=== PATIENT | female | born 1965 | race Caucasian/White ===

== ENCOUNTER → 2016-09-17 | Outpatient (REF) | payer BC | LOC: M LAB REF 12:54 | PROVIDERS: ATTEND Physician Assistant Medical | DX: N39.0 Urinary tract infection, site not specified (principal) ==

== ENCOUNTER → 2016-12-22 | Outpatient (REF) | payer BC ==
[2016-12-22 12:23] LABS: PERCENT SATURATION 25.9 % (13.2-45.0)
[2016-12-22 12:52] LABS: FOLATE 14.1 NG/ML (>5.4)
== END ==
LOC: M LABNEURO 10:31
PROVIDERS: ATTEND Psychiatry & Neurology Neurology
DX: G25.81 Restless legs syndrome (principal)

== ENCOUNTER → 2017-02-18 | Outpatient (CLI) | payer BC ==
--- NOTE | 2017-02-18 15:18 | REPMRS ---
Patient History The patient states she has not had a clinical breast exam in over a year. Patient is postmenopausal. No known family history of cancer. Digital Woman Screen Mammo: February 18, 2017 - Exam #: [id number] Bilateral CC and MLO view(s) were taken. Technologist: Eliza Barahona, Technologist Prior study comparison: July 14, 2015, digital woman screen mammo performed at [facility] to [facility]. July 02, 2014, digital woman screen mammo performed at [facility] to [facility]. September 13, 2012, bilateral digital mammo screening bilat, performed at [facility]. FINDINGS: There are scattered fibroglandular densities. There has been no change in the appearance of the mammogram from the prior studies. There is a mild amount of scattered fibroglandular density which is fairly symmetric. There is no interval development of dominant mass, architectural distortion, or clustered microcalcification suggestive of malignancy. ASSESSMENT: BI-RADS/ACR category 1 mammogram. Negative. Recommendation Routine screening mammogram in 1 year (for women over age 40). This mammogram was interpreted with the aid of an FDA-approved computer-aided dectection system. Electronically Signed By: Jason Waite MD 02/18/17 [id number]
== END ==
LOC: M WHC 14:03
PROVIDERS: ATTEND Family Medicine
DX: Z12.31 Encounter for screening mammogram for malignant neoplasm of breast (principal)

== ENCOUNTER → 2017-02-18 | Outpatient (REF) | payer BC | LOC: M SFHCWAGY 14:28 | PROVIDERS: ATTEND Family Medicine | DX: Z12.4 Encounter for screening for malignant neoplasm of cervix (principal) ==

== ENCOUNTER → 2018-04-17 | Outpatient (REF) | payer BC ==
[2018-04-17 13:29] LABS: APPEARANCE, URINE CLEAR (CLEAR); BACTERIA, URINE AUTO 1+ (NEGATIVE); BILIRUBIN, URINE AUTO NEGATIVE (NEGATIVE); BLOOD, URINE BLOOD 3+ (NEGATIVE); COLOR, URINE STRAW (YELLOW); GLUCOSE, URINE (UA) AUTO NEGATIVE (NEGATIVE); KETONE, URINE AUTO NEGATIVE (NEGATIVE); LEUKOCYTE ESTERASE, URINE AUTO 3+ (NEGATIVE); MUCUS, URINE SMALL (NEGATIVE); NITRITE, URINE AUTO NEGATIVE (NEGATIVE); PROTEIN, URINE AUTO NEGATIVE (NEGATIVE); RBC, URINE AUTO 2 /HPF (0-3); SPECIFIC GRAVITY URINE AUTO 1.003 (1.002-1.035); SQUAMOUS EPITHELIAL CELL UR AU 0 /HPF (0-6); UROBILINOGEN, URINE AUTO 0.2 mg/dL (0.0-2.0); WBC, URINE AUTO 69 /HPF (0-3)
== END ==
LOC: M LAB REF 13:07
PROVIDERS: ATTEND Physician Assistant Medical
DX: N39.0 Urinary tract infection, site not specified (principal)

== ENCOUNTER → 2018-04-21 | Outpatient (CLI) | payer BC ==
--- NOTE | 2018-04-21 15:47 | REPMRS ---
Patient History The patient states she has not had a clinical breast exam in over a year. Patient is postmenopausal and has history of skin cancer at age 52. No known family history of cancer. 3D TOMOSYNTHESIS WAS PERFORMED. Digital Woman Screen Mammo: April 21, 2018 - Exam #: [id number] Bilateral CC and MLO view(s) were taken. Technologist: Elham Ruiz, Technologist Prior study comparison: February 18, 2017, digital woman screen mammo performed at [facility]. July 14, 2015, digital woman screen mammo performed at [facility] to [facility]. FINDINGS: There are scattered fibroglandular densities. There has been no change in the appearance of the mammogram from the prior studies. There is a mild amount of residual fibroglandular tissue which is fairly symmetric. There is no interval development of dominant mass, architectural distortion, or clustered microcalcification suggestive of malignancy. Assessment: BI-RADS/ACR category 1 mammogram. Negative Mammogram. Recommendation Routine screening mammogram in 1 year (for women over age 40). This mammogram was interpreted with the aid of an FDA-approved computer-aided dectection system. Electronically Signed By: Kai Roca MD 04/21/18 [id number]
== END ==
LOC: M WHC 14:02
PROVIDERS: ATTEND Family Medicine
DX: Z12.31 Encounter for screening mammogram for malignant neoplasm of breast (principal)

== ENCOUNTER → 2018-04-21 | Outpatient (REF) | payer BC | LOC: M SFHCWAGY 14:48 | PROVIDERS: ATTEND Family Medicine | DX: Z12.4 Encounter for screening for malignant neoplasm of cervix (principal) ==

== ENCOUNTER 2018-07-27 23:29 | Emergency (ER) | payer BC ==
[~2018-07-27] VITALS: Ht 160 cm; Wt 86.9 kg
[2018-07-27] MEDS ORDERED: PRED5TA PO (23:36)
[2018-07-27] MEDS ORDERED: LEVA750T7 PO (23:36)
[2018-07-27] MEDS ORDERED: BENA40TA PO (23:36)
[2018-07-27] MEDS ORDERED: OMEP10CA45 PO (23:36)
[2018-07-27] MEDS ORDERED: FENO145T13 PO (23:36)
[2018-07-27] MEDS ORDERED: METO1TAB32 PO (23:36)
--- NOTE | 2018-07-28 01:14 | REPVR ---
EXAM: US Duplex Left Lower Extremity Veins, Limited EXAM DATE/TIME: 07/27/2018 12:26 AM CLINICAL HISTORY: 53 years old, female; Pain; Leg, lower; Left; Additional info: Left calf pain TECHNIQUE: Imaging protocol: Real-time Duplex ultrasound of the Left Lower Extremity with 2-D portillo scale, color Doppler flow and spectral waveform analysis. Limited exam focused on the left lower extremity veins. COMPARISON: No relevant prior studies available. FINDINGS: Left deep veins: Unremarkable. The common femoral, femoral, proximal profunda femoral and popliteal veins are patent without thrombus. Normal Doppler waveforms. Normal compressibility and/or augmentation response. Left superficial veins: Unremarkable. Saphenofemoral junction is patent without thrombus. Soft tissues: Unremarkable. IMPRESSION: No acute findings. No evidence of deep vein thrombosis. Electronically signed by: Tiffany Valverde On 07/28/2018 01:14:35 AM
[2018-07-28] MEDS ORDERED: KETOROLAC 30 MG/ML VIAL (J1885) IV ONE (01:30)
[2018-07-28] MEDS ORDERED: NS 1,000 ML IV ONE (01:30)
[2018-07-28] MEDS ORDERED: ONDANSETRON 4MG/2ML VIAL (J2405) IV ONE ×2 (01:30→04:30)
[2018-07-28 01:50] LABS: BASO # 0.1 10^3/uL (0.0-0.2); BASO % 0.7 % (0.0-1.0); EOS # 0.2 10^3/uL (0.0-0.50); EOS % 1.4 % (0.0-3.0); HEMATOCRIT 40.7 % (36.0-47.0); HEMOGLOBIN 13.3 g/dl (12.0-15.5); LYMPH # 1.5 10^3/uL (1.5-4.5); LYMPH % 8.4 % (24.0-44.0); MEAN CORPUSCULAR HEMOGLOBIN 29.5 pg (27.0-33.0); MEAN CORPUSCULAR HGB CONC 32.7 g/dl (32.0-36.5); MEAN CORPUSCULAR VOLUME 90.2 fl (80.0-96.0); MONO # 1.4 10^3/uL (0.0-0.8); NEUTROPHILS % 78.8 % (36.0-66.0); PLATELET COUNT, AUTOMATED 499 10^3/uL (150-450); RED BLOOD COUNT 4.51 10^6/uL (4.00-5.40); WHITE BLOOD COUNT 17.7 10^3/uL (4.0-10.0)
[2018-07-28 02:16] LABS: ALBUMIN 3.9 GM/DL (3.2-5.2); ALT/SGPT 27 U/L (12-78); BILIRUBIN,DIRECT 0.2 MG/DL (0.0-0.2); BILIRUBIN,TOTAL 0.6 MG/DL (0.2-1.0); BLOOD UREA NITROGEN 21 MG/DL (7-18); CALCIUM LEVEL 8.9 MG/DL (8.5-10.1); CARBON DIOXIDE LEVEL 28 MEQ/L (21-32); CHLORIDE LEVEL 96 MEQ/L (98-107); CPK CREATINE PHOSPHOKINASE 93 U/L (26-192); CREATININE FOR GFR 0.98 MG/DL (0.55-1.30); GLOMERULAR FILTRATION RATE > 60.0 (>51); GLUCOSE, FASTING 136 MG/DL (70-100); LIPASE 140 U/L (73-393); MB/CK RELATIVE INDEX 1.29 (< OR =4); POTASSIUM SERUM 4.2 MEQ/L (3.5-5.1); SODIUM LEVEL 131 MEQ/L (136-145); TOTAL PROTEIN 7.7 GM/DL (6.4-8.2); TROPONIN I < 0.02 NG/ML (< 0.10)
[2018-07-28] MEDS ORDERED: ISOVUE-370 76% 100ML VIAL (Q9967) As Ordered ONE (02:36)
--- NOTE | 2018-07-28 03:12 | REPVR ---
EXAM: CT Abdomen and Pelvis With Contrast EXAM DATE/TIME: 07/28/2018 2:30 AM CLINICAL HISTORY: 53 years old, female; Abdominal pain; Generalized; Additional info: Generalized abd pain TECHNIQUE: Imaging protocol: Axial computed tomography images of the abdomen and pelvis with intravenous contrast. Coronal and sagittal reformatted images were created and reviewed. Radiation optimization: All CT scans at this facility use at least one of these dose optimization techniques: automated exposure control; mA and/or kV adjustment per patient size (includes targeted exams where dose is matched to clinical indication); or iterative reconstruction. Contrast material: ISO; Contrast volume: 100 ml; Contrast route: AC; COMPARISON: PELVIS NON-OB COMPLETE US 08/25/2015 10:35 AM FINDINGS: Lungs: Bibasilar atelectasis. 3 mm nodule in the lingula. Followup as clinically indicated. ABDOMEN: Liver: Diffuse fatty infiltration of liver. Gallbladder and bile ducts: Status post cholecystectomy. Pancreas: Normal. No ductal dilation. Spleen: Normal. No splenomegaly. Adrenals: Normal. No mass. Kidneys and ureters: Normal. No hydronephrosis. Stomach and bowel: Few scattered colonic diverticula without any CT evidence of diverticulitis. No bowel dilatation or obstruction Appendix: No evidence of appendicitis. PELVIS: Bladder: Unremarkable as visualized. Reproductive: Unremarkable as visualized. ABDOMEN and PELVIS: Intraperitoneal space: Normal. No free air. No significant fluid collection. 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 Soft tissues: Unremarkable. Vasculature: Normal. No abdominal aortic aneurysm. Lymph nodes: Normal. No enlarged lymph nodes. IMPRESSION: No acute finding. Electronically signed by: Tiffany Valverde On 07/28/2018 03:11:30 AM
[2018-07-28] MEDS ORDERED: DICYCLOMINE 10 MG CAP PO ONE (04:15)
[2018-07-28] MEDS ORDERED: DICY10CA13 PO (04:16)
[2018-07-28] MEDS ORDERED: ONDA4TAB6 PO (04:16)
[2018-07-28 04:26] VITALS: BP 113/69
== END 2018-07-28 04:48 | disposition home or self-care (01) ==
LOC: M ED 23:29
DX: R10.9 Unspecified abdominal pain (principal); R11.2 Nausea with vomiting, unspecified; R19.7 Diarrhea, unspecified; A08.11 Acute gastroenteropathy due to Norwalk agent; I10 Essential (primary) hypertension; Z79.899 Other long term (current) drug therapy
CPT/HCPCS: 74177; 80048; 80076; 82550; 82553; 83605; 83690; 84484; 85025; 87040; 87507; 93041; 93971; 96374; 96375; 96376; 99284; J1885; J2405; Q9967

== ENCOUNTER → 2019-04-27 | Outpatient (CLI) | payer BC ==
[~2019-04-27] MED LIST: BENA40TA PO; DICY10CA13 PO; FENO145T7 PO; LEVA750T7 PO; METO1TAB32 PO; OMEP10CA PO; ONDA4TAB6 PO; PRED5TA PO
--- NOTE | 2019-04-27 12:10 | REPMRS ---
Patient History The patient states she has not had a clinical breast exam in over a year. No known family history of cancer. Digital Woman Screen Mammo: April 27, 2019 - Exam #: [id number] Bilateral CC and MLO view(s) were taken. Technologist: Lucinda Evans, Technologist Prior study comparison: April 21, 2018, bilateral digital woman screen mammo performed at [facility]. February 18, 2017, digital woman screen mammo performed at [facility]. July 14, 2015, digital woman screen mammo performed at [facility]. FINDINGS: There are scattered fibroglandular densities. There is a small stable well-circumscribed nodular opacity projecting in the upper outer quadrant on the right unchanged from prior studies consistent with a lymph node. There has been no change in the appearance of the mammogram from the prior studies. There is a mild amount of scattered fibroglandular density which is fairly symmetric. There is no interval development of dominant mass, architectural distortion, or grouped microcalcification suggestive of malignancy. 3-D tomosynthesis shows no additional findings. Assessment: BI-RADS/ACR category 2 mammogram. Benign Findings. Recommendation Routine screening mammogram of both breasts in 1 year (for women over age 40). This patient's Lifetime Breast Cancer Risk is estimated at 9.0 %. This mammogram was interpreted with the aid of an FDA-approved computer-aided dectection system. Electronically Signed By: Jason Waite MD 04/27/19 [id number]
== END ==
LOC: M WHC 10:57
PROVIDERS: ATTEND Family Medicine
DX: Z12.31 Encounter for screening mammogram for malignant neoplasm of breast (principal)

== ENCOUNTER → 2019-04-27 | Outpatient (REF) | payer BC | LOC: M PLALAB 11:42 | PROVIDERS: ATTEND Family Medicine | DX: Z12.4 Encounter for screening for malignant neoplasm of cervix (principal); N95.2 Postmenopausal atrophic vaginitis ==

== ENCOUNTER → 2019-12-18 | Outpatient (CLI) | payer BC ==
[2019-12-18 19:31] LABS: BLOOD UREA NITROGEN 18 MG/DL (7-18); CREATININE FOR GFR 0.85 MG/DL (0.55-1.30); GLOMERULAR FILTRATION RATE > 60.0 (>51)
== END ==
LOC: M WUC 14:34
PROVIDERS: ATTEND Orthopaedic Surgery
DX: R22.41 Localized swelling, mass and lump, right lower limb (principal)

== ENCOUNTER → 2020-05-13 | Outpatient (CLI) | payer BC ==
--- NOTE | 2020-05-13 16:57 | REPMRS ---
Patient History The patient states she had a clinical breast exam in 2020. No known family history of cancer. Digital Woman Screen Mammo: May 13, 2020 - Exam #: [id number] Bilateral CC and MLO view(s) were taken. Technologist: Kia Ochoa, Technologist Prior study comparison: April 27, 2019, bilateral digital woman screen mammo performed at [facility]. April 21, 2018, bilateral digital woman screen mammo performed at [facility]. February 18, 2017, digital woman screen mammo performed at [facility]. FINDINGS: There are scattered fibroglandular densities. The Volpara volumetric breast density category is:B. There has been no change in the appearance of the mammogram from the prior studies. There is a mild amount of scattered fibroglandular density which is fairly symmetric. There is no interval development of dominant mass, architectural distortion, or grouped microcalcification suggestive of malignancy. 3-D tomosynthesis shows no additional findings. Assessment: BI-RADS/ACR category 1 mammogram. Negative Mammogram. Recommendation Routine screening mammogram of both breasts in 1 year (for women over age 40). This patient's [facility] Lifetime Breast Cancer Risk is estimated at 8.8 %. This mammogram was interpreted with the aid of an FDA-approved computer-aided dectection system. Electronically Signed By: Jason Waite MD 05/13/20 1527
== END ==
LOC: M WHC 14:36
PROVIDERS: ATTEND Nurse Practitioner Women's Health
DX: Z12.31 Encounter for screening mammogram for malignant neoplasm of breast (principal)

== ENCOUNTER → 2020-05-13 | Outpatient (REF) | payer BC | LOC: M SFHCWAGY 19:15 | PROVIDERS: ATTEND Nurse Practitioner Women's Health | DX: Z12.4 Encounter for screening for malignant neoplasm of cervix (principal) ==

== ENCOUNTER → 2020-09-02 | Outpatient (REF) | payer BC ==
[2020-09-02 17:14] LABS: APPEARANCE, URINE CLEAR (CLEAR); BACTERIA, URINE AUTO NEGATIVE (NEGATIVE); BILIRUBIN, URINE AUTO NEGATIVE (NEGATIVE); BLOOD, URINE BLOOD NEGATIVE (NEGATIVE); COLOR, URINE COLORLESS (YELLOW); GLUCOSE, URINE (UA) AUTO NEGATIVE (NEGATIVE); KETONE, URINE AUTO NEGATIVE (NEGATIVE); LEUKOCYTE ESTERASE, URINE AUTO NEGATIVE (NEGATIVE); NITRITE, URINE AUTO NEGATIVE (NEGATIVE); PROTEIN, URINE AUTO NEGATIVE (NEGATIVE); RBC, URINE AUTO 0 /HPF (0-3); SPECIFIC GRAVITY URINE AUTO 1.002 (1.002-1.035); SQUAMOUS EPITHELIAL CELL UR AU 0 /HPF (0-6); UROBILINOGEN, URINE AUTO 0.2 mg/dL (0.0-2.0); WBC, URINE AUTO 0 /HPF (0-3)
== END ==
LOC: M LAB REF 16:33
PROVIDERS: ATTEND Physician Assistant Medical
DX: N39.0 Urinary tract infection, site not specified (principal)

== ENCOUNTER → 2021-01-01 | Outpatient (CLI) | payer BC ==
--- NOTE | 2021-01-01 12:30 | REP ---
INDICATION: ACUTE COUGH. COMPARISON: 12/02/2005 TECHNIQUE: PA and lateral FINDINGS: The superior mediastinal structures are midline. The cardiac silhouette is unremarkable in size, shape, and position. The diaphragmatic surfaces of the lungs are regular, and the costophrenic angles are clear. The pulmonary maza are clear. The imaged osseous structures are intact. IMPRESSION: There is no acute cardiopulmonary disease. No change from the prior exam. <Electronically signed by Dalton Lockhart > 01/01/21 0935
== END ==
LOC: M WUC 11:59
PROVIDERS: ATTEND Physician Assistant
DX: R05.1 Acute cough (principal)

== ENCOUNTER 2021-01-26 18:31 | Emergency (ER) | payer BC ==
[~2021-01-26] VITALS: Ht 160 cm; Wt 87.7 kg
[2021-01-26 18:32] VITALS: BP 149/78
--- OUTSIDE RECORDS SUMMARY | 2021-01-26 18:38 | CCD ---
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 Active confirmed 29 3201403 Problem Urinary frequency 788.41 Active confirmed 16 1157002 ALLERGIES Allergen (clinical drug ingredient) Drug/Non Drug Allergy do cumented on EMR Reaction Allergy Type Onset Date Status Sulfasalazine Sulfa Antibiotics Rash Drug Allergy Ac tive Floxin Otic rash Drug Allergy Active ENCOUNTERS from 1965 to 2021-01-08 Encounter Location Date Provider Diagnosis [facility] [address] [place] [address] [place] [address] Dec, Lucinda Pina IMMUNIZATIONS No Information SOCIAL HISTORY Tobacco Use: Social History Observation Description Date Details (start date - stop date) Never Smoker Sex Assigned At : Social History Observation Description Sex Assigned At Unknown Education: Question Answer Notes Level of Education: High School Sexual Hx: Question Answer Notes Had sex in the last 12 months (vaginal, oral, or anal)? Yes LMP: post menopause Have you ever had an STD? No with Men only Alcohol Screening: Question Answer Notes Did you have a drink containing alcohol in the past year? Ye s Points 3 Interpretation Positive How often did you have six or more drinks on one occas ion in the past year? Never (0 points) How many drinks did you have on a typica l day when you were drinking in the past year? 3 or 4 (1 point) How often did you have a drink containing alcohol in t he past year? Two to four times a month (2 points) BMI Care Goal Follow-Up Question Answer Notes Above Normal BMI Follow-Up Lifestyle education regarding t Tobacco Use: Question Answer Notes Are you a: never smoker never smoker REASON FOR REFERRAL No Information VITAL SIGNS No information MEDICATIONS Medication SIG (Take, Route, Frequency, Duration) Notes Start Da te End Date Status Fenofibrate 134 MG 1 capsule with a meal Orally Once a day not sure o f dose Active Lotensin 20 MG 1 tablet Orally Once a day Active Metoprolol Succinate 50 MG Orally Active Omeprazole 20 MG 1 capsule Orally Once a day Active Atenolol 50 MG 1 tablet Orally Once a day Not-Taking Pantoprazole Sodium 40 MG 1 tablet Orally Once a day as needed Not-Taking Cipro 500 MG 1 tablet Orally as directed for 1 dose Sep Not-Taking Estrace 0.1 MG/GM as directed Vaginal 0.5GM da jesika for 2 weeks, then 2x/week prn. for 90 days Apr, Not-Taking Fluconazole 150 MG 1 tablet Orally Daily for 1 day(s) 2020 Active Aspirin 81 MG 1 tablet Orally Once a day Not-Taking Atorvastatin Calcium 20 MG 1 tablet Orally Once a day Not-Taking PROCEDURES No Information RESULTS No Results REASON FOR VISIT No Information MEDICAL (GENERAL) HISTORY Type Description Date Medical History Female Climacteric State Medical History Migraines Medical History Asthma Medical History Obesity Medical History Mixed Hyperlipidemia Medical History Essential Hypertension Medical History Acid reflux Medical History allergies Medical History high cholesterol Medical History HTN Medical History postmenopause Medical History freq UTIs/BV Medical History post-tona diarrhea Medical History hematuria-2012 x 1 Surgical History 03/1990, 1991 Surgical History Cholecystectomy 09/1999 Surgical History EGD, esophageal dilation-Dr Abad 05/21/14 Surgical History Endoscopy and stricture repair 06/2014 Hospitalization History surgicaly related Goals Section No Information Health Concerns No Information MEDICAL EQUIPMENT No Information MENTAL STATUS No Information FUNCTIONAL STATUS No Information ASSESSMENTS No Information PLAN OF TREATMENT Medication Medication Name Sig Start Date Stop Date Fluconazole 150 MG 1 tablet Orally Daily for 1 day(s) Apr, Next Appt Details Provider Name:Lucinda Pina, 2021-05-18 01:00:00 PM, [address] [facility], , [place], [address], Insurance Providers Payer Name Payer Address Payer Phone Insured Name Patient Relati onship to Insured Coverage Start Date Coverage End Date [employer] PPO [phone] [facility] [address] [facility] [id number] [place] I [id number]
--- OUTSIDE RECORDS SUMMARY | 2021-01-26 18:38 | CCD | Continuity of Care Document ---
Author Author [facility] Organization Unknown Address [address] [facility] [place] [address] Phone [phone] Problems Active Problems Provider Date Essential hypertension Onset: 03/22/2001 Mixed hyperlipidemia Abimael Kline D.O., ISA Onset: 01/2003 Migraine Abimael Kline D.O., ISA Onset: 04/2010 Female climacteric state Abimael Kline D.O., ISA Onset: 05/20/2011 Body mass index 30+ - obesity Abimael Kline D.O., ISA O nset: 01/16/2015 Social History Type Date Description Comments Sex Unknown Tobacco Use Start: Unknown Never Smoked Cigarettes ETOH Use Occasionally consumes beer Tobacco Use Start: Unknown Patient has never smoked Smoking Status Reviewed: 02/05/20 Patient has never smoked Seat Belt/Car Seat yes Allergies and adverse reactions Active Allergies Criticality Reaction | Severity Comments Date Sulfa Drugs Unable to assess criticality rash 10/22/1998 Statins Unable to assess criticality severe mm sp asm 03/08/2017 Medications Active Medications SIG Qnty Indications Ordering Provide r Date Azithromycin 250mg Tablets 2 by mouth stat followed by 1 by mouth every day x 4 days 6tabs Marcos Kline D.O., FAAFP 01/01/2021 Diflucan 150mg Tablets one pill by mouth today followed by 1 in 1 week. 2tabs Abimael Kline D.O., FAAFP 01/01/2021 Pfizer-BiontRiiid Covid-19 Vaccine 30mcg/0.3ML Suspension both Abimael Kline D.O., FAAFP 11/18/2020 Cefdinir 300mg Capsules 1 tab by mouth twice a day for 10 days 20caps Abimael Kline D.O., F AAFP 11/18/[address] 1 by mouth every day 90caps [facility] 06/2020 Fenofibrate 145mg Tablets 1 by mouth every day 90tabs [facility] D.O[facility] Metoprolol Succinate ER 50mg Tablets ER 24HR 1 by mouth every day 90tabs Tony Torres, [facility] 03/08/2017 Lotensin 20mg Tablets take 1 tab by mouth every day 90tabs Abimael Kline D.O., [facility] Align 4mg Capsules 1 by mo [facility] every day Unknown Immunizations CPT Code Status Date Vaccine Lot # [id number] Refused 02/07/2018 Influenza Virus Vaccine, Quadrivalent, Slit Virus, Im Use 3Y & Up [id number] Refused 12/07/2016 Influenza Virus Vaccine, Quadrivalent, Slit Virus, Im Use 3Y & Up [id number] Vital Signs Date Vital Result Comment 01/01/2021 11:20am BP Systolic 134 mmHg BP Diastolic 82 mmHg Body Temperature 98.0 F Heart Rate 78 /min Respiratory Rate 16 /min Height 63.25 inches 5'3.25" Weight 197.00 lb [place] Body Weight 115 lb BMI (Body Mass Index) 34.6 kg/m2 O2 % BldC Oximetry 97 % 11/18/2020 1:01pm BP Systolic 124 mmHg BP Diastolic 64 mmHg Body Temperature 97.1 F Heart Rate 73 /min Respiratory Rate 16 /min Height 63.25 inches 5'3.25" Weight 196.00 lb Narvon Body Weight 115 lb BMI (Body Mass Index) 34.4 kg/m2 O2 % BldC Oximetry 96 % (AT Rest), (Room Air ) Results Test Acquired Date Facility Test Result H/L Range Note CBC 11/18/2020 [facility] WBC 8.0 10E3/uL 4.1 - 10.9 1 RBC 4.20 10E6/uL 4.20 - 6.30 HGB 12.4 g/dL 12.0 - 18.0 HCT 37.8 % 37.0 - 51.0 MCV 90.0 fL 80.0 - 97.0 MCH 29.5 pg 26.0 - 32.0 MCHC 32.8 g/dL 31.0 - 36.0 PLT 451 10E3/uL High 140 - 440 RDW-CV 12.9 % 11.5 - 14.5 Lym% 38.9 % 10.0 - 58.5 Neut% 53.3 % 37.0 - 92.0 MXD% 7.8 % 0.1 - 24.0 Lym# 3.1 10E3/uL 0.6 - 4.1 Neut# 4.3 % 2.0 - 7.8 MXD# 0.6 10E3/uL 0.0 - 1.8 MPV 7.8 fL Low 9.0 - 13.0 CMP 11/18/2020 [facility] Glu 100 mg/dL 70 - 110 BUN 14 mg/dL 8 - 23 Creat 0.9 mg/dL 0.5 - 1.0 BUN/Creatinine Ratio 16.8 CALC Na 135 mmol/L Low 136 - 145 K 4.3 mmol/L 3.5 - 5.1 CL 99.0 mmol/L 98.0 - 107.0 Co2 24.2 mmol/L 22.0 - 29.0 CA 9.9 mg/dL 8.6 - 10.2 TP 7.7 g/dL 6.6 - 8.7 Alb 4.8 g/dL 3.4 - 4.8 A/G Ratio 1.7 CALC Globulin 2.9 CALC Alp 79.9 U/L 35 - 129 Alt (SGPT) 28 U/L 0 - 41 Ast (Sgot) 26 U/L 0 - 40 Tbili 0.39 mg/dL 0.0 - 1.2 Osmolality-Calculated 270.8 CALC Anion Gap 16 mmol/L eGFR 83 # Calc 2 eGFR Non-Afr. Armenian 71 # Calc 3 U/A DIP 11/18/2020 [facility] Color pale yellow QUAL Clarity clear QUAL Glucose-Ua Negative g/dL Negative Bilirubin,Urine Negative QUAL Negative Ketone Negative mg/dL Negative Specific Tignall <=1.005 # Abnormal 1.000 - 1.030 Blood - Ua Negative QUAL Negative pH 6.0 # 5.0 - 8.0 Protein Negative mg/dL Negative Urobilinogen 0.2 NA 0.2 - 1.0 Nitrite Negative QUAL Negative Leukocyte Trace QUAL Negative 1 NORMAL RANGES Age WBC RBC HGB HCT MCV PLT Adult M 4.1-10.9 4.20-6.30 12.0-18.0 37.0-51.0 80-97 140-440 Adult F 4.1-10.9 4.04-5.48 12.0-18.0 37.0-51.0 80-97 140-440 0 -1 Yr 5.0-20.0 3.9-5.9 15-18 MV: 44 MV: 91 MV: 277 2-9 Yr. 6.0-17.0 3.8-5.4 11-13 MV: 37 MV: 78 MV: 300 10 Yrs. 5.0-13.0 3.8-5.4 12-15 MV: 39 MV: 80 MV: 250 NOTE: * FOR ADULT BLACK MALES AND FEMALES, NORMAL WBC IS 2.9-7.7 K/ML * FOR ADULT BLACK MALES AND FEMALES, NORMAL RBC,HGB, AND HCT IS 5% LESS SOURCE FOR DATA: [employer] 1800 OPERATION MANUAL( AUTOMATED BLOOD COUNTS AND DIFF.) APPENDIX B-3 CHRONIC KIDNEY DISEASE STAGING PER NKF: MALE GFR INTERPRETATION: 20-49 YRS: >60 mL/min Normal 50-59 YRS: >56 mL/min Normal 60-69 YRS: >49 mL/min Normal 70-79 YRS: >42 mL/min Normal 80 and above >35 mL/min Normal FEMALE GRF INTERPRETATION: 20-39 YRS: >60 mL/min Normal 40-49 YRS: >58 mL/min Normal 50-59 YRS: >51 mL/min Normal 60-69 YRS: >45 mL/min Normal 70-79 YRS: >39 mL/min Normal 80 and above >32 mL/min Normal 2 CKD-EPI 3 CKD-EPI Procedures Date Code Description Status 01/01/2021 01914 Office/Outpatient Established Lo w MDM 20-29 Min Completed 11/18/2020 50586 Office/Outpatient Established Mo d MDM 30-39 Min Completed Medical Devices Description No Information Available Encounters Type Date Location Provider Dx Diagnosis Office Visit 01/01/2021 11:15a [place] [facility] RobsonDouglas rao Angelica, RP A R05.1 Acute cough J01.90 Acute sinusitis, unspecified H69.91 Unspecified Eustachian tube disorder, right ear Office Visit 11/18/2020 1:00p [place] [facility] Abimael Kline D.O., FAAFP I10 Essential (primary) hypertension E78.5 Hyperlipidemia, unspecified K21.9 Gastro-esophageal reflux dis ease without esophagitis H66.91 Otitis media, unspecified, r ight ear Assessments Date Code Description Provider 01/01/2021 R05.1 Acute cough RobsonDouglas, RPA 01/01/2021 J01.90 Acute sinusitis, unspecified Alejandro aceves Douglas Dominguez, RPA 01/01/2021 H69.91 Unspecified Eustachian tube diso rder, right ear RobsonDouglas, RPA 11/18/2020 I10 Essential (primary) hypertension Abimael Kline D.O., FAAFP 11/18/2020 E78.5 Hyperlipidemia, unspecified Sandeep Kline D.O., FAAFP 11/18/2020 K21.9 Gastro-esophageal reflux disease without esophagitis Abimael Kline D.O., FAAFP 11/18/2020 H66.91 Otitis media, unspecified, right ear Abimael Kline D.O., ISA Plan of Treatment Future Appointment(s):* 02/19/2021 2:00 pm - Abimael Kline D.O., ISA at [facility] Functional Status Description No Information Available Mental Status Description No Information Available Referrals Refer to Reason for Referral Status Appt Date Haris Kline M.D. rt collar bone prominence a t attachment to the manubrium /sternum With Laying down Goes Away no injury please eval Sent [address] [id number] [phone]
--- OUTSIDE RECORDS SUMMARY | 2021-01-26 18:38 | CCD | Continuity of Care Document ---
Author Author Terra [facility] Organization Unknown Address [address] [facility] [address] [place] [address] Phone [phone] Problems Active Problems Provider Date Essential hypertension [...] week. 2tabs Abimael Kline D.O., FAAFP 01/01/2021 [employer] Covid-19 Vaccine 30mcg/0.3ML Suspension both Abimael Kline D.O., FAAFP 11/18/2020 Cefdinir 300mg Capsules 1 tab by mouth twice a day for 10 days 20caps Abimael Kline D.O., F AAFP 11/18/[address] 1 by mouth every day 90caps [facility] 06/2020 Fenofibrate 145mg Tablets 1 by mouth every day 90tabs [facility] D.O., [facility] Metoprolol Succinate ER 50mg Tablets ER 24HR 1 by mouth every day 90tabs Tony Torres, [facility] 03/08/2017 Lotensin 20mg Tablets take 1 tab by mouth every day 90tabs Abimael Kline D.O., [facility] Align 4mg Capsules 1 by mo [facility] every day Unknown Immunizations CPT Code Status Date Vaccine Lot # [id number] Refused 02/07/2018 Influenza Virus Vaccine, Quadrivalent, Slit Virus, Im Use 3Y & Up [id number] Refused 12/07/2016 Influenza Virus Vaccine, Quadrivalent, Slit Virus, Im Use 3Y & Up [id number] Vital Signs Date Vital Result Comment 01/01/2021 11:20am BP Systolic 134 mmHg BP Diastolic 82 mmHg Body Temperature 98.0 F Heart Rate 78 /min Respiratory Rate 16 /min Height 63.25 inches 5'3.25" Weight 197.00 lb [place] Body Weight 115 lb BMI (Body Mass Index) 34.6 kg/m2 O2 % BldC Oximetry 97 % 11/18/2020 1:01pm BP Systolic 124 mmHg BP Diastolic 64 mmHg Body Temperature 97.1 F Heart Rate 73 /min Respiratory Rate 16 /min Height 63.25 inches 5'3.25" Weight 196.00 lb [place] Body Weight 115 lb BMI (Body Mass [...] eGFR 83 # Calc 2 eGFR Non-Afr. [place] Islander 71 # Calc 3 U/A DIP 11/18/2020 FPA/Inhouse Color pale yellow QUAL Clarity clear QUAL Glucose-Ua Negative g/dL Negative Bilirubin,Urine Negative QUAL Negative Ketone Negative mg/dL Negative Specific [place] <=1.005 # Abnormal 1.000 - 1.030 Blood [...] HCT IS 5% LESS SOURCE FOR DATA: [employer] 1800 OPERATION MANUAL( AUTOMATED BLOOD COUNTS AND [...] CKD-EPI Procedures Date Code Description Status 01/01/2021 43829 Office/Outpatient Established Lo w MDM 20-29 Min Completed 11/18/2020 40363 Office/Outpatient Established Mo d MDM 30-39 Min Completed Medical Devices Description No Information Available Encounters Type Date Location Provider Dx Diagnosis Office Visit 01/01/2021 11:15a [place] [facility] RobsonDouglas rao Angelica, RP A R05.1 Acute cough J01.90 Acute sinusitis, unspecified H69.91 Unspecified Eustachian tube disorder, right ear Office Visit 11/18/2020 1:00p [place] [facility] Abimael Kline D.O., FAAFP I10 Essential [...] pm - Abimael Kline D.O., ISA at [facility] Functional Status Description No Information Available Mental Status Description No Information Available Referrals Refer to Reason for Referral Status Appt Date Haris Kline M.D. rt collar bone prominence a t attachment to the manubrium /sternum With Laying down Goes Away no injury please eval Sent [address] [id number] [phone]
--- OUTSIDE RECORDS SUMMARY | 2021-01-26 18:39 | CCD | Continuity of Care Document ---
Author Author Terra KLINE D.O. Organization Unknown Address [address] [address] Phone [phone] Problems Active Problems Provider Date Essential hypertension [...] has never smoked Seat Belt/Car Seat yes Allergies, Adverse Reactions, Alerts Active Allergies Criticality Reaction | Severity Comments Date Sulfa Drugs Unable to assess criticality rash 10/22/1998 Statins Unable to assess criticality severe mm sp asm 03/08/2017 Medications Active Medications SIG Qnty Indications Ordering Provide r Date [employer] Covid-19 Vaccine 30mcg/0.3ML Suspension both Abimael Kline D.O., FAAFP 11/18/2020 Cefdinir 300mg Capsules 1 tab by mouth twice a day for 10 days 20caps Abimael Kline D.O., F AAFP 11/18/[address] 1 by mouth every day 90caps Abimael Kline D.O., FAAFP 06/2020 Fenofibrate 145mg Tablets 1 by mouth every day 90tabs Abimael Kline D.O., FAAFP Metoprolol Succinate ER 50mg Tablets ER 24HR 1 by mouth every day 90tabs Tnoy Torres, FAAFP 03/08/2017 Lotensin 20mg Tablets take 1 tab by mouth every day 90tabs [facility] D.O., [facility] Align 4mg Capsules 1 by mo uth every day Unknown Immunizations CPT Code Status Date Vaccine Lot # [id number] Refused 02/07/2018 Influenza Virus Vaccine, Quadrivalent, Slit Virus, Im Use 3Y & Up [id number] Refused 12/07/2016 Influenza Virus Vaccine, Quadrivalent, Slit Virus, Im Use 3Y & Up [id number] Vital Signs Date Vital Result Comment 11/18/2020 1:01pm BP Systolic 124 mmHg BP Diastolic 64 mmHg Body Temperature 97.1 F Heart Rate 73 /min Respiratory Rate 16 /min Height 63.25 inches 5'3.25" Weight 196.00 lb [place] Body Weight 115 lb BMI (Body Mass Index) 34.4 kg/m2 O2 % BldC Oximetry 96 % (AT Rest), (Room Air ) 05/15/2020 10:36am BP Systolic 130 mmHg BP Diastolic 60 mmHg Body Temperature 97.4 F Heart Rate 74 /min Respiratory Rate 18 /min Height 63.25 inches 5'3.25" Weight 195.00 lb [place] Body Weight 115 lb BMI (Body Mass Index) 34.3 kg/m2 O2 % BldC Oximetry 98 % Results Test Acquired Date Facility Test Result [...] eGFR 83 # Calc 2 eGFR Non-Afr. [place] 71 # Calc 3 U/A DIP 11/18/2020 FPA/Inhouse Color pale yellow QUAL Clarity clear QUAL Glucose-Ua Negative g/dL Negative Bilirubin,Urine Negative QUAL Negative Ketone Negative mg/dL Negative Specific [place] <=1.005 # Abnormal 1.000 - 1.030 Blood [...] HCT IS 5% LESS SOURCE FOR DATA: [employer] 1800 OPERATION MANUAL( AUTOMATED BLOOD COUNTS AND [...] 3 CKD-EPI Procedures Date Code Description Status 11/18/2020 31605 Office/Outpatient Established Mo d MDM 30-39 Min Completed Medical Devices Description No Information Available Encounters Type Date Location Provider Dx Diagnosis Office Visit 11/18/2020 1:00p [place] [facility] Abimael Kline D.O., ISA I10 Essential (primary) hypertension E78.5 Hyperlipidemia, unspecified K21.9 Gastro-esophageal reflux dis ease without esophagitis H66.91 Otitis media, unspecified, r ight ear Assessments Date Code Description Provider 11/18/2020 I10 Essential (primary) hypertension Abimael Kline D.O., ISA 11/18/2020 E78.5 Hyperlipidemia, unspecified Sandeep Kline D.O., ISA 11/18/2020 K21.9 Gastro-esophageal reflux disease without esophagitis Abimael Klien D.O., ISA 11/18/2020 H66.91 Otitis media, unspecified, right ear Abimael Kline D.O., FAAFP Plan of Treatment Future Appointment(s):* 02/19/2021 2:00 pm - Abimael Kline D.O., FAAFP at [facility] Functional Status Description No Information Available Mental Status Description No Information Available Referrals Refer to Reason for Referral Status Appt Date Haris Kline M.D. rt collar bone prominence a t attachment to the manubrium /sternum With Laying down Goes Away no injury please eval Created [facility] [address] [address] [phone]
--- OUTSIDE RECORDS SUMMARY | 2021-01-26 18:39 | CCD | Continuity of Care Document ---
Author Author Terra KLINE MD Organization Unknown Address [address] [place] [address], [address] [address] Phone [phone] Problems Active Problems Provider Date Pure hypercholesterolemia Rolo Farfan MD Onset: 11/20 Essential hypertension Rolo Farfan MD Onset: 020 Body mass index 30+ - obesity Onset: Essential hypertension Onset: 03/22/2001 Female climacteric state Onset: 05/20/19 12 Migraine Onset: 11/20/2010 Mixed hyperlipidemia Onset: 11/29/2002 Social History Type Date Description Comments Sex Unknown ETOH Use Occasionally consumes alcohol Tobacco Use Start: Unknown Patient has never smoked Allergies and adverse reactions Active Allergies Criticality Reaction | Severity Comments Date sulfa drugs Unable to assess criticality 12/11/2019 Statins Unable to assess criticality severe mm sp asm 11/26/2020 Floxin Unable to assess criticality 12/11/2019 Medications Active Medications SIG Qnty Indications Ordering Provide r Date [employer] Covid-19 Vaccine 30mcg/0.3ML Suspension both Abimael Kline, 11/18/2020 Cefdinir 300mg Capsules 1 tab by mouth twice a day for 10 days 20caps Abimael Kline, [address] 1 by mouth every day 90caps Abimael Kline DO 03/24/2020 Fenofibrate 145mg Tablets 1 by mouth every day 90tabs Abimael Kline DO 10/31/2017 Metoprolol Succinate ER 50mg Tablets ER 24HR 1 by mouth every day 90tabs Abimael Kline DO Lotensin 20mg Tablets take 1 tab by mouth every day 90tabs Abimael Kline DO 02/11/1999 Fenofibrate 145mg Tablets Take 1 Tablet By Mouth Once Daily Unknown Omeprazole 20mg Capsules DR Take 1 Capsule By Mouth In The Morning Unknown 00 Metoprolol Succinate ER 50mg Tablets ER 24HR Take 1 Tablet By Mouth Once Daily Unknown Lotensin 10mg Tablets Unknown Align 4mg Capsules 1 by mo uth every day Unknown Immunizations Description No Information Available Vital Signs Date Vital Result Comment 11/18/2020 1:01pm Height 63.25 inches 5'3.25" Weight 196.00 lb BMI (Body Mass Index) 34.4 kg/m2 12/11/2019 3:09pm Body Temperature 98.0 F Height 63.5 inches 5'3.50" Weight 191.00 lb BMI (Body Mass Index) 33.3 kg/m2 Results Test Acquired Date Facility Test Result H/L Range Note CBC 11/18/2020 N2N/CCD Import WBC 8.0 10E3/uL 4.1-10.9 1 RBC 4.20 10E6/uL 4.20-6.30 HGB 12.4 g/dL 12.0-18.0 HCT 37.8 % 37.0-51.0 MCV 90.0 fL 80.0-97.0 MCH 29.5 pg 26.0-32.0 MCHC 32.8 g/dL 31.0-36.0 PLT 451 10E3/uL High 140-440 RDW-CV 12.9 % 11.5-14.5 Lym% 38.9 % 10.0-58.5 Neut% 53.3 % 37.0-92.0 MXD% 7.8 % 0.1-24.0 Lym# 3.1 10E3/uL 0.6-4.1 Neut# 4.3 % 2.0-7.8 MXD# 0.6 10E3/uL 0.0-1.8 MPV 7.8 fL Low 9.0-13.0 U/A DIP 11/18/2020 N2N/CCD Import Color pale yellow Qual Clarity clear Qual Glucose-Ua Negative g/dL Bilirubin,Urine Negative Qual Ketone Negative mg/dL Specific [place] <=1.005 # Abnormal 1.000-1.030 Blood - Ua Negative Qual pH 6.0 # 5.0-8.0 Protein Negative mg/dL Urobilinogen 0.2 NA 0.2-1.0 Nitrite Negative Qual Leukocyte Trace Qual 1 NORMAL RANGES Age WBC RBC HGB [...] HCT IS 5% LESS SOURCE FOR DATA: [facility] 1800 OPERATION MANUAL( AUTOMATED BLOOD COUNTS AND [...] Normal 80 and above >32 mL/min Normal Procedures Date Code Description Status 12/26/2020 42686 X-Ray Clavicle Complete Complete d Medical Devices Description No Information Available Encounters Description No Information Available Assessments Date Code Description Provider 12/26/2020 M25.511 Pain in right shoulder Haris Kline MD Plan of Treatment 12/26/2020 - Haris Kline MD* M25.511 Pain in right shoulder* New Labs:* CBC With Differential, Ordered: 12/26/20 * Antinuclear Antibodies, Ordered: 12/26/20 * Rheumatoid Factor Quant, Ordered: 12/26/20 * Erythrocyte Sedimentation Rate, Ordered: 12/26/20 * High Sensitivity C-Reactive Protein, Ordered: 12/26/20 * New Xrays:* CT Right Clavicle, Ordered: 12/26/20 * Follow up:* with [facility] for rt clavicle ct results Functional Status Description No Information Available Mental Status Description No Information Available Referrals Description No Information Available
--- OUTSIDE RECORDS SUMMARY | 2021-01-26 18:39 | CCD | Continuity of Care Document ---
Author Author Terra KLINE MD Organization Unknown Address [address] [place] [address], [address] [address] Phone [phone] Problems Active Problems Provider Date Pure hypercholesterolemia [...] SIG Qnty Indications Ordering Provide r Date [employer]ion[employer]at[employer] Covid-19 Vaccine 30mcg/0.3ML Suspension both Abimael Kline, 11/18/2020 Cefdinir 300mg Capsules 1 tab by mouth twice a day for 10 days 20caps Abimael Kline DO [address] 1 by [...] Bilirubin,Urine Negative Qual Ketone Negative mg/dL Specific [place] <=1.005 # Abnormal 1.000-1.030 Blood - Ua [...] HCT IS 5% LESS SOURCE FOR DATA: [employer] 1800 OPERATION MANUAL( AUTOMATED BLOOD COUNTS AND [...] Normal Procedures Date Code Description Status 12/26/2020 95339 Office/Outpatient Established Lo w MDM 20-29 Min Completed 12/26/2020 93174 X-Ray Clavicle Complete Complete d Medical Devices Description No Information Available Encounters Type Date Location Provider Dx Diagnosis Office Visit 12/26/2020 1:15p [place] Haris Kline MD M25.511 Pain in right shoulder Assessments Date Code Description Provider 12/26/2020 M25.511 Pain in right shoulder Haris Kline MD Plan of Treatment 12/26/2020 - Haris Kline MD* M25.511 Pain in right shoulder* New Xrays:* CT Right Clavicle, Ordered: 12/26/20 * Follow up:* with [facility] for rt clavicle ct results Functional Status Description No Information Available Mental Status Description No Information Available Referrals Description No Information Available
--- OUTSIDE RECORDS SUMMARY | 2021-01-26 18:39 | CCD | Continuity of Care Document ---
Author Author Terra KLINE MD Organization Unknown Address [address] [place] [address], [address] [address] Phone [phone] Problems Active Problems Provider Date Pure hypercholesterolemia [...] SIG Qnty Indications Ordering Provide r Date [employer]Bion[employer] Covid-19 Vaccine 30mcg/0.3ML Suspension both Abimael Kline, [...] Bilirubin,Urine Negative Qual Ketone Negative mg/dL Specific [place] <=1.005 # Abnormal 1.000-1.030 Blood - Ua [...] HCT IS 5% LESS SOURCE FOR DATA: [employer] 1800 OPERATION MANUAL( AUTOMATED BLOOD COUNTS AND [...] Normal Procedures Date Code Description Status 12/26/2020 68069 X-Ray Clavicle Complete Complete d Medical Devices [...]
--- OUTSIDE RECORDS SUMMARY | 2021-01-26 18:39 | CCD | Continuity of Care Document ---
Author Author Terra FARAFN MD Organization Unknown Address [address] [place] [address] Phone [phone] Problems Active Problems Provider Date Pure hypercholesterolemia [...] SIG Qnty Indications Ordering Provide r Date [employer] Covid-19 Vaccine 30mcg/0.3ML Suspension both Abimael Kline, 11/18/2020 Cefdinir 300mg Capsules 1 tab by mouth twice a day for 10 days 20caps Abimael Kline DO [address] 1 by mouth every day 90caps Abimael Kline DO 03/24/2020 Fenofibrate 145mg Tablets 1 by mouth every day 90tabs Abimael Kline, 10/31/2017 Metoprolol Succinate ER 50mg Tablets ER [...] Bilirubin,Urine Negative Qual Ketone Negative mg/dL Specific [place] <=1.005 # Abnormal 1.000-1.030 Blood - Ua [...] HCT IS 5% LESS SOURCE FOR DATA: [employer] 1800 OPERATION MANUAL( AUTOMATED BLOOD COUNTS AND [...] 80 and above >32 mL/min Normal Procedures Description No Information Available Medical Devices Description No Information Available Encounters Description No Information Available Assessments Description No Information Available Plan of Treatment Future Appointment(s):* 12/26/2020 1:15 pm - aHris Kline MD at [place] 01/09/2020 - Rolo Farfan MD* R22.41 Localized swelling, mass and lump, right lower limb* Follow up:* prn Functional Status Description No Information Available Mental Status Description No Information Available Referrals Description No Information Available
--- OUTSIDE RECORDS SUMMARY | 2021-01-26 18:39 | CCD | Continuity of Care Document ---
Author Author Terra KLINE D.O. Organization Unknown Address [address] [address] Phone [phone] Problems Active Problems Provider Date Essential hypertension [...] SIG Qnty Indications Ordering Provide r Date [employer] Covid-19 Vaccine 30mcg/0.3ML Suspension both Abimael Kline [...] by mouth every day 90tabs Tony Torres, FAAFP 03/08/2017 Lotensin 20mg Tablets take 1 tab by mouth every day 90tabs Abimael Kline D.O., FAAFP Align 4mg Capsules 1 by mo uth every day Unknown Immunizations CPT Code Status Date Vaccine Lot # [id number] Refused 02/07/2018 Influenza Virus Vaccine, Quadrivalent, Slit Virus, Im Use 3Y & Up [id number] Refused 12/07/2016 Influenza Virus Vaccine, Quadrivalent, Slit Virus, Im Use 3Y & Up [id number] Vital Signs Date Vital Result Comment 11/18/2020 1:01pm BP Systolic 124 mmHg BP Diastolic 64 mmHg Body Temperature 97.1 F Heart Rate 73 /min Respiratory Rate 16 /min Height 63.25 inches 5'3.25" Weight 196.00 lb [place] Body Weight 115 lb BMI (Body Mass Index) 34.4 kg/m2 O2 % BldC Oximetry 96 % (AT Rest), (Room Air ) 05/15/2020 10:36am BP Systolic 130 mmHg BP Diastolic 60 mmHg Body Temperature 97.4 F Heart Rate 74 /min Respiratory Rate 18 /min Height 63.25 inches 5'3.25" Weight 195.00 lb [place] Body Weight 115 lb BMI (Body Mass Index) 34.3 kg/m2 O2 % BldC Oximetry 98 % Results Description No Information Available Procedures Date Code Description Status 11/18/2020 85825 Office/Outpatient Established Mo d MDM 30-39 Min Completed Medical Devices Description No Information Available Encounters Type Date Location Provider Dx Diagnosis Office Visit 11/18/2020 1:00p [place] [facility] Abimael Kline D.O., [facility] I10 Essential (primary) hypertension E78.5 Hyperlipidemia, unspecified K21.9 Gastro-esophageal reflux dis ease without esophagitis H66.91 Otitis media, unspecified, r ight ear Assessments Date Code Description Provider 11/18/2020 I10 Essential (primary) hypertension Abimael Kline D.O., FAAFP 11/18/2020 E78.5 Hyperlipidemia, unspecified Sandeep Kline D.O., [facility] 11/18/2020 K21.9 Gastro-esophageal reflux disease without esophagitis Abimael Kline D.O., [facility] 11/18/2020 H66.91 Otitis media, unspecified, right ear Abimael Kline D.O., [facility] Plan of Treatment No Information Available Functional Status Description No Information Available Mental Status Description No Information Available Referrals Description No Information Available
--- OUTSIDE RECORDS SUMMARY | 2021-01-26 18:40 | CCD ---
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 Name Role Phone Fish, B Haris MESA Unavailable Unavailable Fish, B Haris MESA Unavailable Unavailable Fish, B Haris MESA Unavailable Unavailable Fish, B Haris MESA Unavailable Unavailable Fish, B Haris MESA Unavailable Unavailable Fish, B Haris MESA Unavailable Unavailable Fish, B Haris MESA Unavailable Unavailable Fish, B Haris MESA Unavailable Unavailable Fish, B Haris MESA Unavailable Unavailable Fish, B Haris MESA Unavailable Unavailable Fish, B Haris MESA Unavailable Unavailable Fish, B Haris MESA Unavailable Unavailable Fish, B Haris MESA Unavailable Unavailable Fish, B Haris MESA Unavailable Unavailable Fish, B Haris MESA Unavailable Unavailable Fish, B Haris MESA Unavailable Unavailable Fish, B Haris MESA Unavailable Unavailable Fish, B Haris MESA Unavailable Unavailable Fish, B Haris MESA Unavailable Unavailable Fish, B Haris MESA Unavailable Unavailable Fish, B Haris MESA Unavailable Unavailable Fish, B Haris MESA Unavailable Unavailable Fish, B Haris EMSA Unavailable Unavailable Fish, B Haris MESA Unavailable Unavailable Fish, B Haris MESA Unavailable Unavailable Fish, B Haris MESA Unavailable Unavailable Fish, B Haris MESA Unavailable Unavailable Fish, B Haris MESA Unavailable Unavailable Fish, B Haris MESA Unavailable Unavailable Fish, B Haris MESA Unavailable Unavailable Fish, B Haris MESA Unavailable Unavailable Fish, B Haris MESA Unavailable Unavailable Fish, Jeremias Carballo MD Unavailable Unavailable Fish, B Haris MESA Unavailable Unavailable Fish, B Haris MESA Unavailable Unavailable Fish, B Haris MESA Unavailable Unavailable Fish, B Haris MESA Unavailable Unavailable Fish, B Haris MESA Unavailable Unavailable Fish, B Haris MESA Unavailable Unavailable Fish, B Haris MESA Unavailable Unavailable Fish, B Haris MESA Unavailable Unavailable Fish, B Haris MESA Unavailable Unavailable Fish, B Haris MESA Unavailable Unavailable Fish, B Haris MESA Unavailable Unavailable Fish, B Haris MESA Unavailable Unavailable Fish, B Haris MESA Unavailable Unavailable Fish, B Haris MESA Unavailable Unavailable Fish, B Haris MESA Unavailable Unavailable Fish, B Haris MESA Unavailable Unavailable Fish, B Haris MESA Unavailable Unavailable Fish, B Haris MESA Unavailable Unavailable Fish, B Haris MESA Unavailable Unavailable Fish, B Haris MESA Unavailable Unavailable Fish, B Haris MESA Unavailable Unavailable Fish, B Haris MESA Unavailable Unavailable Fish, B Haris MESA Unavailable Unavailable Anshu ORO MD Unavailable Unavailable Anshu ORO MD Unavailable Unavailable Anshu ORO MD Unavailable Unavailable Anshu ORO MD Unavailable Unavailable Anshu ROO MD Unavailable Unavailable Anshu ORO MD Unavailable Unavailable Anshu ORO MD Unavailable Unavailable Anshu ORO MD Unavailable Unavailable Anshu ORO MD Unavailable Unavailable Anshu ORO MD Unavailable Unavailable Anshu ORO MD Unavailable Unavailable Anshu ORO MD Unavailable Unavailable Anshu ORO MD Unavailable Unavailable Anshu ORO MD Unavailable Unavailable Anshu ORO MD Unavailable Unavailable Anshu ORO MD Unavailable Unavailable Anshu ORO MD Unavailable Unavailable Anshu ORO MD Unavailable Unavailable Anshu ORO MD Unavailable Unavailable Anshu ORO MD Unavailable Unavailable Anshu ORO MD Unavailable Unavailable Anshu ORO MD Unavailable Unavailable Anshu ORO MD Unavailable Unavailable Anshu ORO MD Unavailable Unavailable Anshu ORO MD Unavailable Unavailable Anshu ORO MD Unavailable Unavailable Anshu ROO MD Unavailable Unavailable Anshu ORO MD Unavailable Unavailable Anshu ORO MD Unavailable Unavailable Anshu ORO MD Unavailable Unavailable Anshu ORO MD Unavailable Unavailable Anshu ORO MD Unavailable Unavailable Anshu ORO MD Unavailable Unavailable Anshu ORO MD Unavailable Unavailable Anshu ORO MD Unavailable Unavailable Anshu ORO MD Unavailable Unavailable Anshu ORO MD Unavailable Unavailable Anshu ORO MD Unavailable Unavailable OROAnshu Laura MD Unavailable Unavailable Anshu ORO MD Unavailable Unavailable OROAnshu Laura MD Unavailable Unavailable Anshu ORO MD Unavailable Unavailable OROAnshu Laura MD Unavailable Unavailable OROAnshu Laura MD Unavailable Unavailable Anshu ORO MD Unavailable Unavailable Anshu ORO MD Unavailable Unavailable Anshu ORO MD Unavailable Unavailable Anshu ORO MD Unavailable Unavailable Anshu ORO MD Unavailable Unavailable Anshu ORO MD Unavailable Unavailable Anshu ORO MD Unavailable Unavailable Anshu ORO MD Unavailable Unavailable Anshu ORO MD Unavailable Unavailable Anshu ORO MD Unavailable Unavailable JOHN FARFAN MD Unavailable Unavailable JOHN FARFAN MD Unavailable Unavailable JOHN FARFAN MD Unavailable Unavailable JOHN FARFAN MD Unavailable Unavailable JOHN FARFAN MD Unavailable Unavailable JOHN FARFAN MD Unavailable Unavailable JOHN FARFAN MD Unavailable Unavailable JOHN FARFAN MD Unavailable Unavailable JOHN FARFAN MD Unavailable Unavailable JOHN FARFAN MD Unavailable Unavailable JOHN FARFAN MD Unavailable Unavailable JOHN FARFAN MD Unavailable Unavailable JOHN FARFAN MD Unavailable Unavailable JOHN FARFAN MD Unavailable Unavailable JOHN FARFAN MD Unavailable Unavailable JOHN FARFAN MD Unavailable Unavailable JOHN FARFAN MD Unavailable Unavailable JOHN FARFAN MD Unavailable Unavailable JOHN FARFAN MD Unavailable Unavailable JOHN FARFAN MD Unavailable Unavailable JOHN FARFAN MD Unavailable Unavailable JOHN FARFAN MD Unavailable Unavailable JOHN FARFAN MD Unavailable Unavailable JOHN FARFAN MD Unavailable Unavailable JOHN FARFAN MD Unavailable Unavailable JOHN FARFAN MD Unavailable Unavailable JOHN FARFAN MD Unavailable Unavailable JOHN FARFAN MD Unavailable Unavailable JOHN FARFAN MD Unavailable Unavailable JOHN FARFAN MD Unavailable Unavailable JOHN FARFAN MD Unavailable Unavailable JOHN FARFAN MD Unavailable Unavailable JOHN FARFAN MD Unavailable Unavailable Jody Castillo MD Unavailable Unavailable Jody Castillo MD Unavailable Unavailable Jody Castillo MD Unavailable Unavailable Jody Castillo MD Unavailable Unavailable Jody Castillo MD Unavailable Unavailable Jody Castillo MD Unavailable Unavailable Jody Castillo MD Unavailable Unavailable Jody Castillo MD Unavailable Unavailable Jody Castillo MD Unavailable Unavailable Jody Castillo MD Unavailable Unavailable Jody Castillo MD Unavailable Unavailable Jonathan, A Ludin MD Unavailable Unavailable Jonathan, A Ludin MD Unavailable Unavailable Jonathan, A Ludin MD Unavailable Unavailable Jonathan, A Ludin MD Unavailable Unavailable Jonathan, A Ludin MD Unavailable Unavailable Jonathan, A Ludin MD Unavailable Unavailable Jonathan, A Ludin MD Unavailable Unavailable Jonathan, A Ludin MD Unavailable Unavailable Jonathan, A Ludin MD Unavailable Unavailable Jonathan, A Ludin MD Unavailable Unavailable Jonathan, A Ludin MD Unavailable Unavailable Jonathan, A Ludin MD Unavailable Unavailable Jontahan, A Ludin MD Unavailable Unavailable Jonathan, A Ludin MD Unavailable Unavailable Jonathan, A Ludin MD Unavailable Unavailable Jonathan, A Ludin MD Unavailable Unavailable Jonathan, A Ludin MD Unavailable Unavailable Jonathan, A Ludin MD Unavailable Unavailable Jonathan, A Ludin MD Unavailable Unavailable Jonathan, A Ludin MD Unavailable Unavailable Jonathan, A Ludin MD Unavailable Unavailable Jonathan, A Ludin MD Unavailable Unavailable Jonathan, A Ludin MD Unavailable Unavailable Jonathan, A Ludin MD Unavailable Unavailable Jonathan, A Ludin MD Unavailable Unavailable Jonathan, A Ludin MD Unavailable Unavailable Jonathan, A Ludin MD Unavailable Unavailable Jonathan, A Ludin MD Unavailable Unavailable Jonathan, A Ludin MD Unavailable Unavailable Jonathan, A Ludin MD Unavailable Unavailable Jonathan, A Ludin MD Unavailable Unavailable Jonathan, A Ludin MD Unavailable Unavailable Jonathan, A Ludin MD Unavailable Unavailable Jonathan, A Ludin MD Unavailable Unavailable Jonathan, A Ludin MD Unavailable Unavailable Jonathan, A Ludin MD Unavailable Unavailable Jonathan, A Ludin MD Unavailable Unavailable Jonathan, A Ludin MD Unavailable Unavailable Jonathan, A Ludin MD Unavailable Unavailable Jonathan, A Ludin MD Unavailable Unavailable Jonathan, A Ludin MD Unavailable Unavailable Jonathan, A Ludin MD Unavailable Unavailable Jonathan, A Ludin MD Unavailable Unavailable Jonathan, A Ludin MD Unavailable Unavailable Jonathan, A Ludin MD Unavailable Unavailable Jonathan, A Ludin MD Unavailable Unavailable Jonathan, A Ludin MD Unavailable Unavailable Jonathan, A Ludin MD Unavailable Unavailable Jonathan, A Ludin MD Unavailable Unavailable Jonathan, A Ludin MD Unavailable Unavailable Jonathan, A Ludin MD Unavailable Unavailable Jonathan, A Ludin MD Unavailable Unavailable Jonathan, A Ludin MD Unavailable Unavailable Jonathan, A Ludin MD Unavailable Unavailable Jonathan, A Ludin MD Unavailable Unavailable Jonathan, A Ludin MD Unavailable Unavailable Jonathan, A Ludin MD Unavailable Unavailable Jonathan, A Ludin MD Unavailable Unavailable Jonathan, A Ludin MD Unavailable Unavailable Jonathan, A Ludin MD Unavailable Unavailable Jonathan, A Ludin MD Unavailable Unavailable Jonathan, A Ludin MD Unavailable Unavailable Jonathan, A Ludin MD Unavailable Unavailable Jonathan, A Ludin MD Unavailable Unavailable Jonathan, A Ludin MD Unavailable Unavailable Jonathan, A Ludin MD Unavailable Unavailable Jonathan, A Ludin MD Unavailable Unavailable Jonathan, A Ludin MD Unavailable Unavailable Jonathan, A Ludin MD Unavailable Unavailable Jonathan, A Ludin MD Unavailable Unavailable Jonathan, A Ludin MD Unavailable Unavailable Jonathan, A Ludin MD Unavailable Unavailable Jonathan, A Ludin MD Unavailable Unavailable Jonathan, A Ludin MD Unavailable Unavailable Jonathan, A Ludin MD Unavailable Unavailable Jonathan, A Ludin MD Unavailable Unavailable Jonathan, A Ludin MD Unavailable Unavailable Jonathan, A Ludin MD Unavailable Unavailable Jonathan, A Ludin MD Unavailable Unavailable Jonathan, A Ludin MD Unavailable Unavailable Jonathan, A Ludin MD Unavailable Unavailable Jonathan, A Ludin MD Unavailable Unavailable Jonathan, A Ludin MD Unavailable Unavailable Jonathan, A Ludin MD Unavailable Unavailable Jonathan, A Ludin MD Unavailable Unavailable Jonathan, A Ludin MD Unavailable Unavailable Jonathan, A Ludin MD Unavailable Unavailable Jonathan, A Ludin MD Unavailable Unavailable Jonathan, A Ludin MD Unavailable Unavailable Jonathan, A Ludin MD Unavailable Unavailable Jonathan, A Ludin MD Unavailable Unavailable Jonathan, A Ludin MD Unavailable Unavailable Jonathan, A Ludin MD Unavailable Unavailable Jonathan, A Ludin MD Unavailable Unavailable Jonathan, A Ludin MD Unavailable Unavailable Jonathan, A Ludin MD Unavailable Unavailable Jonathan, A Ludin MD Unavailable Unavailable Jonathan, A Ludin MD Unavailable Unavailable Jonathan, A Ludin MD Unavailable Unavailable Jonathan, A Ludin MD Unavailable Unavailable Jonathan, A Ludin MD Unavailable Unavailable Jonathan, A Ludin MD Unavailable Unavailable Jonathan, A Ludin MD Unavailable Unavailable Jonathan, A Ludin MD Unavailable Unavailable Jonathan, A Ludin MD Unavailable Unavailable Jonathan, A Ludin MD Unavailable Unavailable Fish, Jeremias Carballo MD Unavailable Unavailable Fish, Jeremias Carballo MD Unavailable Unavailable Fish, Jeremias Carballo MD Unavailable Unavailable Fish, Jeremias Carballo MD Unavailable Unavailable Fish, Jeremias Carballo MD Unavailable Unavailable Fish, Jereimas Carballo MD Unavailable Unavailable Fish, Jeremias Carballo MD Unavailable Unavailable Fish, B Haris MESA Unavailable Unavailable Fish, B Haris MESA Unavailable Unavailable Fish, B Haris MESA Unavailable Unavailable Fish, B Haris MESA Unavailable Unavailable Fish, B Haris MESA Unavailable Unavailable Fish, B Haris MESA Unavailable Unavailable Fish, B Haris MESA Unavailable Unavailable Fish, B Haris MESA Unavailable Unavailable Fish, B Haris MESA Unavailable Unavailable Fish, B Haris MESA Unavailable Unavailable Fish, B Haris MESA Unavailable Unavailable Fish, B Haris MESA Unavailable Unavailable Fish, B Haris MESA Unavailable Unavailable Fish, B Haris MESA Unavailable Unavailable Fish, B Haris MESA Unavailable Unavailable Fish, B Haris MESA Unavailable Unavailable Fish, B Haris MESA Unavailable Unavailable Fish, B Haris MESA Unavailable Unavailable Fish, B Haris MESA Unavailable Unavailable Fish, B Haris MESA Unavailable Unavailable Fish, B Haris MESA Unavailable Unavailable Fish, B Haris MESA Unavailable Unavailable Fish, B Haris MESA Unavailable Unavailable Fish, B Haris MESA Unavailable Unavailable Fish, B Haris MESA Unavailable Unavailable Fish, B Haris MESA Unavailable Unavailable Fish, B Haris MESA Unavailable Unavailable Fish, B Haris MESA Unavailable Unavailable Fish, B Haris MESA Unavailable Unavailable Fish, B Haris MESA Unavailable Unavailable Fish, B Haris MESA Unavailable Unavailable Fish, B Haris MESA Unavailable Unavailable Fish, B Haris MESA Unavailable Unavailable Fish, B Haris MESA Unavailable Unavailable Fish, B Haris MESA Unavailable Unavailable Fish, B Haris MESA Unavailable Unavailable Fish, B Haris MESA Unavailable Unavailable Fish, B Haris MESA Unavailable Unavailable Fish, B Haris MESA Unavailable Unavailable Fish, B Haris MESA Unavailable Unavailable Fish, B Haris MESA Unavailable Unavailable Fish, B Haris MESA Unavailable Unavailable Fish, B Haris MESA Unavailable Unavailable Fish, B Haris MESA Unavailable Unavailable Fish, B Haris MESA Unavailable Unavailable Fish, B Haris MESA Unavailable Unavailable Fish, B Haris MESA Unavailable Unavailable Fish, B Haris MESA Unavailable Unavailable Fish, B Haris MESA Unavailable Unavailable Robson, D Douglas PA Unavailable Unavailable Robson, D Doulgas PA Unavailable Unavailable Robson, D Douglas PA Unavailable Unavailable Robson, D Douglas PA Unavailable Unavailable Robson, D Douglas PA Unavailable Unavailable Robson, D Douglas PA Unavailable Unavailable Robson, D Douglas PA Unavailable Unavailable Robson, D Douglas PA Unavailable Unavailable Robson, D Douglas PA Unavailable Unavailable Robson, D Douglas PA Unavailable Unavailable Robson, D Douglas PA Unavailable Unavailable Robson, D Douglas PA Unavailable Unavailable Robson, D Douglas PA Unavailable Unavailable Robson, D Douglas PA Unavailable Unavailable Robson, D Douglas PA Unavailable Unavailable Robson, D Douglas PA Unavailable Unavailable Robson, D Douglas PA Unavailable Unavailable Robson, D Douglas PA Unavailable Unavailable Robson, D Douglas PA Unavailable Unavailable Robson, D Douglas PA Unavailable Unavailable Robson, D Douglas PA Unavailable Unavailable Robson, D Douglas PA Unavailable Unavailable Robson, D Douglas PA Unavailable Unavailable Robson, D Douglas PA Unavailable Unavailable Robson, D Douglas PA Unavailable Unavailable Robson, D Douglas PA Unavailable Unavailable Robson, D Douglas PA Unavailable Unavailable Robson, D Douglas PA Unavailable Unavailable Robson, D Douglas PA Unavailable Unavailable Robson, D Douglas PA Unavailable Unavailable Robson, D Douglas PA Unavailable Unavailable Robson, D Douglas PA Unavailable Unavailable Robson, D Douglas PA Unavailable Unavailable Robson, D Douglas PA Unavailable Unavailable Robson, D Douglas PA Unavailable Unavailable Robson, D Douglas PA Unavailable Unavailable Robson, D Douglas PA Unavailable Unavailable Robson, D Douglas PA Unavailable Unavailable Robson, D Douglas PA Unavailable Unavailable Robson, D Douglas PA Unavailable Unavailable Robson, D Douglas PA Unavailable Unavailable Robson, D Douglas PA Unavailable Unavailable Robson, D Douglas PA Unavailable Unavailable Robson, D Douglas PA Unavailable Unavailable Robson, D Douglas PA Unavailable Unavailable Robson, D Douglas PA Unavailable Unavailable Robson, D Douglas PA Unavailable Unavailable Robson, D Douglas PA Unavailable Unavailable Robson, D Douglas PA Unavailable Unavailable Robson, D Douglas PA Unavailable Unavailable Robson, D Douglas PA Unavailable Unavailable Robson, D Douglas PA Unavailable Unavailable Robson, D Douglas PA Unavailable Unavailable Robson, D Douglas PA Unavailable Unavailable Robson, D Douglas PA Unavailable Unavailable Robson, D Douglas PA Unavailable Unavailable Robson, D Douglas PA Unavailable Unavailable Robson, D Douglas PA Unavailable Unavailable Robson, D Douglas PA Unavailable Unavailable Robson, D Douglas PA Unavailable Unavailable Robson, D Douglas PA Unavailable Unavailable Robson, D Douglas PA Unavailable Unavailable Robson, D Douglas PA Unavailable Unavailable Robson, D Douglas PA Unavailable Unavailable Robson, D Douglas PA Unavailable Unavailable Robson, D Douglas PA Unavailable Unavailable Robson, D Douglas PA Unavailable Unavailable Robson, D Douglas PA Unavailable Unavailable Fish, J Abimael Unavailable Unavailable Fish, J Abimael Unavailable Unavailable Fish, J Abimael Unavailable Unavailable Fish, J Abimael Unavailable Unavailable Fish, J Abimael Unavailable Unavailable Fish, J Abimael Unavailable Unavailable Fish, J Abimael Unavailable Unavailable Fish, J Abimael Unavailable Unavailable Fish, J Abimael Unavailable Unavailable Fish, J Abimael Unavailable Unavailable Fish, J Abimael Unavailable Unavailable Fish, J Abimael Unavailable Unavailable Fish, J Abimael Unavailable Unavailable Fish, J Abimael Unavailable Unavailable Fish, J Abimael Unavailable Unavailable Fish, J Abimael Unavailable Unavailable Fish, J Abimael Unavailable Unavailable Fish, J Abimael Unavailable Unavailable Fish, J Abimael Unavailable Unavailable Fish, J Abimael Unavailable Unavailable Fish, J Abimael Unavailable Unavailable Fish, J Abimael Unavailable Unavailable Fish, J Abimael Unavailable Unavailable Fish, J Abimael Unavailable Unavailable Fish, J Abimael Unavailable Unavailable Fish, J Abimael Unavailable Unavailable Fish, J Abimael Unavailable Unavailable Fish, J Abimael Unavailable Unavailable Fish, J Abimael Unavailable Unavailable Fish, J Abimael Unavailable Unavailable Fish, J Abimael Unavailable Unavailable Fish, J Abimael Unavailable Unavailable Fish, J Abimael Unavailable Unavailable Fish, J Abimael Unavailable Unavailable Fish, J Abimael Unavailable Unavailable Fish, J Abimael Unavailable Unavailable Fish, J Abimael Unavailable Unavailable Fish, J Abimael Unavailable Unavailable Fish, J Abimael Unavailable Unavailable Fish, J Abimael Unavailable Unavailable Fish, J Abimael Unavailable Unavailable Fish, J Abimael Unavailable Unavailable Fish, J Abimael Unavailable Unavailable Fish, J Abimael Unavailable Unavailable Fish, J Abimael Unavailable Unavailable Fish, J Abimael Unavailable Unavailable Fish, J Abimael Unavailable Unavailable Fish, J Abimael Unavailable Unavailable Fish, J Abimael Unavailable Unavailable Fish, J Abimael Unavailable Unavailable Fish, J Abimael Unavailable Unavailable Fish, J Abimael Unavailable Unavailable Fish, J Abimael Unavailable Unavailable Fish, J Abimael Unavailable Unavailable Fish, J Abimael Unavailable Unavailable Fish, J Abimael Unavailable Unavailable Fish, J Abimael Unavailable Unavailable Fish, J Abimael Unavailable Unavailable Fish, J Abimael Unavailable Unavailable Fish, J Abimael Unavailable Unavailable Fish, J Abimael Unavailable Unavailable Fish, J Abimael Unavailable Unavailable Fish, J Abimael Unavailable Unavailable Fish, J Abimael Unavailable Unavailable Fish, J Abimael Unavailable Unavailable Fish, J Abimael Unavailable Unavailable Fish, J Abimael Unavailable Unavailable Fish, J Abimael Unavailable Unavailable Fish, J Abimael Unavailable Unavailable Fish, J Abimael Unavailable Unavailable Fish, J Abimael Unavailable Unavailable Fish, J Abimael Unavailable Unavailable Fish, J Abimael Unavailable Unavailable Fish, J Abimael Unavailable Unavailable Fish, J Abimael Unavailable Unavailable Fish, J Abimael Unavailable Unavailable Fish, J Abimael Unavailable Unavailable Fish, J Abimael Unavailable Unavailable Fish, J Abimael Unavailable Unavailable Fish, J Abimael Unavailable Unavailable Fish, J Abimael Unavailable Unavailable Fish, J Abimael Unavailable Unavailable Fish, J Abimael Unavailable Unavailable Fish, J Abimael Unavailable Unavailable Fish, J Abimael Unavailable Unavailable NON, PHYSICIAN STAFF Unavailable Unavailable Re-disclosure Warning The records that you are about to access may contain information from federally-assisted alcohol or drug abuse programs. If such information is present, then the following federally mandated warning applies: This information has been disclosed to you from records protected by federal confidentiality rules (42 CFR part 2). The federal rules prohibit you from making any further disclosure of this information unless further disclosure is expressly permitted by the written consent of the person to whom it pertains or as otherwise permitted by 42 CFR part 2. A general authorization for the release of medical or other information is NOT sufficient for this purpose. The Federal rules restrict any use of the information to criminally investigate or prosecute any alcohol or drug abuse patient.The records that you are about to access may contain highly sensitive health information, the redisclosure of which is protected by Article 27-F of the [facility] Public Health law. If you continue you may have access to information: Regarding HIV / AIDS; Provided by facilities licensed or operated by the [facility] Office of Mental Health; or Provided by the [facility] Office for People With Developmental Disabilities. If such information is present, then the following [facility] mandated warning applies: This information has been disclosed to you from confidential records which are protected by state law. State law prohibits you from making any further disclosure of this information without the specific written consent of the person to whom it pertains, or as otherwise permitted by law. Any unauthorized further disclosure in violation of state law may result in a fine or shelter sentence or both. A general authorization for the release of medical or other information is NOT sufficient authorization for further disc losure. Allergies and Adverse Reactions Type Description Substance Reaction Status Data Source(s ) Propensity to adverse reactions SULFA ANTIBIOTICS SULFA ANTIBIOTICS [facility] Propensity to adverse reactions OFLOXACIN OFLOXACIN [facility] Family History Family Member Name Family Member Gender Family Member Status Date o f Status Description Data Source(s) Unknown Male Problem [facility] ([facility] Encounters Encounter Providers Location Date Indications Data Source(s ) Outpatient Attender: Haris Kline MDConsultant: STAFF NON 01/12/2021 12:30:00 PM EDT - 01/12/2021 01:30:00 PM EDT [facility] Patient discharged. [place] [address] [facility] [address] 01/08/2021 12:00:00 AM EDT eCW1 ([facility]) Outpatient Attender: Douglas LOZA [facility] 11:15:00 AM EDT [facility] ([facility] OFFICE OUTPATIENT VISIT 15 MINUTES Attender: Haris Kline MD Phys ical Therapy 12/26/2020 01:15:00 PM EDT [facility] ([facility]) Outpatient Attender: Abimael Kline [facility] 11/18/2020 01:00:0 0 PM EDT [facility] ([facility] Outpatient Attender: Abimael Kline [facility] 05/15/2020 09:20:0 0 AM EST [facility] ([facility] [place] [address] [facility] [address] 05/15/2020 12:00:00 AM EST eCW1 ([facility]) [place] [address] [facility] [facility] [address] 05/13/2020 12:00:00 AM EST eCW1 ([facility]) Outpatient Attender: Ludin Castillo MD [id number] 04/25/2020 12 :00:00 AM EST Other specified soft tissue disorders [facility] Other specified soft tissue disorders Outpatient Attender: Ludin Castillo MD 04/04/2020 12:00:00 AM [facility] Outpatient Attender: CHAPITO ORO MD Main Office 03/24/2020 01:00:00 PM EST [facility] ([facility]) Outpatient Attender: Ludin Castillo MD [id number] 02/22/2020 12 :00:00 AM EST Other specified disorders of muscle [facility] Other specified disorders of muscle Outpatient Attender: Ludin Casitllo MDReferrer: JOHN HARRIS MD [id number] 02/08/2020 12:00:00 AM [facility] Outpatient Attender: Abimael Kline [place] Office 02/05/2020 09:20:0 0 AM EST [facility] ([facility] Outpatient Attender: JOHN FARFAN MD Physical Therapy 02:45:00 PM EDT [facility] ([facility]) Outpatient Attender: JOHN FARFAN MD Physical Therapy 02:00:00 PM EDT [facility] ([facility]) Immunizations Vaccine Date Status Description Data Source(s) COVID-19 VACCINE Pfizer 07/03/2020 12:00:00 AM EDT completed [facility] Vaccine Series Complete: YESThis Data wa s Submitted to [facility] Via [employer]. COVID-19 VACCINE Pfizer 06/12/2020 12:00:00 AM EDT completed [facility] Vaccine Series Complete: NOThis Data was Submitted to [facility] Via [employer]. Medications Medication Brand Name Start Date Product Form Dose Route Admi nistrative Instructions Pharmacy Instructions Status Indications Reaction Description Data Source(s) Fluconazole 150 MG Oral Tablet [Diflucan] Diflucan 01/01/2021 1 2:00:00 AM EDT ORAL active [facility] ([facility] Azithromycin 250 MG Oral Tablet Azithromycin 01/01/2021 12:00:00 AM E DT ORAL active [facility] ([facility] cefdinir 300 MG Oral Capsule Cefdinir 11/18/2020 12:00:00 AM EDT ORAL active [facility] ([facility] [employer] Covid-19 Vaccine Pfizer-Biontech Covid-19 Va ccine 11/18/2020 12:00:00 AM EDT active M [facility]ENT ([facility]) cefdinir 300 MG Oral Capsule Cefdinir 11/18/2020 12:00:00 AM EDT ORAL active [facility] ([facility] Pfizer-[employer]iontech Covid-19 Vaccine Pfizer-Biontech Covid-19 Va ccine 11/18/2020 12:00:00 AM EDT active M [facility] ([facility] Fluconazole 150 MG Oral Tablet Fluconazole 150 MG 05/13/2020 12:00: 00 AM EST 1.0 {tablet} active Fluconazole 150 MG eCW1 ([facility]) Fluconazole 150 MG Oral Tablet Fluconazole 150 MG 05/13/2020 12:00: 00 AM EST 1.0 {tablet} active Fluconazole 150 MG eCW1 ([facility]) Fluconazole 150 MG Oral Tablet Fluconazole 150 MG 05/13/2020 12:00: 00 AM EST 1.0 {tablet} active Fluconazole 150 MG eCW1 ([facility]) Omeprazole 20 MG Delayed Release Oral Capsule Omeprazole 03/24/2020 12:00:00 AM EST ORAL active [facility]) Omeprazole 20 MG Delayed Release Oral Capsule Omeprazole 03/24/2020 12:00:00 AM EST ORAL active [facility] ([facility] Omeprazole 40 MG Delayed Release Oral Capsule Omeprazole 03/23/2020 12:00:00 AM EST ORAL active [facility] ([facility] Benazepril hydrochloride 20 MG Oral Tablet [Lotensin] Lotens in 03/23/2020 12:00:00 AM EST active M [facility] ([facility]) Fenofibrate 145 MG Oral Tablet Fenofibrate 03/23/2020 12:00:00 AM EST ORAL active [facility] ([facility] 24 HR metoprolol succinate 50 MG Extended Release Oral Tablet Metoprolol Succinate ER 03/23/2020 12:00:00 AM EST ORAL active [facility] ([facility]) Omeprazole 40 MG Delayed Release Oral Ca psule Omeprazole 40 MG Oral Capsule Delayed Release (PRILOSEC) Omeprazole 40 MG Oral Capsule Delayed Re lease (PRILOSEC) 02/07/2020 12:00:00 AM EST active [facility] 24 HR metoprolol succinate 50 MG Extende d Release Oral Tablet Metoprolol Succinate ER 50 MG Oral Tablet Extended Release 24 Hour (TOPROL-XL) Metoprolol Succinate ER 50 MG Oral Tablet Extended Release 24 Hour (TOPROL-XL) 01/25/2020 12:00:00 AM EST 50 mg Oral active Take 50 mg by mouth daily [facility] Benazepril hydrochloride 20 MG Oral Tabl et Benazepril HCl 20 MG Oral Tablet (LOTENSIN) Benazepril HCl 20 MG Oral Tablet (LOTENSIN) 01/25/2020 12:00:00 AM EST 20 mg Oral active Take 20 mg by quirino th daily [facility] Fenofibrate 145 MG Oral Tablet Fenofibrate 145 MG Oral Tablet (TRICOR) Fenofibrate 145 MG Oral Tablet (TRICOR) 01/25/2020 12:00:00 AM EST 145 mg Oral active Take 145 mg by mouth daily [facility] Insurance Providers Payer name Policy type / Coverage type Policy ID Covered libertarian ID Covered libertarian's relationship to pedersen Policy Pedersen Plan Information [id number] Spouse [id number] BCBS Medigap Part B [id number] Family Dependent BCBS Medigap Part B [id number] Family Dependent [id number] [facility] [id number] [facility] Commercial [id number] Family Dependent EXCELLUS C [id number] Spouse [id number] [facility]/PPO/POS [id number] EXCELLUS C [id number] Self [id number] [place] PPO 302/307 [id number] [place]2 [id number] BCBS Commercial [id number] Family Dependent [id number] [facility] SHIELD -O/P [id number] 01 [id number] BCBS Commercial [id number] Family Dependent [id number] BCBS Commercial [id number] Family Dependent [id number] BCBS Commercial [id number] Family Dependent [id number] BCBS Commercial [id number] Family Dependent [place] PPO 302/307 [id number] [id number] [place] PPO 302/307 [id number] HU2 [id number] [place]BS [place] PPO 302/307 [id number] HU2 [id number] BLUE CROSS O [id number] S [id number] ANSI-Commercial [id number] [place] PPO 302/307 [id number] [place]2 [id number] [place] PPO 302/307 [id number] EXCELLUS BCBS B [id number] P YNE [id number] EXCELLUS BCBS B [id number] P TNY [id number] EXCELLUS BCBS B [id number] P YNE [id number] EXCELLUS BCBS B UNAVAILABLE [id number] P UNAV AILABLE EXCELLUS BCBS B [id number] P TNY [id number] Problems, Conditions, and Diagnoses Code Display Name Description Problem Type Effective Dates Data Source(s) W07047 Pain in right shoulder Pain in right shoulder Diagnosi s 01/12/2021 12:30:00 PM EDT [facility] R937 Abnormal findings on diagnos tic imaging of other parts of musculoskeletal system Abnormal findings on diagnostic imaging of other parts of musculoskeletal system Diagnosis 01/12/2021 12:30:00 PM EDT [facility] S32478 Primary osteoarthritis, left shoulder Pr imary osteoarthritis, left shoulder Diagnosis 01/12/2021 12:30:00 PM EDT [facility] [id number] Primary osteoarthritis, right shoulder P rimary osteoarthritis, right shoulder Diagnosis 01/12/2021 12:30:00 PM [facility] M79.89 Other specified soft tissue disorders Ot her specified soft tissue disorders Diagnosis 04/25/2020 11:02:[address] [facility] M62.89 Other specified disorders of muscle Other specif ied disorders of muscle Diagnosis 02/22/2020 10:52:27 AM [facility] [id number] Precordial pain Precordial pain Problem 03/24/2020 12:0 0:00 AM EST [facility] ([facility]) [id number] Electrocardiogram abnormal Electrocardiogram abnormal Problem 03/24/2020 12:00:00 AM EST [facility] ([facility]) [id number] Essential hypertension Essential hypertension Problem 03/24/2020 12:00:00 AM EST [facility] ([facility]) [id number] Dietary management surveillance Dietary manageme nt surveillance Problem 03/24/2020 12:00:00 AM EST [facility] ([facility] [id number] Heart murmur Heart murmur Problem 03/24/2020 12:00:00 A M EST [facility] ([facility]) [id number] Body mass index 30+ - obesity Body mass index 30+ - ob esity Problem 03/24/2020 12:00:00 AM EST [facility] ([facility]) [id number] Essential hypertension Essential hypertension Problem 12/11/2019 12:00:00 AM EDT [facility] ([facility] [id number] Pure hypercholesterolemia Pure hypercholesterolemia Pr oblem 12/11/2019 12:00:00 AM EDT [facility] ([facility] Surgeries/Procedures Procedure Description Date Indications Data Source(s) OFFICE OUTPATIENT VISIT 15 MINUTES 01/01/2021 12:00:00 AM EDT [facility] ([facility] X-Ray Clavicle Complete 12/26/2020 12:00:00 AM EDT [facility] ([facility] OFFICE OUTPATIENT VISIT 15 MINUTES 12/26/2020 12:00:00 AM EDT [facility] ([facility]) OFFICE OUTPATIENT VISIT 25 MINUTES 11/18/2020 12:00:00 AM [facility] MYOCARDIAL SPECT MULTIPLE STUDIES 04/14/2020 12:00:00 AM EST [facility] ([facility]) CV STRS TST XERS&/OR RX CONT ECG PHYS SI&R 04/14/2020 12:00:00 AM EST [facility] ([facility]) ECG ROUTINE ECG W/LEAST 12 LDS W/I&R 03/24/2020 12:00: 00 AM EST [facility] ([facility]) Electrocardiogram Complete 02/05/2020 12:00:00 AM EST [facility] RADIOLOGIC EXAMINATION TIBIA & FIBULA 2 VIEWS 12/11/19 12:00:00 AM EDT [facility] ([facility] ) Results ID Date Data Source [id number] 01/14/2021 08:20:00 AM EDT [facility] [address] [place] [address] PHONE: [phone] FAX: [phone] Name .................. : CATALINA TOLLIVER I Acct Number.................. : [id number] ROOM. ................. : MR Number ................... : [id number] Stay type ............. : O/P Discharge Date......... ... : 01/12/21 Admit Date ......... : 01/12/21 Admit Phys .................... : FABIAN ROBINS Date of ....... : 1965 Family Phys ................... : NON STAFF Phone .................. : [phone] Age ................................ : 55 Film# .................. .:[id number] Sex ................................. : F Unsigned transcriptions are preliminary reports and do not represent a medical or legal document CT UPPER EXT RT W/O CONT [id number] COMPLETE:01/12/21 12:32 64383 Reason for Exam : R CLAVICLE R/O SC DISLOCATION EXAM: CT sternoclavicular joints. HISTORY: Sternoclavicular dislocation. Pain in right shoulder. Office called to confirm desired scan. Per technologist lump over right sternoclavicular joint question sternoclavicular dislocation. COMPARISON: None. Targeted exam in the area of the sternoclavicular joints with rotational reconstructions. FINDINGS: The medial right clavicle is shifted anteriorly relative to the manubrium compared with the left side but is still predominantly in contact with the manubrial articulation. There is no complete sternoclavicular dislocation or medial overriding. There is extensive joint space sclerosis and irregularity with subchondral cystic change on both sides of the sternoclavicular joint. Similar but milder degenerative changes are seen on the left. At the inferior aspect of the right joint space there is demarcated low-attenuation which may represent proliferative cartilage/synovium but is suspected to also include a component of joint space effusion or ganglion. No destructive changes to specifically suggest osteomyelitis. No internal gas density to indicate active infection. IMPRESSION: Right medial clavicle sits more anteriorly relative to the manubrium than the left. Correlate for specific traumatic etiology for displacement. Bilateral degenerative changes right greater than left. In the absence of corresponding traumatic history consider whether the displacement is related to asymmetric sternoclavicular joint degeneration. Page 1 of 2 [facility] [address] [place] [address] PHONE: [phone] FAX: [phone] Name .................. : CATALINA TOLLIVER I Acct Number.................. : [id number] ROOM. ................. : Number ................... : [id number] Stay type ............. : O/P Discharge Date......... ... : 01/12/21 Admit Date ......... : 01/12/21 Admit Phys .................... : FABIAN ROBINS Date of ....... : 1965 Family Phys ................... : NON STAFF Phone .................. : [phone] Age ................................ : 55 Film# .................. .:[id number] Sex ................................. : F Unsi gned transcriptions are preliminary reports and do not represent a medical or legal document CT UPPER EXT RT W/O CONT [id number] COMPLETE:01/12/21 12:32 72587 Reason for Exam: R CLAVICLE R/O SC DISLOCATION Electronically Reviewed and Signed By Seth Tiwari MD , 01/14/21 08:20, SCB Transcribe Initials: SSR, Transcribe Date: 01/12/21 14:08, Dictation Date: Copy for: FABIAN Mcdowell via fax Copy for: [facility] REC Page 2 of 2 Name Value Range Interpretation Code Description Data Augustina rce(s) Supporting Document(s) ID Date Data Source [id number] 12/29/2020 03:07:00 PM EDT [facility] Received: 12/26/2020 at 14:03:00 QPT : [facility], [address], [address] [place], [address], Jeromy Wall MD Received: 12/26/2020 at 14:03:00 QPT : [facility], [address], [address] [place], [address], Jeromy Wall MD Received: 12/26/2020 at 14:03:00 QPT : [facility], [address], [address] [place], [address], Jeromy Wall MD Received: 12/26/2020 at 14:03:00 QPT : [facility], [address], [address] [place], [address]Jeromy MD Received: 12/26/2020 at 14:03:00 QPT : [facility], [address], [address] [place], [address]Jeromy MD Name Value Range Interpretation Code Description Data Augustina rce(s) Supporting Document(s) Erythrocyte sedimentation rate by Westergren method 2 mm/h < OR = 30 Normal (applies to non-numeric results) [facility] ID Date Data Source [id number] 12/29/2020 03:07:00 PM EDT [facility] Received: 12/26/2020 at 14:03:00 QPT : [facility], [address], [address] [place], [address]Jeromy MD Received: 12/26/2020 at 14:03:00 QPT : [facility], [address], [address] [place], [address]Jeromy MD Received: 12/26/2020 at 14:03:00 QPT : [facility], [address], [address] [place], [address], Jeromy Wall MD Received: 12/26/2020 at 14:03:00 QPT : [facility], [address], [address] [place], [address], Jeromy Wall MD Received: 12/26/2020 at 14:03:00 QPT : [facility], [address], [address] [place], [address], Jeromy Wall MD Name Value Range Interpretation Code Description Data Augustina rce(s) Supporting Document(s) Leukocytes [#/volume] in Blood by Automated count 6.9 Thousand/u L 3.8-10.8 Normal (applies to non-numeric results) [facility] Erythrocytes [#/volume] in Blood by Automated count 4.21 Million /uL 3.80-5.10 Normal (applies to non-numeric results) [facility] Hemoglobin [Mass/volume] in Blood 12.6 g/dL 11.7-15.5 Normal (applies to non- numeric results) [facility] Hematocrit [Volume Fraction] of Blood by Automated count 38.0 % 35.0-45.0 Normal (applies to non-numeric results) [facility] Erythrocyte mean corpuscular volume [Entitic volume] by Auto mated count 90.3 fL 80.0-100.0 Normal (applies to non-numeric results) [facility] Erythrocyte mean corpuscular hemoglobin [Entitic mass] by Automated count 29.9 pg 27.0-33.0 Normal (applies to non-numeric results) [facility] Erythrocyte mean corpuscular hemoglobin concentration [Mass/volume] by Automated count 33.2 g/dL 32.0-36.0 Normal (applies to non-numeric results) [facility] Erythrocyte distribution width [Ratio] by Automated count 12.2 % 11.0-15.0 Normal (applies to non-numeric results) [facility] Platelets [#/volume] in Blood by Automated count 429 Thousand/uL 140-400 Above high normal [facility] Platelet mean volume [Entitic volume] in Blood by Jese 9.1 fL 7.5-12.5 Normal (applies to non-numeric results) [facility] Neutrophils [#/volume] in Blood by Automated count 4009 cells/uL 0904-1118 Normal (applies to non-numeric results) [facility] Lymphocytes [#/volume] in Blood by Automated count 1711 cells/uL 850-3900 Normal (applies to non-numeric results) [facility] Monocytes [#/volume] in Blood by Automated count 863 cells/uL 200-950 Normal (applies to non-numeric results) [facility] Eosinophils [#/volume] in Blood by Automated count 228 cells/uL 15-500 Normal (applies to non-numeric results) [facility] Basophils [#/volume] in Blood by Automated count 90 cells/uL 0-200 Normal (applies to non-numeric results) [facility] Neutrophils/100 leukocytes in Blood by Automated count 58.1 % 38-80 Normal (applies to non-numeric results) [facility] Lymphocytes/100 leukocytes in Blood by Automated count 24.8 % 15-49 Normal (applies to non-numeric results) [facility] Monocytes/100 leukocytes in Blood by Automated count 12.5 % 0-13 Normal (applies to non-numeric results) [facility] Eosinophils/100 leukocytes in Blood by Automated count 3.3 % 0-8 Normal (applies to non-numeric results) [facility] Basophils/100 leukocytes in Blood by Automated count 1.3 % 0-2 Normal (applies to non-numeric results) [facility] ID Date Data Source [id number] 12/29/2020 03:07:00 PM EDT [facility] Received: 12/26/2020 at 14:03:00 QPT : [facility], [address], [address] [place] [address], [phone], Jeromy Wall MD Received: 12/26/2020 at 14:03:00 QPT : [facility], [address], [address] [place] [address], [phone], Jeromy Wall MD Received: 12/26/2020 at 14:03:00 QPT : [facility], [address], [address] [place] [address], [phone], Jeromy Wall MD Received: 12/26/2020 at 14:03:00 QPT : [facility], [address], [address] [place] [address], [phone], Jeromy Wall MD Received: 12/26/2020 at 14:03:00 QPT : [facility], [address], [address] [place], [address], Jeromy Wall MD Name Value Range Interpretation Code Description Data Augustina rce(s) Supporting Document(s) Nuclear Ab [Presence] in Serum by Immunofluorescence NEGATIVE Normal (applies to non-numeric results) [facility] ALEX IFA is a first line screen for detec ting thepresence of up to approximately 150 autoantibodies invarious autoimmune diseases. A negative ALEX IFA resultsuggests an ALEX-associated autoimmune disease is notpresent at this time, but is not definitive. If thereis high clinical suspicion for Sjogren's syndrome,testing for anti-SS-A/Ro antibody should be considered.Anti-Darlin-1 antibody should be considered for clinicallysuspected inflammatory myopathies.AC-0: NegativeInternational Consensus on ALEX Patterns(https://doi.org/10.1515/edtv-2709-2385)For additional information, please refer tohttp://education.Konoz.Curse/faq/APF766(This link is being provided for informational/educational purposes only.) ID Date Data Source [id number] 12/29/2020 03:07:00 PM EDT [facility] Received: 12/26/2020 at 14:03:00 QPT : [facility], [address], [address] [place], [address]Jeromy MD Received: 12/26/2020 at 14:03:00 QPT : [facility], [address], [address] [place], [address]Jeromy MD Received: 12/26/2020 at 14:03:00 QPT : [facility], [address], [address] [place], [address]Jeromy MD Received: 12/26/2020 at 14:03:00 QPT : [facility], [address], [address] [place], [address], Jeromy Wall MD Received: 12/26/2020 at 14:03:00 QPT : [facility], [address], [address] [place] [address], [phone], Jeromy Wall MD Name Value Range Interpretation Code Description Data Augustina rce(s) Supporting Document(s) Rheumatoid factor [Units/volume] in Serum or Plasma <14 IU/mL <14 Normal (applies to non-numeric results) [facility] ID Date Data Source [id number] 12/29/2020 03:07:00 PM EDT [facility] Received: 12/26/2020 at 14:03:00 QPT : [facility], [address], [address] [place] [address], [phone], Jeromy Wall MD Received: 12/26/2020 at 14:03:00 QPT : [facility], [address], [address] [place] [address], [phone], Jeromy Wall MD Received: 12/26/2020 at 14:03:00 QPT : [facility], [address], [address] [place] [address], [phone], Jeromy Wall MD Received: 12/26/2020 at 14:03:00 QPT : [facility], [address], [address] [place] [address], [phone] MD Received: 12/26/2020 at 14:03:00 QPT : [facility], [address], [address] [place] [address], [phone], Jeromy Wall MD Name Value Range Interpretation Code Description Data Augustina rce(s) Supporting Document(s) C reactive protein [Mass/volume] in Serum or Plasma by High sensitivity method 7.2 mg/L Above high normal [facility] Reference RangeOptimal <1.0Jorge Alanis al. Endocr Pract.2017;23(Suppl 2):1- 87.For ages >17 Years:hs-CRP mg/L Risk According to AHA/CDC Guidelines<1.0 Lower relative cardiovascular risk.1.0-3.0 Average relative cardiovascular risk.3.1-10.0 Higher relative cardiovascular risk. Consider retesting in 1 to 2 weeks to exclude a benign transient elevation in the baseline CRP value secondary to infection or inflammation.>10.0 Persistent elevation, upon retesting, may be associated with infection and inflammation. Your request to have a duplicate copy faxed has been acknowledged. Queued to: [id number] ID Date Data Source [id number] 11/18/2020 01:35:00 PM EDT [facility] ([facility] Name Value Range Interpretation Code Description Data Augustina rce(s) Supporting Document(s) Color Laboratory test result [facility] ([facility] NORMAL RANGES Age WBC RBC HGB HCT [...] HCT IS 5% LESS SOURCE FOR DATA: [employer] 1800 OPERATION MANUAL( AUTOMATED BLOOD COUNTS AND [...] Normal 80 and above >32 mL/min Normal Clarity Laboratory test result [facility] ([facility] NORMAL RANGES Age WBC RBC HGB HCT [...] HCT IS 5% LESS SOURCE FOR DATA: [employer] 1800 OPERATION MANUAL( AUTOMATED BLOOD COUNTS AND [...] Normal 80 and above >32 mL/min Normal Ketone Laboratory test result [facility] ([facility] NORMAL RANGES Age WBC RBC HGB HCT MCV PLT Adult M 4.1-10.9 4.20-6.30 12.0-18.0 37.0-51.0 80-97 140-440 Adult F 4.1-10.9 4.04-5.48 12.0-18.0 37.0-51.0 80- 140-440 0 -1 Yr 5.0-20.0 3.9-5.9 15-18 [...] HCT IS 5% LESS SOURCE FOR DATA: [employer] 1800 OPERATION MANUAL( AUTOMATED BLOOD COUNTS AND [...] Normal 80 and above >32 mL/min Normal Glucose-Ua Laboratory test result [facility] ([facility] NORMAL RANGES Age WBC RBC HGB HCT [...] HCT IS 5% LESS SOURCE FOR DATA: [employer] 1800 [employer] MANUAL( AUTOMATED BLOOD COUNTS AND [...] Normal 80 and above >32 mL/min Normal Bilirubin,Urine Laboratory test result [facility] ([facility] NORMAL RANGES Age WBC RBC HGB HCT [...] HCT IS 5% LESS SOURCE FOR DATA: [employer] 1800 [employer]ATION MANUAL( AUTOMATED BLOOD COUNTS AND [...] Normal 80 and above >32 mL/min Normal pH 6.0 # 5.0-8.0 [facility] ([facility] NORMAL RANGES Age WBC RBC HGB HCT [...] HCT IS 5% LESS SOURCE FOR DATA: [employer] 1800 OPERATION MANUAL( AUTOMATED BLOOD COUNTS AND [...] Normal 80 and above >32 mL/min Normal Blood - Ua Laboratory test result ME [facility] ([facility] NORMAL RANGES Age WBC RBC HGB HCT [...] HCT IS 5% LESS SOURCE FOR DATA: [employer] 1800 [employer]PERATION MANUAL( AUTOMATED BLOOD COUNTS AND [...] Normal 80 and above >32 mL/min Normal Creatine kinase [Enzymatic activity/volume] in Serum o r Plasma Laboratory test result 1.000-1.030 Abnormal (applies to non-numeric results) [facility] ([facility] NORMAL RANGES Age WBC RBC HGB HCT [...] HCT IS 5% LESS SOURCE FOR DATA: [employer] 1800 [employer]ATION MANUAL( AUTOMATED BLOOD COUNTS AND [...] Normal 80 and above >32 mL/min Normal Urobilinogen 0.2 NA 0.2-1.0 [facility] ([facility] NORMAL RANGES Age WBC RBC HGB HCT [...] HCT IS 5% LESS SOURCE FOR DATA: [employer] 1800 OPERATION MANUAL( AUTOMATED BLOOD COUNTS AND [...] Normal 80 and above >32 mL/min Normal Protein Laboratory test result [facility] ([facility] NORMAL RANGES Age WBC RBC HGB HCT [...] HCT IS 5% LESS SOURCE FOR DATA: [employer] 1800 OPERATION MANUAL( AUTOMATED BLOOD COUNTS AND [...] Normal 80 and above >32 mL/min Normal Leukocyte Laboratory test result ME [facility] ([facility] NORMAL RANGES Age WBC RBC HGB HCT [...] HCT IS 5% LESS SOURCE FOR DATA: [employer] 1800 [employer] MANUAL( AUTOMATED BLOOD COUNTS AND [...] Normal 80 and above >32 mL/min Normal Nitrite Laboratory test result [facility] ([facility] NORMAL RANGES Age WBC RBC HGB HCT [...] HCT IS 5% LESS SOURCE FOR DATA: [employer] 1800 OPERATION MANUAL( AUTOMATED BLOOD COUNTS AND [...] Normal 80 and above >32 mL/min Normal ID Date Data Source [id number] 11/18/2020 01:35:00 PM EDT [facility] ([facility] Name Value Range Interpretation Code Description Data Augustina rce(s) Supporting Document(s) Glu 100 mg/dL 70-110 [facility] NORMAL RANGES Age WBC RBC HGB HCT [...] HCT IS 5% LESS SOURCE FOR DATA: [employer] 1800 O[employer]ATION MANUAL( AUTOMATED BLOOD COUNTS AND [...] Normal 80 and above >32 mL/min Normal BUN 14 mg/dL 8-23 [facility] NORMAL RANGES Age WBC RBC HGB HCT [...] HCT IS 5% LESS SOURCE FOR DATA: [employer] 1800 OPERATION MANUAL( AUTOMATED BLOOD COUNTS AND [...] Normal 80 and above >32 mL/min Normal Creat 0.9 mg/dL 0.5-1.0 [facility] ([facility] NORMAL RANGES Age WBC RBC HGB HCT [...] HCT IS 5% LESS SOURCE FOR DATA: [employer] 1800 OPERATION MANUAL( AUTOMATED BLOOD COUNTS AND [...] Normal 80 and above >32 mL/min Normal BUN/Creatinine Ratio 16.8 CALC [facility] ([facility] NORMAL RANGES Age WBC RBC HGB HCT [...] HCT IS 5% LESS SOURCE FOR DATA: [employer] 1800 OPERATION MANUAL( AUTOMATED BLOOD COUNTS AND [...] Normal 80 and above >32 mL/min Normal CL 99.0 mmol/L 98.0-107.0 [facility] ([facility] NORMAL RANGES Age WBC RBC HGB HCT [...] HCT IS 5% LESS SOURCE FOR DATA: [employer] 1800 OPERATION MANUAL( AUTOMATED BLOOD COUNTS AND [...] Normal 80 and above >32 mL/min Normal Na 135 mmol/L 136-145 Below low normal [facility] ( [facility] NORMAL RANGES Age WBC RBC HGB HCT [...] HCT IS 5% LESS SOURCE FOR DATA: [employer] 1800 OPERATION MANUAL( AUTOMATED BLOOD COUNTS AND [...] Normal 80 and above >32 mL/min Normal K 4.3 mmol/L 3.5-5.1 [facility] ([place] NORMAL RANGES Age WBC RBC HGB HCT [...] HCT IS 5% LESS SOURCE FOR DATA: [employer] 1800 OPERATION MANUAL( AUTOMATED BLOOD COUNTS AND [...] Normal 80 and above >32 mL/min Normal CA 9.9 mg/dL 8.6-10.2 [facility] ([facility] NORMAL RANGES Age WBC RBC HGB HCT [...] HCT IS 5% LESS SOURCE FOR DATA: [employer] 1800 [employer]UAL( AUTOMATED BLOOD COUNTS AND [...] Normal 80 and above >32 mL/min Normal TP 7.7 g/dL 6.6-8.7 [facility] ([facility] NORMAL RANGES Age WBC RBC HGB HCT [...] HCT IS 5% LESS SOURCE FOR DATA: [employer] 1800 OPERATION MANUAL( AUTOMATED BLOOD COUNTS AND [...] Normal 80 and above >32 mL/min Normal Co2 24.2 mmol/L 22.0-29.0 [facility] ([facility] NORMAL RANGES Age WBC RBC HGB HCT [...] HCT IS 5% LESS SOURCE FOR DATA: [employer] 1800 OPERATION MANUAL( AUTOMATED BLOOD COUNTS AND [...] Normal 80 and above >32 mL/min Normal A/G Ratio 1.7 CALC [facility] ([facility] NORMAL RANGES Age WBC RBC HGB HCT [...] HCT IS 5% LESS SOURCE FOR DATA: [employer] 1800 OPERATION MANUAL( AUTOMATED BLOOD COUNTS AND [...] Normal 80 and above >32 mL/min Normal Globulin 2.9 CALC [facility] ([facility] NORMAL RANGES Age WBC RBC HGB HCT [...] HCT IS 5% LESS SOURCE FOR DATA: [employer] 1800 OPERATION MANUAL( AUTOMATED BLOOD COUNTS AND [...] Normal 80 and above >32 mL/min Normal Alb 4.8 g/dL 3.4-4.8 [facility] ([facility] NORMAL RANGES Age WBC RBC HGB HCT [...] HCT IS 5% LESS SOURCE FOR DATA: [employer] 1800 OPERATION MANUAL( AUTOMATED BLOOD COUNTS AND [...] Normal 80 and above >32 mL/min Normal Ast (Sgot) 26 U/L 0-40 [facility] ([facility] NORMAL RANGES Age WBC RBC HGB HCT [...] HCT IS 5% LESS SOURCE FOR DATA: [employer] 1800 OPERATION MANUAL( AUTOMATED BLOOD COUNTS AND [...] Normal 80 and above >32 mL/min Normal Alt (SGPT) 28 U/L 0-41 [facility] NORMAL RANGES Age WBC RBC HGB HCT [...] HCT IS 5% LESS SOURCE FOR DATA: [employer] 1800 OPERATION MANUAL( AUTOMATED BLOOD COUNTS AND [...] Normal 80 and above >32 mL/min Normal Alp 79.9 U/L 35-129 [facility] ([facility] NORMAL RANGES Age WBC RBC HGB HCT [...] HCT IS 5% LESS SOURCE FOR DATA: [employer] 1800 OPERATION MANUAL( AUTOMATED BLOOD COUNTS AND [...] Normal 80 and above >32 mL/min Normal Tbili 0.39 mg/dL 0.0-1.2 [facility] ([place] NORMAL RANGES Age WBC RBC HGB HCT [...] HCT IS 5% LESS SOURCE FOR DATA: [employer] 1800 OPERATION MANUAL( AUTOMATED BLOOD COUNTS AND [...] Normal 80 and above >32 mL/min Normal Osmolality-Calculated 270.8 [facility]C [facility] ([facility] NORMAL RANGES Age WBC RBC HGB HCT [...] HCT IS 5% LESS SOURCE FOR DATA: [employer] 1800 [employer] MANUAL( AUTOMATED BLOOD COUNTS AND [...] Normal 80 and above >32 mL/min Normal Anion Gap 16 mmol/L [facility] ([facility] NORMAL RANGES Age WBC RBC HGB HCT [...] HCT IS 5% LESS SOURCE FOR DATA: [employer] 1800 OPERATION MANUAL( AUTOMATED BLOOD COUNTS AND [...] Normal 80 and above >32 mL/min Normal eGFR Non-Afr. Maltese 71 # [facility] ([facility] NORMAL RANGES Age WBC RBC HGB HCT [...] HCT IS 5% LESS SOURCE FOR DATA: [employer] 1800 OPERATION MANUAL( AUTOMATED BLOOD COUNTS AND [...] Normal 80 and above >32 mL/min Normal eGFR 83 # [facility] ( [facility] NORMAL RANGES Age WBC RBC HGB HCT [...] HCT IS 5% LESS SOURCE FOR DATA: [employer] 1800 [employer]PERATION MANUAL( AUTOMATED BLOOD COUNTS AND [...] Normal 80 and above >32 mL/min Normal ID Date Data Source [id number] 11/18/2020 01:35:00 PM EDT [facility] ([facility] Name Value Range Interpretation Code Description Data Augustina rce(s) Supporting Document(s) RBC 4.20 10E6/uL 4.20-6.30 [facility] ([facility] NORMAL RANGES Age WBC RBC HGB HCT [...] HCT IS 5% LESS SOURCE FOR DATA: [employer] 1800 OPERATION MANUAL( AUTOMATED BLOOD COUNTS AND [...] Normal 80 and above >32 mL/min Normal WBC 8.0 10E3/uL 4.1-10.9 [facility] ([facility] NORMAL RANGES Age WBC RBC HGB HCT [...] HCT IS 5% LESS SOURCE FOR DATA: [employer] 1800 OPERATION MANUAL( AUTOMATED BLOOD COUNTS AND [...] Normal 80 and above >32 mL/min Normal MCV 90.0 fL 80.0-97.0 [facility] ([facility] NORMAL RANGES Age WBC RBC HGB HCT [...] HCT IS 5% LESS SOURCE FOR DATA: [employer] 1800 OPERATION MANUAL( AUTOMATED BLOOD COUNTS AND [...] Normal 80 and above >32 mL/min Normal HCT 37.8 % 37.0-51.0 [facility] ([facility] NORMAL RANGES Age WBC RBC HGB HCT [...] HCT IS 5% LESS SOURCE FOR DATA: [employer] 1800 OPERATION MANUAL( AUTOMATED BLOOD COUNTS AND [...] Normal 80 and above >32 mL/min Normal HGB 12.4 g/dL 12.0-18.0 [facility] ([facility] NORMAL RANGES Age WBC RBC HGB HCT [...] HCT IS 5% LESS SOURCE FOR DATA: [employer] 1800 OPERATION MANUAL( AUTOMATED BLOOD COUNTS AND [...] Normal 80 and above >32 mL/min Normal MCH 29.5 pg 26.0-32.0 [facility] ([facility] NORMAL RANGES Age WBC RBC HGB HCT MCV PLT Adult M 4.1-10.9 4.20-6.30 12.0-18.0 37.0-51.0 80-97 140-440 Adult F 4.1-10.9 4.04-5.48 12.0-18.0 37.0-51.0 80- 140-440 0 -1 Yr 5.0-20.0 3.9-5.9 15-18 [...] HCT IS 5% LESS SOURCE FOR DATA: [employer] 1800 [employer] MANUAL( AUTOMATED BLOOD COUNTS AND [...] Normal 80 and above >32 mL/min Normal PLT 451 10E3/uL 140-440 Above high normal [facility] ([facility] NORMAL RANGES Age WBC RBC HGB HCT [...] HCT IS 5% LESS SOURCE FOR DATA: [employer] 1800 OPERATION MANUAL( AUTOMATED BLOOD COUNTS AND [...] Normal 80 and above >32 mL/min Normal MCHC 32.8 g/dL 31.0-36.0 [facility] NORMAL RANGES Age WBC RBC HGB HCT [...] HCT IS 5% LESS SOURCE FOR DATA: [employer] 1800 OPERATION MANUAL( AUTOMATED BLOOD COUNTS AND [...] Normal 80 and above >32 mL/min Normal Neut% 53.3 % 37.0-92.0 [facility] ([facility] NORMAL RANGES Age WBC RBC HGB HCT [...] HCT IS 5% LESS SOURCE FOR DATA: [employer] 1800 OPERATION MANUAL( AUTOMATED BLOOD COUNTS AND [...] Normal 80 and above >32 mL/min Normal Lym% 38.9 % 10.0-58.5 [facility] ([facility] NORMAL RANGES Age WBC RBC HGB HCT [...] HCT IS 5% LESS SOURCE FOR DATA: [employer] 1800 OPERATION MANUAL( AUTOMATED BLOOD COUNTS AND [...] Normal 80 and above >32 mL/min Normal RDW-CV 12.9 % 11.5-14.5 [facility] ([facility] NORMAL RANGES Age WBC RBC HGB HCT [...] HCT IS 5% LESS SOURCE FOR DATA: [employer] 1800 OPERATION MANUAL( AUTOMATED BLOOD COUNTS AND [...] Normal 80 and above >32 mL/min Normal Neut# 4.3 % 2.0-7.8 [facility] ([facility] NORMAL RANGES Age WBC RBC HGB HCT [...] HCT IS 5% LESS SOURCE FOR DATA: [employer] 1800 OPERATION MANUAL( AUTOMATED BLOOD COUNTS AND [...] Normal 80 and above >32 mL/min Normal Lym# 3.1 10E3/uL 0.6-4.1 [facility] ([facility] NORMAL RANGES Age WBC RBC HGB HCT [...] HCT IS 5% LESS SOURCE FOR DATA: [employer] 1800 OPERATION MANUAL( AUTOMATED BLOOD COUNTS AND [...] Normal 80 and above >32 mL/min Normal MXD% 7.8 % 0.1-24.0 [facility] ([facility] NORMAL RANGES Age WBC RBC HGB HCT [...] HCT IS 5% LESS SOURCE FOR DATA: [employer] 1800 OPERATION MANUAL( AUTOMATED BLOOD COUNTS AND [...] Normal 80 and above >32 mL/min Normal MPV 7.8 fL 9.0-13.0 Below low normal [facility] ( [facility] NORMAL RANGES Age WBC RBC HGB HCT [...] HCT IS 5% LESS SOURCE FOR DATA: [employer] 1800 OPERATION MANUAL( AUTOMATED BLOOD COUNTS AND [...] Normal 80 and above >32 mL/min Normal MXD# 0.6 10E3/uL 0.0-1.8 [facility] ([facility] NORMAL RANGES Age WBC RBC HGB HCT [...] HCT IS 5% LESS SOURCE FOR DATA: [employer] 1800 OPERATION MANUAL( AUTOMATED BLOOD COUNTS AND [...] Normal 80 and above >32 mL/min Normal ID Date Data Source [id number] 11/18/2020 01:35:00 PM EDT [facility] ([facility] Name Value Range Interpretation Code Description Data Augustina rce(s) Supporting Document(s) Color Laboratory test result [facility] ([facility] ) NORMAL RANGES Age WBC RBC HGB HCT [...] HCT IS 5% LESS SOURCE FOR DATA: [employer] 1800 [employer]ATION MANUAL( AUTOMATED BLOOD COUNTS AND [...] Normal 80 and above >32 mL/min Normal Bilirubin,Urine Laboratory test result [facility]) NORMAL RANGES Age WBC RBC HGB HCT [...] HCT IS 5% LESS SOURCE FOR DATA: [employer] 1800 OPERATION MANUAL( AUTOMATED BLOOD COUNTS AND [...] Normal 80 and above >32 mL/min Normal Glucose-Ua Laboratory test result [facility]) NORMAL RANGES Age WBC RBC HGB HCT [...] HCT IS 5% LESS SOURCE FOR DATA: [employer] 1800 O[employer]ATION MANUAL( AUTOMATED BLOOD COUNTS AND [...] Normal 80 and above >32 mL/min Normal Clarity Laboratory test result [facility] ([facility]) NORMAL RANGES Age WBC RBC HGB HCT [...] HCT IS 5% LESS SOURCE FOR DATA: [employer] 1800 [employer]ATION MANUAL( AUTOMATED BLOOD COUNTS AND [...] Normal 80 and above >32 mL/min Normal Creatine kinase [Enzymatic activity/volume] in Serum o r Plasma Laboratory test result 1.000-1.030 Abnormal (applies to non-numeric results) [facility] ([facility] ) NORMAL RANGES Age WBC RBC HGB HCT [...] HCT IS 5% LESS SOURCE FOR DATA: [employer] 1800 [employer]PERATION MANUAL( AUTOMATED BLOOD COUNTS AND [...] Normal 80 and above >32 mL/min Normal Blood - Ua Laboratory test result [facility]) NORMAL RANGES Age WBC RBC HGB HCT [...] HCT IS 5% LESS SOURCE FOR DATA: [employer] 1800 OPERATION MANUAL( AUTOMATED BLOOD COUNTS AND [...] Normal 80 and above >32 mL/min Normal Ketone Laboratory test result [facility]) NORMAL RANGES Age WBC RBC HGB HCT [...] HCT IS 5% LESS SOURCE FOR DATA: [employer] 1800 OPERATION MANUAL( AUTOMATED BLOOD COUNTS AND [...] Normal 80 and above >32 mL/min Normal Urobilinogen 0.2 NA 0.2-1.0 [facility]) NORMAL RANGES Age WBC RBC HGB HCT [...] HCT IS 5% LESS SOURCE FOR DATA: [employer] 1800 OPERATION MANUAL( AUTOMATED BLOOD COUNTS AND [...] Normal 80 and above >32 mL/min Normal pH 6.0 # 5.0-8.0 [facility] NORMAL RANGES Age WBC RBC HGB HCT [...] HCT IS 5% LESS SOURCE FOR DATA: [employer] 1800 [employer] MANUAL( AUTOMATED BLOOD COUNTS AND [...] Normal 80 and above >32 mL/min Normal Protein Laboratory test result [facility]) NORMAL RANGES Age WBC RBC HGB HCT [...] HCT IS 5% LESS SOURCE FOR DATA: [employer] 1800 OPERATION MANUAL( AUTOMATED BLOOD COUNTS AND [...] Normal 80 and above >32 mL/min Normal Nitrite Laboratory test result [facility]) NORMAL RANGES Age WBC RBC HGB HCT [...] HCT IS 5% LESS SOURCE FOR DATA: [employer] 1800 OPERATION MANUAL( AUTOMATED BLOOD COUNTS AND [...] Normal 80 and above >32 mL/min Normal Leukocyte Laboratory test result [facility]) NORMAL RANGES Age WBC RBC HGB HCT [...] HCT IS 5% LESS SOURCE FOR DATA: [employer] 1800 OPERATION MANUAL( AUTOMATED BLOOD COUNTS AND [...] Normal 80 and above >32 mL/min Normal ID Date Data Source [id number] 11/18/2020 01:35:00 PM EDT [facility] ([facility]) Name Value Range Interpretation Code Description Data Augustina rce(s) Supporting Document(s) RBC 4.20 10E6/uL 4.20-6.30 [facility] ([facility]) NORMAL RANGES Age WBC RBC HGB HCT [...] HCT IS 5% LESS SOURCE FOR DATA: [employer] 1800 [employer]PERATION MANUAL( AUTOMATED BLOOD COUNTS AND [...] Normal 80 and above >32 mL/min Normal HGB 12.4 g/dL 12.0-18.0 [facility] ([facility]) NORMAL RANGES Age WBC RBC HGB HCT [...] HCT IS 5% LESS SOURCE FOR DATA: [employer] 1800 OPERATION MANUAL( AUTOMATED BLOOD COUNTS AND [...] Normal 80 and above >32 mL/min Normal WBC 8.0 10E3/uL 4.1-10.9 [facility] ([facility]) NORMAL RANGES Age WBC RBC HGB HCT [...] HCT IS 5% LESS SOURCE FOR DATA: [employer] 1800 OPERATION MANUAL( AUTOMATED BLOOD COUNTS AND [...] Normal 80 and above >32 mL/min Normal HCT 37.8 % 37.0-51.0 [facility]) NORMAL RANGES Age WBC RBC HGB HCT [...] HCT IS 5% LESS SOURCE FOR DATA: [employer] 1800 OPERATION MANUAL( AUTOMATED BLOOD COUNTS AND [...] Normal 80 and above >32 mL/min Normal MCV 90.0 fL 80.0-97.0 [facility]) NORMAL RANGES Age WBC RBC HGB HCT [...] HCT IS 5% LESS SOURCE FOR DATA: [employer] 1800 OPERATION MANUAL( AUTOMATED BLOOD COUNTS AND [...] Normal 80 and above >32 mL/min Normal MCH 29.5 pg 26.0-32.0 [facility]) NORMAL RANGES Age WBC RBC HGB HCT [...] HCT IS 5% LESS SOURCE FOR DATA: [employer] 1800 [employer]PERATION MANUAL( AUTOMATED BLOOD COUNTS AND [...] Normal 80 and above >32 mL/min Normal RDW-CV 12.9 % 11.5-14.5 [facility]) NORMAL RANGES Age WBC RBC HGB HCT [...] HCT IS 5% LESS SOURCE FOR DATA: [employer] 1800 [employer] MANUAL( AUTOMATED BLOOD COUNTS AND [...] Normal 80 and above >32 mL/min Normal PLT 451 10E3/uL 140-440 [facility]) NORMAL RANGES Age WBC RBC HGB HCT [...] HCT IS 5% LESS SOURCE FOR DATA: [employer] 1800 [employer] MANUAL( AUTOMATED BLOOD COUNTS AND [...] Normal 80 and above >32 mL/min Normal MCHC 32.8 g/dL 31.0-36.0 [facility]) NORMAL RANGES Age WBC RBC HGB HCT [...] HCT IS 5% LESS SOURCE FOR DATA: [employer] 1800 OPERATION MANUAL( AUTOMATED BLOOD COUNTS AND [...] Normal 80 and above >32 mL/min Normal Lym% 38.9 % 10.0-58.5 [facility]) NORMAL RANGES Age WBC RBC HGB HCT [...] HCT IS 5% LESS SOURCE FOR DATA: [employer] 1800 OPERATION MANUAL( AUTOMATED BLOOD COUNTS AND [...] Normal 80 and above >32 mL/min Normal Neut% 53.3 % 37.0-92.0 [facility] ([facility]) NORMAL RANGES Age WBC RBC HGB HCT [...] HCT IS 5% LESS SOURCE FOR DATA: [employer] 1800 OPERATION MANUAL( AUTOMATED BLOOD COUNTS AND [...] Normal 80 and above >32 mL/min Normal MXD% 7.8 % 0.1-24.0 [facility] ([facility]) NORMAL RANGES Age WBC RBC HGB HCT [...] HCT IS 5% LESS SOURCE FOR DATA: [employer] 1800 OPERATION MANUAL( AUTOMATED BLOOD COUNTS AND [...] Normal 80 and above >32 mL/min Normal MXD# 0.6 10E3/uL 0.0-1.8 [facility] ([facility]) NORMAL RANGES Age WBC RBC HGB HCT [...] HCT IS 5% LESS SOURCE FOR DATA: [employer] 1800 OPERATION MANUAL( AUTOMATED BLOOD COUNTS AND [...] Normal 80 and above >32 mL/min Normal Neutrophils [#/volume] in Semen by Manual count 4.3 % 2.0-7.8 [facility]) NORMAL RANGES Age WBC RBC HGB HCT [...] HCT IS 5% LESS SOURCE FOR DATA: [employer] 1800 OPERATION MANUAL( AUTOMATED BLOOD COUNTS AND [...] Normal 80 and above >32 mL/min Normal Lym# 3.1 10E3/uL 0.6-4.1 [facility] ([facility]) NORMAL RANGES Age WBC RBC HGB HCT [...] HCT IS 5% LESS SOURCE FOR DATA: [employer] 1800 OPERATION MANUAL( AUTOMATED BLOOD COUNTS AND [...] Normal 80 and above >32 mL/min Normal Platelet mean volume [Entitic volume] in Blood by Jese 7.8 fL 9.0-13.0 [facility]) NORMAL RANGES Age WBC RBC HGB HCT [...] HCT IS 5% LESS SOURCE FOR DATA: JAY [employer]YN 1800 [employer] MANUAL( AUTOMATED BLOOD COUNTS AND [...] Normal 80 and above >32 mL/min Normal ID Date Data Source [id number] 06/01/2020 12:00:00 AM EST [facility] Name Value Range Interpretation Code Description Data Augustina rce(s) Supporting Document(s) SARS-CoV2 Rapid Antigen Negative [facility] This lab was ordered by [facility] and reported by [facility] ID Date Data Source [id number] 05/15/2020 12:05:00 PM EST [facility] ([facility] Name Value Range Interpretation Code Description Data Augustina rce(s) Supporting Document(s) Alb 10 mg/L 1-30 [facility] ([facility] Creatinine, Urine 10 mg/dL 10-300 [facility] A/C Ratio Laboratory test result [facility] ([facility] ID Date Data Source [id number] 05/15/2020 12:05:00 PM EST [facility] ([facility] Name Value Range Interpretation Code Description Data Augustina rce(s) Supporting Document(s) Color Urine Laboratory test result M [facility] ([facility] Specific [place] 1.015 1.00-1.03 [facility] ([facility] Appearance of Urine Laboratory test result [facility] ([facility] PH Urine 6.5 5.0-8.0 [facility] ([facility] Glucose Urine Laboratory test result [facility] ([facility] Ketones Laboratory test result [facility] ([facility] Bilirubin.total [Presence] in Urine by Test strip Laboratory test res ult [facility] ([facility] Blood Urine Laboratory test result M [facility] ([facility] Urobilinogen 0.2 EU/dl 0.2-1.0 [facility] ([facility] Protein Urine Laboratory test result [facility] ([facility] Leukocytes Laboratory test result [facility] ([facility] Nitrite Laboratory test result [facility] ([facility] ID Date Data Source [id number] 05/15/2020 11:25:00 AM EST [facility] ([facility] Name Value Range Interpretation Code Description Data Augustina rce(s) Supporting Document(s) Creatine kinase [Enzymatic activity/volume] in Serum or Plasma 96 U /L 26-192 [facility] ([facility] NORMAL RANGES Age WBC RBC HGB HCT [...] HCT IS 5% LESS SOURCE FOR DATA: [employer] 1800 [employer] MANUAL( AUTOMATED BLOOD COUNTS AND [...] mL/min Normal 80 and above >32 mL/min NormalCLASSIFICATION CHOLESTEROL FOR ADULTS CHILDREN/ADOLESCENTS* DESIRABLE: <200 MG/DL <170 MG/DL BORDER-LINE HIGH RISK: 200-239 MG/DL 170-199 MG/DL HIGH RISK: >240 MG/DL >200 MG/DL CLASS. FOR PRIMARY LDL CHOL PREVENTION: LDL CHOL-CHILD/ADOLESCENTS* DESIRABLE: <130 MG/DL <110 MG/DL BORDERLINE-HIGH RISK: 130-159 MG/DL 110-129 MG/DL HIGH RISK: >160 MG/DL >130 MG/DL *CHILDREN AND ADOLESCENTS REPRESENTS INDIVIDUALA AGED 2-19 YEARS EXCLUSIVE. ID Date Data Source [id number] 05/15/2020 11:25:00 AM EST [facility] ([facility] Name Value Range Interpretation Code Description Data Augustina rce(s) Supporting Document(s) Chol 199 mg/dL 0-200 [facility] ([facility] [facility] NORMAL RANGES Age WBC RBC HGB HCT [...] HCT IS 5% LESS SOURCE FOR DATA: [employer] 1800 OPERATION MANUAL( AUTOMATED BLOOD COUNTS AND [...] mL/min Normal 80 and above >32 mL/min NormalCLASSIFICATION CHOLESTEROL FOR ADULTS CHILDREN/ADOLESCENTS* DESIRABLE: <200 MG/DL <170 MG/DL BORDER-LINE HIGH RISK: 200-239 MG/DL 170-199 MG/DL HIGH RISK: >240 MG/DL >200 MG/DL CLASS. FOR PRIMARY LDL CHOL PREVENTION: LDL CHOL-CHILD/ADOLESCENTS* DESIRABLE: <130 MG/DL <110 MG/DL BORDERLINE-HIGH RISK: 130-159 MG/DL 110-129 MG/DL HIGH RISK: >160 MG/DL >130 MG/DL *CHILDREN AND ADOLESCENTS REPRESENTS INDIVIDUALA AGED 2-19 YEARS EXCLUSIVE. Cholesterol in HDL [Mass/volume] in Serum or Plasma 86 mg/dL 45-65 Above high normal [facility] ([facility] NORMAL RANGES Age WBC RBC HGB HCT [...] HCT IS 5% LESS SOURCE FOR DATA: [employer] 1800 OPERATION MANUAL( AUTOMATED BLOOD COUNTS AND [...] mL/min Normal 80 and above >32 mL/min NormalCLASSIFICATION CHOLESTEROL FOR ADULTS CHILDREN/ADOLESCENTS* DESIRABLE: <200 MG/DL <170 MG/DL BORDER-LINE HIGH RISK: 200-239 MG/DL 170-199 MG/DL HIGH RISK: >240 MG/DL >200 MG/DL CLASS. FOR PRIMARY LDL CHOL PREVENTION: LDL CHOL-CHILD/ADOLESCENTS* DESIRABLE: <130 MG/DL <110 MG/DL BORDERLINE-HIGH RISK: 130- 159 MG/DL 110-129 MG/DL HIGH RISK: >160 MG/DL >130 MG/DL *CHILDREN AND ADOLESCENTS REPRESENTS INDIVIDUALA AGED 2-19 YEARS EXCLUSIVE. Trig 63 mg/dL 40-200 [facility] ([facility] NORMAL RANGES Age WBC RBC HGB HCT [...] HCT IS 5% LESS SOURCE FOR DATA: [employer] 1800 OPERATION MANUAL( AUTOMATED BLOOD COUNTS AND [...] mL/min Normal 80 and above >32 mL/min NormalCLASSIFICATION CHOLESTEROL FOR ADULTS CHILDREN/ADOLESCENTS* DESIRABLE: <200 MG/DL <170 MG/DL BORDER-LINE HIGH RISK: 200-239 MG/DL 170-199 MG/DL HIGH RISK: >240 MG/DL >200 MG/DL CLASS. FOR PRIMARY LDL CHOL PREVENTION: LDL CHOL-CHILD/ADOLESCENTS* DESIRABLE: <130 MG/DL <110 MG/DL BORDERLINE-HIGH RISK: 130- 159 MG/DL 110-129 MG/DL HIGH RISK: >160 MG/DL >130 MG/DL *CHILDREN AND ADOLESCENTS REPRESENTS INDIVIDUALA AGED 2-19 YEARS EXCLUSIVE. LDL_C 100 Calc 75-129 [facility] ([facility] NORMAL RANGES Age WBC RBC HGB HCT [...] HCT IS 5% LESS SOURCE FOR DATA: [employer] 1800 OPERATION MANUAL( AUTOMATED BLOOD COUNTS AND [...] mL/min Normal 80 and above >32 mL/min NormalCLASSIFICATION CHOLESTEROL FOR ADULTS CHILDREN/ADOLESCENTS* DESIRABLE: <200 MG/DL <170 MG/DL BORDER-LINE HIGH RISK: 200-239 MG/DL 170-199 MG/DL HIGH RISK: >240 MG/DL >200 MG/DL CLASS. FOR PRIMARY LDL CHOL PREVENTION: LDL CHOL-CHILD/ADOLESCENTS* DESIRABLE: <130 MG/DL <110 MG/DL BORDERLINE-HIGH RISK: 130- 159 MG/DL 110-129 MG/DL HIGH RISK: >160 MG/DL >130 MG/DL *CHILDREN AND ADOLESCENTS REPRESENTS INDIVIDUALA AGED 2-19 YEARS EXCLUSIVE. Cho/HDL Ratio 2.3 CALC [employer] ([facility] NORMAL RANGES Age WBC RBC HGB HCT [...] HCT IS 5% LESS SOURCE FOR DATA: [employer] 1800 OPERATION MANUAL( AUTOMATED BLOOD COUNTS AND [...] mL/min Normal 80 and above >32 mL/min NormalCLASSIFICATION CHOLESTEROL FOR ADULTS CHILDREN/ADOLESCENTS* DESIRABLE: <200 MG/DL <170 MG/DL BORDER-LINE HIGH RISK: 200-239 MG/DL 170-199 MG/DL HIGH RISK: >240 MG/DL >200 MG/DL CLASS. FOR PRIMARY LDL CHOL PREVENTION: LDL CHOL-CHILD/ADOLESCENTS* DESIRABLE: <130 MG/DL <110 MG/DL BORDERLINE-HIGH RISK: 130- 159 MG/DL 110-129 MG/DL HIGH RISK: >160 MG/DL >130 MG/DL *CHILDREN AND ADOLESCENTS REPRESENTS INDIVIDUALA AGED 2-19 YEARS EXCLUSIVE. ID Date Data Source [id number] 05/15/2020 11:25:00 AM EST [facility] ([facility] Name Value Range Interpretation Code Description Data Augustina rce(s) Supporting Document(s) Glu 95 mg/dL 70-110 [facility] ([facility] NORMAL RANGES Age WBC RBC HGB HCT [...] HCT IS 5% LESS SOURCE FOR DATA: [employer] 1800 OPERATION MANUAL( AUTOMATED BLOOD COUNTS AND [...] mL/min Normal 80 and above >32 mL/min NormalCLASSIFICATION CHOLESTEROL FOR ADULTS CHILDREN/ADOLESCENTS* DESIRABLE: <200 MG/DL <170 MG/DL BORDER-LINE HIGH RISK: 200-239 MG/DL 170-199 MG/DL HIGH RISK: >240 MG/DL >200 MG/DL CLASS. FOR PRIMARY LDL CHOL PREVENTION: LDL CHOL-CHILD/ADOLESCENTS* DESIRABLE: <130 MG/DL <110 MG/DL BORDERLINE-HIGH RISK: 130- 159 MG/DL 110-129 MG/DL HIGH RISK: >160 MG/DL >130 MG/DL *CHILDREN AND ADOLESCENTS REPRESENTS INDIVIDUALA AGED 2-19 YEARS EXCLUSIVE. Creat 0.8 mg/dL 0.5-1.0 [facility] ([facility] NORMAL RANGES Age WBC RBC HGB HCT [...] HCT IS 5% LESS SOURCE FOR DATA: [employer] 1800 OPERATION MANUAL( AUTOMATED BLOOD COUNTS AND [...] mL/min Normal 80 and above >32 mL/min NormalCLASSIFICATION CHOLESTEROL FOR ADULTS CHILDREN/ADOLESCENTS* DESIRABLE: <200 MG/DL <170 MG/DL BORDER-LINE HIGH RISK: 200-239 MG/DL 170-199 MG/DL HIGH RISK: >240 MG/DL >200 MG/DL CLASS. FOR PRIMARY LDL CHOL PREVENTION: LDL CHOL-CHILD/ADOLESCENTS* DESIRABLE: <130 MG/DL <110 MG/DL BORDERLINE-HIGH RISK: 130- 159 MG/DL 110-129 MG/DL HIGH RISK: >160 MG/DL >130 MG/DL *CHILDREN AND ADOLESCENTS REPRESENTS INDIVIDUALA AGED 2-19 YEARS EXCLUSIVE. BUN 18 mg/dL 8-23 [facility] ([facility] NORMAL RANGES Age WBC RBC HGB HCT [...] HCT IS 5% LESS SOURCE FOR DATA: [employer] 1800 OPERATION MANUAL( AUTOMATED BLOOD COUNTS AND [...] mL/min Normal 80 and above >32 mL/min NormalCLASSIFICATION CHOLESTEROL FOR ADULTS CHILDREN/ADOLESCENTS* DESIRABLE: <200 MG/DL <170 MG/DL BORDER-LINE HIGH RISK: 200-239 MG/DL 170-199 MG/DL HIGH RISK: >240 MG/DL >200 MG/DL CLASS. FOR PRIMARY LDL CHOL PREVENTION: LDL CHOL-CHILD/ADOLESCENTS* DESIRABLE: <130 MG/DL <110 MG/DL BORDERLINE-HIGH RISK: 130- 159 MG/DL 110-129 MG/DL HIGH RISK: >160 MG/DL >130 MG/DL *CHILDREN AND ADOLESCENTS REPRESENTS INDIVIDUALA AGED 2-19 YEARS EXCLUSIVE. BUN/Creatinine Ratio 21.9 CALC [facility] ([facility] NORMAL RANGES Age WBC RBC HGB HCT [...] HCT IS 5% LESS SOURCE FOR DATA: [employer] 1800 OPERATION MANUAL( AUTOMATED BLOOD COUNTS AND [...] mL/min Normal 80 and above >32 mL/min NormalCLASSIFICATION CHOLESTEROL FOR ADULTS CHILDREN/ADOLESCENTS* DESIRABLE: <200 MG/DL <170 MG/DL BORDER-LINE HIGH RISK: 200-239 MG/DL 170-199 MG/DL HIGH RISK: >240 MG/DL >200 MG/DL CLASS. FOR PRIMARY LDL CHOL PREVENTION: LDL CHOL-CHILD/ADOLESCENTS* DESIRABLE: <130 MG/DL <110 MG/DL BORDERLINE-HIGH RISK: 130- 159 MG/DL 110-129 MG/DL HIGH RISK: >160 MG/DL >130 MG/DL *CHILDREN AND ADOLESCENTS REPRESENTS INDIVIDUALA AGED 2-19 YEARS EXCLUSIVE. Na 134 mmol/L 136-145 Below low normal [facility] ( [facility] NORMAL RANGES Age WBC RBC HGB HCT [...] HCT IS 5% LESS SOURCE FOR DATA: [employer] 1800 OPERATION MANUAL( AUTOMATED BLOOD COUNTS AND [...] mL/min Normal 80 and above >32 mL/min NormalCLASSIFICATION CHOLESTEROL FOR ADULTS CHILDREN/ADOLESCENTS* DESIRABLE: <200 MG/DL <170 MG/DL BORDER-LINE HIGH RISK: 200-239 MG/DL 170-199 MG/DL HIGH RISK: >240 MG/DL >200 MG/DL CLASS. FOR PRIMARY LDL CHOL PREVENTION: LDL CHOL-CHILD/ADOLESCENTS* DESIRABLE: <130 MG/DL <110 MG/DL BORDERLINE-HIGH RISK: 130- 159 MG/DL 110-129 MG/DL HIGH RISK: >160 MG/DL >130 MG/DL *CHILDREN AND ADOLESCENTS REPRESENTS INDIVIDUALA AGED 2-19 YEARS EXCLUSIVE. K 4.6 mmol/L 3.5-5.1 [facility] ([facility] NORMAL RANGES Age WBC RBC HGB HCT [...] HCT IS 5% LESS SOURCE FOR DATA: [employer] 1800 OPERATION MANUAL( AUTOMATED BLOOD COUNTS AND [...] mL/min Normal 80 and above >32 mL/min NormalCLASSIFICATION CHOLESTEROL FOR ADULTS CHILDREN/ADOLESCENTS* DESIRABLE: <200 MG/DL <170 MG/DL BORDER-LINE HIGH RISK: 200-239 MG/DL 170-199 MG/DL HIGH RISK: >240 MG/DL >200 MG/DL CLASS. FOR PRIMARY LDL CHOL PREVENTION: LDL CHOL-CHILD/ADOLESCENTS* DESIRABLE: <130 MG/DL <110 MG/DL BORDERLINE-HIGH RISK: 130- 159 MG/DL 110-129 MG/DL HIGH RISK: >160 MG/DL >130 MG/DL *CHILDREN AND ADOLESCENTS REPRESENTS INDIVIDUALA AGED 2-19 YEARS EXCLUSIVE. Co2 22.1 mmol/L 22.0-29.0 [facility] ([facility] NORMAL RANGES Age WBC RBC HGB HCT [...] HCT IS 5% LESS SOURCE FOR DATA: [employer] 1800 OPERATION MANUAL( AUTOMATED BLOOD COUNTS AND [...] mL/min Normal 80 and above >32 mL/min NormalCLASSIFICATION CHOLESTEROL FOR ADULTS CHILDREN/ADOLESCENTS* DESIRABLE: <200 MG/DL <170 MG/DL BORDER-LINE HIGH RISK: 200-239 MG/DL 170-199 MG/DL HIGH RISK: >240 MG/DL >200 MG/DL CLASS. FOR PRIMARY LDL CHOL PREVENTION: LDL CHOL-CHILD/ADOLESCENTS* DESIRABLE: <130 MG/DL <110 MG/DL BORDERLINE-HIGH RISK: 130- 159 MG/DL 110-129 MG/DL HIGH RISK: >160 MG/DL >130 MG/DL *CHILDREN AND ADOLESCENTS REPRESENTS INDIVIDUALA AGED 2-19 YEARS EXCLUSIVE. CL 100.6 mmol/L 98.0-107.0 [facility] NORMAL RANGES Age WBC RBC HGB HCT [...] HCT IS 5% LESS SOURCE FOR DATA: [employer] 1800 OPERATION MANUAL( AUTOMATED BLOOD COUNTS AND [...] mL/min Normal 80 and above >32 mL/min NormalCLASSIFICATION CHOLESTEROL FOR ADULTS CHILDREN/ADOLESCENTS* DESIRABLE: <200 MG/DL <170 MG/DL BORDER-LINE HIGH RISK: 200-239 MG/DL 170-199 MG/DL HIGH RISK: >240 MG/DL >200 MG/DL CLASS. FOR PRIMARY LDL CHOL PREVENTION: LDL CHOL-CHILD/ADOLESCENTS* DESIRABLE: <130 MG/DL <110 MG/DL BORDERLINE-HIGH RISK: 130- 159 MG/DL 110-129 MG/DL HIGH RISK: >160 MG/DL >130 MG/DL *CHILDREN AND ADOLESCENTS REPRESENTS INDIVIDUALA AGED 2-19 YEARS EXCLUSIVE. TP 7.3 g/dL 6.6-8.7 [facility] ([facility] NORMAL RANGES Age WBC RBC HGB HCT [...] HCT IS 5% LESS SOURCE FOR DATA: [employer] 1800 OPERATION MANUAL( AUTOMATED BLOOD COUNTS AND [...] mL/min Normal 80 and above >32 mL/min NormalCLASSIFICATION CHOLESTEROL FOR ADULTS CHILDREN/ADOLESCENTS* DESIRABLE: <200 MG/DL <170 MG/DL BORDER-LINE HIGH RISK: 200-239 MG/DL 170-199 MG/DL HIGH RISK: >240 MG/DL >200 MG/DL CLASS. FOR PRIMARY LDL CHOL PREVENTION: LDL CHOL-CHILD/ADOLESCENTS* DESIRABLE: <130 MG/DL <110 MG/DL BORDERLINE-HIGH RISK: 130- 159 MG/DL 110-129 MG/DL HIGH RISK: >160 MG/DL >130 MG/DL *CHILDREN AND ADOLESCENTS REPRESENTS INDIVIDUALA AGED 2-19 YEARS EXCLUSIVE. Alb 4.9 g/dL 3.4-4.8 Above high normal [facility] ([facility] NORMAL RANGES Age WBC RBC HGB HCT [...] HCT IS 5% LESS SOURCE FOR DATA: [employer] 1800 OPERATION MANUAL( AUTOMATED BLOOD COUNTS AND [...] mL/min Normal 80 and above >32 mL/min NormalCLASSIFICATION CHOLESTEROL FOR ADULTS CHILDREN/ADOLESCENTS* DESIRABLE: <200 MG/DL <170 MG/DL BORDER-LINE HIGH RISK: 200-239 MG/DL 170-199 MG/DL HIGH RISK: >240 MG/DL >200 MG/DL CLASS. FOR PRIMARY LDL CHOL PREVENTION: LDL CHOL-CHILD/ADOLESCENTS* DESIRABLE: <130 MG/DL <110 MG/DL BORDERLINE-HIGH RISK: 130- 159 MG/DL 110-129 MG/DL HIGH RISK: >160 MG/DL >130 MG/DL *CHILDREN AND ADOLESCENTS REPRESENTS INDIVIDUALA AGED 2-19 YEARS EXCLUSIVE. CA 9.8 mg/dL 8.6-10.2 [facility] ([facility] NORMAL RANGES Age WBC RBC HGB HCT [...] HCT IS 5% LESS SOURCE FOR DATA: [employer] 1800 OPERATION MANUAL( AUTOMATED BLOOD COUNTS AND [...] mL/min Normal 80 and above >32 mL/min NormalCLASSIFICATION CHOLESTEROL FOR ADULTS CHILDREN/ADOLESCENTS* DESIRABLE: <200 MG/DL <170 MG/DL BORDER-LINE HIGH RISK: 200-239 MG/DL 170-199 MG/DL HIGH RISK: >240 MG/DL >200 MG/DL CLASS. FOR PRIMARY LDL CHOL PREVENTION: LDL CHOL-CHILD/ADOLESCENTS* DESIRABLE: <130 MG/DL <110 MG/DL BORDERLINE-HIGH RISK: 130- 159 MG/DL 110-129 MG/DL HIGH RISK: >160 MG/DL >130 MG/DL *CHILDREN AND ADOLESCENTS REPRESENTS INDIVIDUALA AGED 2-19 YEARS EXCLUSIVE. Globulin 2.4 CALC [facility] ([facility] NORMAL RANGES Age WBC RBC HGB HCT [...] HCT IS 5% LESS SOURCE FOR DATA: [employer] 1800 OPERATION MANUAL( AUTOMATED BLOOD COUNTS AND [...] mL/min Normal 80 and above >32 mL/min NormalCLASSIFICATION CHOLESTEROL FOR ADULTS CHILDREN/ADOLESCENTS* DESIRABLE: <200 MG/DL <170 MG/DL BORDER-LINE HIGH RISK: 200-239 MG/DL 170-199 MG/DL HIGH RISK: >240 MG/DL >200 MG/DL CLASS. FOR PRIMARY LDL CHOL PREVENTION: LDL CHOL-CHILD/ADOLESCENTS* DESIRABLE: <130 MG/DL <110 MG/DL BORDERLINE-HIGH RISK: 130- 159 MG/DL 110-129 MG/DL HIGH RISK: >160 MG/DL >130 MG/DL *CHILDREN AND ADOLESCENTS REPRESENTS INDIVIDUALA AGED 2-19 YEARS EXCLUSIVE. A/G Ratio 2.0 CALC [facility] ([facility] NORMAL RANGES Age WBC RBC HGB HCT [...] HCT IS 5% LESS SOURCE FOR DATA: [employer] 1800 OPERATION MANUAL( AUTOMATED BLOOD COUNTS AND [...] mL/min Normal 80 and above >32 mL/min NormalCLASSIFICATION CHOLESTEROL FOR ADULTS CHILDREN/ADOLESCENTS* DESIRABLE: <200 MG/DL <170 MG/DL BORDER-LINE HIGH RISK: 200-239 MG/DL 170-199 MG/DL HIGH RISK: >240 MG/DL >200 MG/DL CLASS. FOR PRIMARY LDL CHOL PREVENTION: LDL CHOL-CHILD/ADOLESCENTS* DESIRABLE: <130 MG/DL <110 MG/DL BORDERLINE-HIGH RISK: 130- 159 MG/DL 110-129 MG/DL HIGH RISK: >160 MG/DL >130 MG/DL *CHILDREN AND ADOLESCENTS REPRESENTS INDIVIDUALA AGED 2-19 YEARS EXCLUSIVE. Alp 73.2 U/L 35-129 [facility] ([facility] NORMAL RANGES Age WBC RBC HGB HCT [...] HCT IS 5% LESS SOURCE FOR DATA: [employer] 1800 OPERATION MANUAL( AUTOMATED BLOOD COUNTS AND [...] mL/min Normal 80 and above >32 mL/min NormalCLASSIFICATION CHOLESTEROL FOR ADULTS CHILDREN/ADOLESCENTS* DESIRABLE: <200 MG/DL <170 MG/DL BORDER-LINE HIGH RISK: 200-239 MG/DL 170-199 MG/DL HIGH RISK: >240 MG/DL >200 MG/DL CLASS. FOR PRIMARY LDL CHOL PREVENTION: LDL CHOL-CHILD/ADOLESCENTS* DESIRABLE: <130 MG/DL <110 MG/DL BORDERLINE-HIGH RISK: 130- 159 MG/DL 110-129 MG/DL HIGH RISK: >160 MG/DL >130 MG/DL *CHILDREN AND ADOLESCENTS REPRESENTS INDIVIDUALA AGED 2-19 YEARS EXCLUSIVE. Alt (SGPT) 22 U/L 0-41 [facility] ([facility] NORMAL RANGES Age WBC RBC HGB HCT [...] HCT IS 5% LESS SOURCE FOR DATA: [employer] 1800 OPERATION MANUAL( AUTOMATED BLOOD COUNTS AND [...] mL/min Normal 80 and above >32 mL/min NormalCLASSIFICATION CHOLESTEROL FOR ADULTS CHILDREN/ADOLESCENTS* DESIRABLE: <200 MG/DL <170 MG/DL BORDER-LINE HIGH RISK: 200-239 MG/DL 170-199 MG/DL HIGH RISK: >240 MG/DL >200 MG/DL CLASS. FOR PRIMARY LDL CHOL PREVENTION: LDL CHOL-CHILD/ADOLESCENTS* DESIRABLE: <130 MG/DL <110 MG/DL BORDERLINE-HIGH RISK: 130- 159 MG/DL 110-129 MG/DL HIGH RISK: >160 MG/DL >130 MG/DL *CHILDREN AND ADOLESCENTS REPRESENTS INDIVIDUALA AGED 2-19 YEARS EXCLUSIVE. Ast (Sgot) 22 U/L 0-40 [facility] ([facility] NORMAL RANGES Age WBC RBC HGB HCT [...] HCT IS 5% LESS SOURCE FOR DATA: [employer] 1800 OPERATION MANUAL( AUTOMATED BLOOD COUNTS AND [...] mL/min Normal 80 and above >32 mL/min NormalCLASSIFICATION CHOLESTEROL FOR ADULTS CHILDREN/ADOLESCENTS* DESIRABLE: <200 MG/DL <170 MG/DL BORDER-LINE HIGH RISK: 200-239 MG/DL 170-199 MG/DL HIGH RISK: >240 MG/DL >200 MG/DL CLASS. FOR PRIMARY LDL CHOL PREVENTION: LDL CHOL-CHILD/ADOLESCENTS* DESIRABLE: <130 MG/DL <110 MG/DL BORDERLINE-HIGH RISK: 130- 159 MG/DL 110-129 MG/DL HIGH RISK: >160 MG/DL >130 MG/DL *CHILDREN AND ADOLESCENTS REPRESENTS INDIVIDUALA AGED 2-19 YEARS EXCLUSIVE. Tbili 0.36 mg/dL 0.0-1.2 [facility] ([facility] NORMAL RANGES Age WBC RBC HGB HCT [...] HCT IS 5% LESS SOURCE FOR DATA: [employer] 1800 OPERATION MANUAL( AUTOMATED BLOOD COUNTS AND [...] mL/min Normal 80 and above >32 mL/min NormalCLASSIFICATION CHOLESTEROL FOR ADULTS CHILDREN/ADOLESCENTS* DESIRABLE: <200 MG/DL <170 MG/DL BORDER-LINE HIGH RISK: 200-239 MG/DL 170-199 MG/DL HIGH RISK: >240 MG/DL >200 MG/DL CLASS. FOR PRIMARY LDL CHOL PREVENTION: LDL CHOL-CHILD/ADOLESCENTS* DESIRABLE: <130 MG/DL <110 MG/DL BORDERLINE-HIGH RISK: 130- 159 MG/DL 110-129 MG/DL HIGH RISK: >160 MG/DL >130 MG/DL *CHILDREN AND ADOLESCENTS REPRESENTS INDIVIDUALA AGED 2-19 YEARS EXCLUSIVE. Osmolality-Calculated 269.7 CALC [facility] ([facility] NORMAL RANGES Age WBC RBC HGB HCT [...] HCT IS 5% LESS SOURCE FOR DATA: [employer] 1800 OPERATION MANUAL( AUTOMATED BLOOD COUNTS AND [...] mL/min Normal 80 and above >32 mL/min NormalCLASSIFICATION CHOLESTEROL FOR ADULTS CHILDREN/ADOLESCENTS* DESIRABLE: <200 MG/DL <170 MG/DL BORDER-LINE HIGH RISK: 200-239 MG/DL 170-199 MG/DL HIGH RISK: >240 MG/DL >200 MG/DL CLASS. FOR PRIMARY LDL CHOL PREVENTION: LDL CHOL-CHILD/ADOLESCENTS* DESIRABLE: <130 MG/DL <110 MG/DL BORDERLINE-HIGH RISK: 130- 159 MG/DL 110-129 MG/DL HIGH RISK: >160 MG/DL >130 MG/DL *CHILDREN AND ADOLESCENTS REPRESENTS INDIVIDUALA AGED 2-19 YEARS EXCLUSIVE. Anion Gap 16 mmol/L [facility] ([facility] NORMAL RANGES Age WBC RBC HGB HCT [...] HCT IS 5% LESS SOURCE FOR DATA: [employer] 1800 OPERATION MANUAL( AUTOMATED BLOOD COUNTS AND [...] mL/min Normal 80 and above >32 mL/min NormalCLASSIFICATION CHOLESTEROL FOR ADULTS CHILDREN/ADOLESCENTS* DESIRABLE: <200 MG/DL <170 MG/DL BORDER-LINE HIGH RISK: 200-239 MG/DL 170-199 MG/DL HIGH RISK: >240 MG/DL >200 MG/DL CLASS. FOR PRIMARY LDL CHOL PREVENTION: LDL CHOL-CHILD/ADOLESCENTS* DESIRABLE: <130 MG/DL <110 MG/DL BORDERLINE-HIGH RISK: 130- 159 MG/DL 110-129 MG/DL HIGH RISK: >160 MG/DL >130 MG/DL *CHILDREN AND ADOLESCENTS REPRESENTS INDIVIDUALA AGED 2-19 YEARS EXCLUSIVE. eGFR Non-Afr. Maltese 82 # [facility] ([facility] NORMAL RANGES Age WBC RBC HGB HCT [...] HCT IS 5% LESS SOURCE FOR DATA: [employer] 1800 OPERATION MANUAL( AUTOMATED BLOOD COUNTS AND [...] mL/min Normal 80 and above >32 mL/min NormalCLASSIFICATION CHOLESTEROL FOR ADULTS CHILDREN/ADOLESCENTS* DESIRABLE: <200 MG/DL <170 MG/DL BORDER-LINE HIGH RISK: 200-239 MG/DL 170-199 MG/DL HIGH RISK: >240 MG/DL >200 MG/DL CLASS. FOR PRIMARY LDL CHOL PREVENTION: LDL CHOL-CHILD/ADOLESCENTS* DESIRABLE: <130 MG/DL <110 MG/DL BORDERLINE-HIGH RISK: 130- 159 MG/DL 110-129 MG/DL HIGH RISK: >160 MG/DL >130 MG/DL *CHILDREN AND ADOLESCENTS REPRESENTS INDIVIDUALA AGED 2-19 YEARS EXCLUSIVE. eGFR 96 # [facility] ( [facility] NORMAL RANGES Age WBC RBC HGB HCT [...] HCT IS 5% LESS SOURCE FOR DATA: [employer] 1800 OPERATION MANUAL( AUTOMATED BLOOD COUNTS AND [...] mL/min Normal 80 and above >32 mL/min NormalCLASSIFICATION CHOLESTEROL FOR ADULTS CHILDREN/ADOLESCENTS* DESIRABLE: <200 MG/DL <170 MG/DL BORDER-LINE HIGH RISK: 200-239 MG/DL 170-199 MG/DL HIGH RISK: >240 MG/DL >200 MG/DL CLASS. FOR PRIMARY LDL CHOL PREVENTION: LDL CHOL-CHILD/ADOLESCENTS* DESIRABLE: <130 MG/DL <110 MG/DL BORDERLINE-HIGH RISK: 130- 159 MG/DL 110-129 MG/DL HIGH RISK: >160 MG/DL >130 MG/DL *CHILDREN AND ADOLESCENTS REPRESENTS INDIVIDUALA AGED 2-19 YEARS EXCLUSIVE. ID Date Data Source [id number] 05/15/2020 11:25:00 AM EST [facility] ([facility] Name Value Range Interpretation Code Description Data Augustina rce(s) Supporting Document(s) RBC 4.21 10E6/uL 07.08-09.17 [facility] ([facility] NORMAL RANGES Age WBC RBC HGB HCT [...] HCT IS 5% LESS SOURCE FOR DATA: [employer] 1800 OPERATION MANUAL( AUTOMATED BLOOD COUNTS AND [...] mL/min Normal 80 and above >32 mL/min NormalCLASSIFICATION CHOLESTEROL FOR ADULTS CHILDREN/ADOLESCENTS* DESIRABLE: <200 MG/DL <170 MG/DL BORDER-LINE HIGH RISK: 200-239 MG/DL 170-199 MG/DL HIGH RISK: >240 MG/DL >200 MG/DL CLASS. FOR PRIMARY LDL CHOL PREVENTION: LDL CHOL-CHILD/ADOLESCENTS* DESIRABLE: <130 MG/DL <110 MG/DL BORDERLINE-HIGH RISK: 130- 159 MG/DL 110-129 MG/DL HIGH RISK: >160 MG/DL >130 MG/DL *CHILDREN AND ADOLESCENTS REPRESENTS INDIVIDUALA AGED 2-19 YEARS EXCLUSIVE. WBC 7.2 10E3/uL 4.1-10.9 [facility] ([facility] NORMAL RANGES Age WBC RBC HGB HCT [...] HCT IS 5% LESS SOURCE FOR DATA: [employer] 1800 OPERATION MANUAL( AUTOMATED BLOOD COUNTS AND [...] mL/min Normal 80 and above >32 mL/min NormalCLASSIFICATION CHOLESTEROL FOR ADULTS CHILDREN/ADOLESCENTS* DESIRABLE: <200 MG/DL <170 MG/DL BORDER-LINE HIGH RISK: 200-239 MG/DL 170-199 MG/DL HIGH RISK: >240 MG/DL >200 MG/DL CLASS. FOR PRIMARY LDL CHOL PREVENTION: LDL CHOL-CHILD/ADOLESCENTS* DESIRABLE: <130 MG/DL <110 MG/DL BORDERLINE-HIGH RISK: 130- 159 MG/DL 110-129 MG/DL HIGH RISK: >160 MG/DL >130 MG/DL *CHILDREN AND ADOLESCENTS REPRESENTS INDIVIDUALA AGED 2-19 YEARS EXCLUSIVE. HGB 12.7 g/dL 12.0-18.0 [facility] ([facility] NORMAL RANGES Age WBC RBC HGB HCT [...] HCT IS 5% LESS SOURCE FOR DATA: [employer] 1800 OPERATION MANUAL( AUTOMATED BLOOD COUNTS AND [...] mL/min Normal 80 and above >32 mL/min NormalCLASSIFICATION CHOLESTEROL FOR ADULTS CHILDREN/ADOLESCENTS* DESIRABLE: <200 MG/DL <170 MG/DL BORDER-LINE HIGH RISK: 200-239 MG/DL 170-199 MG/DL HIGH RISK: >240 MG/DL >200 MG/DL CLASS. FOR PRIMARY LDL CHOL PREVENTION: LDL CHOL-CHILD/ADOLESCENTS* DESIRABLE: <130 MG/DL <110 MG/DL BORDERLINE-HIGH RISK: 130- 159 MG/DL 110-129 MG/DL HIGH RISK: >160 MG/DL >130 MG/DL *CHILDREN AND ADOLESCENTS REPRESENTS INDIVIDUALA AGED 2-19 YEARS EXCLUSIVE. HCT 38.4 % 37.0-51.0 [facility] ([facility] NORMAL RANGES Age WBC RBC HGB HCT [...] HCT IS 5% LESS SOURCE FOR DATA: [employer] 1800 OPERATION MANUAL( AUTOMATED BLOOD COUNTS AND [...] mL/min Normal 80 and above >32 mL/min NormalCLASSIFICATION CHOLESTEROL FOR ADULTS CHILDREN/ADOLESCENTS* DESIRABLE: <200 MG/DL <170 MG/DL BORDER-LINE HIGH RISK: 200-239 MG/DL 170-199 MG/DL HIGH RISK: >240 MG/DL >200 MG/DL CLASS. FOR PRIMARY LDL CHOL PREVENTION: LDL CHOL-CHILD/ADOLESCENTS* DESIRABLE: <130 MG/DL <110 MG/DL BORDERLINE-HIGH RISK: 130- 159 MG/DL 110-129 MG/DL HIGH RISK: >160 MG/DL >130 MG/DL *CHILDREN AND ADOLESCENTS REPRESENTS INDIVIDUALA AGED 2-19 YEARS EXCLUSIVE. MCH 30.2 pg 26.0-32.0 [facility] ([facility] NORMAL RANGES Age WBC RBC HGB HCT [...] HCT IS 5% LESS SOURCE FOR DATA: [employer] 1800 OPERATION MANUAL( AUTOMATED BLOOD COUNTS AND [...] mL/min Normal 80 and above >32 mL/min NormalCLASSIFICATION CHOLESTEROL FOR ADULTS CHILDREN/ADOLESCENTS* DESIRABLE: <200 MG/DL <170 MG/DL BORDER-LINE HIGH RISK: 200-239 MG/DL 170-199 MG/DL HIGH RISK: >240 MG/DL >200 MG/DL CLASS. FOR PRIMARY LDL CHOL PREVENTION: LDL CHOL-CHILD/ADOLESCENTS* DESIRABLE: <130 MG/DL <110 MG/DL BORDERLINE-HIGH RISK: 130- 159 MG/DL 110-129 MG/DL HIGH RISK: >160 MG/DL >130 MG/DL *CHILDREN AND ADOLESCENTS REPRESENTS INDIVIDUALA AGED 2-19 YEARS EXCLUSIVE. MCV 91.2 fL 80.0-97.0 [facility] ([facility] NORMAL RANGES Age WBC RBC HGB HCT [...] HCT IS 5% LESS SOURCE FOR DATA: [employer] 1800 OPERATION MANUAL( AUTOMATED BLOOD COUNTS AND [...] mL/min Normal 80 and above >32 mL/min NormalCLASSIFICATION CHOLESTEROL FOR ADULTS CHILDREN/ADOLESCENTS* DESIRABLE: <200 MG/DL <170 MG/DL BORDER-LINE HIGH RISK: 200-239 MG/DL 170-199 MG/DL HIGH RISK: >240 MG/DL >200 MG/DL CLASS. FOR PRIMARY LDL CHOL PREVENTION: LDL CHOL-CHILD/ADOLESCENTS* DESIRABLE: <130 MG/DL <110 MG/DL BORDERLINE-HIGH RISK: 130- 159 MG/DL 110-129 MG/DL HIGH RISK: >160 MG/DL >130 MG/DL *CHILDREN AND ADOLESCENTS REPRESENTS INDIVIDUALA AGED 2-19 YEARS EXCLUSIVE. PLT 420 10E3/uL 140-440 [facility] ([facility] NORMAL RANGES Age WBC RBC HGB HCT [...] HCT IS 5% LESS SOURCE FOR DATA: [employer] 1800 OPERATION MANUAL( AUTOMATED BLOOD COUNTS AND [...] mL/min Normal 80 and above >32 mL/min NormalCLASSIFICATION CHOLESTEROL FOR ADULTS CHILDREN/ADOLESCENTS* DESIRABLE: <200 MG/DL <170 MG/DL BORDER-LINE HIGH RISK: 200-239 MG/DL 170-199 MG/DL HIGH RISK: >240 MG/DL >200 MG/DL CLASS. FOR PRIMARY LDL CHOL PREVENTION: LDL CHOL-CHILD/ADOLESCENTS* DESIRABLE: <130 MG/DL <110 MG/DL BORDERLINE-HIGH RISK: 130- 159 MG/DL 110-129 MG/DL HIGH RISK: >160 MG/DL >130 MG/DL *CHILDREN AND ADOLESCENTS REPRESENTS INDIVIDUALA AGED 2-19 YEARS EXCLUSIVE. MCHC 33.1 g/dL 31.0-36.0 [facility] ([facility] NORMAL RANGES Age WBC RBC HGB HCT [...] HCT IS 5% LESS SOURCE FOR DATA: [employer] 1800 OPERATION MANUAL( AUTOMATED BLOOD COUNTS AND [...] mL/min Normal 80 and above >32 mL/min NormalCLASSIFICATION CHOLESTEROL FOR ADULTS CHILDREN/ADOLESCENTS* DESIRABLE: <200 MG/DL <170 MG/DL BORDER-LINE HIGH RISK: 200-239 MG/DL 170-199 MG/DL HIGH RISK: >240 MG/DL >200 MG/DL CLASS. FOR PRIMARY LDL CHOL PREVENTION: LDL CHOL-CHILD/ADOLESCENTS* DESIRABLE: <130 MG/DL <110 MG/DL BORDERLINE-HIGH RISK: 130- 159 MG/DL 110-129 MG/DL HIGH RISK: >160 MG/DL >130 MG/DL *CHILDREN AND ADOLESCENTS REPRESENTS INDIVIDUALA AGED 2-19 YEARS EXCLUSIVE. RDW-CV 13.4 % 11.5-14.5 [facility] ([facility] NORMAL RANGES Age WBC RBC HGB HCT [...] HCT IS 5% LESS SOURCE FOR DATA: [employer] 1800 OPERATION MANUAL( AUTOMATED BLOOD COUNTS AND [...] mL/min Normal 80 and above >32 mL/min NormalCLASSIFICATION CHOLESTEROL FOR ADULTS CHILDREN/ADOLESCENTS* DESIRABLE: <200 MG/DL <170 MG/DL BORDER-LINE HIGH RISK: 200-239 MG/DL 170-199 MG/DL HIGH RISK: >240 MG/DL >200 MG/DL CLASS. FOR PRIMARY LDL CHOL PREVENTION: LDL CHOL-CHILD/ADOLESCENTS* DESIRABLE: <130 MG/DL <110 MG/DL BORDERLINE-HIGH RISK: 130- 159 MG/DL 110-129 MG/DL HIGH RISK: >160 MG/DL >130 MG/DL *CHILDREN AND ADOLESCENTS REPRESENTS INDIVIDUALA AGED 2-19 YEARS EXCLUSIVE. Lym% 30.1 % 10.0-58.5 [facility] ([facility] NORMAL RANGES Age WBC RBC HGB HCT [...] HCT IS 5% LESS SOURCE FOR DATA: [employer] 1800 OPERATION MANUAL( AUTOMATED BLOOD COUNTS AND [...] mL/min Normal 80 and above >32 mL/min NormalCLASSIFICATION CHOLESTEROL FOR ADULTS CHILDREN/ADOLESCENTS* DESIRABLE: <200 MG/DL <170 MG/DL BORDER-LINE HIGH RISK: 200-239 MG/DL 170-199 MG/DL HIGH RISK: >240 MG/DL >200 MG/DL CLASS. FOR PRIMARY LDL CHOL PREVENTION: LDL CHOL-CHILD/ADOLESCENTS* DESIRABLE: <130 MG/DL <110 MG/DL BORDERLINE-HIGH RISK: 130- 159 MG/DL 110-129 MG/DL HIGH RISK: >160 MG/DL >130 MG/DL *CHILDREN AND ADOLESCENTS REPRESENTS INDIVIDUALA AGED 2-19 YEARS EXCLUSIVE. Neut% 59.1 % 37.0-92.0 [facility] ([facility] NORMAL RANGES Age WBC RBC HGB HCT [...] HCT IS 5% LESS SOURCE FOR DATA: [employer] 1800 OPERATION MANUAL( AUTOMATED BLOOD COUNTS AND [...] mL/min Normal 80 and above >32 mL/min NormalCLASSIFICATION CHOLESTEROL FOR ADULTS CHILDREN/ADOLESCENTS* DESIRABLE: <200 MG/DL <170 MG/DL BORDER-LINE HIGH RISK: 200-239 MG/DL 170-199 MG/DL HIGH RISK: >240 MG/DL >200 MG/DL CLASS. FOR PRIMARY LDL CHOL PREVENTION: LDL CHOL-CHILD/ADOLESCENTS* DESIRABLE: <130 MG/DL <110 MG/DL BORDERLINE-HIGH RISK: 130- 159 MG/DL 110-129 MG/DL HIGH RISK: >160 MG/DL >130 MG/DL *CHILDREN AND ADOLESCENTS REPRESENTS INDIVIDUALA AGED 2-19 YEARS EXCLUSIVE. MXD% 10.8 % 0.1-24.0 [facility] ([facility] NORMAL RANGES Age WBC RBC HGB HCT [...] HCT IS 5% LESS SOURCE FOR DATA: [employer] 1800 OPERATION MANUAL( AUTOMATED BLOOD COUNTS AND [...] mL/min Normal 80 and above >32 mL/min NormalCLASSIFICATION CHOLESTEROL FOR ADULTS CHILDREN/ADOLESCENTS* DESIRABLE: <200 MG/DL <170 MG/DL BORDER-LINE HIGH RISK: 200-239 MG/DL 170-199 MG/DL HIGH RISK: >240 MG/DL >200 MG/DL CLASS. FOR PRIMARY LDL CHOL PREVENTION: LDL CHOL-CHILD/ADOLESCENTS* DESIRABLE: <130 MG/DL <110 MG/DL BORDERLINE-HIGH RISK: 130- 159 MG/DL 110-129 MG/DL HIGH RISK: >160 MG/DL >130 MG/DL *CHILDREN AND ADOLESCENTS REPRESENTS INDIVIDUALA AGED 2-19 YEARS EXCLUSIVE. Neut# 4.2 % 2.0-7.8 [facility] ([facility] NORMAL RANGES Age WBC RBC HGB HCT [...] HCT IS 5% LESS SOURCE FOR DATA: [employer] 1800 OPERATION MANUAL( AUTOMATED BLOOD COUNTS AND [...] mL/min Normal 80 and above >32 mL/min NormalCLASSIFICATION CHOLESTEROL FOR ADULTS CHILDREN/ADOLESCENTS* DESIRABLE: <200 MG/DL <170 MG/DL BORDER-LINE HIGH RISK: 200-239 MG/DL 170-199 MG/DL HIGH RISK: >240 MG/DL >200 MG/DL CLASS. FOR PRIMARY LDL CHOL PREVENTION: LDL CHOL-CHILD/ADOLESCENTS* DESIRABLE: <130 MG/DL <110 MG/DL BORDERLINE-HIGH RISK: 130- 159 MG/DL 110-129 MG/DL HIGH RISK: >160 MG/DL >130 MG/DL *CHILDREN AND ADOLESCENTS REPRESENTS INDIVIDUALA AGED 2-19 YEARS EXCLUSIVE. Lym# 2.2 10E3/uL 0.6-4.1 [facility] ([facility] NORMAL RANGES Age WBC RBC HGB HCT [...] HCT IS 5% LESS SOURCE FOR DATA: [employer] 1800 OPERATION MANUAL( AUTOMATED BLOOD COUNTS AND [...] mL/min Normal 80 and above >32 mL/min NormalCLASSIFICATION CHOLESTEROL FOR ADULTS CHILDREN/ADOLESCENTS* DESIRABLE: <200 MG/DL <170 MG/DL BORDER-LINE HIGH RISK: 200-239 MG/DL 170-199 MG/DL HIGH RISK: >240 MG/DL >200 MG/DL CLASS. FOR PRIMARY LDL CHOL PREVENTION: LDL CHOL-CHILD/ADOLESCENTS* DESIRABLE: <130 MG/DL <110 MG/DL BORDERLINE-HIGH RISK: 130- 159 MG/DL 110-129 MG/DL HIGH RISK: >160 MG/DL >130 MG/DL *CHILDREN AND ADOLESCENTS REPRESENTS INDIVIDUALA AGED 2-19 YEARS EXCLUSIVE. MXD# 0.8 10E3/uL 0.0-1.8 [facility] ([facility] NORMAL RANGES Age WBC RBC HGB HCT [...] HCT IS 5% LESS SOURCE FOR DATA: [employer] 1800 OPERATION MANUAL( AUTOMATED BLOOD COUNTS AND [...] mL/min Normal 80 and above >32 mL/min NormalCLASSIFICATION CHOLESTEROL FOR ADULTS CHILDREN/ADOLESCENTS* DESIRABLE: <200 MG/DL <170 MG/DL BORDER-LINE HIGH RISK: 200-239 MG/DL 170-199 MG/DL HIGH RISK: >240 MG/DL >200 MG/DL CLASS. FOR PRIMARY LDL CHOL PREVENTION: LDL CHOL-CHILD/ADOLESCENTS* DESIRABLE: <130 MG/DL <110 MG/DL BORDERLINE-HIGH RISK: 130- 159 MG/DL 110-129 MG/DL HIGH RISK: >160 MG/DL >130 MG/DL *CHILDREN AND ADOLESCENTS REPRESENTS INDIVIDUALA AGED 2-19 YEARS EXCLUSIVE. MPV 9.0 fL 9.0-13.0 [facility] ([facility] NORMAL RANGES Age WBC RBC HGB HCT [...] HCT IS 5% LESS SOURCE FOR DATA: [employer] 1800 OPERATION MANUAL( AUTOMATED BLOOD COUNTS AND [...] mL/min Normal 80 and above >32 mL/min NormalCLASSIFICATION CHOLESTEROL FOR ADULTS CHILDREN/ADOLESCENTS* DESIRABLE: <200 MG/DL <170 MG/DL BORDER-LINE HIGH RISK: 200-239 MG/DL 170-199 MG/DL HIGH RISK: >240 MG/DL >200 MG/DL CLASS. FOR PRIMARY LDL CHOL PREVENTION: LDL CHOL-CHILD/ADOLESCENTS* DESIRABLE: <130 MG/DL <110 MG/DL BORDERLINE-HIGH RISK: 130- 159 MG/DL 110-129 MG/DL HIGH RISK: >160 MG/DL >130 MG/DL *CHILDREN AND ADOLESCENTS REPRESENTS INDIVIDUALA AGED 2-19 YEARS EXCLUSIVE. ID Date Data Source [facility] BILATERAL MAMMO SCREENING (Ultraso und if indicated) 05/13/2020 12:00:00 AM EST [facility] ([facility]) Name Value Range Interpretation Code Description Data Augustina rce(s) Supporting Document(s) [facility] / TERRELL BILAT ERAL MAMMO SCREENING (Ultrasound if indicated) [facility] ([facility]) ID Date Data Source [id number] 04/25/2020 12:08:56 PM EST [facility] Name Value Range Interpretation Code Description Data Augustina rce(s) Supporting Document(s) Progress Note [facility] LURMGy1aOvLVSfXu39/GVXdyWDCxg8SyKBmpGMw5CNcdDJXlG0TeYPZ2sY8kFLA7JSrGIqWgKjCkOxD1 lbm [file] FhWjSI4hSPDVAv9+JOxjcFChlPslBMYSOeJrJgkzPKgrCLVWTt2A ID Date Data Source [id number] 04/22/2020 12:00:00 AM EST [facility] Ludin Castillo MD Patient Name: CITLALI ROUSSEAUE [id number] Date of : 1965[address] Date of Exam: [address] [id number]#: Fax: [phone] EXAM: MRI TIBIA RIGHT WITHOUT CONTRASTCLINICAL INFORMATION: Hernia of muscle through fascia of right lower leg.Comparison 12/24/2019.3T multiplanar MRI imaging of the right lower leg was obtained usingvarious sequences.The site of the palpable lump is marked on the skin in the proximal aspectof the calf anterolaterally. Once again, there is a superficialsubcutaneous nodule at that location. It is hypointense on T1 andhyperintense on T2. There is a central hypointense area on T2. Thereappear to be three small venous channels connecting with this nodule. Thisis approximately 8 mm in diameter and is unch anged when compared to theprior study. No other mass is seen in the soft tissues of the right calf.Musculature demonstrates normal signal. No abnormal bone marrow signal isseen in the right tibia or fibula. Incidental note is made ofchondromalacia of the patella with a small effusion of the right kneejoint.IMPRESSION:Stable superficial nodule at the site of the palpable lump in the proximalright calf anterolaterally. There is no change in the appearance of thenodule when compared to the prior study of 12/24/2019. There appear to bethree small venous structures connecting to the nodule. 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 Electronically Signed - KAI ROCA MD 04/23/20 17:04 Name Value Range Interpretation Code Description Data Augustina rce(s) Supporting Document(s) ID Date Data Source [id number] 04/07/2020 12:00:00 AM EST [facility] Name Value Range Interpretation Code Description Data Augustina rce(s) Supporting Document(s) SARS-CoV2 Rapid Antigen Negative [facility] This lab was ordered by [facility] and reported by [facility]. ID Date Data Source [id number] 02/22/2020 11:57:47 AM EST [facility] Name Value Range Interpretation Code Description Data Augustina rce(s) Supporting Document(s) Progress Note [facility] VFGVXa0kMzMCEhNx33/HLNwlKZNvi4GfGChyLUe2AKoyLCOlJ8MwGBE4qK2pBYZ7FHdAZcBnFxVfWvB7 lbm [file] TgKgCbHtYY2RLo3MWcW2XNS4eFEnMk2NHmN9EchBJeBfFJ1SVMe= ID Date Data Source [id number] 02/08/2020 03:39:[address] [facility] Name Value Range Interpretation Code Description Data Augustina rce(s) Supporting Document(s) Progress Note [facility] XCTHQh6vJaAZNlOm08/BANhuTALgx6GzFElpCWu4VKsaCXFmH0RhTGA6mG5pAFZ1CMzHNqZoCvYpCYMp lbm [file] AgICAgICAgICAgICAgICAgICAgICAgICAgICAgICAgICAgICAgICAgICAgICAgICAgICAgICAgICAgIC AgICAgICAgICAgICAgICAgICAgICAgICAgICAgICAg XTXhHF3EEWDcUOOnWDDuXCHzGXNyETOxGRHaHXMhIJAxKTRcNZPnFAZhWGBkCFVfUMAsFVZaALDbROLw UNQfVGCaIHAiMKUtMYOqOWJtKHHqHTHhUVXiXDEcZMJjURYrSUGnBARvPOYlXS1MZUWgPCQqBWXtVRVk ICAgICAgICAgICAgICAgICAgICAgICAgICAgICAgIC TqDWRgTVBoCPLxCLDcRKXxRRFcFLIiBOPkEZKoFYGaRTFgBLZuTKGlCCIoYZSfEMYsYWOzWDHgMC3VSO AgICAgICAgICAgICAgICAgICAgICAgICAgICAgICAgICAgICAgICAgICAgICAgICAgICAgICAgICAgIC AgICAgICAgICAgICAgICAgICAgICAgICAgICAgICAg FTDpXCLxQP8NYHTgPPMbQIStVNXsNLNmBBUoXLUzDOXgXNZcTXQdWJDoHIBqEZSxIBOgFVEiDTHrIHAc BOKeCTIjJBUmMYYbZNIzRUTfFFSjJKHyTFKdPGEzWUVcHKWdASOyOEOdUWWcSVFaPP4AEIApCBYdIEEk ICAgICAgICAgICAgICAgICAgICAgICAgICAgICAgIC AgICAgICAgICAgICAgICAgICAgICAgICAgICAgICAgICAgICAgICAgICAgICAgICAgICAgICAgICAgIA 0KICAgICAgICAgICAgICAgICAgICAgICAgICAgICAgICAgICAgICAgICAgICAgICAgICAgICAgICAgIC AgICAgICAgICAgICAgICAgICAgICAgICAgICAgICAg OTGiYWTpHANgUS4PLHBtYFAoLATiBAViPCYyMWAfRXOpNFOwSNUbXOMjVJXlCDXeDTCjNHHkTDDmBCDa LAYeHJZwIEOeTPJpRGJiQFKuQRCiXLSlQKVpJNIfVDCpECDzGINiSGTtYUCjNAJvFQWlBB4OGAAlQHHl ICAgICAgICAgICAgICAgICAgICAgICAgICAgICAgIC AgICAgICAgICAgICAgICAgICAgICAgICAgICAgICAgICAgICAgICAgICAgICAgICAgICAgICAgICAgIC MaWA7NYMMkFGDqWYWiCDEtPNElZVWoWBUdBKFmFQOwJKBcISUjVIVcXJQcABTtHJZxBNHcEGCoJABfOX AgICAgICAgICAgICAgICAgICAgICAgICAgICAgICAg XTBzGZGhZOUpCUJmYG2DLB24nCXgl5Q3MNEwAP0asgm/Se8BFMmjnqPncZUpKX1DJlGzKM6rrp3ZCtHy OT6ynn1LXRrBZmVlW4C8yWQsYWLrXKOMPkLdA50xLJofZv02XLhdJZGeTdTsPGa9Az5SZsYaN3oaSLNx FrG0UKLcJcA6LTQeTyB1BDSjHzAjDSorZZ0Ia5IldO AzDQo+Md3RCQ3uc1KgUZxxWKTcRS4zoz9ODDdDDoReI5NlvuQ0YFQoIWLiCu1JTBFkXEGcnHTgFXIzAQ UNTvOwP8CxuW37OBUATw1+LHvecuZsXfiNPvOgGVVwp3MwCVm5MZ1VLLVxSDk8vXQpDAOyB0Dks1OdAp 86HYFmZqvuZZC7hCtzdgIQYEQdlADqIFWSNKIlrGQp AR3jOH8rXYLoXXVgJdI8FKZWHW7WZTJzGPHyhNCfTMSpTPCOQS7HSMhyZWG5JDGansTnoATrSRjtMT3G YXJlbnQgMjkgMCBSDQo+Ak3VWK6ud2LfLThsVIIeCA1ymr1LMZoAHlRoG8G6pNKyN5F7OBipOn6LDWGs VAXwYmcqKQNGBImkTF1RAF5ewwU8SW7DpAVhIIAeWX DegCYdIKr4H21azOOkPEetKU6FZVH+Wallace+Ra3IBNJmLMMdFGTqBcTfLILAInAhE6FuU4BZj5ZvK5GpJI 51mMhkxqHyFWrgMH5JZI7jOPJtOFUTKS0DpGCkoP3stiXkDKKvDSRXAvFwP07szUDtGERoLNO9SFQjNr 8BCKVxD3EsikCotYlddeFkCQSnJFIAVT5OXPuzkvCe rXZakGpmXZ50yZflLK1BOx7NNuPkNQ3ppx6XpGUcOi8BWAMaVp4HCCXlABWyIEImGGT4SNIiOjGhHMnm IOIjQIKhIQR1JZKkLCFsNW8EXnRgSPBzBCZcOpMuDIOzHPTrsw0LDEFjAWQ5QjIvAwUoEHPbPBFkFBmk DHPqSPSoEYU7TSUaYFXvLT9YStAdQODcQEW6JNshTN YcZGRuwk4SDVGsOJTcDLYtNeWdRMNtTRFaIQzxHKQxMSX6YGmeENZdUUMuYO0KPwHrRUPzKGjsAARfMT XwSNQcgc7IYBAnEHAiVXZwZNPqGGJrUJDdBJgyMLBaHVGmVjJ6EBOwZSFcWZ5RAnZcODMeBNI5KYWdGG IwILDazo3XLCYvQRRbJOs9SyInXWAtEXYyDTllCNZm IGCxVLS8ZOUaHKGhXD1DQsHxVSAmVKY8RuXdKZBbYHDahf3GRTZjGDDtKzDuOhOtFLDrVJPrBRxjBTFv XSMqTeD5ONIsGCLxTL6YMvEdTODxXQQsDVzySHFsBZMjcy8EPJEyAUN8QJK2BgTwGYOoXMSbNVdnAKZm AQPuNRH5WLKnQXMtYH9TQuNuQSBoWPX8DeUoCMSoBJ Tigd9UXDDtYXW2UNtlMKQkDYKcBJOaTWdrZIDhPGCpWmH6XELnQMHaGE6SUfWjMYIxCVP3JJtsQZXvYM Ptlg5PAXBoILQ0TdErLEIsTURoYEIfAUgjMUXrTSXcZNo2WDPyRMKjXN8DUwVsXAMiFHKlKpCoCLMqMD Eaze0YCGDsEJX2OBH6FHSdUDFjLCNcSPzwAGXsUBB2 CptpNSEmLFZsZO2VNsXzPSRmQQUuDpCaOGRiCXWljs3WDGYiCVT3KmV0ZRLvTLZjXIQsCBjjEAIoNGM0 EZD6CKUnDZRuOO4MTfQoJAzcBAIFVbe5TUjyY5m4OLZkDo7ZA3Jqq9DxOoFbHKLTQNeyJM9pgsPxKGIy Oy8MP7dWFbp9NbR4QHpqSPmzJgR2PZK6KPKeIOI6KG hrVxPeQtS2ZL4kUAPbRljdYJP2GyVtNtrxIYj9CGEeSCi9YJNpCeLzOOU9BoEqDX1MIr6DMqM6XJK8gV MeUz1CLLW3XMySWrTiHA1YXKa= ID Date Data Source [id number] 02/05/2020 11:14:00 AM EST [facility] ([facility] Name Value Range Interpretation Code Description Data Augustina rce(s) Supporting Document(s) Chol 211 mg/dL 0-200 Above high normal [facility] ([facility] NORMAL RANGES Age WBC RBC HGB HCT [...] HCT IS 5% LESS SOURCE FOR DATA: [employer] 1800 [employer]PERATION MANUAL( AUTOMATED BLOOD COUNTS AND [...] mL/min Normal 80 and above >32 mL/min NormalCLASSIFICATION CHOLESTEROL FOR ADULTS CHILDREN/ADOLESCENTS* DESIRABLE: <200 MG/DL <170 MG/DL BORDER-LINE HIGH RISK: 200-239 MG/DL 170-199 MG/DL HIGH RISK: >240 MG/DL >200 MG/DL CLASS. FOR PRIMARY LDL CHOL PREVENTION: LDL CHOL-CHILD/ADOLESCENTS* DESIRABLE: <130 MG/DL <110 MG/DL BORDERLINE-HIGH RISK: 130- 159 MG/DL 110-129 MG/DL HIGH RISK: >160 MG/DL >130 MG/DL *CHILDREN AND ADOLESCENTS REPRESENTS INDIVIDUALA AGED 2-19 YEARS EXCLUSIVE. Trig 80 mg/dL 40-200 [facility] ([facility] NORMAL RANGES Age WBC RBC HGB HCT [...] HCT IS 5% LESS SOURCE FOR DATA: [employer] MANUAL( AUTOMATED BLOOD COUNTS AND [...] mL/min Normal 80 and above >32 mL/min NormalCLASSIFICATION CHOLESTEROL FOR ADULTS CHILDREN/ADOLESCENTS* DESIRABLE: <200 MG/DL <170 MG/DL BORDER-LINE HIGH RISK: 200-239 MG/DL 170-199 MG/DL HIGH RISK: >240 MG/DL >200 MG/DL CLASS. FOR PRIMARY LDL CHOL PREVENTION: LDL CHOL-CHILD/ADOLESCENTS* DESIRABLE: <130 MG/DL <110 MG/DL BORDERLINE-HIGH RISK: 130- 159 MG/DL 110-129 MG/DL HIGH RISK: >160 MG/DL >130 MG/DL *CHILDREN AND ADOLESCENTS REPRESENTS INDIVIDUALA AGED 2-19 YEARS EXCLUSIVE. Cholesterol in HDL [Mass/volume] in Serum or Plasma 86 mg/dL 45-65 Above high normal [facility] ([facility] NORMAL RANGES Age WBC RBC HGB HCT [...] HCT IS 5% LESS SOURCE FOR DATA: [employer] 1800 [employer]PERATION MANUAL( AUTOMATED BLOOD COUNTS AND [...] mL/min Normal 80 and above >32 mL/min NormalCLASSIFICATION CHOLESTEROL FOR ADULTS CHILDREN/ADOLESCENTS* DESIRABLE: <200 MG/DL <170 MG/DL BORDER-LINE HIGH RISK: 200-239 MG/DL 170-199 MG/DL HIGH RISK: >240 MG/DL >200 MG/DL CLASS. FOR PRIMARY LDL CHOL PREVENTION: LDL CHOL-CHILD/ADOLESCENTS* DESIRABLE: <130 MG/DL <110 MG/DL BORDERLINE-HIGH RISK: 130- 159 MG/DL 110-129 MG/DL HIGH RISK: >160 MG/DL >130 MG/DL *CHILDREN AND ADOLESCENTS REPRESENTS INDIVIDUALA AGED 2-19 YEARS EXCLUSIVE. LDL_C 109 Calc 75-129 [facility] NORMAL RANGES Age WBC RBC HGB HCT [...] HCT IS 5% LESS SOURCE FOR DATA: [employer] 1800 [employer]PERATION MANUAL( AUTOMATED BLOOD COUNTS AND [...] mL/min Normal 80 and above >32 mL/min NormalCLASSIFICATION CHOLESTEROL FOR ADULTS CHILDREN/ADOLESCENTS* DESIRABLE: <200 MG/DL <170 MG/DL BORDER-LINE HIGH RISK: 200-239 MG/DL 170-199 MG/DL HIGH RISK: >240 MG/DL >200 MG/DL CLASS. FOR PRIMARY LDL CHOL PREVENTION: LDL CHOL-CHILD/ADOLESCENTS* DESIRABLE: <130 MG/DL <110 MG/DL BORDERLINE-HIGH RISK: 130- 159 MG/DL 110-129 MG/DL HIGH RISK: >160 MG/DL >130 MG/DL *CHILDREN AND ADOLESCENTS REPRESENTS INDIVIDUALA AGED 2-19 YEARS EXCLUSIVE. Cho/HDL Ratio 2.5 Calc [employer] ([facility] [employer] NORMAL RANGES Age WBC RBC HGB HCT [...] HCT IS 5% LESS SOURCE FOR DATA: [employer] 1800 OPERATION MANUAL( AUTOMATED BLOOD COUNTS AND [...] mL/min Normal 80 and above >32 mL/min NormalCLASSIFICATION CHOLESTEROL FOR ADULTS CHILDREN/ADOLESCENTS* DESIRABLE: <200 MG/DL <170 MG/DL BORDER-LINE HIGH RISK: 200-239 MG/DL 170-199 MG/DL HIGH RISK: >240 MG/DL >200 MG/DL CLASS. FOR PRIMARY LDL CHOL PREVENTION: LDL CHOL-CHILD/ADOLESCENTS* DESIRABLE: <130 MG/DL <110 MG/DL BORDERLINE-HIGH RISK: 130- 159 MG/DL 110-129 MG/DL HIGH RISK: >160 MG/DL >130 MG/DL *CHILDREN AND ADOLESCENTS REPRESENTS INDIVIDUALA AGED 2-19 YEARS EXCLUSIVE. ID Date Data Source [id number] 02/05/2020 11:14:00 AM EST [facility] ([facility] Name Value Range Interpretation Code Description Data Augustina rce(s) Supporting Document(s) Glu 101 mg/dL 70-110 [facility] ([facility] NORMAL RANGES Age WBC RBC HGB HCT [...] HCT IS 5% LESS SOURCE FOR DATA: [employer] 1800 OPERATION MANUAL( AUTOMATED BLOOD COUNTS AND [...] mL/min Normal 80 and above >32 mL/min NormalCLASSIFICATION CHOLESTEROL FOR ADULTS CHILDREN/ADOLESCENTS* DESIRABLE: <200 MG/DL <170 MG/DL BORDER-LINE HIGH RISK: 200-239 MG/DL 170-199 MG/DL HIGH RISK: >240 MG/DL >200 MG/DL CLASS. FOR PRIMARY LDL CHOL PREVENTION: LDL CHOL-CHILD/ADOLESCENTS* DESIRABLE: <130 MG/DL <110 MG/DL BORDERLINE-HIGH RISK: 130- 159 MG/DL 110-129 MG/DL HIGH RISK: >160 MG/DL >130 MG/DL *CHILDREN AND ADOLESCENTS REPRESENTS INDIVIDUALA AGED 2-19 YEARS EXCLUSIVE. Creat 0.8 mg/dL 0.5-1.0 [facility] NORMAL RANGES Age WBC RBC HGB HCT [...] HCT IS 5% LESS SOURCE FOR DATA: [employer] 1800 OPERATION MANUAL( AUTOMATED BLOOD COUNTS AND [...] mL/min Normal 80 and above >32 mL/min NormalCLASSIFICATION CHOLESTEROL FOR ADULTS CHILDREN/ADOLESCENTS* DESIRABLE: <200 MG/DL <170 MG/DL BORDER-LINE HIGH RISK: 200-239 MG/DL 170-199 MG/DL HIGH RISK: >240 MG/DL >200 MG/DL CLASS. FOR PRIMARY LDL CHOL PREVENTION: LDL CHOL-CHILD/ADOLESCENTS* DESIRABLE: <130 MG/DL <110 MG/DL BORDERLINE-HIGH RISK: 130- 159 MG/DL 110-129 MG/DL HIGH RISK: >160 MG/DL >130 MG/DL *CHILDREN AND ADOLESCENTS REPRESENTS INDIVIDUALA AGED 2-19 YEARS EXCLUSIVE. BUN 17 mg/dL 8-23 [facility] ([facility] NORMAL RANGES Age WBC RBC HGB HCT [...] HCT IS 5% LESS SOURCE FOR DATA: [employer] 1800 OPERATION MANUAL( AUTOMATED BLOOD COUNTS AND [...] mL/min Normal 80 and above >32 mL/min NormalCLASSIFICATION CHOLESTEROL FOR ADULTS CHILDREN/ADOLESCENTS* DESIRABLE: <200 MG/DL <170 MG/DL BORDER-LINE HIGH RISK: 200-239 MG/DL 170-199 MG/DL HIGH RISK: >240 MG/DL >200 MG/DL CLASS. FOR PRIMARY LDL CHOL PREVENTION: LDL CHOL-CHILD/ADOLESCENTS* DESIRABLE: <130 MG/DL <110 MG/DL BORDERLINE-HIGH RISK: 130- 159 MG/DL 110-129 MG/DL HIGH RISK: >160 MG/DL >130 MG/DL *CHILDREN AND ADOLESCENTS REPRESENTS INDIVIDUALA AGED 2-19 YEARS EXCLUSIVE. BUN/Creatinine Ratio 22.4 CALC [facility] ([facility] NORMAL RANGES Age WBC RBC HGB HCT [...] HCT IS 5% LESS SOURCE FOR DATA: [employer] 1800 OPERATION MANUAL( AUTOMATED BLOOD COUNTS AND [...] mL/min Normal 80 and above >32 mL/min NormalCLASSIFICATION CHOLESTEROL FOR ADULTS CHILDREN/ADOLESCENTS* DESIRABLE: <200 MG/DL <170 MG/DL BORDER-LINE HIGH RISK: 200-239 MG/DL 170-199 MG/DL HIGH RISK: >240 MG/DL >200 MG/DL CLASS. FOR PRIMARY LDL CHOL PREVENTION: LDL CHOL-CHILD/ADOLESCENTS* DESIRABLE: <130 MG/DL <110 MG/DL BORDERLINE-HIGH RISK: 130- 159 MG/DL 110-129 MG/DL HIGH RISK: >160 MG/DL >130 MG/DL *CHILDREN AND ADOLESCENTS REPRESENTS INDIVIDUALA AGED 2-19 YEARS EXCLUSIVE. Na 136 mmol/L 136-145 [facility] NORMAL RANGES Age WBC RBC HGB HCT [...] HCT IS 5% LESS SOURCE FOR DATA: [employer] 1800 OPERATION MANUAL( AUTOMATED BLOOD COUNTS AND [...] mL/min Normal 80 and above >32 mL/min NormalCLASSIFICATION CHOLESTEROL FOR ADULTS CHILDREN/ADOLESCENTS* DESIRABLE: <200 MG/DL <170 MG/DL BORDER-LINE HIGH RISK: 200-239 MG/DL 170-199 MG/DL HIGH RISK: >240 MG/DL >200 MG/DL CLASS. FOR PRIMARY LDL CHOL PREVENTION: LDL CHOL-CHILD/ADOLESCENTS* DESIRABLE: <130 MG/DL <110 MG/DL BORDERLINE-HIGH RISK: 130- 159 MG/DL 110-129 MG/DL HIGH RISK: >160 MG/DL >130 MG/DL *CHILDREN AND ADOLESCENTS REPRESENTS INDIVIDUALA AGED 2-19 YEARS EXCLUSIVE. K 4.5 mmol/L 3.5-5.1 [facility] ([facility] NORMAL RANGES Age WBC RBC HGB HCT [...] HCT IS 5% LESS SOURCE FOR DATA: [employer] 1800 OPERATION MANUAL( AUTOMATED BLOOD COUNTS AND [...] mL/min Normal 80 and above >32 mL/min NormalCLASSIFICATION CHOLESTEROL FOR ADULTS CHILDREN/ADOLESCENTS* DESIRABLE: <200 MG/DL <170 MG/DL BORDER-LINE HIGH RISK: 200-239 MG/DL 170-199 MG/DL HIGH RISK: >240 MG/DL >200 MG/DL CLASS. FOR PRIMARY LDL CHOL PREVENTION: LDL CHOL-CHILD/ADOLESCENTS* DESIRABLE: <130 MG/DL <110 MG/DL BORDERLINE-HIGH RISK: 130- 159 MG/DL 110-129 MG/DL HIGH RISK: >160 MG/DL >130 MG/DL *CHILDREN AND ADOLESCENTS REPRESENTS INDIVIDUALA AGED 2-19 YEARS EXCLUSIVE. CL 99.1 mmol/L 98.0-107.0 [facility] ([facility] NORMAL RANGES Age WBC RBC HGB HCT [...] HCT IS 5% LESS SOURCE FOR DATA: [employer] 1800 OPERATION MANUAL( AUTOMATED BLOOD COUNTS AND [...] mL/min Normal 80 and above >32 mL/min NormalCLASSIFICATION CHOLESTEROL FOR ADULTS CHILDREN/ADOLESCENTS* DESIRABLE: <200 MG/DL <170 MG/DL BORDER-LINE HIGH RISK: 200-239 MG/DL 170-199 MG/DL HIGH RISK: >240 MG/DL >200 MG/DL CLASS. FOR PRIMARY LDL CHOL PREVENTION: LDL CHOL-CHILD/ADOLESCENTS* DESIRABLE: <130 MG/DL <110 MG/DL BORDERLINE-HIGH RISK: 130- 159 MG/DL 110-129 MG/DL HIGH RISK: >160 MG/DL >130 MG/DL *CHILDREN AND ADOLESCENTS REPRESENTS INDIVIDUALA AGED 2-19 YEARS EXCLUSIVE. Co2 23.2 mmol/L 22.0-29.0 [facility] NORMAL RANGES Age WBC RBC HGB HCT [...] HCT IS 5% LESS SOURCE FOR DATA: [employer] 1800 OPERATION MANUAL( AUTOMATED BLOOD COUNTS AND [...] mL/min Normal 80 and above >32 mL/min NormalCLASSIFICATION CHOLESTEROL FOR ADULTS CHILDREN/ADOLESCENTS* DESIRABLE: <200 MG/DL <170 MG/DL BORDER-LINE HIGH RISK: 200-239 MG/DL 170-199 MG/DL HIGH RISK: >240 MG/DL >200 MG/DL CLASS. FOR PRIMARY LDL CHOL PREVENTION: LDL CHOL-CHILD/ADOLESCENTS* DESIRABLE: <130 MG/DL <110 MG/DL BORDERLINE-HIGH RISK: 130- 159 MG/DL 110-129 MG/DL HIGH RISK: >160 MG/DL >130 MG/DL *CHILDREN AND ADOLESCENTS REPRESENTS INDIVIDUALA AGED 2-19 YEARS EXCLUSIVE. CA 9.7 mg/dL 8.6-10.2 [facility] NORMAL RANGES Age WBC RBC HGB HCT [...] HCT IS 5% LESS SOURCE FOR DATA: [employer] 1800 OPERATION MANUAL( AUTOMATED BLOOD COUNTS AND [...] mL/min Normal 80 and above >32 mL/min NormalCLASSIFICATION CHOLESTEROL FOR ADULTS CHILDREN/ADOLESCENTS* DESIRABLE: <200 MG/DL <170 MG/DL BORDER-LINE HIGH RISK: 200-239 MG/DL 170-199 MG/DL HIGH RISK: >240 MG/DL >200 MG/DL CLASS. FOR PRIMARY LDL CHOL PREVENTION: LDL CHOL-CHILD/ADOLESCENTS* DESIRABLE: <130 MG/DL <110 MG/DL BORDERLINE-HIGH RISK: 130- 159 MG/DL 110-129 MG/DL HIGH RISK: >160 MG/DL >130 MG/DL *CHILDREN AND ADOLESCENTS REPRESENTS INDIVIDUALA AGED 2-19 YEARS EXCLUSIVE. TP 7.1 g/dL 6.6-8.7 [facility] ([facility] NORMAL RANGES Age WBC RBC HGB HCT [...] HCT IS 5% LESS SOURCE FOR DATA: [employer] 1800 OPERATION MANUAL( AUTOMATED BLOOD COUNTS AND [...] mL/min Normal 80 and above >32 mL/min NormalCLASSIFICATION CHOLESTEROL FOR ADULTS CHILDREN/ADOLESCENTS* DESIRABLE: <200 MG/DL <170 MG/DL BORDER-LINE HIGH RISK: 200-239 MG/DL 170-199 MG/DL HIGH RISK: >240 MG/DL >200 MG/DL CLASS. FOR PRIMARY LDL CHOL PREVENTION: LDL CHOL-CHILD/ADOLESCENTS* DESIRABLE: <130 MG/DL <110 MG/DL BORDERLINE-HIGH RISK: 130- 159 MG/DL 110-129 MG/DL HIGH RISK: >160 MG/DL >130 MG/DL *CHILDREN AND ADOLESCENTS REPRESENTS INDIVIDUALA AGED 2-19 YEARS EXCLUSIVE. Alb 4.8 g/dL 3.4-4.8 [facility] ([facility] NORMAL RANGES Age WBC RBC HGB HCT [...] HCT IS 5% LESS SOURCE FOR DATA: [employer] 1800 OPERATION MANUAL( AUTOMATED BLOOD COUNTS AND [...] mL/min Normal 80 and above >32 mL/min NormalCLASSIFICATION CHOLESTEROL FOR ADULTS CHILDREN/ADOLESCENTS* DESIRABLE: <200 MG/DL <170 MG/DL BORDER-LINE HIGH RISK: 200-239 MG/DL 170-199 MG/DL HIGH RISK: >240 MG/DL >200 MG/DL CLASS. FOR PRIMARY LDL CHOL PREVENTION: LDL CHOL-CHILD/ADOLESCENTS* DESIRABLE: <130 MG/DL <110 MG/DL BORDERLINE-HIGH RISK: 130- 159 MG/DL 110-129 MG/DL HIGH RISK: >160 MG/DL >130 MG/DL *CHILDREN AND ADOLESCENTS REPRESENTS INDIVIDUALA AGED 2-19 YEARS EXCLUSIVE. A/G Ratio 2.1 CALC [facility] ([facility] NORMAL RANGES Age WBC RBC HGB HCT [...] HCT IS 5% LESS SOURCE FOR DATA: [employer] 1800 OPERATION MANUAL( AUTOMATED BLOOD COUNTS AND [...] mL/min Normal 80 and above >32 mL/min NormalCLASSIFICATION CHOLESTEROL FOR ADULTS CHILDREN/ADOLESCENTS* DESIRABLE: <200 MG/DL <170 MG/DL BORDER-LINE HIGH RISK: 200-239 MG/DL 170-199 MG/DL HIGH RISK: >240 MG/DL >200 MG/DL CLASS. FOR PRIMARY LDL CHOL PREVENTION: LDL CHOL-CHILD/ADOLESCENTS* DESIRABLE: <130 MG/DL <110 MG/DL BORDERLINE-HIGH RISK: 130- 159 MG/DL 110-129 MG/DL HIGH RISK: >160 MG/DL >130 MG/DL *CHILDREN AND ADOLESCENTS REPRESENTS INDIVIDUALA AGED 2-19 YEARS EXCLUSIVE. Globulin 2.3 CALC [facility] ([facility] NORMAL RANGES Age WBC RBC HGB HCT [...] HCT IS 5% LESS SOURCE FOR DATA: [employer] 1800 OPERATION MANUAL( AUTOMATED BLOOD COUNTS AND [...] mL/min Normal 80 and above >32 mL/min NormalCLASSIFICATION CHOLESTEROL FOR ADULTS CHILDREN/ADOLESCENTS* DESIRABLE: <200 MG/DL <170 MG/DL BORDER-LINE HIGH RISK: 200-239 MG/DL 170-199 MG/DL HIGH RISK: >240 MG/DL >200 MG/DL CLASS. FOR PRIMARY LDL CHOL PREVENTION: LDL CHOL-CHILD/ADOLESCENTS* DESIRABLE: <130 MG/DL <110 MG/DL BORDERLINE-HIGH RISK: 130- 159 MG/DL 110-129 MG/DL HIGH RISK: >160 MG/DL >130 MG/DL *CHILDREN AND ADOLESCENTS REPRESENTS INDIVIDUALA AGED 2-19 YEARS EXCLUSIVE. Alp 67.2 U/L 35-129 [facility] ([facility] NORMAL RANGES Age WBC RBC HGB HCT [...] HCT IS 5% LESS SOURCE FOR DATA: [employer] 1800 OPERATION MANUAL( AUTOMATED BLOOD COUNTS AND [...] mL/min Normal 80 and above >32 mL/min NormalCLASSIFICATION CHOLESTEROL FOR ADULTS CHILDREN/ADOLESCENTS* DESIRABLE: <200 MG/DL <170 MG/DL BORDER-LINE HIGH RISK: 200-239 MG/DL 170-199 MG/DL HIGH RISK: >240 MG/DL >200 MG/DL CLASS. FOR PRIMARY LDL CHOL PREVENTION: LDL CHOL-CHILD/ADOLESCENTS* DESIRABLE: <130 MG/DL <110 MG/DL BORDERLINE-HIGH RISK: 130- 159 MG/DL 110-129 MG/DL HIGH RISK: >160 MG/DL >130 MG/DL *CHILDREN AND ADOLESCENTS REPRESENTS INDIVIDUALA AGED 2-19 YEARS EXCLUSIVE. Alt (SGPT) 21 U/L 0-41 [facility] ([facility] NORMAL RANGES Age WBC RBC HGB HCT [...] HCT IS 5% LESS SOURCE FOR DATA: [employer] 1800 OPERATION MANUAL( AUTOMATED BLOOD COUNTS AND [...] mL/min Normal 80 and above >32 mL/min NormalCLASSIFICATION CHOLESTEROL FOR ADULTS CHILDREN/ADOLESCENTS* DESIRABLE: <200 MG/DL <170 MG/DL BORDER-LINE HIGH RISK: 200-239 MG/DL 170-199 MG/DL HIGH RISK: >240 MG/DL >200 MG/DL CLASS. FOR PRIMARY LDL CHOL PREVENTION: LDL CHOL-CHILD/ADOLESCENTS* DESIRABLE: <130 MG/DL <110 MG/DL BORDERLINE-HIGH RISK: 130- 159 MG/DL 110-129 MG/DL HIGH RISK: >160 MG/DL >130 MG/DL *CHILDREN AND ADOLESCENTS REPRESENTS INDIVIDUALA AGED 2-19 YEARS EXCLUSIVE. Ast (Sgot) 23 U/L 0-40 [facility] ([facility] NORMAL RANGES Age WBC RBC HGB HCT [...] HCT IS 5% LESS SOURCE FOR DATA: [employer] 1800 OPERATION MANUAL( AUTOMATED BLOOD COUNTS AND [...] mL/min Normal 80 and above >32 mL/min NormalCLASSIFICATION CHOLESTEROL FOR ADULTS CHILDREN/ADOLESCENTS* DESIRABLE: <200 MG/DL <170 MG/DL BORDER-LINE HIGH RISK: 200-239 MG/DL 170-199 MG/DL HIGH RISK: >240 MG/DL >200 MG/DL CLASS. FOR PRIMARY LDL CHOL PREVENTION: LDL CHOL-CHILD/ADOLESCENTS* DESIRABLE: <130 MG/DL <110 MG/DL BORDERLINE-HIGH RISK: 130- 159 MG/DL 110-129 MG/DL HIGH RISK: >160 MG/DL >130 MG/DL *CHILDREN AND ADOLESCENTS REPRESENTS INDIVIDUALA AGED 2-19 YEARS EXCLUSIVE. Tbili 0.44 mg/dL 0.0-1.2 [facility] NORMAL RANGES Age WBC RBC HGB HCT [...] HCT IS 5% LESS SOURCE FOR DATA: [employer] 1800 OPERATION MANUAL( AUTOMATED BLOOD COUNTS AND [...] mL/min Normal 80 and above >32 mL/min NormalCLASSIFICATION CHOLESTEROL FOR ADULTS CHILDREN/ADOLESCENTS* DESIRABLE: <200 MG/DL <170 MG/DL BORDER-LINE HIGH RISK: 200-239 MG/DL 170-199 MG/DL HIGH RISK: >240 MG/DL >200 MG/DL CLASS. FOR PRIMARY LDL CHOL PREVENTION: LDL CHOL-CHILD/ADOLESCENTS* DESIRABLE: <130 MG/DL <110 MG/DL BORDERLINE-HIGH RISK: 130- 159 MG/DL 110-129 MG/DL HIGH RISK: >160 MG/DL >130 MG/DL *CHILDREN AND ADOLESCENTS REPRESENTS INDIVIDUALA AGED 2-19 YEARS EXCLUSIVE. Osmolality-Calculated 273.4 [facility]C [facility] ([facility] NORMAL RANGES Age WBC RBC HGB HCT [...] HCT IS 5% LESS SOURCE FOR DATA: [employer] 1800 OPERATION MANUAL( AUTOMATED BLOOD COUNTS AND [...] mL/min Normal 80 and above >32 mL/min NormalCLASSIFICATION CHOLESTEROL FOR ADULTS CHILDREN/ADOLESCENTS* DESIRABLE: <200 MG/DL <170 MG/DL BORDER-LINE HIGH RISK: 200-239 MG/DL 170-199 MG/DL HIGH RISK: >240 MG/DL >200 MG/DL CLASS. FOR PRIMARY LDL CHOL PREVENTION: LDL CHOL-CHILD/ADOLESCENTS* DESIRABLE: <130 MG/DL <110 MG/DL BORDERLINE-HIGH RISK: 130- 159 MG/DL 110-129 MG/DL HIGH RISK: >160 MG/DL >130 MG/DL *CHILDREN AND ADOLESCENTS REPRESENTS INDIVIDUALA AGED 2-19 YEARS EXCLUSIVE. Anion Gap 18 mmol/L [facility] ([facility] NORMAL RANGES Age WBC RBC HGB HCT [...] HCT IS 5% LESS SOURCE FOR DATA: [employer] 1800 OPERATION MANUAL( AUTOMATED BLOOD COUNTS AND [...] mL/min Normal 80 and above >32 mL/min NormalCLASSIFICATION CHOLESTEROL FOR ADULTS CHILDREN/ADOLESCENTS* DESIRABLE: <200 MG/DL <170 MG/DL BORDER-LINE HIGH RISK: 200-239 MG/DL 170-199 MG/DL HIGH RISK: >240 MG/DL >200 MG/DL CLASS. FOR PRIMARY LDL CHOL PREVENTION: LDL CHOL-CHILD/ADOLESCENTS* DESIRABLE: <130 MG/DL <110 MG/DL BORDERLINE-HIGH RISK: 130- 159 MG/DL 110-129 MG/DL HIGH RISK: >160 MG/DL >130 MG/DL *CHILDREN AND ADOLESCENTS REPRESENTS INDIVIDUALA AGED 2-19 YEARS EXCLUSIVE. eGFR 96 # [facility] ( [facility] CKD-EPI eGFR Non-Afr. Maltese 83 # [facility] ([facility] CKD-EPI ID Date Data Source [id number] 02/05/2020 11:14:00 AM EST [facility] ([facility] Name Value Range Interpretation Code Description Data Augustina rce(s) Supporting Document(s) Creatine kinase [Enzymatic activity/volume] in Serum or Plasma 138 U/L 26-192 [facility] ([facility] NORMAL RANGES Age WBC RBC HGB HCT [...] HCT IS 5% LESS SOURCE FOR DATA: [employer] 1800 OPERATION MANUAL( AUTOMATED BLOOD COUNTS AND [...] mL/min Normal 80 and above >32 mL/min NormalCLASSIFICATION CHOLESTEROL FOR ADULTS CHILDREN/ADOLESCENTS* DESIRABLE: <200 MG/DL <170 MG/DL BORDER-LINE HIGH RISK: 200-239 MG/DL 170-199 MG/DL HIGH RISK: >240 MG/DL >200 MG/DL CLASS. FOR PRIMARY LDL CHOL PREVENTION: LDL CHOL-CHILD/ADOLESCENTS* DESIRABLE: <130 MG/DL <110 MG/DL BORDERLINE-HIGH RISK: 130-159 MG/DL 110-129 MG/DL HIGH RISK: >160 MG/DL >130 MG/DL *CHILDREN AND ADOLESCENTS REPRESENTS INDIVIDUALA AGED 2-19 YEARS EXCLUSIVE. ID Date Data Source [id number] 02/05/2020 11:14:00 AM GRIS[facility]DA COON ([facility] Name Value Range Interpretation Code Description Data Augustina rce(s) Supporting Document(s) WBC 6.5 10E3/uL 4.1-10.9 [facility] ([facility]) NORMAL RANGES Age WBC RBC HGB HCT [...] HCT IS 5% LESS SOURCE FOR DATA: [employer] 1800 OPERATION MANUAL( AUTOMATED BLOOD COUNTS AND [...] mL/min Normal 80 and above >32 mL/min NormalCLASSIFICATION CHOLESTEROL FOR ADULTS CHILDREN/ADOLESCENTS* DESIRABLE: <200 MG/DL <170 MG/DL BORDER-LINE HIGH RISK: 200-239 MG/DL 170-199 MG/DL HIGH RISK: >240 MG/DL >200 MG/DL CLASS. FOR PRIMARY LDL CHOL PREVENTION: LDL CHOL-CHILD/ADOLESCENTS* DESIRABLE: <130 MG/DL <110 MG/DL BORDERLINE-HIGH RISK: 130-159 MG/DL 110-129 MG/DL HIGH RISK: >160 MG/DL >130 MG/DL *CHILDREN AND ADOLESCENTS REPRESENTS INDIVIDUALA AGED 2-19 YEARS EXCLUSIVE. RBC 4.29 10E6/uL 4.20-6.30 [facility] ([facility] NORMAL RANGES Age WBC RBC HGB HCT [...] HCT IS 5% LESS SOURCE FOR DATA: [employer] 1800 OPERATION MANUAL( AUTOMATED BLOOD COUNTS AND [...] mL/min Normal 80 and above >32 mL/min NormalCLASSIFICATION CHOLESTEROL FOR ADULTS CHILDREN/ADOLESCENTS* DESIRABLE: <200 MG/DL <170 MG/DL BORDER-LINE HIGH RISK: 200-239 MG/DL 170-199 MG/DL HIGH RISK: >240 MG/DL >200 MG/DL CLASS. FOR PRIMARY LDL CHOL PREVENTION: LDL CHOL-CHILD/ADOLESCENTS* DESIRABLE: <130 MG/DL <110 MG/DL BORDERLINE-HIGH RISK: 130-159 MG/DL 110-129 MG/DL HIGH RISK: >160 MG/DL >130 MG/DL *CHILDREN AND ADOLESCENTS REPRESENTS INDIVIDUALA AGED 2-19 YEARS EXCLUSIVE. HGB 12.9 g/dL 12.0-18.0 [facility] ([facility] NORMAL RANGES Age WBC RBC HGB HCT [...] HCT IS 5% LESS SOURCE FOR DATA: [employer] 1800 OPERATION MANUAL( AUTOMATED BLOOD COUNTS AND [...] mL/min Normal 80 and above >32 mL/min NormalCLASSIFICATION CHOLESTEROL FOR ADULTS CHILDREN/ADOLESCENTS* DESIRABLE: <200 MG/DL <170 MG/DL BORDER-LINE HIGH RISK: 200-239 MG/DL 170-199 MG/DL HIGH RISK: >240 MG/DL >200 MG/DL CLASS. FOR PRIMARY LDL CHOL PREVENTION: LDL CHOL-CHILD/ADOLESCENTS* DESIRABLE: <130 MG/DL <110 MG/DL BORDERLINE-HIGH RISK: 130-159 MG/DL 110-129 MG/DL HIGH RISK: >160 MG/DL >130 MG/DL *CHILDREN AND ADOLESCENTS REPRESENTS INDIVIDUALA AGED 2-19 YEARS EXCLUSIVE. MCV 90.2 fL 80.0-97.0 [facility] NORMAL RANGES Age WBC RBC HGB HCT [...] HCT IS 5% LESS SOURCE FOR DATA: [employer] 1800 OPERATION MANUAL( AUTOMATED BLOOD COUNTS AND [...] mL/min Normal 80 and above >32 mL/min NormalCLASSIFICATION CHOLESTEROL FOR ADULTS CHILDREN/ADOLESCENTS* DESIRABLE: <200 MG/DL <170 MG/DL BORDER-LINE HIGH RISK: 200-239 MG/DL 170-199 MG/DL HIGH RISK: >240 MG/DL >200 MG/DL CLASS. FOR PRIMARY LDL CHOL PREVENTION: LDL CHOL-CHILD/ADOLESCENTS* DESIRABLE: <130 MG/DL <110 MG/DL BORDERLINE-HIGH RISK: 130-159 MG/DL 110-129 MG/DL HIGH RISK: >160 MG/DL >130 MG/DL *CHILDREN AND ADOLESCENTS REPRESENTS INDIVIDUALA AGED 2-19 YEARS EXCLUSIVE. HCT 38.7 % 37.0-51.0 [facility] ([facility] NORMAL RANGES Age WBC RBC HGB HCT [...] HCT IS 5% LESS SOURCE FOR DATA: [employer] 1800 OPERATION MANUAL( AUTOMATED BLOOD COUNTS AND [...] mL/min Normal 80 and above >32 mL/min NormalCLASSIFICATION CHOLESTEROL FOR ADULTS CHILDREN/ADOLESCENTS* DESIRABLE: <200 MG/DL <170 MG/DL BORDER-LINE HIGH RISK: 200-239 MG/DL 170-199 MG/DL HIGH RISK: >240 MG/DL >200 MG/DL CLASS. FOR PRIMARY LDL CHOL PREVENTION: LDL CHOL-CHILD/ADOLESCENTS* DESIRABLE: <130 MG/DL <110 MG/DL BORDERLINE-HIGH RISK: 130-159 MG/DL 110-129 MG/DL HIGH RISK: >160 MG/DL >130 MG/DL *CHILDREN AND ADOLESCENTS REPRESENTS INDIVIDUALA AGED 2-19 YEARS EXCLUSIVE. MCH 30.1 pg 26.0-32.0 [facility] ([facility] NORMAL RANGES Age WBC RBC HGB HCT [...] HCT IS 5% LESS SOURCE FOR DATA: [employer] 1800 OPERATION MANUAL( AUTOMATED BLOOD COUNTS AND [...] mL/min Normal 80 and above >32 mL/min NormalCLASSIFICATION CHOLESTEROL FOR ADULTS CHILDREN/ADOLESCENTS* DESIRABLE: <200 MG/DL <170 MG/DL BORDER-LINE HIGH RISK: 200-239 MG/DL 170-199 MG/DL HIGH RISK: >240 MG/DL >200 MG/DL CLASS. FOR PRIMARY LDL CHOL PREVENTION: LDL CHOL-CHILD/ADOLESCENTS* DESIRABLE: <130 MG/DL <110 MG/DL BORDERLINE-HIGH RISK: 130-159 MG/DL 110-129 MG/DL HIGH RISK: >160 MG/DL >130 MG/DL *CHILDREN AND ADOLESCENTS REPRESENTS INDIVIDUALA AGED 2-19 YEARS EXCLUSIVE. MCHC 33.3 g/dL 31.0-36.0 [facility] ([facility] NORMAL RANGES Age WBC RBC HGB HCT [...] HCT IS 5% LESS SOURCE FOR DATA: [employer] 1800 OPERATION MANUAL( AUTOMATED BLOOD COUNTS AND [...] mL/min Normal 80 and above >32 mL/min NormalCLASSIFICATION CHOLESTEROL FOR ADULTS CHILDREN/ADOLESCENTS* DESIRABLE: <200 MG/DL <170 MG/DL BORDER-LINE HIGH RISK: 200-239 MG/DL 170-199 MG/DL HIGH RISK: >240 MG/DL >200 MG/DL CLASS. FOR PRIMARY LDL CHOL PREVENTION: LDL CHOL-CHILD/ADOLESCENTS* DESIRABLE: <130 MG/DL <110 MG/DL BORDERLINE-HIGH RISK: 130-159 MG/DL 110-129 MG/DL HIGH RISK: >160 MG/DL >130 MG/DL *CHILDREN AND ADOLESCENTS REPRESENTS INDIVIDUALA AGED 2-19 YEARS EXCLUSIVE. RDW-CV 13.0 % 11.5-14.5 [facility] ([facility] NORMAL RANGES Age WBC RBC HGB HCT [...] HCT IS 5% LESS SOURCE FOR DATA: [employer] 1800 OPERATION MANUAL( AUTOMATED BLOOD COUNTS AND [...] mL/min Normal 80 and above >32 mL/min NormalCLASSIFICATION CHOLESTEROL FOR ADULTS CHILDREN/ADOLESCENTS* DESIRABLE: <200 MG/DL <170 MG/DL BORDER-LINE HIGH RISK: 200-239 MG/DL 170-199 MG/DL HIGH RISK: >240 MG/DL >200 MG/DL CLASS. FOR PRIMARY LDL CHOL PREVENTION: LDL CHOL-CHILD/ADOLESCENTS* DESIRABLE: <130 MG/DL <110 MG/DL BORDERLINE-HIGH RISK: 130-159 MG/DL 110-129 MG/DL HIGH RISK: >160 MG/DL >130 MG/DL *CHILDREN AND ADOLESCENTS REPRESENTS INDIVIDUALA AGED 2-19 YEARS EXCLUSIVE. PLT 446 10E3/uL 140-440 Above high normal [facility] ([facility] NORMAL RANGES Age WBC RBC HGB HCT [...] HCT IS 5% LESS SOURCE FOR DATA: [employer] 1800 OPERATION MANUAL( AUTOMATED BLOOD COUNTS AND [...] mL/min Normal 80 and above >32 mL/min NormalCLASSIFICATION CHOLESTEROL FOR ADULTS CHILDREN/ADOLESCENTS* DESIRABLE: <200 MG/DL <170 MG/DL BORDER-LINE HIGH RISK: 200-239 MG/DL 170-199 MG/DL HIGH RISK: >240 MG/DL >200 MG/DL CLASS. FOR PRIMARY LDL CHOL PREVENTION: LDL CHOL-CHILD/ADOLESCENTS* DESIRABLE: <130 MG/DL <110 MG/DL BORDERLINE-HIGH RISK: 130-159 MG/DL 110-129 MG/DL HIGH RISK: >160 MG/DL >130 MG/DL *CHILDREN AND ADOLESCENTS REPRESENTS INDIVIDUALA AGED 2-19 YEARS EXCLUSIVE. Lym% 31.0 % 10.0-58.5 [facility] ([facility] NORMAL RANGES Age WBC RBC HGB HCT [...] HCT IS 5% LESS SOURCE FOR DATA: [employer] 1800 OPERATION MANUAL( AUTOMATED BLOOD COUNTS AND [...] mL/min Normal 80 and above >32 mL/min NormalCLASSIFICATION CHOLESTEROL FOR ADULTS CHILDREN/ADOLESCENTS* DESIRABLE: <200 MG/DL <170 MG/DL BORDER-LINE HIGH RISK: 200-239 MG/DL 170-199 MG/DL HIGH RISK: >240 MG/DL >200 MG/DL CLASS. FOR PRIMARY LDL CHOL PREVENTION: LDL CHOL-CHILD/ADOLESCENTS* DESIRABLE: <130 MG/DL <110 MG/DL BORDERLINE-HIGH RISK: 130-159 MG/DL 110-129 MG/DL HIGH RISK: >160 MG/DL >130 MG/DL *CHILDREN AND ADOLESCENTS REPRESENTS INDIVIDUALA AGED 2-19 YEARS EXCLUSIVE. Neut% 56.0 % 37.0-92.0 [facility] ([facility] NORMAL RANGES Age WBC RBC HGB HCT [...] HCT IS 5% LESS SOURCE FOR DATA: [employer] 1800 OPERATION MANUAL( AUTOMATED BLOOD COUNTS AND [...] mL/min Normal 80 and above >32 mL/min NormalCLASSIFICATION CHOLESTEROL FOR ADULTS CHILDREN/ADOLESCENTS* DESIRABLE: <200 MG/DL <170 MG/DL BORDER-LINE HIGH RISK: 200-239 MG/DL 170-199 MG/DL HIGH RISK: >240 MG/DL >200 MG/DL CLASS. FOR PRIMARY LDL CHOL PREVENTION: LDL CHOL-CHILD/ADOLESCENTS* DESIRABLE: <130 MG/DL <110 MG/DL BORDERLINE-HIGH RISK: 130-159 MG/DL 110-129 MG/DL HIGH RISK: >160 MG/DL >130 MG/DL *CHILDREN AND ADOLESCENTS REPRESENTS INDIVIDUALA AGED 2-19 YEARS EXCLUSIVE. MXD% 13.0 % 0.1-24.0 [facility] ([facility] NORMAL RANGES Age WBC RBC HGB HCT [...] HCT IS 5% LESS SOURCE FOR DATA: [employer] 1800 OPERATION MANUAL( AUTOMATED BLOOD COUNTS AND [...] mL/min Normal 80 and above >32 mL/min NormalCLASSIFICATION CHOLESTEROL FOR ADULTS CHILDREN/ADOLESCENTS* DESIRABLE: <200 MG/DL <170 MG/DL BORDER-LINE HIGH RISK: 200-239 MG/DL 170-199 MG/DL HIGH RISK: >240 MG/DL >200 MG/DL CLASS. FOR PRIMARY LDL CHOL PREVENTION: LDL CHOL-CHILD/ADOLESCENTS* DESIRABLE: <130 MG/DL <110 MG/DL BORDERLINE-HIGH RISK: 130-159 MG/DL 110-129 MG/DL HIGH RISK: >160 MG/DL >130 MG/DL *CHILDREN AND ADOLESCENTS REPRESENTS INDIVIDUALA AGED 2-19 YEARS EXCLUSIVE. Neut# 3.7 % 2.0-7.8 [facility] ([facility] NORMAL RANGES Age WBC RBC HGB HCT [...] HCT IS 5% LESS SOURCE FOR DATA: [employer] 1800 OPERATION MANUAL( AUTOMATED BLOOD COUNTS AND [...] mL/min Normal 80 and above >32 mL/min NormalCLASSIFICATION CHOLESTEROL FOR ADULTS CHILDREN/ADOLESCENTS* DESIRABLE: <200 MG/DL <170 MG/DL BORDER-LINE HIGH RISK: 200-239 MG/DL 170-199 MG/DL HIGH RISK: >240 MG/DL >200 MG/DL CLASS. FOR PRIMARY LDL CHOL PREVENTION: LDL CHOL-CHILD/ADOLESCENTS* DESIRABLE: <130 MG/DL <110 MG/DL BORDERLINE-HIGH RISK: 130-159 MG/DL 110-129 MG/DL HIGH RISK: >160 MG/DL >130 MG/DL *CHILDREN AND ADOLESCENTS REPRESENTS INDIVIDUALA AGED 2-19 YEARS EXCLUSIVE. Lym# 2.0 10E3/uL 0.6-4.1 [facility] ([facility] NORMAL RANGES Age WBC RBC HGB HCT [...] HCT IS 5% LESS SOURCE FOR DATA: [employer] 1800 OPERATION MANUAL( AUTOMATED BLOOD COUNTS AND [...] mL/min Normal 80 and above >32 mL/min NormalCLASSIFICATION CHOLESTEROL FOR ADULTS CHILDREN/ADOLESCENTS* DESIRABLE: <200 MG/DL <170 MG/DL BORDER-LINE HIGH RISK: 200-239 MG/DL 170-199 MG/DL HIGH RISK: >240 MG/DL >200 MG/DL CLASS. FOR PRIMARY LDL CHOL PREVENTION: LDL CHOL-CHILD/ADOLESCENTS* DESIRABLE: <130 MG/DL <110 MG/DL BORDERLINE-HIGH RISK: 130-159 MG/DL 110-129 MG/DL HIGH RISK: >160 MG/DL >130 MG/DL *CHILDREN AND ADOLESCENTS REPRESENTS INDIVIDUALA AGED 2-19 YEARS EXCLUSIVE. MXD# 0.8 10E3/uL 0.0-1.8 [facility] ([facility] NORMAL RANGES Age WBC RBC HGB HCT [...] HCT IS 5% LESS SOURCE FOR DATA: [employer] 1800 OPERATION MANUAL( AUTOMATED BLOOD COUNTS AND [...] mL/min Normal 80 and above >32 mL/min NormalCLASSIFICATION CHOLESTEROL FOR ADULTS CHILDREN/ADOLESCENTS* DESIRABLE: <200 MG/DL <170 MG/DL BORDER-LINE HIGH RISK: 200-239 MG/DL 170-199 MG/DL HIGH RISK: >240 MG/DL >200 MG/DL CLASS. FOR PRIMARY LDL CHOL PREVENTION: LDL CHOL-CHILD/ADOLESCENTS* DESIRABLE: <130 MG/DL <110 MG/DL BORDERLINE-HIGH RISK: 130-159 MG/DL 110-129 MG/DL HIGH RISK: >160 MG/DL >130 MG/DL *CHILDREN AND ADOLESCENTS REPRESENTS INDIVIDUALA AGED 2-19 YEARS EXCLUSIVE. MPV 8.6 fL 9.0-13.0 Below low normal [facility] ( [facility] NORMAL RANGES Age WBC RBC HGB HCT [...] HCT IS 5% LESS SOURCE FOR DATA: [employer] 1800 OPERATION MANUAL( AUTOMATED BLOOD COUNTS AND [...] mL/min Normal 80 and above >32 mL/min NormalCLASSIFICATION CHOLESTEROL FOR ADULTS CHILDREN/ADOLESCENTS* DESIRABLE: <200 MG/DL <170 MG/DL BORDER-LINE HIGH RISK: 200-239 MG/DL 170-199 MG/DL HIGH RISK: >240 MG/DL >200 MG/DL CLASS. FOR PRIMARY LDL CHOL PREVENTION: LDL CHOL-CHILD/ADOLESCENTS* DESIRABLE: <130 MG/DL <110 MG/DL BORDERLINE-HIGH RISK: 130-159 MG/DL 110-129 MG/DL HIGH RISK: >160 MG/DL >130 MG/DL *CHILDREN AND ADOLESCENTS REPRESENTS INDIVIDUALA AGED 2-19 YEARS EXCLUSIVE. ID Date Data Source [id number] 02/05/2020 11:14:00 AM [facility] ([facility] Name Value Range Interpretation Code Description Data Augustina rce(s) Supporting Document(s) RBC 4.29 10E6/uL 4.20-6.30 [facility] ([facility]) NORMAL RANGES Age WBC RBC HGB HCT [...] HCT IS 5% LESS SOURCE FOR DATA: [employer] 1800 OPERATION MANUAL( AUTOMATED BLOOD COUNTS AND [...] mL/min Normal 80 and above >32 mL/min NormalCLASSIFICATION CHOLESTEROL FOR ADULTS CHILDREN/ADOLESCENTS* DESIRABLE: <200 MG/DL <170 MG/DL BORDER-LINE HIGH RISK: 200-239 MG/DL 170-199 MG/DL HIGH RISK: >240 MG/DL >200 MG/DL CLASS. FOR PRIMARY LDL CHOL PREVENTION: LDL CHOL-CHILD/ADOLESCENTS* DESIRABLE: <130 MG/DL <110 MG/DL BORDERLINE-HIGH RISK: 130-159 MG/DL 110-129 MG/DL HIGH RISK: >160 MG/DL >130 MG/DL *CHILDREN AND ADOLESCENTS REPRESENTS INDIVIDUALA AGED 2-19 YEARS EXCLUSIVE. WBC 6.5 10E3/uL 4.1-10.9 [facility] ([facility]) NORMAL RANGES Age WBC RBC HGB HCT [...] HCT IS 5% LESS SOURCE FOR DATA: [employer] 1800 OPERATION MANUAL( AUTOMATED BLOOD COUNTS AND [...] mL/min Normal 80 and above >32 mL/min NormalCLASSIFICATION CHOLESTEROL FOR ADULTS CHILDREN/ADOLESCENTS* DESIRABLE: <200 MG/DL <170 MG/DL BORDER-LINE HIGH RISK: 200-239 MG/DL 170-199 MG/DL HIGH RISK: >240 MG/DL >200 MG/DL CLASS. FOR PRIMARY LDL CHOL PREVENTION: LDL CHOL-CHILD/ADOLESCENTS* DESIRABLE: <130 MG/DL <110 MG/DL BORDERLINE-HIGH RISK: 130-159 MG/DL 110-129 MG/DL HIGH RISK: >160 MG/DL >130 MG/DL *CHILDREN AND ADOLESCENTS REPRESENTS INDIVIDUALA AGED 2-19 YEARS EXCLUSIVE. MCV 90.2 fL 80.0-97.0 [facility] ([facility] NORMAL RANGES Age WBC RBC HGB HCT [...] HCT IS 5% LESS SOURCE FOR DATA: [employer] 1800 OPERATION MANUAL( AUTOMATED BLOOD COUNTS AND [...] mL/min Normal 80 and above >32 mL/min NormalCLASSIFICATION CHOLESTEROL FOR ADULTS CHILDREN/ADOLESCENTS* DESIRABLE: <200 MG/DL <170 MG/DL BORDER-LINE HIGH RISK: 200-239 MG/DL 170-199 MG/DL HIGH RISK: >240 MG/DL >200 MG/DL CLASS. FOR PRIMARY LDL CHOL PREVENTION: LDL CHOL-CHILD/ADOLESCENTS* DESIRABLE: <130 MG/DL <110 MG/DL BORDERLINE-HIGH RISK: 130-159 MG/DL 110-129 MG/DL HIGH RISK: >160 MG/DL >130 MG/DL *CHILDREN AND ADOLESCENTS REPRESENTS INDIVIDUALA AGED 2-19 YEARS EXCLUSIVE. HCT 38.7 % 37.0-51.0 [facility] ([facility]) NORMAL RANGES Age WBC RBC HGB HCT [...] HCT IS 5% LESS SOURCE FOR DATA: [employer] 1800 OPERATION MANUAL( AUTOMATED BLOOD COUNTS AND [...] mL/min Normal 80 and above >32 mL/min NormalCLASSIFICATION CHOLESTEROL FOR ADULTS CHILDREN/ADOLESCENTS* DESIRABLE: <200 MG/DL <170 MG/DL BORDER-LINE HIGH RISK: 200-239 MG/DL 170-199 MG/DL HIGH RISK: >240 MG/DL >200 MG/DL CLASS. FOR PRIMARY LDL CHOL PREVENTION: LDL CHOL-CHILD/ADOLESCENTS* DESIRABLE: <130 MG/DL <110 MG/DL BORDERLINE-HIGH RISK: 130-159 MG/DL 110-129 MG/DL HIGH RISK: >160 MG/DL >130 MG/DL *CHILDREN AND ADOLESCENTS REPRESENTS INDIVIDUALA AGED 2-19 YEARS EXCLUSIVE. HGB 12.9 g/dL 12.0-18.0 [facility]) NORMAL RANGES Age WBC RBC HGB HCT [...] HCT IS 5% LESS SOURCE FOR DATA: [employer] 1800 OPERATION MANUAL( AUTOMATED BLOOD COUNTS AND [...] mL/min Normal 80 and above >32 mL/min NormalCLASSIFICATION CHOLESTEROL FOR ADULTS CHILDREN/ADOLESCENTS* DESIRABLE: <200 MG/DL <170 MG/DL BORDER-LINE HIGH RISK: 200-239 MG/DL 170-199 MG/DL HIGH RISK: >240 MG/DL >200 MG/DL CLASS. FOR PRIMARY LDL CHOL PREVENTION: LDL CHOL-CHILD/ADOLESCENTS* DESIRABLE: <130 MG/DL <110 MG/DL BORDERLINE-HIGH RISK: 130-159 MG/DL 110-129 MG/DL HIGH RISK: >160 MG/DL >130 MG/DL *CHILDREN AND ADOLESCENTS REPRESENTS INDIVIDUALA AGED 2-19 YEARS EXCLUSIVE. PLT 446 10E3/uL 140-440 [facility] ([facility]) NORMAL RANGES Age WBC RBC HGB HCT [...] HCT IS 5% LESS SOURCE FOR DATA: [employer] 1800 OPERATION MANUAL( AUTOMATED BLOOD COUNTS AND [...] mL/min Normal 80 and above >32 mL/min NormalCLASSIFICATION CHOLESTEROL FOR ADULTS CHILDREN/ADOLESCENTS* DESIRABLE: <200 MG/DL <170 MG/DL BORDER-LINE HIGH RISK: 200-239 MG/DL 170-199 MG/DL HIGH RISK: >240 MG/DL >200 MG/DL CLASS. FOR PRIMARY LDL CHOL PREVENTION: LDL CHOL-CHILD/ADOLESCENTS* DESIRABLE: <130 MG/DL <110 MG/DL BORDERLINE-HIGH RISK: 130-159 MG/DL 110-129 MG/DL HIGH RISK: >160 MG/DL >130 MG/DL *CHILDREN AND ADOLESCENTS REPRESENTS INDIVIDUALA AGED 2-19 YEARS EXCLUSIVE. MCH 30.1 pg 26.0-32.0 [facility] ([facility]) NORMAL RANGES Age WBC RBC HGB HCT [...] HCT IS 5% LESS SOURCE FOR DATA: [employer] 1800 OPERATION MANUAL( AUTOMATED BLOOD COUNTS AND [...] mL/min Normal 80 and above >32 mL/min NormalCLASSIFICATION CHOLESTEROL FOR ADULTS CHILDREN/ADOLESCENTS* DESIRABLE: <200 MG/DL <170 MG/DL BORDER-LINE HIGH RISK: 200-239 MG/DL 170-199 MG/DL HIGH RISK: >240 MG/DL >200 MG/DL CLASS. FOR PRIMARY LDL CHOL PREVENTION: LDL CHOL-CHILD/ADOLESCENTS* DESIRABLE: <130 MG/DL <110 MG/DL BORDERLINE-HIGH RISK: 130-159 MG/DL 110-129 MG/DL HIGH RISK: >160 MG/DL >130 MG/DL *CHILDREN AND ADOLESCENTS REPRESENTS INDIVIDUALA AGED 2-19 YEARS EXCLUSIVE. MCHC 33.3 g/dL 31.0-36.0 [facility] ([facility]) NORMAL RANGES Age WBC RBC HGB HCT [...] HCT IS 5% LESS SOURCE FOR DATA: AJY JAY DYN 1800 OPERATION MANUAL( AUTOMATED BLOOD COUNTS AND [...] mL/min Normal 80 and above >32 mL/min NormalCLASSIFICATION CHOLESTEROL FOR ADULTS CHILDREN/ADOLESCENTS* DESIRABLE: <200 MG/DL <170 MG/DL BORDER-LINE HIGH RISK: 200-239 MG/DL 170-199 MG/DL HIGH RISK: >240 MG/DL >200 MG/DL CLASS. FOR PRIMARY LDL CHOL PREVENTION: LDL CHOL-CHILD/ADOLESCENTS* DESIRABLE: <130 MG/DL <110 MG/DL BORDERLINE-HIGH RISK: 130-159 MG/DL 110-129 MG/DL HIGH RISK: >160 MG/DL >130 MG/DL *CHILDREN AND ADOLESCENTS REPRESENTS INDIVIDUALA AGED 2-19 YEARS EXCLUSIVE. RDW-CV 13.0 % 11.5-14.5 [facility] ([facility]) NORMAL RANGES Age WBC RBC HGB HCT [...] HCT IS 5% LESS SOURCE FOR DATA: [employer] 1800 OPERATION MANUAL( AUTOMATED BLOOD COUNTS AND [...] mL/min Normal 80 and above >32 mL/min NormalCLASSIFICATION CHOLESTEROL FOR ADULTS CHILDREN/ADOLESCENTS* DESIRABLE: <200 MG/DL <170 MG/DL BORDER-LINE HIGH RISK: 200-239 MG/DL 170-199 MG/DL HIGH RISK: >240 MG/DL >200 MG/DL CLASS. FOR PRIMARY LDL CHOL PREVENTION: LDL CHOL-CHILD/ADOLESCENTS* DESIRABLE: <130 MG/DL <110 MG/DL BORDERLINE-HIGH RISK: 130-159 MG/DL 110-129 MG/DL HIGH RISK: >160 MG/DL >130 MG/DL *CHILDREN AND ADOLESCENTS REPRESENTS INDIVIDUALA AGED 2-19 YEARS EXCLUSIVE. Lym% 31.0 % 10.0-58.5 [facility] ([facility] [place]) NORMAL RANGES Age WBC RBC HGB HCT [...] HCT IS 5% LESS SOURCE FOR DATA: [employer] 1800 OPERATION MANUAL( AUTOMATED BLOOD COUNTS AND [...] mL/min Normal 80 and above >32 mL/min NormalCLASSIFICATION CHOLESTEROL FOR ADULTS CHILDREN/ADOLESCENTS* DESIRABLE: <200 MG/DL <170 MG/DL BORDER-LINE HIGH RISK: 200-239 MG/DL 170-199 MG/DL HIGH RISK: >240 MG/DL >200 MG/DL CLASS. FOR PRIMARY LDL CHOL PREVENTION: LDL CHOL-CHILD/ADOLESCENTS* DESIRABLE: <130 MG/DL <110 MG/DL BORDERLINE-HIGH RISK: 130-159 MG/DL 110-129 MG/DL HIGH RISK: >160 MG/DL >130 MG/DL *CHILDREN AND ADOLESCENTS REPRESENTS INDIVIDUALA AGED 2-19 YEARS EXCLUSIVE. Neut% 56.0 % 37.0-92.0 [facility] ([facility]) NORMAL RANGES Age WBC RBC HGB HCT [...] HCT IS 5% LESS SOURCE FOR DATA: [employer] 1800 OPERATION MANUAL( AUTOMATED BLOOD COUNTS AND [...] mL/min Normal 80 and above >32 mL/min NormalCLASSIFICATION CHOLESTEROL FOR ADULTS CHILDREN/ADOLESCENTS* DESIRABLE: <200 MG/DL <170 MG/DL BORDER-LINE HIGH RISK: 200-239 MG/DL 170-199 MG/DL HIGH RISK: >240 MG/DL >200 MG/DL CLASS. FOR PRIMARY LDL CHOL PREVENTION: LDL CHOL-CHILD/ADOLESCENTS* DESIRABLE: <130 MG/DL <110 MG/DL BORDERLINE-HIGH RISK: 130-159 MG/DL 110-129 MG/DL HIGH RISK: >160 MG/DL >130 MG/DL *CHILDREN AND ADOLESCENTS REPRESENTS INDIVIDUALA AGED 2-19 YEARS EXCLUSIVE. MXD% 13.0 % 0.1-24.0 [facility] ([facility] [place]) NORMAL RANGES Age WBC RBC HGB HCT [...] HCT IS 5% LESS SOURCE FOR DATA: [employer] 1800 OPERATION MANUAL( AUTOMATED BLOOD COUNTS AND [...] mL/min Normal 80 and above >32 mL/min NormalCLASSIFICATION CHOLESTEROL FOR ADULTS CHILDREN/ADOLESCENTS* DESIRABLE: <200 MG/DL <170 MG/DL BORDER-LINE HIGH RISK: 200-239 MG/DL 170-199 MG/DL HIGH RISK: >240 MG/DL >200 MG/DL CLASS. FOR PRIMARY LDL CHOL PREVENTION: LDL CHOL-CHILD/ADOLESCENTS* DESIRABLE: <130 MG/DL <110 MG/DL BORDERLINE-HIGH RISK: 130-159 MG/DL 110-129 MG/DL HIGH RISK: >160 MG/DL >130 MG/DL *CHILDREN AND ADOLESCENTS REPRESENTS INDIVIDUALA AGED 2-19 YEARS EXCLUSIVE. Lym# 2.0 10E3/uL 0.6-4.1 [facility] ([facility]) NORMAL RANGES Age WBC RBC HGB HCT [...] HCT IS 5% LESS SOURCE FOR DATA: [employer] 1800 OPERATION MANUAL( AUTOMATED BLOOD COUNTS AND [...] mL/min Normal 80 and above >32 mL/min NormalCLASSIFICATION CHOLESTEROL FOR ADULTS CHILDREN/ADOLESCENTS* DESIRABLE: <200 MG/DL <170 MG/DL BORDER-LINE HIGH RISK: 200-239 MG/DL 170-199 MG/DL HIGH RISK: >240 MG/DL >200 MG/DL CLASS. FOR PRIMARY LDL CHOL PREVENTION: LDL CHOL-CHILD/ADOLESCENTS* DESIRABLE: <130 MG/DL <110 MG/DL BORDERLINE-HIGH RISK: 130-159 MG/DL 110-129 MG/DL HIGH RISK: >160 MG/DL >130 MG/DL *CHILDREN AND ADOLESCENTS REPRESENTS INDIVIDUALA AGED 2-19 YEARS EXCLUSIVE. MXD# 0.8 10E3/uL 0.0-1.8 [facility] ([facility]) NORMAL RANGES Age WBC RBC HGB HCT [...] HCT IS 5% LESS SOURCE FOR DATA: [employer] 1800 OPERATION MANUAL( AUTOMATED BLOOD COUNTS AND [...] mL/min Normal 80 and above >32 mL/min NormalCLASSIFICATION CHOLESTEROL FOR ADULTS CHILDREN/ADOLESCENTS* DESIRABLE: <200 MG/DL <170 MG/DL BORDER-LINE HIGH RISK: 200-239 MG/DL 170-199 MG/DL HIGH RISK: >240 MG/DL >200 MG/DL CLASS. FOR PRIMARY LDL CHOL PREVENTION: LDL CHOL-CHILD/ADOLESCENTS* DESIRABLE: <130 MG/DL <110 MG/DL BORDERLINE-HIGH RISK: 130-159 MG/DL 110-129 MG/DL HIGH RISK: >160 MG/DL >130 MG/DL *CHILDREN AND ADOLESCENTS REPRESENTS INDIVIDUALA AGED 2-19 YEARS EXCLUSIVE. Neutrophils [#/volume] in Semen by Manual count 3.7 % 2.0-7.8 [facility] ([facility]) NORMAL RANGES Age WBC RBC HGB HCT [...] HCT IS 5% LESS SOURCE FOR DATA: [employer] 1800 OPERATION MANUAL( AUTOMATED BLOOD COUNTS AND [...] mL/min Normal 80 and above >32 mL/min NormalCLASSIFICATION CHOLESTEROL FOR ADULTS CHILDREN/ADOLESCENTS* DESIRABLE: <200 MG/DL <170 MG/DL BORDER-LINE HIGH RISK: 200-239 MG/DL 170-199 MG/DL HIGH RISK: >240 MG/DL >200 MG/DL CLASS. FOR PRIMARY LDL CHOL PREVENTION: LDL CHOL-CHILD/ADOLESCENTS* DESIRABLE: <130 MG/DL <110 MG/DL BORDERLINE-HIGH RISK: 130- 159 MG/DL 110-129 MG/DL HIGH RISK: >160 MG/DL >130 MG/DL *CHILDREN AND ADOLESCENTS REPRESENTS INDIVIDUALA AGED 2-19 YEARS EXCLUSIVE. Creatine kinase [Enzymatic activity/volume] in Serum or Plasma 138 U/L 26-192 [facility] ([facility]) NORMAL RANGES Age WBC RBC HGB HCT [...] HCT IS 5% LESS SOURCE FOR DATA: [employer] 1800 OPERATION MANUAL( AUTOMATED BLOOD COUNTS AND [...] mL/min Normal 80 and above >32 mL/min NormalCLASSIFICATION CHOLESTEROL FOR ADULTS CHILDREN/ADOLESCENTS* DESIRABLE: <200 MG/DL <170 MG/DL BORDER-LINE HIGH RISK: 200-239 MG/DL 170-199 MG/DL HIGH RISK: >240 MG/DL >200 MG/DL CLASS. FOR PRIMARY LDL CHOL PREVENTION: LDL CHOL-CHILD/ADOLESCENTS* DESIRABLE: <130 MG/DL <110 MG/DL BORDERLINE-HIGH RISK: 130-159 MG/DL 110-129 MG/DL HIGH RISK: >160 MG/DL >130 MG/DL *CHILDREN AND ADOLESCENTS REPRESENTS INDIVIDUALA AGED 2-19 YEARS EXCLUSIVE. Platelet mean volume [Entitic volume] in Blood by Jese 8.6 fL 9.0-13.0 [facility] ([facility]) NORMAL RANGES Age WBC RBC HGB HCT [...] HCT IS 5% LESS SOURCE FOR DATA: [employer] 1800 OPERATION MANUAL( AUTOMATED BLOOD COUNTS AND [...] mL/min Normal 80 and above >32 mL/min NormalCLASSIFICATION CHOLESTEROL FOR ADULTS CHILDREN/ADOLESCENTS* DESIRABLE: <200 MG/DL <170 MG/DL BORDER-LINE HIGH RISK: 200-239 MG/DL 170-199 MG/DL HIGH RISK: >240 MG/DL >200 MG/DL CLASS. FOR PRIMARY LDL CHOL PREVENTION: LDL CHOL-CHILD/ADOLESCENTS* DESIRABLE: <130 MG/DL <110 MG/DL BORDERLINE-HIGH RISK: 130-159 MG/DL 110-129 MG/DL HIGH RISK: >160 MG/DL >130 MG/DL *CHILDREN AND ADOLESCENTS REPRESENTS INDIVIDUALA AGED 2-19 YEARS EXCLUSIVE. Glu 101 mg/dL 70-110 [facility] ([facility]) NORMAL RANGES Age WBC RBC HGB HCT [...] HCT IS 5% LESS SOURCE FOR DATA: [employer] 1800 OPERATION MANUAL( AUTOMATED BLOOD COUNTS AND [...] mL/min Normal 80 and above >32 mL/min NormalCLASSIFICATION CHOLESTEROL FOR ADULTS CHILDREN/ADOLESCENTS* DESIRABLE: <200 MG/DL <170 MG/DL BORDER-LINE HIGH RISK: 200-239 MG/DL 170-199 MG/DL HIGH RISK: >240 MG/DL >200 MG/DL CLASS. FOR PRIMARY LDL CHOL PREVENTION: LDL CHOL-CHILD/ADOLESCENTS* DESIRABLE: <130 MG/DL <110 MG/DL BORDERLINE-HIGH RISK: 130-159 MG/DL 110-129 MG/DL HIGH RISK: >160 MG/DL >130 MG/DL *CHILDREN AND ADOLESCENTS REPRESENTS INDIVIDUALA AGED 2-19 YEARS EXCLUSIVE. BUN 17 mg/dL 8-23 [facility] ([facility]) NORMAL RANGES Age WBC RBC HGB HCT [...] HCT IS 5% LESS SOURCE FOR DATA: [employer] 1800 OPERATION MANUAL( AUTOMATED BLOOD COUNTS AND [...] mL/min Normal 80 and above >32 mL/min NormalCLASSIFICATION CHOLESTEROL FOR ADULTS CHILDREN/ADOLESCENTS* DESIRABLE: <200 MG/DL <170 MG/DL BORDER-LINE HIGH RISK: 200-239 MG/DL 170-199 MG/DL HIGH RISK: >240 MG/DL >200 MG/DL CLASS. FOR PRIMARY LDL CHOL PREVENTION: LDL CHOL-CHILD/ADOLESCENTS* DESIRABLE: <130 MG/DL <110 MG/DL BORDERLINE-HIGH RISK: 130-159 MG/DL 110-129 MG/DL HIGH RISK: >160 MG/DL >130 MG/DL *CHILDREN AND ADOLESCENTS REPRESENTS INDIVIDUALA AGED 2-19 YEARS EXCLUSIVE. Creat 0.8 mg/dL 0.5-1.0 [facility] ([facility]) NORMAL RANGES Age WBC RBC HGB HCT [...] HCT IS 5% LESS SOURCE FOR DATA: [employer] 1800 OPERATION MANUAL( AUTOMATED BLOOD COUNTS AND [...] mL/min Normal 80 and above >32 mL/min NormalCLASSIFICATION CHOLESTEROL FOR ADULTS CHILDREN/ADOLESCENTS* DESIRABLE: <200 MG/DL <170 MG/DL BORDER-LINE HIGH RISK: 200-239 MG/DL 170-199 MG/DL HIGH RISK: >240 MG/DL >200 MG/DL CLASS. FOR PRIMARY LDL CHOL PREVENTION: LDL CHOL-CHILD/ADOLESCENTS* DESIRABLE: <130 MG/DL <110 MG/DL BORDERLINE-HIGH RISK: 130-159 MG/DL 110-129 MG/DL HIGH RISK: >160 MG/DL >130 MG/DL *CHILDREN AND ADOLESCENTS REPRESENTS INDIVIDUALA AGED 2-19 YEARS EXCLUSIVE. K 4.5 mmol/L 3.5-5.1 [facility] ([facility]) NORMAL RANGES Age WBC RBC HGB HCT [...] HCT IS 5% LESS SOURCE FOR DATA: [employer] 1800 OPERATION MANUAL( AUTOMATED BLOOD COUNTS AND [...] mL/min Normal 80 and above >32 mL/min NormalCLASSIFICATION CHOLESTEROL FOR ADULTS CHILDREN/ADOLESCENTS* DESIRABLE: <200 MG/DL <170 MG/DL BORDER-LINE HIGH RISK: 200-239 MG/DL 170-199 MG/DL HIGH RISK: >240 MG/DL >200 MG/DL CLASS. FOR PRIMARY LDL CHOL PREVENTION: LDL CHOL-CHILD/ADOLESCENTS* DESIRABLE: <130 MG/DL <110 MG/DL BORDERLINE-HIGH RISK: 130-159 MG/DL 110-129 MG/DL HIGH RISK: >160 MG/DL >130 MG/DL *CHILDREN AND ADOLESCENTS REPRESENTS INDIVIDUALA AGED 2-19 YEARS EXCLUSIVE. Urea nitrogen/Creatinine [Mass Ratio] in Serum or Plasma 22.4 CALC [facility] ([facility]) NORMAL RANGES Age WBC RBC HGB HCT [...] HCT IS 5% LESS SOURCE FOR DATA: [employer] 1800 OPERATION MANUAL( AUTOMATED BLOOD COUNTS AND [...] mL/min Normal 80 and above >32 mL/min NormalCLASSIFICATION CHOLESTEROL FOR ADULTS CHILDREN/ADOLESCENTS* DESIRABLE: <200 MG/DL <170 MG/DL BORDER-LINE HIGH RISK: 200-239 MG/DL 170-199 MG/DL HIGH RISK: >240 MG/DL >200 MG/DL CLASS. FOR PRIMARY LDL CHOL PREVENTION: LDL CHOL-CHILD/ADOLESCENTS* DESIRABLE: <130 MG/DL <110 MG/DL BORDERLINE-HIGH RISK: 130-159 MG/DL 110-129 MG/DL HIGH RISK: >160 MG/DL >130 MG/DL *CHILDREN AND ADOLESCENTS REPRESENTS INDIVIDUALA AGED 2-19 YEARS EXCLUSIVE. Na 136 mmol/L 136-145 [facility] ([facility]) NORMAL RANGES Age WBC RBC HGB HCT [...] HCT IS 5% LESS SOURCE FOR DATA: [employer] 1800 OPERATION MANUAL( AUTOMATED BLOOD COUNTS AND [...] mL/min Normal 80 and above >32 mL/min NormalCLASSIFICATION CHOLESTEROL FOR ADULTS CHILDREN/ADOLESCENTS* DESIRABLE: <200 MG/DL <170 MG/DL BORDER-LINE HIGH RISK: 200-239 MG/DL 170-199 MG/DL HIGH RISK: >240 MG/DL >200 MG/DL CLASS. FOR PRIMARY LDL CHOL PREVENTION: LDL CHOL-CHILD/ADOLESCENTS* DESIRABLE: <130 MG/DL <110 MG/DL BORDERLINE-HIGH RISK: 130-159 MG/DL 110-129 MG/DL HIGH RISK: >160 MG/DL >130 MG/DL *CHILDREN AND ADOLESCENTS REPRESENTS INDIVIDUALA AGED 2-19 YEARS EXCLUSIVE. Co2 23.2 mmol/L 22.0-29.0 [facility] ([facility]) NORMAL RANGES Age WBC RBC HGB HCT [...] HCT IS 5% LESS SOURCE FOR DATA: [employer] 1800 OPERATION MANUAL( AUTOMATED BLOOD COUNTS AND [...] mL/min Normal 80 and above >32 mL/min NormalCLASSIFICATION CHOLESTEROL FOR ADULTS CHILDREN/ADOLESCENTS* DESIRABLE: <200 MG/DL <170 MG/DL BORDER-LINE HIGH RISK: 200-239 MG/DL 170-199 MG/DL HIGH RISK: >240 MG/DL >200 MG/DL CLASS. FOR PRIMARY LDL CHOL PREVENTION: LDL CHOL-CHILD/ADOLESCENTS* DESIRABLE: <130 MG/DL <110 MG/DL BORDERLINE-HIGH RISK: 130-159 MG/DL 110-129 MG/DL HIGH RISK: >160 MG/DL >130 MG/DL *CHILDREN AND ADOLESCENTS REPRESENTS INDIVIDUALA AGED 2-19 YEARS EXCLUSIVE. CL 99.1 mmol/L 98.0-107.0 [facility] ([facility] NORMAL RANGES Age WBC RBC HGB HCT [...] HCT IS 5% LESS SOURCE FOR DATA: [employer] 1800 OPERATION MANUAL( AUTOMATED BLOOD COUNTS AND [...] mL/min Normal 80 and above >32 mL/min NormalCLASSIFICATION CHOLESTEROL FOR ADULTS CHILDREN/ADOLESCENTS* DESIRABLE: <200 MG/DL <170 MG/DL BORDER-LINE HIGH RISK: 200-239 MG/DL 170-199 MG/DL HIGH RISK: >240 MG/DL >200 MG/DL CLASS. FOR PRIMARY LDL CHOL PREVENTION: LDL CHOL-CHILD/ADOLESCENTS* DESIRABLE: <130 MG/DL <110 MG/DL BORDERLINE-HIGH RISK: 130-159 MG/DL 110-129 MG/DL HIGH RISK: >160 MG/DL >130 MG/DL *CHILDREN AND ADOLESCENTS REPRESENTS INDIVIDUALA AGED 2-19 YEARS EXCLUSIVE. TP 7.1 g/dL 6.6-8.7 [facility] ([facility] [place]) NORMAL RANGES Age WBC RBC HGB HCT [...] HCT IS 5% LESS SOURCE FOR DATA: [employer] 1800 OPERATION MANUAL( AUTOMATED BLOOD COUNTS AND [...] mL/min Normal 80 and above >32 mL/min NormalCLASSIFICATION CHOLESTEROL FOR ADULTS CHILDREN/ADOLESCENTS* DESIRABLE: <200 MG/DL <170 MG/DL BORDER-LINE HIGH RISK: 200-239 MG/DL 170-199 MG/DL HIGH RISK: >240 MG/DL >200 MG/DL CLASS. FOR PRIMARY LDL CHOL PREVENTION: LDL CHOL-CHILD/ADOLESCENTS* DESIRABLE: <130 MG/DL <110 MG/DL BORDERLINE-HIGH RISK: 130-159 MG/DL 110-129 MG/DL HIGH RISK: >160 MG/DL >130 MG/DL *CHILDREN AND ADOLESCENTS REPRESENTS INDIVIDUALA AGED 2-19 YEARS EXCLUSIVE. Alb 4.8 g/dL 3.4-4.8 [facility] ([facility]) NORMAL RANGES Age WBC RBC HGB HCT [...] HCT IS 5% LESS SOURCE FOR DATA: [employer] 1800 OPERATION MANUAL( AUTOMATED BLOOD COUNTS AND [...] mL/min Normal 80 and above >32 mL/min NormalCLASSIFICATION CHOLESTEROL FOR ADULTS CHILDREN/ADOLESCENTS* DESIRABLE: <200 MG/DL <170 MG/DL BORDER-LINE HIGH RISK: 200-239 MG/DL 170-199 MG/DL HIGH RISK: >240 MG/DL >200 MG/DL CLASS. FOR PRIMARY LDL CHOL PREVENTION: LDL CHOL-CHILD/ADOLESCENTS* DESIRABLE: <130 MG/DL <110 MG/DL BORDERLINE-HIGH RISK: 130-159 MG/DL 110-129 MG/DL HIGH RISK: >160 MG/DL >130 MG/DL *CHILDREN AND ADOLESCENTS REPRESENTS INDIVIDUALA AGED 2-19 YEARS EXCLUSIVE. CA 9.7 mg/dL 8.6-10.2 [facility] ([facility]) NORMAL RANGES Age WBC RBC HGB HCT [...] HCT IS 5% LESS SOURCE FOR DATA: J[employer]YN 1800 OPERATION MANUAL( AUTOMATED BLOOD COUNTS AND [...] mL/min Normal 80 and above >32 mL/min NormalCLASSIFICATION CHOLESTEROL FOR ADULTS CHILDREN/ADOLESCENTS* DESIRABLE: <200 MG/DL <170 MG/DL BORDER-LINE HIGH RISK: 200-239 MG/DL 170-199 MG/DL HIGH RISK: >240 MG/DL >200 MG/DL CLASS. FOR PRIMARY LDL CHOL PREVENTION: LDL CHOL-CHILD/ADOLESCENTS* DESIRABLE: <130 MG/DL <110 MG/DL BORDERLINE-HIGH RISK: 130-159 MG/DL 110-129 MG/DL HIGH RISK: >160 MG/DL >130 MG/DL *CHILDREN AND ADOLESCENTS REPRESENTS INDIVIDUALA AGED 2-19 YEARS EXCLUSIVE. Globulin [Mass/volume] in Serum by calculation 2.3 CALC [facility] ([facility]) NORMAL RANGES Age WBC RBC HGB HCT [...] HCT IS 5% LESS SOURCE FOR DATA: [employer] 1800 OPERATION MANUAL( AUTOMATED BLOOD COUNTS AND [...] mL/min Normal 80 and above >32 mL/min NormalCLASSIFICATION CHOLESTEROL FOR ADULTS CHILDREN/ADOLESCENTS* DESIRABLE: <200 MG/DL <170 MG/DL BORDER-LINE HIGH RISK: 200-239 MG/DL 170-199 MG/DL HIGH RISK: >240 MG/DL >200 MG/DL CLASS. FOR PRIMARY LDL CHOL PREVENTION: LDL CHOL-CHILD/ADOLESCENTS* DESIRABLE: <130 MG/DL <110 MG/DL BORDERLINE-HIGH RISK: 130- 159 MG/DL 110-129 MG/DL HIGH RISK: >160 MG/DL >130 MG/DL *CHILDREN AND ADOLESCENTS REPRESENTS INDIVIDUALA AGED 2-19 YEARS EXCLUSIVE. Alp 67.2 U/L 35-129 [facility] ([facility]) NORMAL RANGES Age WBC RBC HGB HCT [...] HCT IS 5% LESS SOURCE FOR DATA: [employer] 1800 OPERATION MANUAL( AUTOMATED BLOOD COUNTS AND [...] mL/min Normal 80 and above >32 mL/min NormalCLASSIFICATION CHOLESTEROL FOR ADULTS CHILDREN/ADOLESCENTS* DESIRABLE: <200 MG/DL <170 MG/DL BORDER-LINE HIGH RISK: 200-239 MG/DL 170-199 MG/DL HIGH RISK: >240 MG/DL >200 MG/DL CLASS. FOR PRIMARY LDL CHOL PREVENTION: LDL CHOL-CHILD/ADOLESCENTS* DESIRABLE: <130 MG/DL <110 MG/DL BORDERLINE-HIGH RISK: 130- 159 MG/DL 110-129 MG/DL HIGH RISK: >160 MG/DL >130 MG/DL *CHILDREN AND ADOLESCENTS REPRESENTS INDIVIDUALA AGED 2-19 YEARS EXCLUSIVE. A/G Ratio 2.1 [facility]C [facility] ([facility]) NORMAL RANGES Age WBC RBC HGB HCT [...] HCT IS 5% LESS SOURCE FOR DATA: JAY JAY DYN 1800 OPERATION MANUAL( AUTOMATED BLOOD COUNTS AND [...] mL/min Normal 80 and above >32 mL/min NormalCLASSIFICATION CHOLESTEROL FOR ADULTS CHILDREN/ADOLESCENTS* DESIRABLE: <200 MG/DL <170 MG/DL BORDER-LINE HIGH RISK: 200-239 MG/DL 170-199 MG/DL HIGH RISK: >240 MG/DL >200 MG/DL CLASS. FOR PRIMARY LDL CHOL PREVENTION: LDL CHOL-CHILD/ADOLESCENTS* DESIRABLE: <130 MG/DL <110 MG/DL BORDERLINE-HIGH RISK: 130- 159 MG/DL 110-129 MG/DL HIGH RISK: >160 MG/DL >130 MG/DL *CHILDREN AND ADOLESCENTS REPRESENTS INDIVIDUALA AGED 2-19 YEARS EXCLUSIVE. Tbili 0.44 mg/dL 0.0-1.2 [facility] ([facility]) NORMAL RANGES Age WBC RBC HGB HCT [...] HCT IS 5% LESS SOURCE FOR DATA: [employer] 1800 OPERATION MANUAL( AUTOMATED BLOOD COUNTS AND [...] mL/min Normal 80 and above >32 mL/min NormalCLASSIFICATION CHOLESTEROL FOR ADULTS CHILDREN/ADOLESCENTS* DESIRABLE: <200 MG/DL <170 MG/DL BORDER-LINE HIGH RISK: 200-239 MG/DL 170-199 MG/DL HIGH RISK: >240 MG/DL >200 MG/DL CLASS. FOR PRIMARY LDL CHOL PREVENTION: LDL CHOL-CHILD/ADOLESCENTS* DESIRABLE: <130 MG/DL <110 MG/DL BORDERLINE-HIGH RISK: 130- 159 MG/DL 110-129 MG/DL HIGH RISK: >160 MG/DL >130 MG/DL *CHILDREN AND ADOLESCENTS REPRESENTS INDIVIDUALA AGED 2-19 YEARS EXCLUSIVE. Alanine aminotransferase [Enzymatic activity/volume] in Seru m or Plasma 21 U/L 0-41 [facility] ([facility]) NORMAL RANGES Age WBC RBC HGB HCT [...] HCT IS 5% LESS SOURCE FOR DATA: [employer] 1800 OPERATION MANUAL( AUTOMATED BLOOD COUNTS AND [...] mL/min Normal 80 and above >32 mL/min NormalCLASSIFICATION CHOLESTEROL FOR ADULTS CHILDREN/ADOLESCENTS* DESIRABLE: <200 MG/DL <170 MG/DL BORDER-LINE HIGH RISK: 200-239 MG/DL 170-199 MG/DL HIGH RISK: >240 MG/DL >200 MG/DL CLASS. FOR PRIMARY LDL CHOL PREVENTION: LDL CHOL-CHILD/ADOLESCENTS* DESIRABLE: <130 MG/DL <110 MG/DL BORDERLINE-HIGH RISK: 130-159 MG/DL 110-129 MG/DL HIGH RISK: >160 MG/DL >130 MG/DL *CHILDREN AND ADOLESCENTS REPRESENTS INDIVIDUALA AGED 2-19 YEARS EXCLUSIVE. Aspartate aminotransferase [Enzymatic activity/volume] in Serum or Plasma 23 U/L 0-40 [facility] ([facility]) NORMAL RANGES Age WBC RBC HGB HCT [...] HCT IS 5% LESS SOURCE FOR DATA: [employer] 1800 OPERATION MANUAL( AUTOMATED BLOOD COUNTS AND [...] mL/min Normal 80 and above >32 mL/min NormalCLASSIFICATION CHOLESTEROL FOR ADULTS CHILDREN/ADOLESCENTS* DESIRABLE: <200 MG/DL <170 MG/DL BORDER-LINE HIGH RISK: 200-239 MG/DL 170-199 MG/DL HIGH RISK: >240 MG/DL >200 MG/DL CLASS. FOR PRIMARY LDL CHOL PREVENTION: LDL CHOL-CHILD/ADOLESCENTS* DESIRABLE: <130 MG/DL <110 MG/DL BORDERLINE-HIGH RISK: 130-159 MG/DL 110-129 MG/DL HIGH RISK: >160 MG/DL >130 MG/DL *CHILDREN AND ADOLESCENTS REPRESENTS INDIVIDUALA AGED 2-19 YEARS EXCLUSIVE. Anion gap in Serum or Plasma 18 mmol/L [facility] ([facility]) NORMAL RANGES Age WBC RBC HGB HCT [...] HCT IS 5% LESS SOURCE FOR DATA: [employer] 1800 OPERATION MANUAL( AUTOMATED BLOOD COUNTS AND [...] mL/min Normal 80 and above >32 mL/min NormalCLASSIFICATION CHOLESTEROL FOR ADULTS CHILDREN/ADOLESCENTS* DESIRABLE: <200 MG/DL <170 MG/DL BORDER-LINE HIGH RISK: 200-239 MG/DL 170-199 MG/DL HIGH RISK: >240 MG/DL >200 MG/DL CLASS. FOR PRIMARY LDL CHOL PREVENTION: LDL CHOL-CHILD/ADOLESCENTS* DESIRABLE: <130 MG/DL <110 MG/DL BORDERLINE-HIGH RISK: 130-159 MG/DL 110-129 MG/DL HIGH RISK: >160 MG/DL >130 MG/DL *CHILDREN AND ADOLESCENTS REPRESENTS INDIVIDUALA AGED 2-19 YEARS EXCLUSIVE. eGFR 96 # [facility] ( [facility]) NORMAL RANGES Age WBC RBC HGB HCT [...] HCT IS 5% LESS SOURCE FOR DATA: [employer] 1800 OPERATION MANUAL( AUTOMATED BLOOD COUNTS AND [...] mL/min Normal 80 and above >32 mL/min NormalCLASSIFICATION CHOLESTEROL FOR ADULTS CHILDREN/ADOLESCENTS* DESIRABLE: <200 MG/DL <170 MG/DL BORDER-LINE HIGH RISK: 200-239 MG/DL 170-199 MG/DL HIGH RISK: >240 MG/DL >200 MG/DL CLASS. FOR PRIMARY LDL CHOL PREVENTION: LDL CHOL-CHILD/ADOLESCENTS* DESIRABLE: <130 MG/DL <110 MG/DL BORDERLINE-HIGH RISK: 130-159 MG/DL 110-129 MG/DL HIGH RISK: >160 MG/DL >130 MG/DL *CHILDREN AND ADOLESCENTS REPRESENTS INDIVIDUALA AGED 2-19 YEARS EXCLUSIVE. Osmolality-Calculated 273.4 CALC [facility] ([facility]) NORMAL RANGES Age WBC RBC HGB HCT [...] HCT IS 5% LESS SOURCE FOR DATA: [employer] 1800 OPERATION MANUAL( AUTOMATED BLOOD COUNTS AND [...] mL/min Normal 80 and above >32 mL/min NormalCLASSIFICATION CHOLESTEROL FOR ADULTS CHILDREN/ADOLESCENTS* DESIRABLE: <200 MG/DL <170 MG/DL BORDER-LINE HIGH RISK: 200-239 MG/DL 170-199 MG/DL HIGH RISK: >240 MG/DL >200 MG/DL CLASS. FOR PRIMARY LDL CHOL PREVENTION: LDL CHOL-CHILD/ADOLESCENTS* DESIRABLE: <130 MG/DL <110 MG/DL BORDERLINE-HIGH RISK: 130-159 MG/DL 110-129 MG/DL HIGH RISK: >160 MG/DL >130 MG/DL *CHILDREN AND ADOLESCENTS REPRESENTS INDIVIDUALA AGED 2-19 YEARS EXCLUSIVE. Chol 211 mg/dL 0-200 [facility] ([facility]) NORMAL RANGES Age WBC RBC HGB HCT [...] HCT IS 5% LESS SOURCE FOR DATA: [employer] 1800 OPERATION MANUAL( AUTOMATED BLOOD COUNTS AND [...] mL/min Normal 80 and above >32 mL/min NormalCLASSIFICATION CHOLESTEROL FOR ADULTS CHILDREN/ADOLESCENTS* DESIRABLE: <200 MG/DL <170 MG/DL BORDER-LINE HIGH RISK: 200-239 MG/DL 170-199 MG/DL HIGH RISK: >240 MG/DL >200 MG/DL CLASS. FOR PRIMARY LDL CHOL PREVENTION: LDL CHOL-CHILD/ADOLESCENTS* DESIRABLE: <130 MG/DL <110 MG/DL BORDERLINE-HIGH RISK: 130-159 MG/DL 110-129 MG/DL HIGH RISK: >160 MG/DL >130 MG/DL *CHILDREN AND ADOLESCENTS REPRESENTS INDIVIDUALA AGED 2-19 YEARS EXCLUSIVE. eGFR Non-Afr. Maltese 83 # [facility] ([facility]) NORMAL RANGES Age WBC RBC HGB HCT [...] HCT IS 5% LESS SOURCE FOR DATA: [employer] 1800 OPERATION MANUAL( AUTOMATED BLOOD COUNTS AND [...] mL/min Normal 80 and above >32 mL/min NormalCLASSIFICATION CHOLESTEROL FOR ADULTS CHILDREN/ADOLESCENTS* DESIRABLE: <200 MG/DL <170 MG/DL BORDER-LINE HIGH RISK: 200-239 MG/DL 170-199 MG/DL HIGH RISK: >240 MG/DL >200 MG/DL CLASS. FOR PRIMARY LDL CHOL PREVENTION: LDL CHOL-CHILD/ADOLESCENTS* DESIRABLE: <130 MG/DL <110 MG/DL BORDERLINE-HIGH RISK: 130-159 MG/DL 110-129 MG/DL HIGH RISK: >160 MG/DL >130 MG/DL *CHILDREN AND ADOLESCENTS REPRESENTS INDIVIDUALA AGED 2-19 YEARS EXCLUSIVE. Trig 80 mg/dL 40-200 [facility] ([facility]) NORMAL RANGES Age WBC RBC HGB HCT [...] HCT IS 5% LESS SOURCE FOR DATA: [employer] 1800 OPERATION MANUAL( AUTOMATED BLOOD COUNTS AND [...] mL/min Normal 80 and above >32 mL/min NormalCLASSIFICATION CHOLESTEROL FOR ADULTS CHILDREN/ADOLESCENTS* DESIRABLE: <200 MG/DL <170 MG/DL BORDER-LINE HIGH RISK: 200-239 MG/DL 170-199 MG/DL HIGH RISK: >240 MG/DL >200 MG/DL CLASS. FOR PRIMARY LDL CHOL PREVENTION: LDL CHOL-CHILD/ADOLESCENTS* DESIRABLE: <130 MG/DL <110 MG/DL BORDERLINE-HIGH RISK: 130-159 MG/DL 110-129 MG/DL HIGH RISK: >160 MG/DL >130 MG/DL *CHILDREN AND ADOLESCENTS REPRESENTS INDIVIDUALA AGED 2-19 YEARS EXCLUSIVE. Cholesterol in HDL [Mass/volume] in Serum or Plasma 86 mg/dL 45-65 [facility] ([facility]) NORMAL RANGES Age WBC RBC HGB HCT [...] HCT IS 5% LESS SOURCE FOR DATA: [employer] 1800 OPERATION MANUAL( AUTOMATED BLOOD COUNTS AND [...] mL/min Normal 80 and above >32 mL/min NormalCLASSIFICATION CHOLESTEROL FOR ADULTS CHILDREN/ADOLESCENTS* DESIRABLE: <200 MG/DL <170 MG/DL BORDER-LINE HIGH RISK: 200-239 MG/DL 170-199 MG/DL HIGH RISK: >240 MG/DL >200 MG/DL CLASS. FOR PRIMARY LDL CHOL PREVENTION: LDL CHOL-CHILD/ADOLESCENTS* DESIRABLE: <130 MG/DL <110 MG/DL BORDERLINE-HIGH RISK: 130- 159 MG/DL 110-129 MG/DL HIGH RISK: >160 MG/DL >130 MG/DL *CHILDREN AND ADOLESCENTS REPRESENTS INDIVIDUALA AGED 2-19 YEARS EXCLUSIVE. Cho/HDL Ratio 2.5 Calc [facility] ([facility]) NORMAL RANGES Age WBC RBC HGB HCT [...] HCT IS 5% LESS SOURCE FOR DATA: [employer] 1800 OPERATION MANUAL( AUTOMATED BLOOD COUNTS AND [...] mL/min Normal 80 and above >32 mL/min NormalCLASSIFICATION CHOLESTEROL FOR ADULTS CHILDREN/ADOLESCENTS* DESIRABLE: <200 MG/DL <170 MG/DL BORDER-LINE HIGH RISK: 200-239 MG/DL 170-199 MG/DL HIGH RISK: >240 MG/DL >200 MG/DL CLASS. FOR PRIMARY LDL CHOL PREVENTION: LDL CHOL-CHILD/ADOLESCENTS* DESIRABLE: <130 MG/DL <110 MG/DL BORDERLINE-HIGH RISK: 130- 159 MG/DL 110-129 MG/DL HIGH RISK: >160 MG/DL >130 MG/DL *CHILDREN AND ADOLESCENTS REPRESENTS INDIVIDUALA AGED 2-19 YEARS EXCLUSIVE. LDL_C 109 Calc 75-129 [facility] ([facility] NORMAL RANGES Age WBC RBC HGB HCT [...] HCT IS 5% LESS SOURCE FOR DATA: [employer] 1800 OPERATION MANUAL( AUTOMATED BLOOD COUNTS AND [...] mL/min Normal 80 and above >32 mL/min NormalCLASSIFICATION CHOLESTEROL FOR ADULTS CHILDREN/ADOLESCENTS* DESIRABLE: <200 MG/DL <170 MG/DL BORDER-LINE HIGH RISK: 200-239 MG/DL 170-199 MG/DL HIGH RISK: >240 MG/DL >200 MG/DL CLASS. FOR PRIMARY LDL CHOL PREVENTION: LDL CHOL-CHILD/ADOLESCENTS* DESIRABLE: <130 MG/DL <110 MG/DL BORDERLINE-HIGH RISK: 130- 159 MG/DL 110-129 MG/DL HIGH RISK: >160 MG/DL >130 MG/DL *CHILDREN AND ADOLESCENTS REPRESENTS INDIVIDUALA AGED 2-19 YEARS EXCLUSIVE. ID Date Data Source [id number] 12/24/2019 12:00:00 AM EDT [facility] John Farfan MD Patient Name: UNRULY ROUSSEAU [id number] [facility] Date of : 1965 201 [facility]: [id number] fax: [id number] EXAM: MRI TIBIA RIGHT WITHOUT&WITH CONTRASTCLINICAL INFORMATION: Localized mass.Lump/bump protocol utilized. The technologist has placed skin markers, oneabove and one below the region of interest which is in the proximalone-third of the right lower leg laterally.Pre and post contrast 3T MRI of the right lower leg was performed utilizingvarious sequences. Gadolinium utilized: 18 cc of ProHance.There are no prior right lower leg MRI's for comparison.Seen in the deep subcutaneous adipose tissue between the markers placed bythe technologist over the region of a clinical palpable mass, there is atiny 9 mm sized focus of low intermediate T1 signal with central [id number] and peripheral T2 prolongation. This tiny lesion enhancescircumferentially after the administration of intravenous Gadolinium with apersistent central signal void. This is confined to the deep subcutaneaand does not abut the superficial fascia to the anterior compartment.There is no abnormal intracompartmental fluid collection, mass, or masseffect. The cortical and marrow signal seen throughout the imaged portionsof the tibia and fibula is normal.IMPRESSION:There is a tiny focus in the deep subcutanea of the proximal lateral lowerleg soft tissues as described above and the etiology for which isuncertain. Its intense peripheral contrast enhancement is consistent witha vascular component and the possibility of a tiny arteriovenousmalformation exists. Clearly defined enhancing vessels are seen inconjunction with this tiny nodule. Certainly, other etiologies exist.Accredited by the [employer] in MR.FRIDA Zelaya/Nitesh you for referring UNRULY ROUSSEAU to our office. Electronically Signed - CHERYL STILES DO 12/25/19 14:20 Name Value Range Interpretation Code Description Data Augustina rce(s) Supporting Document(s) ID Date Data Source [id number] 12/18/2019 02:37:00 PM EDT [facility] ([facility]) Name Value Range Interpretation Code Description Data Augustina rce(s) Supporting Document(s) Creatinine For GFR 0.85 mg/dL 0.55-1.30 [facility] ([facility]) Glomerular Filtration Rate Laboratory test result [facility] ([facility]) <content>Units are mL/min/1.73 m2</content>
<content></content>
<content>Chronic Kidney Disease Staging per NKF:</content>
<content></content>
<content>Stage I & II GFR >=60 Normal to Mildly Decreased</content>
<content>Stage III GFR 30- 59 Moderately Decreased</content>
<content>Stage IV GFR 15-29 Severely Decreased</content>
<content>Stage V GFR <15 Very Little GFR Left</content>
<content>ESRD GFR <15 on LANGUAGE PATH</content>
<content></content> ID Date Data Source [id number] 12/18/2019 02:37:00 PM EDT [facility] ([facility]) Name Value Range Interpretation Code Description Data Augustina rce(s) Supporting Document(s) Urea nitrogen [Mass/volume] in Serum or Plasma 18 mg/dL 7-18 [facility] ([facility]) Procedure Social History Code Duration Value Status Description Data Source(s ) Smoking 01/04/2021 12:00:00 AM EDT Never Smoker completed Never S moker eCW1 ([facility]) Smoking 05/13/2020 12:00:00 AM EST Never Smoker completed Never S moker eCW1 ([facility]) Smoking 05/13/2020 12:00:00 AM EST Never Smoker completed Never S moker eCW1 ([facility]) Alcohol intake 04/25/2020 12:00:00 AM EST Current drinker of al cohol (finding) completed Current drinker of alcohol (finding) [facility] Tobacco use and exposure 04/25/2020 12:00:00 AM EST Never used co mpleted Never used [facility] Smoking 04/25/2020 12:00:00 AM EST Never smoker completed Never s [facility] Smoking 03/24/2020 12:00:00 AM EST Patient has never smoked co mpleted Patient has never smoked [facility] ([facility]) Alcohol intake 02/22/2020 12:00:00 AM EST Current drinker of al cohol (finding) completed Current drinker of alcohol (finding) [facility] Alcohol intake 02/08/2020 12:00:00 AM EST Current drinker of al cohol (finding) completed Current drinker of alcohol (finding) [facility] Smoking 02/05/2020 12:00:00 AM EST Patient has never smoked co mpleted Patient has never smoked [facility] ([facility] ) Vital Signs ID Date Data Source UNK Name Value Range Interpretation Code Description Data Source(s) Body temperature 98.0 [degF] 98.0 [degF] [facility] ([facility] Heart rate 78 /min 78 /min [facility] ([facility] Respiratory rate 16 /min 16 /min [facility] ( [facility] Body height 63.25 [in_i] 63.25 [in_i] [facility] ([facility] 5'3.25" Body weight 197.00 [lb_av] 197.00 [lb_av] [facility] T ([facility] [place] body weight 115 [lb_av] 115 [lb_av] [facility] T ([facility] Body mass index (BMI) [Ratio] 34.6 kg/m2 34.6 k g/m2 [facility] ([facility] Oxygen saturation in Arterial blood by Pulse oximetry 97 % 97 % [facility] ([facility] Systolic blood pressure 134 mm[Hg] 134 mm[Hg] M EDENT ([facility] Diastolic blood pressure 82 mm[Hg] 82 mm[Hg] [facility] ([facility] Body mass index (BMI) [Ratio] 34.4 kg/m2 34.4 k g/m2 [facility] ([facility]) Systolic blood pressure 124 mm[Hg] 124 mm[Hg] M EDENT ([facility] Diastolic blood pressure 64 mm[Hg] 64 mm[Hg] [facility] ([facility] Body temperature 97.1 [degF] 97.1 [degF] [facility] ( [facility] Heart rate 73 /min 73 /min [facility] ( [facility] Respiratory rate 16 /min 16 /min [facility] ( [facility] Body height 63.25 [in_i] 63.25 [in_i] [facility] ([facility] 5'3.25" [place] body weight 115 [lb_av] 115 [lb_av] [facility] T ([facility] Body mass index (BMI) [Ratio] 34.4 kg/m2 34.4 k g/m2 [facility] ( [facility] Body height 63.25 [in_i] 63.25 [in_i] [facility] ([facility]) 5'3.25" Body weight 196.00 [lb_av] 196.00 [lb_av] [facility] T ([facility]) Body weight 196.00 [lb_av] 196.00 [lb_av] [facility] T ( [facility] Oxygen saturation in Arterial blood by Pulse oximetry 96 % 96 % [facility] ( [facility] ([place]), (Room Air) Systolic blood pressure 130 mm[Hg] 130 mm[Hg] M EDENT ( [facility] Diastolic blood pressure 60 mm[Hg] 60 mm[Hg] [facility] ([facility] Body weight 195.00 [lb_av] 195.00 [lb_av] [facility] T ([facility] Body temperature 97.4 [degF] 97.4 [degF] [facility] ( [facility] Heart rate 74 /min 74 /min [facility] ( [facility] Respiratory rate 18 /min 18 /min [facility] ( [facility] Body height 63.25 [in_i] 63.25 [in_i] [facility] ([facility] 5'3.25" [place] body weight 115 [lb_av] 115 [lb_av] [facility] T ([facility] Body mass index (BMI) [Ratio] 34.3 kg/m2 34.3 k g/m2 [facility] ([facility] Oxygen saturation in Arterial blood by Pulse oximetry 98 % 98 % [facility] ([facility] Body weight 209 [lb_av] 209 [lb_av] eCW1 ([facility]) Body weight 94.8 kg 94.8 kg eCW1 ([facility]) Body height [in_i] eCW1 ([facility]) Body mass index (BMI) [Ratio] 35.87 kg/m2 35.87 kg/m2 eCW1 ([facility]) Systolic blood pressure 138 mm[Hg] 138 mm[Hg] e CW1 ([facility]) Diastolic blood pressure 86 mm[Hg] 86 mm[Hg] eCW1 ([facility]) Body weight 194.00 [lb_av] 194.00 [lb_av] [facility] T ([facility]) Body height 63 [in_i] 63 [in_i] [facility]) 5'3" Body mass index (BMI) [Ratio] 34.4 kg/m2 34.4 k g/m2 [facility] ([facility]) Heart rate 80 /min 80 /min [facility] ([facility] regular Respiratory rate 16 /min 16 /min [facility] ( [facility]) Systolic blood pressure--sitting 168 mm[Hg] 168 mm[Hg] [facility] ([facility]) medium cuff, both arms Diastolic blood pressure--sitting 90 mm[Hg] 90 mm[Hg] [facility] ([facility]) medium cuff, both arms Systolic blood pressure--supine 160 mm[Hg] 160 mm[Hg] [facility] ([facility]) Ra Diastolic blood pressure--supine 84 mm[Hg] 84 mm[Hg] [facility] ([facility]) Ra Body mass index (BMI) [Ratio] 34.3 kg/m2 34.3 k g/m2 [facility] ([facility] Oxygen saturation in Arterial blood by Pulse oximetry 96 % 96 % [facility] ([facility] Systolic blood pressure 124 mm[Hg] 124 mm[Hg] M EDENT ([facility] Diastolic blood pressure 86 mm[Hg] 86 mm[Hg] [facility] ([facility] Body temperature 98.0 [degF] 98.0 [degF] [facility] ([facility] Heart rate 74 /min 74 /min [facility] ([facility] Respiratory rate 16 /min 16 /min [facility] ( [facility] Body height 63.25 [in_i] 63.25 [in_i] [facility] ([facility] 5'3.25" Body weight 195.00 [lb_av] 195.00 [lb_av] [facility] T ([facility] [place] body weight 115 [lb_av] 115 [lb_av] [facility] T ([facility] Body temperature 98.0 [degF] 98.0 [degF] [facility] ([facility] Body height 63.5 [in_i] 63.5 [in_i] [facility] ([facility] 5'3.50" Body weight 191.00 [lb_av] 191.00 [lb_av] [facility] T ([facility] Body mass index (BMI) [Ratio] 33.3 kg/m2 33.3 k g/m2 [facility] ([facility] Patient Treatment Plan of Care Planned Activity Planned Date Details Description Data Source (s) Fluconazole 150 MG Oral Tablet 05/13/2020 12:00:00 AM EST W1 ([facility]) Fluconazole 150 MG Oral Tablet 05/13/2020 12:00:00 AM EST eCW1 ([facility]) Fluconazole 150 MG Oral Tablet 05/13/2020 12:00:00 AM EST eCW1 ([facility]) Omeprazole 40 MG Delayed Release Oral Capsule 02/07/2020 12:00:00 A M [facility] 24 HR metoprolol succinate 50 MG Extended Release Oral Tablet 01/25/2020 12:00:00 AM [facility] Fenofibrate 145 MG Oral Tablet 01/25/2020 12:00:00 AM [facility] Benazepril hydrochloride 20 MG Oral Tablet 01/25/2020 12:00:00 AM E [facility]
--- OUTSIDE RECORDS SUMMARY | 2021-01-26 19:05 | CCD ---
Author Author [facility] Organization [facility] Address Unknown Phone Unavailable Care Team Providers Care Desktop Manager Name Role Phone Fish, B Haris MESA [...] Unavailable Unavailable Anshu ORO MD Unavailable Unavailable Anhsu ORO MD Unavailable Unavailable Anshu ORO MD [...] Unavailable Jonathan, A Ludin MD Unavailable Unavailable Ojnathan, A Ludin MD Unavailable Unavailable Jonathan, A [...] D Douglas PA Unavailable Unavailable Robson, D Dogulas PA Unavailable Unavailable Robson, D Douglas PA [...] Fish, J Abimael Unavailable Unavailable Fish, J Abmiael Unavailable Unavailable Fish, J Abimael Unavailable Unavailable [...] is protected by Article 27-F of the [facility] Public Health law. If you continue you may have access to information: Regarding HIV / AIDS; Provided by facilities licensed or operated by the [facility] Office of Mental Health; or Provided by the [facility] Office for People With Developmental Disabilities. If such information is present, then the following [facility] mandated warning applies: This information [...] law may result in a fine or detention sentence or both. A general authorization for the release of medical or other information is NOT sufficient authorization for further disc losure. Allergies and Adverse Reactions Type Description Substance Reaction Status Data Source(s ) Propensity to adverse reactions SULFA ANTIBIOTICS SULFA ANTIBIOTICS [facility] Propensity to adverse reactions OFLOXACIN OFLOXACIN [facility] Family History Family Member Name Family Member Gender Family Member Status Date o f Status Description Data Source(s) Unknown Male Problem [facility] ([facility] Encounters Encounter Providers Location Date Indications Data Source(s ) Outpatient Attender: Haris Kline MDConsultant: STAFF NON 01/12/2021 12:30:00 PM EDT - 01/12/2021 01:30:00 PM EDT [facility] Patient discharged. Unknown [address] [facility] [place] [address] 01/08/2021 12:00:00 AM EDT eCW1 ([facility]) Outpatient Attender: Douglas LOZA [place] [facility] 11:15:00 AM EDT [facility] ([facility] OFFICE OUTPATIENT VISIT 15 MINUTES Attender: Haris Kline MD Phys ical Therapy 12/26/2020 01:15:00 PM EDT [facility] ([facility]) Outpatient Attender: Abimael Kline [place] [facility] 11/18/2020 01:00:0 0 PM EDT [facility] ([facility] Outpatient Attender: Abimael Kline [place] [facility] 05/15/2020 09:20:0 0 AM EST [facility] ([facility] Unknown [address] [facility] [place] [address] 05/15/2020 12:00:00 AM EST eCW1 ([facility]) Outpatient [address] [facility] [place] [address] 05/13/2020 12:00:00 AM EST eCW1 ([facility]) Outpatient Attender: Ludin Castillo MD [id number] 04/25/2020 12 :00:00 AM EST Other specified soft tissue disorders [facility] Other specified soft tissue disorders Outpatient Attender: Ludin Castillo MD 04/04/2020 12:00:00 AM [facility] Outpatient Attender: CHAPITO ORO MD Main Office 03/24/2020 01:00:00 PM EST [facility] ([facility]) Outpatient Attender: Ludin Castillo MD [id number] 02/22/2020 12 :00:00 AM EST Other specified disorders of muscle [facility] Other specified disorders of muscle Outpatient Attender: Ludin Castillo MDReferrer: JOHN HARRIS MD [id number] 02/08/2020 12:00:00 AM [facility] Outpatient Attender: Abimael Kline [place] [facility] 02/05/2020 09:20:0 0 AM EST [facility] ([facility] Outpatient Attender: JOHN FARFAN MD Physical Therapy 02:45:00 PM EDT [facility] ([facility]) Outpatient Attender: JOHN FARFAN MD Physical Therapy 02:00:00 PM EDT [facility] ([facility]) Immunizations Vaccine Date Status Description Data Source(s) COVID-19 VACCINE Pfizer 07/03/2020 12:00:00 AM EDT completed [facility] Vaccine Series Complete: YESThis Data wa s Submitted to [facility] Via [employer]. COVID-19 VACCINE Pfizer 06/12/2020 12:00:00 AM EDT completed [facility] Vaccine Series Complete: NOThis Data was Submitted to [facility] Via [employer]. Medications Medication Brand Name Start Date Product Form Dose Route Admi nistrative Instructions Pharmacy Instructions Status Indications Reaction Description Data Source(s) Fluconazole 150 MG Oral Tablet [Diflucan] Diflucan 01/01/2021 1 2:00:00 AM EDT ORAL active [facility] ([facility] Azithromycin 250 MG Oral Tablet Azithromycin 01/01/2021 12:00:00 AM E DT ORAL active [facility] ([facility] cefdinir 300 MG Oral Capsule Cefdinir 11/18/2020 12:00:00 AM EDT ORAL active [facility] ([facility] [employer] Covid-19 Vaccine Pfizer-[employer] Covid-19 Va ccine 11/18/2020 12:00:00 AM EDT active M EDENT ([facility]) cefdinir 300 MG Oral Capsule Cefdinir 11/18/2020 12:00:00 AM EDT ORAL active [facility] ([facility] Pfizer-[employer] Covid-19 Vaccine Pfizer-[employer] Covid-19 Va ccine 11/18/2020 12:00:00 AM EDT active M EDENT ([facility] Fluconazole 150 MG Oral Tablet Fluconazole 150 MG 05/13/2020 12:00: 00 AM EST 1.0 {tablet} active Fluconazole 150 MG eCW1 ([facility]) Fluconazole 150 MG Oral Tablet Fluconazole 150 MG 05/13/2020 12:00: 00 AM EST 1.0 {tablet} active Fluconazole 150 MG eCW1 ([facility]) Fluconazole 150 MG Oral Tablet Fluconazole 150 MG 05/13/2020 12:00: 00 AM EST 1.0 {tablet} active Fluconazole 150 MG eCW1 ([facility]) Omeprazole 20 MG Delayed Release Oral Capsule Omeprazole 03/24/2020 12:00:00 AM EST ORAL active [facility] ([facility]) Omeprazole 20 MG Delayed Release Oral Capsule Omeprazole 03/24/2020 12:00:00 AM EST ORAL active [facility] ([facility] Omeprazole 40 MG Delayed Release Oral Capsule Omeprazole 03/23/2020 12:00:00 AM EST ORAL active [facility] ([facility] Benazepril hydrochloride 20 MG Oral Tablet [Lotensin] Lotens in 03/23/2020 12:00:00 AM EST active M EDENT ([facility]) Fenofibrate 145 MG Oral Tablet Fenofibrate 03/23/2020 12:00:00 AM EST ORAL active [facility] ([facility]) 24 HR metoprolol succinate 50 MG Extended Release Oral Tablet Metoprolol Succinate ER 03/23/2020 12:00:00 AM EST ORAL active [facility] ([facility]) Omeprazole 40 MG Delayed Release Oral Ca psule Omeprazole 40 MG Oral Capsule Delayed Release (PRILOSEC) Omeprazole 40 MG Oral Capsule Delayed Re lease (PRILOSEC) 02/07/2020 12:00:00 AM EST active [facility] 24 HR metoprolol succinate 50 MG Extende d Release Oral Tablet Metoprolol Succinate ER 50 MG Oral Tablet Extended Release 24 Hour (TOPROL-XL) Metoprolol Succinate ER 50 MG Oral Tablet Extended Release 24 Hour (TOPROL-XL) 01/25/2020 12:00:00 AM EST 50 mg Oral active Take 50 mg by mouth daily [facility] Benazepril hydrochloride 20 MG Oral Tabl et Benazepril HCl 20 MG Oral Tablet (LOTENSIN) Benazepril HCl 20 MG Oral Tablet (LOTENSIN) 01/25/2020 12:00:00 AM EST 20 mg Oral active Take 20 mg by quirino th daily [facility] Fenofibrate 145 MG Oral Tablet Fenofibrate 145 MG Oral Tablet (TRICOR) Fenofibrate 145 MG Oral Tablet (TRICOR) 01/25/2020 12:00:00 AM EST 145 mg Oral active Take 145 mg by mouth daily [facility] Insurance Providers Payer name Policy type / Coverage type Policy ID Covered green party ID Covered green party's relationship to pedersen Policy Pedersen Plan Information [id number] Spouse [id number] BCBS Medigap Part B [id number] Family Dependent BCBS Medigap Part B [id number] Family Dependent [id number] [facility] Commercial [id number] Family Dependent [facility] Commercial [id number] Family Dependent EXCELLUS C [id number] Spouse [id number] [facility]/PPO/POS [id number] EXCELLUS C [id number] Self [id number] [place] PPO 302/307 [id number] BCBS Commercial [id number] Family Dependent [id number] [facility] SHIELD -O/P [id number] BCBS Commercial [id number] Family Dependent [id number] BCBS Commercial [id number] Family Dependent [id number] BCBS Commercial [id number] Family Dependent [id number] BCBS Commercial [id number] Family Dependent [place] PPO 302/307 [id number] [place] PPO 302/307 [id number] [id number] [place] PPO 302/307 [id number] HU2 [id number] BLUE CROSS O [id number] S [id number] ANSI-Commercial [id number] [place] PPO 302/307 [id number] [place] PPO 302/307 [id number] EXCELLUS BCBS B [id number] P YNE [id number] EXCELLUS BCBS B [id number] P [id number] [id number] EXCELLUS BCBS B [id number] P YNE [id number] EXCELLUS BCBS B UNAVAILABLE [id number] P UNAV AILABLE EXCELLUS BCBS B [id number] P [id number] [id number] Problems, Conditions, and Diagnoses Code Display Name Description Problem Type Effective Dates Data Source(s) N79827 Pain in right shoulder Pain in right shoulder Diagnosi s 01/12/2021 12:30:00 PM EDT [facility] R937 Abnormal findings on diagnos tic imaging of other parts of musculoskeletal system Abnormal findings on diagnostic imaging of other parts of musculoskeletal system Diagnosis 01/12/2021 12:30:00 PM EDT [facility] [id number] Primary osteoarthritis, left shoulder Pr imary osteoarthritis, left shoulder Diagnosis 01/12/2021 12:30:00 PM EDT [facility] [id number] Primary osteoarthritis, right shoulder P rimary osteoarthritis, right shoulder Diagnosis 01/12/2021 12:30:00 PM [facility] M79.89 Other specified soft tissue disorders Ot her specified soft tissue disorders Diagnosis 04/25/2020 11:02:05 AM [facility] M62.89 Other specified disorders of muscle Other specif ied disorders of muscle Diagnosis 02/22/2020 10:52:27 AM [facility] [id number] Precordial pain Precordial pain Problem 03/24/2020 12:0 0:00 AM EST [facility] ([facility]) [id number] Electrocardiogram abnormal Electrocardiogram abnormal Problem 03/24/2020 12:00:00 AM EST [facility] ([facility]) [id number] Essential hypertension Essential hypertension Problem 03/24/2020 12:00:00 AM EST [facility] ([facility]) [id number] Dietary management surveillance Dietary manageme nt surveillance Problem 03/24/2020 12:00:00 AM EST [facility] ([facility] [id number] Heart murmur Heart murmur Problem 03/24/2020 12:00:00 A M EST [facility] ([facility]) [id number] Body mass index 30+ - obesity Body mass index 30+ - ob esity Problem 03/24/2020 12:00:00 AM EST [facility] ([facility]) [id number] Essential hypertension Essential hypertension Problem 12/11/2019 12:00:00 AM EDT [facility] ([facility] [id number] Pure hypercholesterolemia Pure hypercholesterolemia Pr oblem 12/11/2019 12:00:00 AM EDT [facility] ([facility] ) Surgeries/Procedures Procedure Description Date Indications Data Source(s) OFFICE OUTPATIENT VISIT 15 MINUTES 01/01/2021 12:00:00 AM EDT [facility] ([facility] X-Ray Clavicle Complete 12/26/2020 12:00:00 AM EDT [facility] ([facility] OFFICE OUTPATIENT VISIT 15 MINUTES 12/26/2020 12:00:00 AM EDT [facility] ([facility]) OFFICE OUTPATIENT VISIT 25 MINUTES 11/18/2020 12:00:00 AM EDT [facility] MYOCARDIAL SPECT MULTIPLE STUDIES 04/14/2020 12:00:00 AM EST [facility] ([facility]) CV STRS TST XERS&/OR RX CONT ECG PHYS SI&R 04/14/2020 12:00:00 AM EST [facility] ([facility]) ECG ROUTINE ECG W/LEAST 12 LDS W/I&R 03/24/2020 12:00: 00 AM EST [facility] ([facility]) Electrocardiogram Complete 02/05/2020 12:00:00 AM EST [facility] RADIOLOGIC EXAMINATION TIBIA & FIBULA 2 VIEWS 12/11/19 12:00:00 AM EDT [facility] Results ID Date Data Source [id number] 01/14/2021 08:20:00 AM EDT [facility] [address] [place] [address] PHONE: [phone] FAX: [phone] Name .................. : CATALINA TOLLIVER I Acct Number.................. : [id number] ROOM. ................. : MR Number ................... : [id number] Stay type ............. : O/P Discharge Date......... ... : 01/12/21 Admit Date ......... : 01/12/21 Admit Phys .................... : FABIAN ROBINS Date of ....... : 1965 Family Phys ................... : NON STAFF Phone .................. : [phone] Age ................................ : 55 Film# .................. .:[id number] Sex ................................. : F Unsigned transcriptions are preliminary reports and do not represent a medical or legal document CT UPPER EXT RT W/O CONT [id number] COMPLETE:01/12/21 12:32 02767 Reason for Exam : R CLAVICLE R/O [...] sternoclavicular joint degeneration. Page [address] [facility] [address] [place] [address] PHONE: [phone] FAX: [phone] Name .................. : CATALINA TOLLIVER I Acct Number.................. : [id number] ROOM. ................. : Number ................... : [id number] Stay type ............. : O/P Discharge Date......... ... : 01/12/21 Admit Date ......... : 01/12/21 Admit Phys .................... : FABIAN ROBINS Date of ....... : 1965 Family Phys ................... : NON STAFF Phone .................. : [phone] Age ................................ : 55 Film# .................. .:[id number] Sex ................................. : F Unsi gned transcriptions are preliminary reports and do not represent a medical or legal document CT UPPER EXT RT W/O CONT [id number] COMPLETE:01/12/21 12:32 31390 Reason for Exam: R CLAVICLE R/O SC DISLOCATION Electronically Reviewed and Signed By Seth Tiwari MD , 01/14/21 08:20, SCB Transcribe Initials: SSR, Transcribe Date: 01/12/21 14:08, Dictation Date: Copy for: FABIAN Mcdowell via fax Copy for: [facility] REC Page 2 of 2 Name Value Range Interpretation Code Description Data Augustina rce(s) Supporting Document(s) ID Date Data Source [id number] 12/29/2020 03:07:00 PM EDT [facility] Received: 12/26/2020 at 14:03:00 QPT : [facility], [address], [address] [place], [address], Jeromy Wall MD Received: 12/26/2020 at 14:03:00 QPT : [facility], [address], [address] [place], [address], Jeromy Wall MD Received: 12/26/2020 at 14:03:00 QPT : [facility], [address], [address] [place], [address], Jeromy Wall MD Received: 12/26/2020 at 14:03:00 QPT : [facility], [address], [address] [place], [address]Jeromy MD Received: 12/26/2020 at 14:03:00 QPT : [facility], [address] [place], [place], [address]Jeromy MD Name Value Range Interpretation Code Description Data Augustina rce(s) Supporting Document(s) Erythrocyte sedimentation rate by Westergren method 2 mm/h < OR = 30 Normal (applies to non-numeric results) [facility] ID Date Data Source [id number] 12/29/2020 03:07:00 PM EDT [facility] Received: 12/26/2020 at 14:03:00 QPT : [facility], [address], [address] [place], [address]Jeromy MD Received: 12/26/2020 at 14:03:00 QPT : [facility], [address], [address] [place], [address]Jeromy MD Received: 12/26/2020 at 14:03:00 QPT : [facility], [address], [address] [place], [address], Jeromy Wall MD Received: 12/26/2020 at 14:03:00 QPT : [facility], [address], [address] [place], [address], Jeromy Wall MD Received: 12/26/2020 at 14:03:00 QPT : [facility], [address], [address] [place], [address], Jeromy Wall MD Name Value Range Interpretation [...] in Blood by Automated count 4009 cells/uL [phone] Normal (applies to non-numeric results) [facility] [...] results) [facility] ID Date Data Source [id number] 12/29/2020 03:07:00 PM EDT [facility] Received: 12/26/2020 at 14:03:00 QPT : [facility], [address], [address] [place] [address], [phone], Jeromy Wall MD Received: 12/26/2020 at 14:03:00 QPT : [facility], [address], [address] [place] [address], [phone], Jeromy Wall MD Received: 12/26/2020 at 14:03:00 QPT : [facility], [address], [address] [place] [address], [phone], Jeromy Wall MD Received: 12/26/2020 at 14:03:00 QPT : [facility], [address], [address] [place] [address], [phone], Jeromy Wall MD Received: 12/26/2020 at 14:03:00 QPT : [facility], [address], [address] [place], [address], Jeromy Wall MD Name Value Range Interpretation [...] clinicallysuspected inflammatory myopathies.AC-0: NegativeInternational Consensus on ALEX Patterns([email or web address]://doi.org/10.1515/liji-[email or web address])For additional information, please refer tohttp://[email or web address].com/faq/BCK494(This link is being provided for informational/educational purposes only.) ID Date Data Source [id number] 12/29/2020 03:07:00 PM EDT [facility] Received: 12/26/2020 at 14:03:00 QPT : [facility], [address], [address] [place], [address]Jeromy MD Received: 12/26/2020 at 14:03:00 QPT : [facility], [address], [address] [place], [address]Jeromy MD Received: 12/26/2020 at 14:03:00 QPT : [facility], [address], [address] [place], [address]Jeromy MD Received: 12/26/2020 at 14:03:00 QPT : [facility], [address], [address] [place], [address], Jeromy Wall MD Received: 12/26/2020 at 14:03:00 QPT : [facility], [address], [address] [place] [address], [phone], Jeromy Wall MD Name Value Range Interpretation Code Description Data Augustina rce(s) Supporting Document(s) Rheumatoid factor [Units/volume] in Serum or Plasma <14 IU/mL <14 Normal (applies to non-numeric results) [facility] ID Date Data Source [id number] 12/29/2020 03:07:00 PM EDT [facility] Received: 12/26/2020 at 14:03:00 QPT : [facility], [address], [address] [place] [address], [phone], Jeromy Wall MD Received: 12/26/2020 at 14:03:00 QPT : [facility], [address], [address] [place] [address], [phone], Jeromy Wall MD Received: 12/26/2020 at 14:03:00 QPT : [facility], [address], [address] [place] [address], [phone], Jeromy Wall MD Received: 12/26/2020 at 14:03:00 QPT : [facility], [address], [address] [place] [address], [phone] MD Received: 12/26/2020 at 14:03:00 QPT : [facility], [address], [address] [place] [address], [phone], Jeromy Wall MD Name Value Range Interpretation [...] copy faxed has been acknowledged. Queued to: [id number] ID Date Data Source [id number] 11/18/2020 01:35:00 PM EDT [facility] ([facility] Name Value Range Interpretation Code Description Data Augustina rce(s) Supporting Document(s) Color Laboratory test result [facility] ([facility] NORMAL RANGES Age WBC [...] HCT IS 5% LESS SOURCE FOR DATA: [employer]YN 1800 OPERATION MANUAL( AUTOMATED BLOOD COUNTS [...] >32 mL/min Normal Clarity Laboratory test result [facility] ([facility] NORMAL RANGES Age [...] HCT IS 5% LESS SOURCE FOR DATA: [employer] 1800 OPERATION MANUAL( AUTOMATED BLOOD COUNTS AND [...] >32 mL/min Normal Ketone Laboratory test result [facility] ([facility] NORMAL RANGES Age [...] HCT IS 5% LESS SOURCE FOR DATA: [employer] 1800 OPERATION MANUAL( AUTOMATED BLOOD COUNTS AND [...] HCT IS 5% LESS SOURCE FOR DATA: [employer] 1800 OPERATION MANUAL( AUTOMATED BLOOD COUNTS AND [...] >32 mL/min Normal Bilirubin,Urine Laboratory test result [facility] ([facility] NORMAL RANGES Age [...] HCT IS 5% LESS SOURCE FOR DATA: [employer] 1800 OPERATION MANUAL( AUTOMATED BLOOD COUNTS AND [...] >32 mL/min Normal pH 6.0 # 5.0-8.0 [facility] NORMAL RANGES [...] HCT IS 5% LESS SOURCE FOR DATA: [employer] 1800 OPERATION MANUAL( AUTOMATED BLOOD COUNTS AND [...] HCT IS 5% LESS SOURCE FOR DATA: [employer] 1800 OPERATION MANUAL( AUTOMATED BLOOD COUNTS AND [...] HCT IS 5% LESS SOURCE FOR DATA: [employer] 1800 OPERATION MANUAL( AUTOMATED BLOOD COUNTS AND [...] >32 mL/min Normal Urobilinogen 0.2 NA 0.2-1.0 [facility] ([facility] NORMAL RANGES Age WBC [...] HCT IS 5% LESS SOURCE FOR DATA: [employer] 1800 OPERATION MANUAL( AUTOMATED BLOOD COUNTS AND [...] >32 mL/min Normal Protein Laboratory test result [facility] ([facility] NORMAL RANGES Age WBC [...] HCT IS 5% LESS SOURCE FOR DATA: [employer] 1800 OPERATION MANUAL( AUTOMATED BLOOD COUNTS AND [...] mL/min Normal Leukocyte Laboratory test result [facility] ([facility] NORMAL RANGES Age [...] >32 mL/min Normal Nitrite Laboratory test result [facility] ([facility] NORMAL RANGES Age [...] HCT IS 5% LESS SOURCE FOR DATA: [employer] 1800 OPERATION MANUAL( AUTOMATED BLOOD COUNTS AND [...] >32 mL/min Normal ID Date Data Source [id number] 11/18/2020 01:35:00 PM EDT [facility] ([facility] Name Value Range Interpretation Code Description Data Augustina rce(s) Supporting Document(s) Glu 100 mg/dL 70-110 [facility] NORMAL RANGES Age WBC [...] HCT IS 5% LESS SOURCE FOR DATA: [employer] 1800 OPERATION MANUAL( AUTOMATED BLOOD COUNTS AND [...] >32 mL/min Normal BUN 14 mg/dL 8-23 [facility] NORMAL RANGES Age [...] HCT IS 5% LESS SOURCE FOR DATA: [facility] Solutions 1800 OPERATION MANUAL( AUTOMATED BLOOD COUNTS AND [...] HCT IS 5% LESS SOURCE FOR DATA: [facility] 1800 OPERATION MANUAL( AUTOMATED BLOOD COUNTS AND [...] >32 mL/min Normal BUN/Creatinine Ratio 16.8 CALC [facility] ([facility] NORMAL RANGES Age [...] HCT IS 5% LESS SOURCE FOR DATA: [facility] 1800 OPERATION MANUAL( AUTOMATED BLOOD COUNTS AND [...] >32 mL/min Normal CL 99.0 mmol/L 98.0-107.0 [facility] ([facility] NORMAL RANGES Age WBC [...] HCT IS 5% LESS SOURCE FOR DATA: [facility] 1800 OPERATION MANUAL( AUTOMATED BLOOD COUNTS AND [...] Na 135 mmol/L 136-145 Below low normal [facility] ( [facility] NORMAL RANGES Age [...] HCT IS 5% LESS SOURCE FOR DATA: [facility] 1800 OPERATION MANUAL( AUTOMATED BLOOD COUNTS AND [...] >32 mL/min Normal K 4.3 mmol/L 3.5-5.1 [facility] ([facility] NORMAL RANGES Age WBC RBC HGB [...] HCT IS 5% LESS SOURCE FOR DATA: [facility] 1800 OPERATION MANUAL( AUTOMATED BLOOD COUNTS AND [...] >32 mL/min Normal CA 9.9 mg/dL 8.6-10.2 [facility] NORMAL RANGES Age WBC [...] >32 mL/min Normal TP 7.7 g/dL 6.6-8.7 [facility] ([facility] NORMAL RANGES Age WBC [...] HCT IS 5% LESS SOURCE FOR DATA: [facility] 1800 OPERATION MANUAL( AUTOMATED BLOOD COUNTS AND [...] >32 mL/min Normal Co2 24.2 mmol/L 22.0-29.0 [facility] ([facility] NORMAL RANGES Age WBC RBC [...] HCT IS 5% LESS SOURCE FOR DATA: [facility] 1800 OPERATION MANUAL( AUTOMATED BLOOD COUNTS AND [...] >32 mL/min Normal A/G Ratio 1.7 CALC [facility] ([facility] NORMAL RANGES Age [...] HCT IS 5% LESS SOURCE FOR DATA: [facility] 1800 OPERATION MANUAL( AUTOMATED BLOOD COUNTS AND [...] HCT IS 5% LESS SOURCE FOR DATA: [facility] 1800 OPERATION MANUAL( AUTOMATED BLOOD COUNTS AND [...] HCT IS 5% LESS SOURCE FOR DATA: [facility] 1800 OPERATION MANUAL( AUTOMATED BLOOD COUNTS AND [...] Normal Ast (Sgot) 26 U/L 0-40 [facility] ([facility] NORMAL RANGES Age WBC [...] HCT IS 5% LESS SOURCE FOR DATA: [facility] 1800 OPERATION MANUAL( AUTOMATED BLOOD COUNTS AND [...] mL/min Normal Alt (SGPT) 28 U/L 0-41 [facility] NORMAL RANGES Age WBC RBC [...] HCT IS 5% LESS SOURCE FOR DATA: [facility] 1800 OPERATION MANUAL( AUTOMATED BLOOD COUNTS AND [...] >32 mL/min Normal Alp 79.9 U/L 35-129 [facility] ([facility] NORMAL RANGES Age WBC [...] HCT IS 5% LESS SOURCE FOR DATA: [facility] 1800 OPERATION MANUAL( AUTOMATED BLOOD COUNTS AND [...] >32 mL/min Normal Tbili 0.39 mg/dL 0.0-1.2 [facility] ([facility] NORMAL RANGES Age WBC RBC HGB [...] HCT IS 5% LESS SOURCE FOR DATA: [facility] 1800 OPERATION MANUAL( AUTOMATED BLOOD COUNTS AND [...] >32 mL/min Normal Anion Gap 16 mmol/L [facility] ([facility] NORMAL RANGES Age [...] HCT IS 5% LESS SOURCE FOR DATA: [facility] 1800 OPERATION MANUAL( AUTOMATED BLOOD COUNTS AND [...] and above >32 mL/min Normal eGFR Non-Afr. Eritrean 71 # [facility] ([facility] [...] HCT IS 5% LESS SOURCE FOR DATA: [facility] 1800 OPERATION MANUAL( AUTOMATED BLOOD COUNTS AND [...] HCT IS 5% LESS SOURCE FOR DATA: [facility] 1800 OPERATION MANUAL( AUTOMATED BLOOD COUNTS AND [...] >32 mL/min Normal ID Date Data Source [id number] 11/18/2020 01:35:00 PM EDT [facility] ([facility] Name Value Range Interpretation Code Description Data Augustina rce(s) Supporting Document(s) RBC 4.20 10E6/uL 4.20-6.30 [facility] ([facility] NORMAL RANGES Age WBC [...] HCT IS 5% LESS SOURCE FOR DATA: [facility] 1800 OPERATION MANUAL( AUTOMATED BLOOD COUNTS AND [...] >32 mL/min Normal WBC 8.0 10E3/uL 4.1-10.9 [facility] ([facility] NORMAL RANGES Age WBC RBC [...] HCT IS 5% LESS SOURCE FOR DATA: [facility] 1800 OPERATION MANUAL( AUTOMATED BLOOD COUNTS AND [...] HCT IS 5% LESS SOURCE FOR DATA: [facility] 1800 OPERATION MANUAL( AUTOMATED BLOOD COUNTS AND [...] >32 mL/min Normal HCT 37.8 % 37.0-51.0 [facility] ([facility] NORMAL RANGES Age [...] HCT IS 5% LESS SOURCE FOR DATA: [facility] 1800 OPERATION MANUAL( AUTOMATED BLOOD COUNTS AND [...] >32 mL/min Normal HGB 12.4 g/dL 12.0-18.0 [facility] ([facility] NORMAL RANGES Age [...] HCT IS 5% LESS SOURCE FOR DATA: [facility] 1800 OPERATION MANUAL( AUTOMATED BLOOD COUNTS AND [...] >32 mL/min Normal MCH 29.5 pg 26.0-32.0 [facility] ([facility] NORMAL RANGES [...] PLT 451 10E3/uL 140-440 Above high normal [facility] ([facility] NORMAL RANGES Age [...] HCT IS 5% LESS SOURCE FOR DATA: [facility] 1800 OPERATION MANUAL( AUTOMATED BLOOD COUNTS AND [...] >32 mL/min Normal MCHC 32.8 g/dL 31.0-36.0 [facility] NORMAL RANGES Age [...] HCT IS 5% LESS SOURCE FOR DATA: [facility] 1800 OPERATION MANUAL( AUTOMATED BLOOD COUNTS AND [...] >32 mL/min Normal Neut% 53.3 % 37.0-92.0 [facility] ([facility] NORMAL RANGES [...] HCT IS 5% LESS SOURCE FOR DATA: [facility] 1800 OPERATION MANUAL( AUTOMATED BLOOD COUNTS AND [...] >32 mL/min Normal Lym% 38.9 % 10.0-58.5 [facility] ([facility] NORMAL RANGES [...] HCT IS 5% LESS SOURCE FOR DATA: [facility] 1800 OPERATION MANUAL( AUTOMATED BLOOD COUNTS AND [...] HCT IS 5% LESS SOURCE FOR DATA: [facility] 1800 OPERATION MANUAL( AUTOMATED BLOOD COUNTS AND [...] >32 mL/min Normal Neut# 4.3 % 2.0-7.8 [facility] ([facility] NORMAL RANGES [...] HCT IS 5% LESS SOURCE FOR DATA: [facility] 1800 OPERATION MANUAL( AUTOMATED BLOOD COUNTS AND [...] mL/min Normal Lym# 3.1 10E3/uL 0.6-4.1 [facility] ([facility] NORMAL RANGES Age WBC RBC [...] HCT IS 5% LESS SOURCE FOR DATA: [facility] 1800 OPERATION MANUAL( AUTOMATED BLOOD COUNTS AND [...] >32 mL/min Normal MXD% 7.8 % 0.1-24.0 [facility] ([facility] NORMAL RANGES Age [...] HCT IS 5% LESS SOURCE FOR DATA: [facility] 1800 OPERATION MANUAL( AUTOMATED BLOOD COUNTS AND [...] fL 9.0-13.0 Below low normal [facility] ( [facility] NORMAL RANGES Age [...] HCT IS 5% LESS SOURCE FOR DATA: [employer] 1800 OPERATION MANUAL( AUTOMATED BLOOD COUNTS [...] >32 mL/min Normal MXD# 0.6 10E3/uL 0.0-1.8 [facility] ([facility] NORMAL RANGES Age WBC RBC HGB [...] HCT IS 5% LESS SOURCE FOR DATA: [facility] 1800 OPERATION MANUAL( AUTOMATED BLOOD COUNTS AND [...] >32 mL/min Normal ID Date Data Source [id number] 11/18/2020 01:35:00 PM EDT [facility] ([facility] ) Name Value Range Interpretation Code Description Data Augustina rce(s) Supporting Document(s) Color Laboratory test result [facility] ([facility] ) NORMAL RANGES Age WBC [...] HCT IS 5% LESS SOURCE FOR DATA: [facility] 1800 OPERATION MANUAL( AUTOMATED BLOOD COUNTS AND [...] >32 mL/min Normal Bilirubin,Urine Laboratory test result [facility]) NORMAL RANGES Age WBC RBC [...] HCT IS 5% LESS SOURCE FOR DATA: [facility] 1800 OPERATION MANUAL( AUTOMATED BLOOD COUNTS AND [...] >32 mL/min Normal Glucose-Ua Laboratory test result [facility]) NORMAL RANGES Age WBC RBC [...] HCT IS 5% LESS SOURCE FOR DATA: [facility] 1800 OPERATION MANUAL( AUTOMATED BLOOD COUNTS AND [...] >32 mL/min Normal Clarity Laboratory test result [facility] ([facility]) NORMAL RANGES Age WBC RBC [...] HCT IS 5% LESS SOURCE FOR DATA: [facility] 1800 OPERATION MANUAL( AUTOMATED BLOOD COUNTS AND [...] result 1.000-1.030 Abnormal (applies to non-numeric results) [facility] ([facility] ) NORMAL RANGES Age WBC [...] HCT IS 5% LESS SOURCE FOR DATA: [facility] 1800 OPERATION MANUAL( AUTOMATED BLOOD COUNTS AND [...] Normal Blood - Ua Laboratory test result [facility]) NORMAL RANGES Age WBC RBC [...] HCT IS 5% LESS SOURCE FOR DATA: [facility] 1800 OPERATION MANUAL( AUTOMATED BLOOD COUNTS AND [...] >32 mL/min Normal Ketone Laboratory test result [facility]) NORMAL RANGES Age WBC RBC [...] HCT IS 5% LESS SOURCE FOR DATA: [facility] 1800 OPERATION MANUAL( AUTOMATED BLOOD COUNTS AND [...] >32 mL/min Normal Urobilinogen 0.2 NA 0.2-1.0 [facility]) NORMAL RANGES Age WBC RBC [...] HCT IS 5% LESS SOURCE FOR DATA: [facility] 1800 OPERATION MANUAL( AUTOMATED BLOOD COUNTS AND [...] >32 mL/min Normal pH 6.0 # 5.0-8.0 [facility] NORMAL RANGES Age WBC RBC HGB [...] HCT IS 5% LESS SOURCE FOR DATA: [employer] [facility] 1800 OPERATION MANUAL( AUTOMATED BLOOD COUNTS [...] >32 mL/min Normal Protein Laboratory test result [facility]) NORMAL RANGES Age WBC RBC [...] HCT IS 5% LESS SOURCE FOR DATA: [facility] 1800 OPERATION MANUAL( AUTOMATED BLOOD COUNTS AND [...] >32 mL/min Normal Nitrite Laboratory test result [facility]) NORMAL RANGES Age WBC RBC [...] HCT IS 5% LESS SOURCE FOR DATA: [facility] 1800 OPERATION MANUAL( AUTOMATED BLOOD COUNTS AND [...] >32 mL/min Normal Leukocyte Laboratory test result [facility]) NORMAL RANGES Age WBC RBC [...] HCT IS 5% LESS SOURCE FOR DATA: [facility] 1800 OPERATION MANUAL( AUTOMATED BLOOD COUNTS AND [...] >32 mL/min Normal ID Date Data Source [id number] 11/18/2020 01:35:00 PM EDT [facility] ([facility]) Name Value Range Interpretation Code Description Data Augustina rce(s) Supporting Document(s) RBC 4.20 10E6/uL 4.20-6.30 [facility] ([facility]) NORMAL RANGES Age WBC RBC [...] HCT IS 5% LESS SOURCE FOR DATA: [facility] 1800 OPERATION MANUAL( AUTOMATED BLOOD COUNTS AND [...] >32 mL/min Normal HGB 12.4 g/dL 12.0-18.0 [facility] ([facility]) NORMAL RANGES Age WBC [...] HCT IS 5% LESS SOURCE FOR DATA: [facility] 1800 OPERATION MANUAL( AUTOMATED BLOOD COUNTS AND [...] >32 mL/min Normal WBC 8.0 10E3/uL 4.1-10.9 [facility] ([facility]) NORMAL RANGES Age WBC RBC [...] HCT IS 5% LESS SOURCE FOR DATA: [facility] 1800 OPERATION MANUAL( AUTOMATED BLOOD COUNTS AND [...] >32 mL/min Normal HCT 37.8 % 37.0-51.0 [facility]) NORMAL RANGES Age WBC RBC HGB [...] HCT IS 5% LESS SOURCE FOR DATA: [facility] 1800 OPERATION MANUAL( AUTOMATED BLOOD COUNTS AND [...] >32 mL/min Normal MCV 90.0 fL 80.0-97.0 [facility]) NORMAL RANGES Age WBC RBC HGB [...] HCT IS 5% LESS SOURCE FOR DATA: [facility] 1800 OPERATION MANUAL( AUTOMATED BLOOD COUNTS AND [...] >32 mL/min Normal MCH 29.5 pg 26.0-32.0 [facility]) NORMAL RANGES Age WBC RBC HGB [...] HCT IS 5% LESS SOURCE FOR DATA: [facility] 1800 OPERATION MANUAL( AUTOMATED BLOOD COUNTS AND [...] >32 mL/min Normal RDW-CV 12.9 % 11.5-14.5 [facility]) NORMAL RANGES Age WBC RBC HGB [...] >32 mL/min Normal PLT 451 10E3/uL 140-440 [facility]) NORMAL RANGES Age WBC RBC HGB [...] >32 mL/min Normal MCHC 32.8 g/dL 31.0-36.0 [facility]) NORMAL RANGES Age WBC RBC HGB [...] HCT IS 5% LESS SOURCE FOR DATA: [facility] 1800 OPERATION MANUAL( AUTOMATED BLOOD COUNTS AND [...] >32 mL/min Normal Lym% 38.9 % 10.0-58.5 [facility]) NORMAL RANGES Age WBC RBC HGB [...] HCT IS 5% LESS SOURCE FOR DATA: [facility] 1800 OPERATION MANUAL( AUTOMATED BLOOD COUNTS AND [...] >32 mL/min Normal Neut% 53.3 % 37.0-92.0 [facility] ([facility]) NORMAL RANGES Age WBC [...] HCT IS 5% LESS SOURCE FOR DATA: [facility] 1800 OPERATION MANUAL( AUTOMATED BLOOD COUNTS AND [...] >32 mL/min Normal MXD% 7.8 % 0.1-24.0 [facility] ([facility]) NORMAL RANGES Age WBC [...] HCT IS 5% LESS SOURCE FOR DATA: [facility] 1800 OPERATION MANUAL( AUTOMATED BLOOD COUNTS AND [...] mL/min Normal MXD# 0.6 10E3/uL 0.0-1.8 [facility] ([facility]) NORMAL RANGES Age WBC RBC [...] HCT IS 5% LESS SOURCE FOR DATA: [facility] 1800 OPERATION MANUAL( AUTOMATED BLOOD COUNTS AND [...] Semen by Manual count 4.3 % 2.0-7.8 [facility]) NORMAL RANGES Age WBC RBC [...] HCT IS 5% LESS SOURCE FOR DATA: [facility] 1800 OPERATION MANUAL( AUTOMATED BLOOD COUNTS AND [...] >32 mL/min Normal Lym# 3.1 10E3/uL 0.6-4.1 [facility] ([facility]) NORMAL RANGES Age WBC RBC [...] HCT IS 5% LESS SOURCE FOR DATA: [facility] 1800 OPERATION MANUAL( AUTOMATED BLOOD COUNTS AND [...] in Blood by Jese 7.8 fL 9.0-13.0 [facility]) NORMAL RANGES Age WBC RBC [...] rce(s) Supporting Document(s) SARS-CoV2 Rapid Antigen Negative [facility] This lab was ordered by [facility] and reported by [facility]. ID Date Data Source [id number] 05/15/2020 12:05:00 PM EST [facility] ([facility] Name Value Range Interpretation Code Description Data Augustina rce(s) Supporting Document(s) Alb 10 mg/L 1-30 [facility] ([facility] Creatinine, Urine 10 mg/dL 10-300 [facility] A/C Ratio Laboratory test result [facility] ([facility] ID Date Data Source [id number] 05/15/2020 12:05:00 PM EST [facility] ([facility] Name Value Range Interpretation Code Description Data Augustina rce(s) Supporting Document(s) Color Urine Laboratory test result M [facility] ([facility] Specific [place] 1.015 1.00-1.03 [facility] ([facility] Appearance of Urine Laboratory test result [facility] ([facility] PH Urine 6.5 5.0-8.0 [facility] ([facility] Glucose Urine Laboratory test result [facility] ([facility] Ketones Laboratory test result [facility] ([facility] Bilirubin.total [Presence] in Urine by Test strip Laboratory test res ult [facility] ([facility] Blood Urine Laboratory test result M EDS[facility] ([facility] Urobilinogen 0.2 EU/dl 0.2-1.0 [facility] ([facility] Protein Urine Laboratory test result [facility] ([facility] Leukocytes Laboratory test result [facility] ([facility] Nitrite Laboratory test result [facility] ([facility] ID Date Data Source [id number] 05/15/2020 11:25:00 AM EST [facility] ([facility] Name Value Range Interpretation Code Description Data Augustina rce(s) Supporting Document(s) Creatine kinase [Enzymatic activity/volume] in Serum or Plasma 96 U /L 26-192 [facility] ([facility] NORMAL RANGES Age WBC [...] HCT IS 5% LESS SOURCE FOR DATA: [employer] [facility] 1800 OPERATION MANUAL( AUTOMATED BLOOD COUNTS [...] 2-19 YEARS EXCLUSIVE. ID Date Data Source [id number] 05/15/2020 11:25:00 AM EST [facility] ([facility] [...] HCT IS 5% LESS SOURCE FOR DATA: [facility] 1800 OPERATION MANUAL( AUTOMATED BLOOD COUNTS AND [...] HCT IS 5% LESS SOURCE FOR DATA: [employer] [facility] 1800 OPERATION MANUAL( AUTOMATED BLOOD COUNTS [...] HCT IS 5% LESS SOURCE FOR DATA: [facility] 1800 OPERATION MANUAL( AUTOMATED BLOOD COUNTS AND [...] HCT IS 5% LESS SOURCE FOR DATA: [facility] 1800 OPERATION MANUAL( AUTOMATED BLOOD COUNTS AND [...] 2-19 YEARS EXCLUSIVE. Cho/HDL Ratio 2.3 CALC [facility] ([facility] NORMAL RANGES Age WBC RBC [...] HCT IS 5% LESS SOURCE FOR DATA: [employer] [facility] 1800 OPERATION MANUAL( AUTOMATED BLOOD COUNTS [...] 2-19 YEARS EXCLUSIVE. ID Date Data Source [id number] 05/15/2020 11:25:00 AM EST [facility] ([facility] Name Value Range Interpretation [...] HCT IS 5% LESS SOURCE FOR DATA: [facility] 1800 OPERATION MANUAL( AUTOMATED BLOOD COUNTS AND [...] HCT IS 5% LESS SOURCE FOR DATA: [facility] 1800 OPERATION MANUAL( AUTOMATED BLOOD COUNTS AND [...] 2-19 YEARS EXCLUSIVE. BUN 18 mg/dL 8-23 [facility] ([facility] NORMAL RANGES [...] HCT IS 5% LESS SOURCE FOR DATA: [facility] 1800 OPERATION MANUAL( AUTOMATED BLOOD COUNTS AND [...] YEARS EXCLUSIVE. BUN/Creatinine Ratio 21.9 CALC [facility] ([facility] NORMAL RANGES Age [...] HCT IS 5% LESS SOURCE FOR DATA: [facility] 1800 OPERATION MANUAL( AUTOMATED BLOOD COUNTS AND [...] Na 134 mmol/L 136-145 Below low normal [facility] ( [facility] NORMAL RANGES Age [...] HCT IS 5% LESS SOURCE FOR DATA: [facility] 1800 OPERATION MANUAL( AUTOMATED BLOOD COUNTS AND [...] 2-19 YEARS EXCLUSIVE. K 4.6 mmol/L 3.5-5.1 [facility] ([facility] NORMAL RANGES Age [...] HCT IS 5% LESS SOURCE FOR DATA: [employer] [facility] 1800 OPERATION MANUAL( AUTOMATED BLOOD COUNTS [...] YEARS EXCLUSIVE. Co2 22.1 mmol/L 22.0-29.0 [facility] ([facility] NORMAL RANGES Age WBC RBC [...] HCT IS 5% LESS SOURCE FOR DATA: [facility] 1800 OPERATION MANUAL( AUTOMATED BLOOD COUNTS AND [...] CL 100.6 mmol/L 98.0-107.0 [facility] ([facility] NORMAL RANGES Age WBC RBC HGB [...] HCT IS 5% LESS SOURCE FOR DATA: [facility] 1800 OPERATION MANUAL( AUTOMATED BLOOD COUNTS AND [...] 2-19 YEARS EXCLUSIVE. TP 7.3 g/dL 6.6-8.7 [facility] ([facility] NORMAL RANGES [...] HCT IS 5% LESS SOURCE FOR DATA: [facility] 1800 OPERATION MANUAL( AUTOMATED BLOOD COUNTS AND [...] HCT IS 5% LESS SOURCE FOR DATA: [facility] 1800 OPERATION MANUAL( AUTOMATED BLOOD COUNTS AND [...] 2-19 YEARS EXCLUSIVE. CA 9.8 mg/dL 8.6-10.2 [facility] ([facility] NORMAL RANGES Age [...] HCT IS 5% LESS SOURCE FOR DATA: [facility] 1800 OPERATION MANUAL( AUTOMATED BLOOD COUNTS AND [...] HCT IS 5% LESS SOURCE FOR DATA: [facility] 1800 OPERATION MANUAL( AUTOMATED BLOOD COUNTS AND [...] 2-19 YEARS EXCLUSIVE. Alp 73.2 U/L 35-129 [facility] ([facility] NORMAL RANGES [...] YEARS EXCLUSIVE. Alt (SGPT) 22 U/L 0-41 [facility] ([facility] NORMAL RANGES Age [...] HCT IS 5% LESS SOURCE FOR DATA: [facility] 1800 OPERATION MANUAL( AUTOMATED BLOOD COUNTS AND [...] HCT IS 5% LESS SOURCE FOR DATA: [facility] 1800 OPERATION MANUAL( AUTOMATED BLOOD COUNTS AND [...] 2-19 YEARS EXCLUSIVE. Tbili 0.36 mg/dL 0.0-1.2 [facility] ([facility] NORMAL RANGES Age WBC [...] HCT IS 5% LESS SOURCE FOR DATA: [employer] [facility]YN 1800 OPERATION MANUAL( AUTOMATED BLOOD COUNTS [...] HCT IS 5% LESS SOURCE FOR DATA: [facility] 1800 OPERATION MANUAL( AUTOMATED BLOOD COUNTS AND [...] HCT IS 5% LESS SOURCE FOR DATA: [facility] 1800 OPERATION MANUAL( AUTOMATED BLOOD COUNTS AND [...] INDIVIDUALA AGED 2-19 YEARS EXCLUSIVE. eGFR Non-Afr. Eritrean 82 # [facility] ([facility] [...] HCT IS 5% LESS SOURCE FOR DATA: [employer] [facility] 1800 OPERATION MANUAL( AUTOMATED BLOOD COUNTS [...] HCT IS 5% LESS SOURCE FOR DATA: [facility] 1800 OPERATION MANUAL( AUTOMATED BLOOD COUNTS AND [...] 2-19 YEARS EXCLUSIVE. ID Date Data Source [id number] 05/15/2020 11:25:00 AM EST [facility] ([facility] [...] HCT IS 5% LESS SOURCE FOR DATA: [facility] 1800 OPERATION MANUAL( AUTOMATED BLOOD COUNTS AND [...] 2-19 YEARS EXCLUSIVE. WBC 7.2 10E3/uL 4.1-10.9 [facility] ([facility] NORMAL RANGES Age WBC RBC [...] HCT IS 5% LESS SOURCE FOR DATA: [facility] 1800 OPERATION MANUAL( AUTOMATED BLOOD COUNTS AND [...] HCT IS 5% LESS SOURCE FOR DATA: [facility] 1800 OPERATION MANUAL( AUTOMATED BLOOD COUNTS AND [...] 2-19 YEARS EXCLUSIVE. HCT 38.4 % 37.0-51.0 [facility] ([facility] NORMAL RANGES Age [...] HCT IS 5% LESS SOURCE FOR DATA: [facility] 1800 OPERATION MANUAL( AUTOMATED BLOOD COUNTS AND [...] 2-19 YEARS EXCLUSIVE. MCH 30.2 pg 26.0-32.0 [facility] ([facility] NORMAL RANGES [...] HCT IS 5% LESS SOURCE FOR DATA: [facility] 1800 OPERATION MANUAL( AUTOMATED BLOOD COUNTS AND [...] HCT IS 5% LESS SOURCE FOR DATA: [facility] 1800 OPERATION MANUAL( AUTOMATED BLOOD COUNTS AND [...] 2-19 YEARS EXCLUSIVE. PLT 420 10E3/uL 140-440 [facility] ([facility] NORMAL RANGES Age WBC RBC [...] HCT IS 5% LESS SOURCE FOR DATA: [facility] 1800 OPERATION MANUAL( AUTOMATED BLOOD COUNTS AND [...] 2-19 YEARS EXCLUSIVE. MCHC 33.1 g/dL 31.0-36.0 [facility] ([facility] NORMAL RANGES [...] HCT IS 5% LESS SOURCE FOR DATA: [facility] 1800 OPERATION MANUAL( AUTOMATED BLOOD COUNTS AND [...] HCT IS 5% LESS SOURCE FOR DATA: [facility] 1800 OPERATION MANUAL( AUTOMATED BLOOD COUNTS AND [...] 2-19 YEARS EXCLUSIVE. Lym% 30.1 % 10.0-58.5 [facility] ([facility] NORMAL RANGES [...] HCT IS 5% LESS SOURCE FOR DATA: [employer] DYN 1800 OPERATION MANUAL( AUTOMATED BLOOD COUNTS [...] HCT IS 5% LESS SOURCE FOR DATA: [employer] 1800 OPERATION MANUAL( AUTOMATED BLOOD COUNTS AND [...] 2-19 YEARS EXCLUSIVE. MXD% 10.8 % 0.1-24.0 [facility] ([facility] NORMAL RANGES [...] HCT IS 5% LESS SOURCE FOR DATA: [employer] 1800 OPERATION MANUAL( AUTOMATED BLOOD COUNTS AND [...] 2-19 YEARS EXCLUSIVE. Neut# 4.2 % 2.0-7.8 [facility] ([facility] NORMAL RANGES [...] HCT IS 5% LESS SOURCE FOR DATA: [employer] 1800 OPERATION MANUAL( AUTOMATED BLOOD COUNTS AND [...] 2-19 YEARS EXCLUSIVE. Lym# 2.2 10E3/uL 0.6-4.1 [facility] ([facility] NORMAL RANGES Age WBC RBC [...] HCT IS 5% LESS SOURCE FOR DATA: [employer] 1800 OPERATION MANUAL( AUTOMATED BLOOD COUNTS AND [...] YEARS EXCLUSIVE. MXD# 0.8 10E3/uL 0.0-1.8 [facility] ([facility] NORMAL RANGES Age WBC RBC [...] HCT IS 5% LESS SOURCE FOR DATA: [employer] 1800 OPERATION MANUAL( AUTOMATED BLOOD COUNTS AND [...] 2-19 YEARS EXCLUSIVE. MPV 9.0 fL 9.0-13.0 [facility] ([facility] NORMAL RANGES [...] HCT IS 5% LESS SOURCE FOR DATA: [employer] 1800 OPERATION MANUAL( AUTOMATED BLOOD COUNTS AND [...] 2-19 YEARS EXCLUSIVE. ID Date Data Source [facility] DIGITAL / TERRELL BILATERAL MAMMO SCREENING (Ultraso und if indicated) 05/13/2020 12:00:00 AM EST [facility] ([facility]) Name Value Range Interpretation Code Description Data Augustina rce(s) Supporting Document(s) [facility] DIGITAL / TERRELL BILAT ERAL MAMMO SCREENING (Ultrasound if indicated) [facility] ([facility]) ID Date Data Source [id number] 04/25/2020 12:08:56 PM EST [facility] Name Value Range Interpretation Code Description Data Augustina rce(s) Supporting Document(s) Progress Note [facility] PERCLx7zCgAWJyGe48/IRJfsFQUry2YxCQtfGWy7NXtcBENbR2OuRTR5wR7pLRV6YOwFIjUlDaCuYlT7 lbm [file] XrWfKI3dRMSATm0+RYgtcKCniKvqKTEFDfBrOcmpYUelKUMDTk7K ID Date Data Source [id number] 04/22/2020 12:00:00 AM EST [facility] Ludin Castillo MD Patient Name: CITLALI ROUSSEAUE [id number] Date of : 1965[address] Date of Exam: [address] [place] [id number]#: Fax: [phone] EXAM: MRI TIBIA RIGHT WITHOUT [...] containing a small internal phlebolith.Accredited by the [employer] in MR.Kai Roca, SHABANA/Nitesh [...] Negative [place] This lab was ordered by [facility] and reported by [facility]. ID Date Data Source [id number] 02/22/2020 11:57:47 AM EST [facility] Name Value Range Interpretation Code Description Data Augustina rce(s) Supporting Document(s) Progress Note [facility] ZLBNNh3kFxFPCpFn46/ADGpgRKSxu8ZoSAbhOVt9QKptOJGmS9LlYBI6fD8gJNR0YJrLApTzQcNrGfE9 lbm [file] TbSpBtFsQE7WAh7SFmN3PGW1sBFvXe4JBtR6MswHHdRcEW5RBUl= ID Date Data Source [id number] 02/08/2020 03:39:14 PM [facility] Name Value Range Interpretation Code Description Data Augustina rce(s) Supporting Document(s) Progress Note [facility] GFTATc1gYmBTHlZb79/AIVxsEPSwl5XdKIjnKVh1NLftJCGlF9WsFZF1oQ7xIKY5PXgWTnDqXfUvCWLz lbm [file] AgICAgICAgICAgICAgICAgICAgICAgICAgICAgICAgICAgICAgICAgICAgICAgICAgICAgICAgICAgIC AgICAgICAgICAgICAgICAgICAgICAgICAgICAgICAg IAZcNY2MCUPnHLBmDSZjCGSdKWCcQVKvXJCuJCXqKJKvLGUaHUQrEEIcVKVwTSCtNSBxQHPqCOIyUGCe ZIXhOHKdLTSmHTEhVFMzMWRgRKAvWMTqBUAtZXQrAJUzZKPzHDLgNTTiAVIpAZ3MYMHzRBGrPNOsERIn ICAgICAgICAgICAgICAgICAgICAgICAgICAgICAgIC KrULAsYHWeAEOaDENnHHCgYNYzDQBpLNEzMWHeINTcJWQsYTEhNPAbRCAoNXGgWHHtQPAfJORiTC8MWJ AgICAgICAgICAgICAgICAgICAgICAgICAgICAgICAgICAgICAgICAgICAgICAgICAgICAgICAgICAgIC AgICAgICAgICAgICAgICAgICAgICAgICAgICAgICAg FOIwQGCyAL4GILPhZXKsRLYlYNVgPQCcSCAjBJGzEHIaBCNePXDvWRSqWLSwDSKiJFWkBFTpIMLsTXYv VBPcIRShTKPkFHGrYVGaAQGhSEWxRBJyATBiKMPbQNPaENBoGCCiKVDeLREvTAYmJT2IPJGeBMPiDCXt ICAgICAgICAgICAgICAgICAgICAgICAgICAgICAgIC AgICAgICAgICAgICAgICAgICAgICAgICAgICAgICAgICAgICAgICAgICAgICAgICAgICAgICAgICAgIA 0KICAgICAgICAgICAgICAgICAgICAgICAgICAgICAgICAgICAgICAgICAgICAgICAgICAgICAgICAgIC AgICAgICAgICAgICAgICAgICAgICAgICAgICAgICAg VXJjHLCyBRInHO5QYLZlMKNoNZRtFYQmVYLgRTYkAKTnNOIqCXNnDIMtWSOtMXBpDSKeCNLsESTsOLMe KLBdZKIiNRLaJUMpRXMeOEPpRPGaHUKaHSHaBJBzGQUtMHSyIHFcQYDhOYQpIEMjGEJaKP2DKMJuNCRw ICAgICAgICAgICAgICAgICAgICAgICAgICAgICAgIC AgICAgICAgICAgICAgICAgICAgICAgICAgICAgICAgICAgICAgICAgICAgICAgICAgICAgICAgICAgIC JaSR3FOEWbNMSvPOUpDCCxJELqUUKnEYFiJMYrJRBgLTKhOFYzSKHhJWWvFXZfZQOjCBGpYPKjDPNcNC AgICAgICAgICAgICAgICAgICAgICAgICAgICAgICAg PZStTEWyNQEfFJMeCJ7RIU85nJNby1J9FLPvWT3erqd/Gl6WJRwkqvFppISmUQ2XEaNsZY0xwv3PCsRm FX0iur9FGNzTTtXtO9K6bLRgSIFzWJASVmHpD13zSYifZn59HGxmSLIoVrFiSKq1Up8WPsUzB0giBMMw EmS4VHYeVmY0EMAzHtL6FHYaLmQaFWczAP2Jl1OpqB AzDQo+Ft8VEU9wm8UwUDohAEJqGS4dlm4NFXvLFkYbQ6MobuM5QXIkLENtXh0LGWIbHIZdcXTuJZGsTC YFCbAzP1PknJ56YYURWa3+AQfldbAaSlhKIyCcGGAoh8PmEAy0PX1PIFUuFLy0zVNaPZOcG1Nxl7ZtXy 70ZWUzYwcvUHY1oYswucIAEZZdtTJtKVLJPETypCEx NJ2mIL5lQCFxBUIxZiZ3DYBAIW8GUGZeXPLggDCzOHTnELRYOT6ICNcpLKV5MJRoygMqvHEdZRaqEG9A YXJlbnQgMjkgMCBSDQo+Kl6DXX3pk7ByJRsbFSVxRF9zzi9FBVkEBgYiA3D3fZJdF7Q4EQvqPu2IIAGr YSUqXlzyHNCEQRkpJU3OKM0ussY3WB8WvLRmNOVqKO EclFMqUXq0J98tyYZcKBvzNQ2RCJH+Wallace+Or9UYCKwUNIwAWSfIfRhXPWEOqIpT5NqX0PIc4UuK0VeLR 73gGuiowJnHNwdEU2XFW2fVWTeZEQYBF1CaCYuyL6cblIvJTZrCIGRWiPjN55utTAwREFdSOS8DLGfJm 8ZATXeM2KpogWhmPsgmkCwTWMwFXPAHY2RQJskphSf xQGlsSncBA34iBclMX3HMx5BSzIfJZ0iym8NbPChWv6UAODxHn6BVFZgHFSqWTHrMWS0YYYqTaTcPUrc GVYgJYOtXSG2QFPgOPNtFO0AIuIuGLYuCUAwOnCdTSGpYBDjev0QYNCyRHA2IfTgSjStLPHwSBSiCNks PHVeHKKrOHW2INZkBNRfYY5ODpFpHGRkZWE5BSqxGL VmFYEbtl2FZTOuCZPoIDElMcCzHNQsTJYvJRviAEYwMLK5KFsrMYBnNVFzRV1ZEvAsKLPxEQrmHCCsNP FjZWDxbi5ZEARyQJRpTQPgOKQoEPXlHXPcMWmkNEGmDMHqFjP8PYBqCJKeMH5RFuLuAUYoKDT2ORGkFB UhMSErjn4YWLMxNVEyBRw8HeAzKGRpVDEbCSijXAXy KWUtSVA0JMAvILLoPS5RCoAhGCIjCDC7DiIrUIMcSPMzih9OYLEnBJFbItEcVjOrNFInIRZeWOzcYVRd IQWpJpK0LLMyBWEaZV9SPpZdWCFbKPNpWBujVPUbYMJxzf1KBNPcKDB3PTZ6AmObDKClBSZqSYeoBCHe SOYcEZP6DKBzPHNaYL9PDzPvUTMwHJM3NzRsPFGzPS Nnjk0GLWUfJXN8QRekUJRsXKFxNCExQGfeEGZuXYEgFoT5MFGvMFCdES0ISpIlIXBlPYA3UPulKJDsUE Axqn9IBCFyVHX7XkLlAWPeLGWeHXCtWTasBQTvNBKpDUx1SUOiFVQxWF8LRjEpYMBqWZSeMcNqDROwEH Jgmp3TAGWyKWX6EVC6FKRpZUVxWEDyPQvzTJNsFBD5 HmsrKIZgDKEtJG4PGxXeDSFzQEPyOpHaQZEeOPOsrw6VYFBwYVU8FmV6GQPbCFPtLFFpEXltRXMsOZQ1 STM7LSFvZTGfDL8SMeDvOGeyMRXCWbw0NIpzG0j0UUIbTp5FV5Oef4ZhJdMmHRFHSRglZT0imyHvRHBy Mn3RD8qSVzk0EdM7AYeiKKbdMmP0JEB8NVDvXBU2YE khSlNpOsR5UL4vQMZhWzleNNK4KvUtMfavLZr2LOGjRJi3TZPbDaAvLSZ0NkPrVD6BPp9KHtA4URY8bR SpBz0TECD2TNrVWkOyER1HNHf= ID Date Data Source [id number] 02/05/2020 11:14:00 AM EST [facility] ([facility] Name Value Range Interpretation Code Description Data Augustina rce(s) Supporting Document(s) Chol 211 mg/dL 0-200 Above high normal [facility] ([facility] NORMAL RANGES Age [...] HCT IS 5% LESS SOURCE FOR DATA: [employer] 1800 OPERATION MANUAL( AUTOMATED BLOOD COUNTS AND [...] 2-19 YEARS EXCLUSIVE. Trig 80 mg/dL 40-200 [facility] ([facility] NORMAL RANGES [...] HCT IS 5% LESS SOURCE FOR DATA: [employer] [facility] 1800 OPERATION MANUAL( AUTOMATED BLOOD COUNTS [...] HCT IS 5% LESS SOURCE FOR DATA: [employer] 1800 OPERATION MANUAL( AUTOMATED BLOOD COUNTS AND [...] 2-19 YEARS EXCLUSIVE. LDL_C 109 Calc 75-129 [facility] ([facility] NORMAL RANGES Age [...] HCT IS 5% LESS SOURCE FOR DATA: [employer] 1800 OPERATION MANUAL( AUTOMATED BLOOD COUNTS AND [...] 2-19 YEARS EXCLUSIVE. Cho/HDL Ratio 2.5 Calc [facility] ([facility] [employer] NORMAL RANGES Age WBC RBC HGB [...] HCT IS 5% LESS SOURCE FOR DATA: [employer] 1800 OPERATION MANUAL( AUTOMATED BLOOD COUNTS AND [...] 2-19 YEARS EXCLUSIVE. ID Date Data Source [id number] 02/05/2020 11:14:00 AM EST [facility] (Famil y [...] HCT IS 5% LESS SOURCE FOR DATA: [employer] 1800 OPERATION MANUAL( AUTOMATED BLOOD COUNTS AND [...] 2-19 YEARS EXCLUSIVE. Creat 0.8 mg/dL 0.5-1.0 [facility] ([facility] NORMAL RANGES Age [...] HCT IS 5% LESS SOURCE FOR DATA: [employer] 1800 OPERATION MANUAL( AUTOMATED BLOOD COUNTS AND [...] 2-19 YEARS EXCLUSIVE. BUN 17 mg/dL 8-23 [facility] ([facility] NORMAL RANGES [...] HCT IS 5% LESS SOURCE FOR DATA: [employer] 1800 OPERATION MANUAL( AUTOMATED BLOOD COUNTS AND [...] 2-19 YEARS EXCLUSIVE. BUN/Creatinine Ratio 22.4 CALC [facility] ([facility] NORMAL RANGES Age [...] HCT IS 5% LESS SOURCE FOR DATA: [employer] 1800 OPERATION MANUAL( AUTOMATED BLOOD COUNTS AND [...] 2-19 YEARS EXCLUSIVE. Na 136 mmol/L 136-145 [facility] ([facility] NORMAL RANGES Age WBC [...] HCT IS 5% LESS SOURCE FOR DATA: [employer] 1800 OPERATION MANUAL( AUTOMATED BLOOD COUNTS AND [...] 2-19 YEARS EXCLUSIVE. K 4.5 mmol/L 3.5-5.1 [facility] ([facility] NORMAL RANGES [...] HCT IS 5% LESS SOURCE FOR DATA: [employer] 1800 OPERATION MANUAL( AUTOMATED BLOOD COUNTS AND [...] HCT IS 5% LESS SOURCE FOR DATA: [employer] 1800 OPERATION MANUAL( AUTOMATED BLOOD COUNTS AND [...] 2-19 YEARS EXCLUSIVE. Co2 23.2 mmol/L 22.0-29.0 [facility] NORMAL RANGES Age WBC RBC [...] HCT IS 5% LESS SOURCE FOR DATA: [employer] [facility] 1800 OPERATION MANUAL( AUTOMATED BLOOD COUNTS [...] 2-19 YEARS EXCLUSIVE. CA 9.7 mg/dL 8.6-10.2 [facility] NORMAL RANGES [...] HCT IS 5% LESS SOURCE FOR DATA: [employer] [employer] 1800 OPERATION MANUAL( AUTOMATED BLOOD COUNTS AND [...] HCT IS 5% LESS SOURCE FOR DATA: [employer] 1800 OPERATION MANUAL( AUTOMATED BLOOD COUNTS AND [...] 2-19 YEARS EXCLUSIVE. Alb 4.8 g/dL 3.4-4.8 [facility] ([facility] NORMAL RANGES [...] HCT IS 5% LESS SOURCE FOR DATA: [employer] [employer] 1800 OPERATION MANUAL( AUTOMATED BLOOD COUNTS AND [...] 2-19 YEARS EXCLUSIVE. A/G Ratio 2.1 CALC [facility] ([facility] NORMAL RANGES [...] HCT IS 5% LESS SOURCE FOR DATA: [employer] [employer] 1800 OPERATION MANUAL( AUTOMATED BLOOD COUNTS AND [...] HCT IS 5% LESS SOURCE FOR DATA: [employer] 1800 OPERATION MANUAL( AUTOMATED BLOOD COUNTS AND [...] 2-19 YEARS EXCLUSIVE. Alp 67.2 U/L 35-129 [facility] ([facility] NORMAL RANGES [...] HCT IS 5% LESS SOURCE FOR DATA: [employer] [facility] 1800 OPERATION MANUAL( AUTOMATED BLOOD COUNTS [...] YEARS EXCLUSIVE. Alt (SGPT) 21 U/L 0-41 [facility] ([facility] NORMAL RANGES [...] HCT IS 5% LESS SOURCE FOR DATA: [employer] 1800 OPERATION MANUAL( AUTOMATED BLOOD COUNTS AND [...] HCT IS 5% LESS SOURCE FOR DATA: [employer] [facility] 1800 OPERATION MANUAL( AUTOMATED BLOOD COUNTS [...] 2-19 YEARS EXCLUSIVE. Tbili 0.44 mg/dL 0.0-1.2 [facility] ([facility] NORMAL RANGES Age WBC [...] HCT IS 5% LESS SOURCE FOR DATA: [employer] 1800 OPERATION MANUAL( AUTOMATED BLOOD COUNTS AND [...] HCT IS 5% LESS SOURCE FOR DATA: [employer] [facility] 1800 OPERATION MANUAL( AUTOMATED BLOOD COUNTS [...] 2-19 YEARS EXCLUSIVE. Anion Gap 18 mmol/L [facility] ([facility] NORMAL RANGES [...] HCT IS 5% LESS SOURCE FOR DATA: [employer] [employer] 1800 OPERATION MANUAL( AUTOMATED BLOOD COUNTS AND [...] YEARS EXCLUSIVE. eGFR 96 # [facility] ( [facility] CKD-EPI eGFR Non-Afr. [place]an 83 # [facility] ([facility] CKD-EPI ID Date Data Source [id number] 02/05/2020 11:14:00 AM EST [facility] ([facility] Name Value Range Interpretation Code Description Data Augustina rce(s) Supporting Document(s) Creatine kinase [Enzymatic activity/volume] in Serum or Plasma 138 U/L 26-192 [facility] ([facility] NORMAL RANGES Age WBC [...] HCT IS 5% LESS SOURCE FOR DATA: [employer] [employer] 1800 OPERATION MANUAL( AUTOMATED BLOOD COUNTS AND [...] 2-19 YEARS EXCLUSIVE. ID Date Data Source [id number] 02/05/2020 11:14:00 AM [facility] ([facility] Name Value Range [...] HCT IS 5% LESS SOURCE FOR DATA: [employer] 1800 OPERATION MANUAL( AUTOMATED BLOOD COUNTS AND [...] 2-19 YEARS EXCLUSIVE. RBC 4.29 10E6/uL 4.20-6.30 [facility] ([facility] NORMAL RANGES Age [...] HCT IS 5% LESS SOURCE FOR DATA: [employer] 1800 OPERATION MANUAL( AUTOMATED BLOOD COUNTS AND [...] HCT IS 5% LESS SOURCE FOR DATA: [employer] 1800 OPERATION MANUAL( AUTOMATED BLOOD COUNTS AND [...] 2-19 YEARS EXCLUSIVE. MCV 90.2 fL 80.0-97.0 [facility] NORMAL RANGES Age [...] HCT IS 5% LESS SOURCE FOR DATA: [employer] 1800 OPERATION MANUAL( AUTOMATED BLOOD COUNTS AND [...] 2-19 YEARS EXCLUSIVE. HCT 38.7 % 37.0-51.0 [facility] ([facility] NORMAL RANGES [...] HCT IS 5% LESS SOURCE FOR DATA: [employer] [facility] 1800 OPERATION MANUAL( AUTOMATED BLOOD COUNTS [...] HCT IS 5% LESS SOURCE FOR DATA: [employer] 1800 OPERATION MANUAL( AUTOMATED BLOOD COUNTS AND [...] 2-19 YEARS EXCLUSIVE. MCHC 33.3 g/dL 31.0-36.0 [facility] ([facility] NORMAL RANGES Age [...] HCT IS 5% LESS SOURCE FOR DATA: [employer] 1800 OPERATION MANUAL( AUTOMATED BLOOD COUNTS AND [...] 2-19 YEARS EXCLUSIVE. RDW-CV 13.0 % 11.5-14.5 [facility] ([facility] NORMAL RANGES [...] HCT IS 5% LESS SOURCE FOR DATA: [employer] 1800 OPERATION MANUAL( AUTOMATED BLOOD COUNTS AND [...] HCT IS 5% LESS SOURCE FOR DATA: [employer] 1800 OPERATION MANUAL( AUTOMATED BLOOD COUNTS AND [...] 2-19 YEARS EXCLUSIVE. Lym% 31.0 % 10.0-58.5 [facility] ([facility] NORMAL RANGES [...] 2-19 YEARS EXCLUSIVE. Neut% 56.0 % 37.0-92.0 [facility] ([facility] NORMAL RANGES [...] HCT IS 5% LESS SOURCE FOR DATA: [employer] 1800 OPERATION MANUAL( AUTOMATED BLOOD COUNTS AND [...] HCT IS 5% LESS SOURCE FOR DATA: [employer] 1800 OPERATION MANUAL( AUTOMATED BLOOD COUNTS AND [...] 2-19 YEARS EXCLUSIVE. Neut# 3.7 % 2.0-7.8 [facility] ([facility] NORMAL RANGES [...] HCT IS 5% LESS SOURCE FOR DATA: [employer] 1800 OPERATION MANUAL( AUTOMATED BLOOD COUNTS AND [...] 2-19 YEARS EXCLUSIVE. Lym# 2.0 10E3/uL 0.6-4.1 [facility] ([facility] NORMAL RANGES Age WBC RBC [...] HCT IS 5% LESS SOURCE FOR DATA: [employer] 1800 OPERATION MANUAL( AUTOMATED BLOOD COUNTS AND [...] EXCLUSIVE. MXD# 0.8 10E3/uL 0.0-1.8 [facility] ([facility] NORMAL RANGES Age WBC RBC [...] HCT IS 5% LESS SOURCE FOR DATA: [employer] 1800 OPERATION MANUAL( AUTOMATED BLOOD COUNTS AND [...] MPV 8.6 fL 9.0-13.0 Below low normal [facility] ( [facility] NORMAL RANGES [...] HCT IS 5% LESS SOURCE FOR DATA: [employer] [facility] 1800 OPERATION MANUAL( AUTOMATED BLOOD COUNTS [...] 2-19 YEARS EXCLUSIVE. ID Date Data Source [id number] 02/05/2020 11:14:00 AM GRISELDA COON ([facility] Name Value Range Interpretation Code Description Data Augustina rce(s) Supporting Document(s) RBC 4.29 10E6/uL 4.20-6.30 [facility] ([facility]) NORMAL RANGES Age WBC RBC HGB HCT [...] HCT IS 5% LESS SOURCE FOR DATA: [employer] 1800 OPERATION MANUAL( AUTOMATED BLOOD COUNTS AND [...] 2-19 YEARS EXCLUSIVE. WBC 6.5 10E3/uL 4.1-10.9 [facility] ([facility]) NORMAL RANGES Age WBC RBC HGB [...] HCT IS 5% LESS SOURCE FOR DATA: [employer] 1800 OPERATION MANUAL( AUTOMATED BLOOD COUNTS AND [...] HCT IS 5% LESS SOURCE FOR DATA: [employer] 1800 OPERATION MANUAL( AUTOMATED BLOOD COUNTS AND [...] % 37.0-51.0 [facility] ([facility]) NORMAL RANGES Age WBC RBC HGB HCT [...] HCT IS 5% LESS SOURCE FOR DATA: [facility] 1800 OPERATION MANUAL( AUTOMATED BLOOD COUNTS AND [...] 2-19 YEARS EXCLUSIVE. HGB 12.9 g/dL 12.0-18.0 [facility] ([facility]) NORMAL RANGES Age WBC RBC HGB HCT [...] 446 10E3/uL 140-440 [facility] ([facility]) NORMAL RANGES Age WBC RBC HGB HCT [...] HCT IS 5% LESS SOURCE FOR DATA: [employer] 1800 OPERATION MANUAL( AUTOMATED BLOOD COUNTS AND [...] pg 26.0-32.0 [facility] ([facility]) NORMAL RANGES Age WBC RBC HGB HCT [...] HCT IS 5% LESS SOURCE FOR DATA: [employer] [employer] 1800 OPERATION MANUAL( AUTOMATED BLOOD COUNTS AND [...] 2-19 YEARS EXCLUSIVE. MCHC 33.3 g/dL 31.0-36.0 [facility] ([facility]) NORMAL RANGES Age WBC RBC HGB HCT [...] % 11.5-14.5 [facility] ([facility]) NORMAL RANGES Age WBC RBC HGB HCT [...] HCT IS 5% LESS SOURCE FOR DATA: [employer] 1800 OPERATION MANUAL( AUTOMATED BLOOD COUNTS AND [...] HCT IS 5% LESS SOURCE FOR DATA: [employer] 1800 OPERATION MANUAL( AUTOMATED BLOOD COUNTS AND [...] % 37.0-92.0 [facility] ([facility]) NORMAL RANGES Age WBC RBC HGB HCT [...] HCT IS 5% LESS SOURCE FOR DATA: [employer] [facility] 1800 OPERATION MANUAL( AUTOMATED BLOOD COUNTS [...] HCT IS 5% LESS SOURCE FOR DATA: [facility] 1800 OPERATION MANUAL( AUTOMATED BLOOD COUNTS AND [...] Lym# 2.0 10E3/uL 0.6-4.1 [facility] ([facility]) NORMAL RANGES Age WBC RBC HGB [...] HCT IS 5% LESS SOURCE FOR DATA: [employer] 1800 OPERATION MANUAL( AUTOMATED BLOOD COUNTS AND [...] 0.8 10E3/uL 0.0-1.8 [facility] ([facility]) NORMAL RANGES Age WBC RBC HGB HCT [...] HCT IS 5% LESS SOURCE FOR DATA: [facility] 1800 OPERATION MANUAL( AUTOMATED BLOOD COUNTS AND [...] 3.7 % 2.0-7.8 [facility] ([facility]) NORMAL RANGES Age WBC RBC HGB HCT [...] HCT IS 5% LESS SOURCE FOR DATA: [employer] 1800 OPERATION MANUAL( AUTOMATED BLOOD COUNTS AND [...] in Serum or Plasma 138 U/L 26-192 [facility] ([facility]) NORMAL RANGES Age WBC RBC HGB [...] HCT IS 5% LESS SOURCE FOR DATA: [facility] 1800 OPERATION MANUAL( AUTOMATED BLOOD COUNTS AND [...] 8.6 fL 9.0-13.0 [facility] ([facility]) NORMAL RANGES Age WBC RBC HGB HCT [...] HCT IS 5% LESS SOURCE FOR DATA: [employer] [facility] 1800 OPERATION MANUAL( AUTOMATED BLOOD COUNTS [...] mg/dL 70-110 [facility] ([facility]) NORMAL RANGES Age WBC RBC HGB HCT [...] HCT IS 5% LESS SOURCE FOR DATA: [employer] [employer] 1800 OPERATION MANUAL( AUTOMATED BLOOD COUNTS AND [...] 2-19 YEARS EXCLUSIVE. BUN 17 mg/dL 8-23 [facility] ([facility]) NORMAL RANGES Age WBC RBC HGB HCT [...] HCT IS 5% LESS SOURCE FOR DATA: [facility] 1800 OPERATION MANUAL( AUTOMATED BLOOD COUNTS AND [...] 2-19 YEARS EXCLUSIVE. Creat 0.8 mg/dL 0.5-1.0 [facility] ([facility]) NORMAL RANGES Age WBC RBC HGB HCT [...] HCT IS 5% LESS SOURCE FOR DATA: [facility] 1800 OPERATION MANUAL( AUTOMATED BLOOD COUNTS AND [...] 4.5 mmol/L 3.5-5.1 [facility] ([facility]) NORMAL RANGES Age WBC RBC HGB HCT [...] HCT IS 5% LESS SOURCE FOR DATA: [facility] 1800 OPERATION MANUAL( AUTOMATED BLOOD COUNTS AND [...] or Plasma 22.4 CALC [facility] ([facility]) NORMAL RANGES Age WBC RBC HGB [...] HCT IS 5% LESS SOURCE FOR DATA: [employer] 1800 OPERATION MANUAL( AUTOMATED BLOOD COUNTS AND [...] 2-19 YEARS EXCLUSIVE. Na 136 mmol/L 136-145 [facility]) NORMAL RANGES Age WBC RBC HGB HCT [...] HCT IS 5% LESS SOURCE FOR DATA: [employer] 1800 OPERATION MANUAL( AUTOMATED BLOOD COUNTS AND [...] 23.2 mmol/L 22.0-29.0 [facility] ([facility]) NORMAL RANGES Age WBC RBC HGB HCT [...] HCT IS 5% LESS SOURCE FOR DATA: [employer] 1800 OPERATION MANUAL( AUTOMATED BLOOD COUNTS AND [...] 99.1 mmol/L 98.0-107.0 [facility] ([facility]) NORMAL RANGES Age WBC RBC HGB [...] 5% LESS SOURCE FOR DATA: [employer] 1800 OPERATION MANUAL( AUTOMATED BLOOD COUNTS AND [...] HCT IS 5% LESS SOURCE FOR DATA: [employer] 1800 OPERATION MANUAL( AUTOMATED BLOOD COUNTS AND [...] g/dL 3.4-4.8 [facility] ([facility]) NORMAL RANGES Age WBC RBC HGB HCT [...] HCT IS 5% LESS SOURCE FOR DATA: [employer] 1800 OPERATION MANUAL( AUTOMATED BLOOD COUNTS AND [...] 2-19 YEARS EXCLUSIVE. CA 9.7 mg/dL 8.6-10.2 [facility]) NORMAL RANGES Age WBC RBC HGB HCT [...] calculation 2.3 CALC [facility] ([facility]) NORMAL RANGES Age WBC RBC HGB HCT [...] HCT IS 5% LESS SOURCE FOR DATA: [employer] 1800 OPERATION MANUAL( AUTOMATED BLOOD COUNTS AND [...] U/L 35-129 [facility] ([facility]) NORMAL RANGES Age WBC RBC HGB HCT [...] HCT IS 5% LESS SOURCE FOR DATA: [employer] 1800 OPERATION MANUAL( AUTOMATED BLOOD COUNTS AND [...] 2.1 CALC [facility] ([facility]) NORMAL RANGES Age WBC RBC HGB HCT [...] 0.44 mg/dL 0.0-1.2 [facility] ([facility]) NORMAL RANGES Age WBC RBC HGB HCT [...] HCT IS 5% LESS SOURCE FOR DATA: [employer] 1800 OPERATION MANUAL( AUTOMATED BLOOD COUNTS AND [...] Seru m or Plasma 21 U/L 0-41 [facility] ([facility]) NORMAL RANGES Age WBC RBC HGB HCT [...] HCT IS 5% LESS SOURCE FOR DATA: [employer] 1800 OPERATION MANUAL( AUTOMATED BLOOD COUNTS AND [...] in Serum or Plasma 23 U/L 0-40 [facility] [facility]) NORMAL RANGES Age WBC RBC HGB HCT [...] HCT IS 5% LESS SOURCE FOR DATA: [employer]YN 1800 OPERATION MANUAL( AUTOMATED BLOOD COUNTS [...] or Plasma 18 mmol/L [facility] ([facility]) NORMAL RANGES Age WBC RBC HGB [...] HCT IS 5% LESS SOURCE FOR DATA: [employer] 1800 OPERATION MANUAL( AUTOMATED BLOOD COUNTS AND [...] 96 # [facility] ( [facility]) NORMAL RANGES Age WBC RBC HGB HCT [...] HCT IS 5% LESS SOURCE FOR DATA: [employer] 1800 OPERATION MANUAL( AUTOMATED BLOOD COUNTS AND [...] Osmolality-Calculated 273.4 CALC [facility] ([facility]) NORMAL RANGES Age WBC RBC HGB HCT [...] HCT IS 5% LESS SOURCE FOR DATA: [employer] DYN 1800 OPERATION MANUAL( AUTOMATED BLOOD COUNTS [...] mg/dL 0-200 [facility] ([facility]) NORMAL RANGES Age WBC RBC HGB HCT [...] HCT IS 5% LESS SOURCE FOR DATA: [employer] 1800 OPERATION MANUAL( AUTOMATED BLOOD COUNTS AND [...] INDIVIDUALA AGED 2-19 YEARS EXCLUSIVE. eGFR Non-Afr. [place] 83 # [facility] ([facility]) NORMAL RANGES Age WBC RBC HGB HCT [...] HCT IS 5% LESS SOURCE FOR DATA: [employer] 1800 OPERATION MANUAL( AUTOMATED BLOOD COUNTS AND [...] mg/dL 40-200 [facility] ([facility]) NORMAL RANGES Age WBC RBC HGB HCT [...] HCT IS 5% LESS SOURCE FOR DATA: [employer] DYN 1800 OPERATION MANUAL( AUTOMATED BLOOD COUNTS [...] 86 mg/dL 45-65 [facility] ([facility]) NORMAL RANGES Age WBC RBC HGB HCT [...] HCT IS 5% LESS SOURCE FOR DATA: [employer] 1800 OPERATION MANUAL( AUTOMATED BLOOD COUNTS AND [...] 2.5 Calc [facility] ([facility]) NORMAL RANGES Age WBC RBC HGB HCT [...] HCT IS 5% LESS SOURCE FOR DATA: [employer] 1800 OPERATION MANUAL( AUTOMATED BLOOD COUNTS AND [...] Calc 75-129 [facility] ([facility]) NORMAL RANGES Age WBC RBC HGB HCT [...] HCT IS 5% LESS SOURCE FOR DATA: [employer] 1800 OPERATION MANUAL( AUTOMATED BLOOD COUNTS AND [...] 2-19 YEARS EXCLUSIVE. ID Date Data Source [id number] 12/24/2019 12:00:[address] [facility] John Farfan MD Patient Name: UNRULY ROUSSEAU [id number] [facility] Date of : 1965 201 [facility]: [id number] fax: [id number] EXAM: MRI TIBIA RIGHT WITHOUT&WITH [...] of low intermediate T1 signal with central I7dcemaqepeu and peripheral T2 prolongation. This tiny lesion [...] nodule. Certainly, other etiologies exist.Accredited by the [employer] in MR.FRIDA Zelaya/Nitesh you for referring UNRULY ROUSSEAU to our office. Electronically Signed - CHERYL STILES DO 12/25/19 14:20 Name Value Range Interpretation Code Description Data Augustina rce(s) Supporting Document(s) ID Date Data Source [id number] 12/18/2019 02:37:00 PM EDT [facility] Name Value Range Interpretation Code Description Data Augustina rce(s) Supporting Document(s) Creatinine For GFR 0.85 mg/dL 0.55-1.30 [facility] ([facility]) Glomerular Filtration Rate Laboratory test result [facility]) <content>Units are mL/min/1.73 m2</content>
<content></content>
<content>Chronic Kidney Disease Staging per NKF:</content>
<content></content>
<content>Stage I & II GFR >=60 Normal to Mildly Decreased</content>
<content>Stage III GFR 30- 59 Moderately Decreased</content>
<content>Stage IV GFR 15-29 Severely Decreased</content>
<content>Stage V GFR <15 Very Little GFR Left</content>
<content>ESRD GFR <15 on RECREATIONAL RESORT MANAGER</content>
<content></content> ID Date Data Source [id number] 12/18/2019 02:37:00 PM EDT [facility] ([facility]) Name Value Range Interpretation Code Description Data Augustina rce(s) Supporting Document(s) Urea nitrogen [Mass/volume] in Serum or Plasma 18 mg/dL 7-18 [facility] ([facility]) Procedure Social History Code Duration Value Status Description Data Source(s ) Smoking 01/04/2021 12:00:00 AM EDT Never Smoker completed Never S moker eCW1 ([facility]) Smoking 05/13/2020 12:00:00 AM EST Never Smoker completed Never S moker eCW1 ([facility]) Smoking 05/13/2020 12:00:00 AM EST Never Smoker completed Never S moker eCW1 ([facility]) Alcohol intake 04/25/2020 12:00:00 AM EST Current drinker of al cohol (finding) completed Current drinker of alcohol (finding) [facility] Tobacco use and exposure 04/25/2020 12:00:00 AM EST Never used co mpleted Never used [facility] Smoking 04/25/2020 12:00:00 AM EST Never smoker completed Never s [facility] Smoking 03/24/2020 12:00:00 AM EST Patient has never smoked co mpleted Patient has never smoked [facility] ([facility]) Alcohol intake 02/22/2020 12:00:00 AM EST Current drinker of al cohol (finding) completed Current drinker of alcohol (finding) [facility] Alcohol intake 02/08/2020 12:00:00 AM EST Current drinker of al cohol (finding) completed Current drinker of alcohol (finding) [facility] Smoking 02/05/2020 12:00:00 AM EST Patient has never smoked co mpleted Patient has never smoked [facility] ([facility] Vital Signs ID Date Data Source UNK Name Value Range Interpretation Code Description Data Source(s) Body height 63.25 [in_i] 63.25 [in_i] [facility] ([facility] 5'3.25" Body temperature 98.0 [degF] 98.0 [degF] [facility] ([facility] Heart rate 78 /min 78 /min [facility] ([facility] Respiratory rate 16 /min 16 /min [facility] ( [facility] Body weight 197.00 [lb_av] 197.00 [lb_av] MEDEN T ([facility] [place] body weight 115 [lb_av] 115 [lb_av] MEDEN T ([facility] Body mass index (BMI) [Ratio] 34.6 kg/m2 34.6 k g/m2 [facility] ([facility] Oxygen saturation in Arterial blood by Pulse oximetry 97 % 97 % [facility] ([facility] Systolic blood pressure 134 mm[Hg] 134 mm[Hg] M EDENT ([facility] Diastolic blood pressure 82 mm[Hg] 82 mm[Hg] [facility] ([facility] Body mass index (BMI) [Ratio] 34.4 kg/m2 34.4 k g/m2 [facility] ([facility]) Diastolic blood pressure 64 mm[Hg] 64 mm[Hg] [facility] ([facility] Systolic blood pressure 124 mm[Hg] 124 mm[Hg] M EDENT ( [facility] Body temperature 97.1 [degF] 97.1 [degF] [facility] ( [facility] Heart rate 73 /min 73 /min [facility] ( [facility] Respiratory rate 16 /min 16 /min [facility] ( [facility] Body height 63.25 [in_i] 63.25 [in_i] [facility] ([facility] 5'3.25" [place] body weight 115 [lb_av] 115 [lb_av] MEDEN T ( [facility] Body mass index (BMI) [Ratio] 34.4 kg/m2 34.4 k g/m2 [facility] ( [facility] Body weight 196.00 [lb_av] 196.00 [lb_av] MEDEN T ( [facility] Oxygen saturation in Arterial blood by Pulse oximetry 96 % 96 % [facility] ( [facility] ([facility] [place]), (Room Air) Body height 63.25 [in_i] 63.25 [in_i] [facility] ([facility]) 5'3.25" Body weight 196.00 [lb_av] 196.00 [lb_av] MEDEN T ([facility]) Body weight 195.00 [lb_av] 195.00 [lb_av] MEDEN T ( [facility] Systolic blood pressure 130 mm[Hg] 130 mm[Hg] M EDENT ( [facility] Diastolic blood pressure 60 mm[Hg] 60 mm[Hg] [facility] ( [facility] Body temperature 97.4 [degF] 97.4 [degF] [facility] ( [facility] Heart rate 74 /min 74 /min [facility] ( [facility] Respiratory rate 18 /min 18 /min [facility] ( [facility] Body height 63.25 [in_i] 63.25 [in_i] [facility] ([facility] 5'3.25" [place] body weight 115 [lb_av] 115 [lb_av] RONALDEN T ([facility] Body mass index (BMI) [Ratio] 34.3 kg/m2 34.3 k g/m2 [facility] ([facility] Oxygen saturation in Arterial blood by Pulse oximetry 98 % 98 % [facility] ([facility] Body weight 209 [lb_av] 209 [lb_av] eCW1 ([facility]) Body weight 94.8 kg 94.8 kg eCW1 ([facility]) Body height [in_i] eCW1 ([facility]) Body mass index (BMI) [Ratio] 35.87 kg/m2 35.87 kg/m2 eCW1 ([facility]) Systolic blood pressure 138 mm[Hg] 138 mm[Hg] e CW1 ([facility]) Diastolic blood pressure 86 mm[Hg] 86 mm[Hg] eCW1 ([facility]) Body weight 194.00 [lb_av] 194.00 [lb_av] RYAN T ([facility]) Body height 63 [in_i] 63 [in_i] [facility] ([facility]) 5'3" Body mass index (BMI) [Ratio] 34.4 kg/m2 34.4 k g/m2 [facility] ([facility]) Heart rate 80 /min 80 /min [facility] ([facility]) regular Respiratory rate 16 /min 16 /min [facility] ( [facility]) Systolic blood pressure--sitting 168 mm[Hg] 168 mm[Hg] [facility] ([facility]) medium cuff, both arms Diastolic blood pressure--sitting 90 mm[Hg] 90 mm[Hg] [facility] ([facility]) medium cuff, both arms Systolic blood pressure--supine 160 mm[Hg] 160 mm[Hg] [facility] ([facility]) Ra Diastolic blood pressure--supine 84 mm[Hg] 84 mm[Hg] [facility] ([facility]) Ra Oxygen saturation in Arterial blood by Pulse oximetry 96 % 96 % [facility] ([facility] Body mass index (BMI) [Ratio] 34.3 kg/m2 34.3 k g/m2 [facility] ([facility] Respiratory rate 16 /min 16 /min [facility] ( [facility] Body height 63.25 [in_i] 63.25 [in_i] [facility] ([facility] 5'3.25" Body weight 195.00 [lb_av] 195.00 [lb_av] MEDEN T ([facility] [place] body weight 115 [lb_av] 115 [lb_av] MEDEN T ([facility] Systolic blood pressure 124 mm[Hg] 124 mm[Hg] M EDENT ([facility] Diastolic blood pressure 86 mm[Hg] 86 mm[Hg] [facility] ([facility] Body temperature 98.0 [degF] 98.0 [degF] [facility] ([facility] Heart rate 74 /min 74 /min [facility] ([facility] Body temperature 98.0 [degF] 98.0 [degF] [facility] ([facility]) Body height 63.5 [in_i] 63.5 [in_i] [facility] ([facility]) 5'3.50" Body weight 191.00 [lb_av] 191.00 [lb_av] MEDEN T ([facility]) Body mass index (BMI) [Ratio] 33.3 kg/m2 33.3 k g/m2 [facility] ([facility]) Patient Treatment Plan of Care Planned Activity Planned Date Details Description Data Source (s) Fluconazole 150 MG Oral Tablet 05/13/2020 12:00:00 AM EST eCW1 ([facility]) Fluconazole 150 MG Oral Tablet 05/13/2020 12:00:00 AM EST eCW1 ([facility]) Fluconazole 150 MG Oral Tablet 05/13/2020 12:00:00 AM EST eCW1 ([facility]) Omeprazole 40 MG Delayed Release Oral Capsule 02/07/2020 12:00:00 A [facility] 24 HR metoprolol succinate 50 MG Extended Release Oral Tablet 01/25/2020 12:00:00 AM [facility] ospital Fenofibrate 145 MG Oral Tablet 01/25/2020 12:00:00 AM [facility] Benazepril hydrochloride 20 MG Oral Tablet 01/25/2020 12:00:00 AM E [facility]
== END 2021-01-26 18:56 | disposition left against medical advice (07) ==
LOC: M ED 18:31
DX: Z53.21 Procedure and treatment not carried out due to patient leaving prior to being seen by health care provider (principal)

== ENCOUNTER → 2021-12-02 | Outpatient (REF) | payer BC | LOC: M SFHCWAGY 10:28 | PROVIDERS: ATTEND Nurse Practitioner Family | DX: Z12.4 Encounter for screening for malignant neoplasm of cervix (principal); N95.2 Postmenopausal atrophic vaginitis; R87.610 Atypical squamous cells of undetermined significance on cytologic smear of cervix (ASC-US) | CPT/HCPCS: 87624; G0123 ==

== ENCOUNTER → 2021-12-02 | Outpatient (CLI) | payer BC | LOC: M WHC 14:16 | PROVIDERS: ATTEND Nurse Practitioner Family | DX: Z12.31 Encounter for screening mammogram for malignant neoplasm of breast (principal) ==

== ENCOUNTER → 2021-12-31 | Outpatient (REF) | payer BC | LOC: M LAB REF 16:26 | PROVIDERS: ATTEND Physician Assistant | DX: M25.50 Pain in unspecified joint (principal) ==

== ENCOUNTER 2022-02-24 12:53 | Emergency (ER) | payer BC ==
[~2022-02-24] VITALS: Ht 160 cm; Wt 88.2 kg
[~2022-02-24 12:53] MED LIST changes: -CARA1TAB6 PO; -ECOT81TA5 PO; -METO1TAB7; -OMEP-173; -PRAV10TA3; -UNIS25TA3 PO
[2022-02-24] MEDS ORDERED: ONDANSETRON 4MG 2ML VIAL IV ONE (13:20)
[2022-02-24] MEDS ORDERED: MORPHINE 4 MG/ML 1ML VIAL IV ONE (13:20)
[2022-02-24] MEDS ORDERED: OMEP-173 (13:42)
[2022-02-24] MEDS ORDERED: METO1TAB7 (13:42)
[2022-02-24] MEDS ORDERED: PRAV10TA3 (13:42)
[2022-02-24] MEDS ORDERED: ECOT81TA5 PO (13:46)
[2022-02-24] MEDS ORDERED: UNIS25TA3 PO (13:46)
[2022-02-24 13:53] LABS: BASO # 0.1 10^3/uL (0.0-0.2); BASO % 0.8 % (0.0-1.0); EOS # 0.1 10^3/uL (0.0-0.5); EOS % 1.6 % (0.0-3.0); HEMATOCRIT 40.4 % (36.0-47.0); HEMOGLOBIN 13.1 g/dl (12.0-15.5); LYMPH % 22.9 % (24.0-44.0); MEAN CORPUSCULAR HEMOGLOBIN 29.6 pg (27.0-33.0); MEAN CORPUSCULAR HGB CONC 32.4 g/dl (32.0-36.5); MEAN CORPUSCULAR VOLUME 91.4 fl (80.0-96.0); MONO # 0.8 10^3/uL (0.0-0.8); MONO % 9.9 % (2.0-8.0); NEUTROPHILS # 5.5 10^3/uL (1.5-8.5); NEUTROPHILS % 64.3 % (36.0-66.0); PLATELET COUNT, AUTOMATED 398 10^3/uL (150-450); RED BLOOD COUNT 4.42 10^6/uL (4.00-5.40); WHITE BLOOD COUNT 8.5 10^3/uL (4.0-10.0)
[2022-02-24 13:58] LABS: LIPASE 32 U/L (12-53)
[2022-02-24 14:00] LABS: ALBUMIN 4.1 G/DL (3.2-5.2); ALKALINE PHOSPHATASE 106 U/L (46-116); ALT/SGPT 43 U/L (7.0-40); AST/SGOT 31 U/L (<34); BILIRUBIN,DIRECT 0.2 MG/DL (<0.4); BILIRUBIN,TOTAL 0.7 MG/DL (0.3-1.2); BLOOD UREA NITROGEN 11 MG/DL (9-23); CALCIUM LEVEL 9.4 MG/DL (8.5-10.1); CARBON DIOXIDE LEVEL 25 MMOL/L (20-31); CHLORIDE LEVEL 99 MMOL/L (98-107); GLOMERULAR FILTRATION RATE > 60.0 (>51); GLUCOSE, FASTING 120 MG/DL (60-100); SODIUM LEVEL 134 MMOL/L (136-145); TOTAL PROTEIN 7.3 G/DL (5.7-8.2)
[2022-02-24] MEDS ORDERED: ISOVUE-370 76% 100ML VIAL As Ordered ONE (14:09)
[2022-02-24 14:31] LABS: CK-MB VALUE MASS < 1.0 NG/ML (<3.6)
[2022-02-24 14:33] LABS: CPK CREATINE PHOSPHOKINASE 111 U/L (34-145)
[2022-02-24] MEDS ORDERED: SUCRALFATE SUSP 1GM/10ML UD PO ONE (15:25)
[2022-02-24] MEDS ORDERED: CARA1TAB6 PO (15:58)
[2022-02-24 16:27] VITALS: BP 139/79
== END 2022-02-24 16:29 | disposition home or self-care (01) ==
LOC: M ED 12:53
DX: K29.70 Gastritis, unspecified, without bleeding (principal); E78.5 Hyperlipidemia, unspecified; F10.10 Alcohol abuse, uncomplicated; Z88.1 Allergy status to other antibiotic agents; Z79.82 Long term (current) use of aspirin; Z79.899 Other long term (current) drug therapy
CPT/HCPCS: 71045; 74177; 80048; 80076; 82550; 82553; 83690; 84484; 85025; 93005; 93041; 94760; 96374; 99285; J2270; J2405

== ENCOUNTER → 2022-02-24 | Outpatient (CLI) | payer BC ==
[~2022-02-24] MED LIST changes: +CARA1TAB6 PO; +ECOT81TA5 PO; +METO1TAB7; +OMEP-173; +PRAV10TA3; +UNIS25TA3 PO
[2022-02-24 13:07] LABS: HEMOGLOBIN 13.1 g/dl (12.0-15.5); MEAN CORPUSCULAR HEMOGLOBIN 29.8 pg (27.0-33.0); MEAN CORPUSCULAR VOLUME 93.2 fl (80.0-96.0); PLATELET COUNT, AUTOMATED 419 10^3/uL (150-450); WHITE BLOOD COUNT 8.7 10^3/uL (4.0-10.0)
[2022-02-24 14:31] LABS: LIPASE 36 U/L (12-53)
[2022-02-24 14:34] LABS: ALKALINE PHOSPHATASE 105 U/L (46-116); ALT/SGPT 42 U/L (7.0-40); AMYLASE 54 U/L (30-118); AST/SGOT 29 U/L (<34); BILIRUBIN,TOTAL 0.7 MG/DL (0.3-1.2); BLOOD UREA NITROGEN 13 MG/DL (9-23); CALCIUM LEVEL 9.2 MG/DL (8.5-10.1); CARBON DIOXIDE LEVEL 25 MMOL/L (20-31); CHLORIDE LEVEL 101 MMOL/L (98-107); CREATININE FOR GFR 0.66 MG/DL (0.55-1.30); GLOMERULAR FILTRATION RATE > 60.0 (>51); GLUCOSE, FASTING 119 MG/DL (60-100); SODIUM LEVEL 134 MMOL/L (136-145); TOTAL PROTEIN 7.2 G/DL (5.7-8.2)
== END ==
LOC: M WUC 09:31
PROVIDERS: ATTEND Internal Medicine
DX: R10.9 Unspecified abdominal pain (principal)

== ENCOUNTER 2022-03-12 23:23 | Emergency (ER) | payer BC ==
[~2022-03-12] VITALS: Ht 160 cm; Wt 87.3 kg
[~2022-03-12 23:23] MED LIST changes: +CARA1TAB6 PO; +ECOT81TA5 PO; +METO1TAB7; +OMEP-173; +PRAV10TA3; +UNIS25TA3 PO
[2022-03-12] MEDS ORDERED: hydrALAZINE 20MG/ML 1ML VIAL IV STA (23:44)
[2022-03-12] MEDS ORDERED: METOPROLOL SUCC (TopROL XL) 50MG **XL** TAB PO ONE (23:55)
[2022-03-12] MEDS ORDERED: BENAZEPRIL 20 MG TAB PO ONE (23:55)
[2022-03-13] MEDS ORDERED: BENAZEPRIL 20 MG TAB PO ONE (00:10)
[2022-03-13 01:05] VITALS: BP 143/77
[2022-03-13 01:22] LABS: BASO # 0.1 10^3/uL (0.0-0.2); BASO % 1.2 % (0.0-1.0); EOS # 0.1 10^3/uL (0.0-0.5); EOS % 0.8 % (0.0-3.0); HEMATOCRIT 39.6 % (36.0-47.0); HEMOGLOBIN 13.4 g/dl (12.0-15.5); LYMPH # 2.1 10^3/uL (1.5-5.0); LYMPH % 21.1 % (24.0-44.0); MEAN CORPUSCULAR HEMOGLOBIN 30.4 pg (27.0-33.0); MEAN CORPUSCULAR HGB CONC 33.8 g/dl (32.0-36.5); MEAN CORPUSCULAR VOLUME 89.8 fl (80.0-96.0); MONO # 0.9 10^3/uL (0.0-0.8); MONO % 8.7 % (2.0-8.0); NEUTROPHILS # 6.9 10^3/uL (1.5-8.5); NEUTROPHILS % 67.8 % (36.0-66.0); PLATELET COUNT, AUTOMATED 392 10^3/uL (150-450); RED BLOOD COUNT 4.41 10^6/uL (4.00-5.40); WHITE BLOOD COUNT 10.1 10^3/uL (4.0-10.0)
[2022-03-13 01:46] LABS: BLOOD UREA NITROGEN 12 MG/DL (9-23); CALCIUM LEVEL 9.6 MG/DL (8.5-10.1); CARBON DIOXIDE LEVEL 25 MMOL/L (20-31); CHLORIDE LEVEL 102 MMOL/L (98-107); CREATININE FOR GFR 0.53 MG/DL (0.55-1.30); GLOMERULAR FILTRATION RATE > 60.0 (>51); GLUCOSE, FASTING 121 MG/DL (60-100); POTASSIUM SERUM 4.3 MMOL/L (3.5-5.1); SODIUM LEVEL 136 MMOL/L (136-145)
[2022-03-13] MEDS ORDERED: KETOROLAC 30 MG/ML 1ML VIAL IV ONE (02:15)
[2022-03-13 02:45] VITALS: BP 151/87
== END 2022-03-13 05:34 | disposition home or self-care (01) ==
LOC: EDBD 23:23 → M ED 23:23
DX: R00.2 Palpitations (principal); I10 Essential (primary) hypertension; K21.9 Gastro-esophageal reflux disease without esophagitis; F41.9 Anxiety disorder, unspecified; Z88.1 Allergy status to other antibiotic agents; Z79.811 Long term (current) use of aromatase inhibitors; Z79.82 Long term (current) use of aspirin; Z79.899 Other long term (current) drug therapy
CPT/HCPCS: 80048; 84484; 85025; 93005; 96374; 99284; J1885

== ENCOUNTER → 2022-03-30 | Outpatient (CLI) | payer BC | LOC: M WHC 12:52 | PROVIDERS: ATTEND Family Medicine | DX: Z53.9 Procedure and treatment not carried out, unspecified reason (principal) ==

== ENCOUNTER → 2022-04-29 | Outpatient (CLI) | payer BC ==
[2022-04-29 16:39] LABS: ALBUMIN 4.2 G/DL (3.2-5.2); ALKALINE PHOSPHATASE 117 U/L (46-116); ALT/SGPT 45 U/L (7.0-40); AST/SGOT 34 U/L (<34); BILIRUBIN,TOTAL 0.7 MG/DL (0.3-1.2); BLOOD UREA NITROGEN 14 MG/DL (9-23); CALCIUM LEVEL 9.4 MG/DL (8.5-10.1); CARBON DIOXIDE LEVEL 29 MMOL/L (20-31); CHLORIDE LEVEL 99 MMOL/L (98-107); CHOLESTEROL LEVEL 224 MG/DL (<200); CHOLESTEROL RISK RATIO 2.99 (<5); CREATININE FOR GFR 0.64 MG/DL (0.55-1.30); GLOMERULAR FILTRATION RATE > 60.0 (>51); GLUCOSE, FASTING 99 MG/DL (60-100); HDL CHOLESTEROL 74.8 MG/DL (>40); NON-HDL-C 149 MG/DL; POTASSIUM SERUM 4.3 MMOL/L (3.5-5.1); SODIUM LEVEL 137 MMOL/L (136-145); TOTAL PROTEIN 7.4 G/DL (5.7-8.2); TRIGLYCERIDES LEVEL 126 MG/DL (<150)
[2022-04-29 17:28] LABS: MALB URINE SIEMENS < 3.0 MG/DL; MAU/CREAT RATIO 3.7 MCG/MG (0.0-30.0)
== END ==
LOC: M WUC 12:45
PROVIDERS: ATTEND Family Medicine
DX: E78.5 Hyperlipidemia, unspecified (principal); I10 Essential (primary) hypertension; F41.1 Generalized anxiety disorder

== ENCOUNTER → 2022-09-07 | Outpatient (REF) | payer BC ==
[2022-09-07 17:25] LABS: ALKALINE PHOSPHATASE 110 U/L (46-116); ALT/SGPT 59 U/L (7.0-40); AST/SGOT 36 U/L (<34); BASO # 0.1 10^3/uL (0.0-0.2); BASO % 0.9 % (0.0-1.0); BILIRUBIN,TOTAL 0.5 MG/DL (0.3-1.2); BLOOD UREA NITROGEN 9 MG/DL (9-23); CALCIUM LEVEL 8.9 MG/DL (8.5-10.1); CARBON DIOXIDE LEVEL 28 MMOL/L (20-31); CHLORIDE LEVEL 99 MMOL/L (98-107); CHOLESTEROL LEVEL 195 MG/DL (<200); CHOLESTEROL RISK RATIO 3.23 (<5); CREATININE FOR GFR 0.67 MG/DL (0.55-1.30); EOS # 0.3 10^3/uL (0.0-0.5); EOS % 3.1 % (0.0-3.0); GLOMERULAR FILTRATION RATE > 60.0 (>51); GLUCOSE, FASTING 102 MG/DL (60-100); HDL CHOLESTEROL 60.2 MG/DL (>40); HEMATOCRIT 39.6 % (36.0-47.0); LDL CHOLESTEROL 98.2 MG/DL (<100); LYMPH # 2.4 10^3/uL (1.5-5.0); LYMPH % 27.4 % (24.0-44.0); MEAN CORPUSCULAR HEMOGLOBIN 30.8 pg (27.0-33.0); MEAN CORPUSCULAR HGB CONC 32.8 g/dl (32.0-36.5); MEAN CORPUSCULAR VOLUME 93.8 fl (80.0-96.0); MONO # 0.9 10^3/uL (0.0-0.8); MONO % 10.5 % (2.0-8.0); NEUTROPHILS # 4.9 10^3/uL (1.5-8.5); NEUTROPHILS % 57.6 % (36.0-66.0); NON-HDL-C 134.8 MG/DL; PLATELET COUNT, AUTOMATED 350 10^3/uL (150-450); POTASSIUM SERUM 4.5 MMOL/L (3.5-5.1); RED BLOOD COUNT 4.22 10^6/uL (4.00-5.40); SODIUM LEVEL 132 MMOL/L (136-145); TRIGLYCERIDES LEVEL 183 MG/DL (<150); WHITE BLOOD COUNT 8.6 10^3/uL (4.0-10.0)
[2022-09-07 17:27] LABS: CREATININE, URINE 92.9 MG/DL
[2022-09-07 17:28] LABS: MALB URINE SIEMENS < 3.0 MG/L; MAU/CREAT RATIO 3.2 MCG/MG (0.0-30.0)
== END ==
LOC: M LAB REF 16:19
PROVIDERS: ATTEND Family Medicine
DX: I10 Essential (primary) hypertension (principal); F41.1 Generalized anxiety disorder; E78.5 Hyperlipidemia, unspecified

== ENCOUNTER → 2022-12-28 | Outpatient (CLI) | payer BC ==
[~2022-12-28] MED LIST changes: +DICY-61 PO; -DICY10CA13 PO
== END ==
LOC: M WHC 15:01
PROVIDERS: ATTEND Nurse Practitioner Family
DX: Z12.31 Encounter for screening mammogram for malignant neoplasm of breast (principal)

== ENCOUNTER → 2022-12-28 | Outpatient (REF) | payer BC | LOC: M SFHCWAGY 10:20 | PROVIDERS: ATTEND Nurse Practitioner Family | DX: Z12.4 Encounter for screening for malignant neoplasm of cervix (principal) | CPT/HCPCS: 87624; G0123 ==

== ENCOUNTER → 2023-01-25 | Outpatient (CLI) | payer BC | LOC: M WUC 15:40 | PROVIDERS: ATTEND Internal Medicine Cardiovascular Disease | DX: I10 Essential (primary) hypertension (principal) ==

== ENCOUNTER → 2023-03-18 | Outpatient (CLI) | payer BC ==
[2023-03-18 14:43] LABS: BASO # 0.1 10^3/uL (0.0-0.2); BASO % 1.1 % (0.0-1.0); EOS # 0.3 10^3/uL (0.0-0.5); EOS % 3.1 % (0.0-3.0); HEMATOCRIT 40.6 % (36.0-47.0); HEMOGLOBIN 13.2 g/dl (12.0-15.5); LYMPH # 2.3 10^3/uL (1.5-5.0); LYMPH % 29.1 % (24.0-44.0); MEAN CORPUSCULAR HEMOGLOBIN 30.6 pg (27.0-33.0); MEAN CORPUSCULAR HGB CONC 32.5 g/dl (32.0-36.5); MONO # 0.7 10^3/uL (0.0-0.8); MONO % 9.2 % (2.0-8.0); NEUTROPHILS # 4.5 10^3/uL (1.5-8.5); NEUTROPHILS % 57.1 % (36.0-66.0); PLATELET COUNT, AUTOMATED 346 10^3/uL (150-450); RED BLOOD COUNT 4.32 10^6/uL (4.00-5.40)
[2023-03-18 14:50] LABS: ALBUMIN 4.1 G/DL (3.2-5.2); ALKALINE PHOSPHATASE 105 U/L (46-116); ALT/SGPT 52 U/L (7.0-40); AST/SGOT 38 U/L (<34); BILIRUBIN,TOTAL 0.5 MG/DL (0.3-1.2); BLOOD UREA NITROGEN 13 MG/DL (9-23); CALCIUM LEVEL 8.6 MG/DL (8.5-10.1); CARBON DIOXIDE LEVEL 27 MMOL/L (20-31); CHLORIDE LEVEL 104 MMOL/L (98-107); CHOLESTEROL LEVEL 222 MG/DL (<200); CHOLESTEROL RISK RATIO 4.32 (<5); CREATININE FOR GFR 0.66 MG/DL (0.55-1.30); GLOMERULAR FILTRATION RATE > 60.0 (>51); GLUCOSE, FASTING 113 MG/DL (60-100); HDL CHOLESTEROL 51.3 MG/DL (>40); LDL CHOLESTEROL 113.5 MG/DL (<100); NON-HDL-C 170.7 MG/DL; POTASSIUM SERUM 4.6 MMOL/L (3.5-5.1); SODIUM LEVEL 138 MMOL/L (136-145); TRIGLYCERIDES LEVEL 286 MG/DL (<150)
== END ==
LOC: M WUC 11:15
PROVIDERS: ATTEND Internal Medicine Cardiovascular Disease
DX: D64.9 Anemia, unspecified (principal); E11.9 Type 2 diabetes mellitus without complications; E78.5 Hyperlipidemia, unspecified; I10 Essential (primary) hypertension

== ENCOUNTER → 2023-06-21 | Outpatient (CLI) | payer BC ==
[2023-06-21 17:08] LABS: BASO # 0.1 10^3/uL (0.0-0.2); BASO % 1.2 % (0.0-1.0); EOS # 0.3 10^3/uL (0.0-0.5); EOS % 3.6 % (0.0-3.0); HEMATOCRIT 39.1 % (36.0-47.0); HEMOGLOBIN 12.9 g/dl (12.0-15.5); LYMPH # 2.7 10^3/uL (1.5-5.0); LYMPH % 28.9 % (24.0-44.0); MEAN CORPUSCULAR HEMOGLOBIN 31.4 pg (27.0-33.0); MEAN CORPUSCULAR VOLUME 95.1 fl (80.0-96.0); MONO # 0.9 10^3/uL (0.0-0.8); MONO % 10.1 % (2.0-8.0); NEUTROPHILS # 5.1 10^3/uL (1.5-8.5); NEUTROPHILS % 55.7 % (36.0-66.0); PLATELET COUNT, AUTOMATED 364 10^3/uL (150-450); RED BLOOD COUNT 4.11 10^6/uL (4.00-5.40)
[2023-06-21 17:11] LABS: APPEARANCE, URINE HAZY (CLEAR); BACTERIA, URINE AUTO NEGATIVE (NEGATIVE); BILIRUBIN, URINE AUTO NEGATIVE (NEGATIVE); BLOOD, URINE BLOOD NEGATIVE (NEGATIVE); COLOR, URINE YELLOW (YELLOW); GLUCOSE, URINE (UA) AUTO NEGATIVE (NEGATIVE); KETONE, URINE AUTO NEGATIVE (NEGATIVE); LEUKOCYTE ESTERASE, URINE AUTO 2+ (NEGATIVE); MUCUS, URINE SMALL (NEGATIVE); NITRITE, URINE AUTO NEGATIVE (NEGATIVE); PROTEIN, URINE AUTO NEGATIVE (NEGATIVE); RBC, URINE AUTO 2 /HPF (0-3); SPECIFIC GRAVITY URINE AUTO 1.016 (1.002-1.035); SQUAMOUS EPITHELIAL CELL UR AU 4 /HPF (0-6); UROBILINOGEN, URINE AUTO 0.2 mg/dL (0.0-2.0); WBC, URINE AUTO 21 /HPF (0-3)
[2023-06-21 17:15] LABS: ALKALINE PHOSPHATASE 105 U/L (46-116); ALT/SGPT 69 U/L (7.0-40); AST/SGOT 48 U/L (<34); BILIRUBIN,TOTAL 0.5 MG/DL (0.3-1.2); BLOOD UREA NITROGEN 12 MG/DL (9-23); CALCIUM LEVEL 9.4 MG/DL (8.5-10.1); CARBON DIOXIDE LEVEL 29 MMOL/L (20-31); CHLORIDE LEVEL 104 MMOL/L (98-107); CHOLESTEROL LEVEL 198 MG/DL (<200); CHOLESTEROL RISK RATIO 3.41 (<5); CREATININE FOR GFR 0.65 MG/DL (0.55-1.30); GLOMERULAR FILTRATION RATE > 60.0 (>51); GLUCOSE, FASTING 124 MG/DL (60-100); HDL CHOLESTEROL 57.9 MG/DL (>40); LDL CHOLESTEROL 100.3 MG/DL (<100); NON-HDL-C 140.1 MG/DL; POTASSIUM SERUM 4.3 MMOL/L (3.5-5.1); SODIUM LEVEL 134 MMOL/L (136-145); TOTAL PROTEIN 7.1 G/DL (5.7-8.2); TRIGLYCERIDES LEVEL 199 MG/DL (<150)
[2023-06-22 07:37] LABS: WHITE BLOOD COUNT 9.2 10^3/uL (4.0-10.0)
== END ==
LOC: M WUC 10:56
PROVIDERS: ATTEND Family Medicine
DX: E78.5 Hyperlipidemia, unspecified (principal); I10 Essential (primary) hypertension; K21.9 Gastro-esophageal reflux disease without esophagitis

== ENCOUNTER → 2023-09-21 | Outpatient (REF) | payer BC ==
[~2023-09-21] MED LIST changes: +ONDA-282 PO; -ONDA4TAB6 PO
[2023-09-21 18:08] LABS: LIPASE 45 U/L (12-53)
[2023-09-21 18:10] LABS: AMYLASE 63 U/L (30-118)
== END ==
LOC: M LABWUC 16:28
PROVIDERS: ATTEND Physician Assistant
DX: R11.0 Nausea (principal)

== ENCOUNTER 2023-11-09 11:01 | Day surgery (SDC) | payer BC ==
[~2023-11-09] VITALS: Ht 160 cm; Wt 89.8 kg
[~2023-11-09 11:01] MED LIST changes: +LABE20TAB PO; +LEXA1TAB PO; +OMEP40CA4 PO; +PRAV40TA2 PO; +SLOWTAB2 PO; +VALS1TAB68 PO
[2023-11-09] MEDS: NS 1,000 ML IV ONE (11:13)
[2023-11-09] MEDS ORDERED: fentaNYL 100 MCG/2 ML INJECTION As Ordered ONE (11:29)
[2023-11-09] MEDS ORDERED: LIDOCAINE 2% 100MG/5ML SDV (FOR ANES.) As Ordered ONE (11:31)
[2023-11-09] MEDS ORDERED: propofoL 200 MG/20 ML VIAL As Ordered ONE (11:33)
[2023-11-09 12:31] VITALS: TEMP 97.8
[2023-11-09 12:50] VITALS: BP 181/98; O2SAT 98
== END 2023-11-09 13:10 | disposition home or self-care (01) ==
LOC: M OPP 11:01
PROVIDERS: ATTEND Internal Medicine Gastroenterology
DX: K31.7 Polyp of stomach and duodenum (principal); K31.89 Other diseases of stomach and duodenum; K29.50 Unspecified chronic gastritis without bleeding; K44.9 Diaphragmatic hernia without obstruction or gangrene; R12 Heartburn; R93.3 Abnormal findings on diagnostic imaging of other parts of digestive tract; I10 Essential (primary) hypertension; Z79.01 Long term (current) use of anticoagulants; Z79.02 Long term (current) use of antithrombotics/antiplatelets; Z79.899 Other long term (current) drug therapy; Z88.1 Allergy status to other antibiotic agents; Z88.2 Allergy status to sulfonamides
CPT/HCPCS: 43239; 88305; J3010

== ENCOUNTER → 2023-12-19 | Outpatient (CLI) | payer BC | LOC: M WUC 12:29 | PROVIDERS: ATTEND Family Medicine | DX: R06.02 Shortness of breath (principal) ==

== ENCOUNTER → 2024-01-05 | Outpatient (CLI) | payer BC | LOC: M WHC 14:49 | PROVIDERS: ATTEND Nurse Practitioner Family | DX: Z12.31 Encounter for screening mammogram for malignant neoplasm of breast (principal) ==

== ENCOUNTER → 2024-01-05 | Outpatient (REF) | payer BC | LOC: M SFHCWAGY 17:39 | PROVIDERS: ATTEND Nurse Practitioner Family | DX: Z12.4 Encounter for screening for malignant neoplasm of cervix (principal) | CPT/HCPCS: 87624; G0123 ==

== ENCOUNTER → 2024-01-27 | Outpatient (CLI) | payer BC ==
[2024-01-27 18:02] LABS: BASO # 0.1 10^3/uL (0.0-0.2); BASO % 1.2 % (0.0-1.0); EOS # 0.5 10^3/uL (0.0-0.5); EOS % 5.8 % (0.0-3.0); HEMATOCRIT 39.7 % (36.0-47.0); HEMOGLOBIN 13.1 g/dl (12.0-15.5); LYMPH # 2.3 10^3/uL (1.5-5.0); LYMPH % 29.4 % (24.0-44.0); MEAN CORPUSCULAR HEMOGLOBIN 31.3 pg (27.0-33.0); MONO # 0.8 10^3/uL (0.0-0.8); MONO % 9.8 % (2.0-8.0); NEUTROPHILS # 4.1 10^3/uL (1.5-8.5); NEUTROPHILS % 53.5 % (36.0-66.0); PLATELET COUNT, AUTOMATED 346 10^3/uL (150-450); RED BLOOD COUNT 4.18 10^6/uL (4.00-5.40); WHITE BLOOD COUNT 7.7 10^3/uL (4.0-10.0)
[2024-01-27 18:24] LABS: APPEARANCE, URINE HAZY (CLEAR); BACTERIA, URINE AUTO NEGATIVE (NEGATIVE); BILIRUBIN, URINE AUTO NEGATIVE (NEGATIVE); BLOOD, URINE BLOOD NEGATIVE (NEGATIVE); COLOR, URINE YELLOW (YELLOW); GLUCOSE, URINE (UA) AUTO NEGATIVE (NEGATIVE); KETONE, URINE AUTO NEGATIVE (NEGATIVE); LEUKOCYTE ESTERASE, URINE AUTO 3+ (NEGATIVE); MUCUS, URINE SMALL (NEGATIVE); NITRITE, URINE AUTO NEGATIVE (NEGATIVE); PROTEIN, URINE AUTO NEGATIVE (NEGATIVE); RBC, URINE AUTO 3 /HPF (0-3); SPECIFIC GRAVITY URINE AUTO 1.017 (1.002-1.035); SQUAMOUS EPITHELIAL CELL UR AU 1 /HPF (0-6); UROBILINOGEN, URINE AUTO 0.2 mg/dL (0.0-2.0); WBC, URINE AUTO 51 /HPF (0-3)
[2024-01-27 18:33] LABS: ALBUMIN 4.4 G/DL (3.2-5.2); ALKALINE PHOSPHATASE 101 U/L (35-104); ALT/SGPT 53 U/L (7.0-40); AST/SGOT 45 U/L (<34); BILIRUBIN,TOTAL 0.6 MG/DL (0.3-1.2); BLOOD UREA NITROGEN 14 MG/DL (9-23); CALCIUM LEVEL 10.4 MG/DL (8.5-10.1); CARBON DIOXIDE LEVEL 28 MMOL/L (20-31); CHLORIDE LEVEL 104 MMOL/L (98-107); CHOLESTEROL LEVEL 250 MG/DL (<200); CHOLESTEROL RISK RATIO 3.78 (<5); CREATININE FOR GFR 0.75 MG/DL (0.55-1.30); GLOMERULAR FILTRATION RATE > 60.0 (>51); GLUCOSE, FASTING 109 MG/DL (60-100); LDL CHOLESTEROL 139.8 MG/DL (<100); POTASSIUM SERUM 4.9 MMOL/L (3.5-5.1); SODIUM LEVEL 138 MMOL/L (136-145); TOTAL PROTEIN 7.6 G/DL (5.7-8.2); TRIGLYCERIDES LEVEL 221 MG/DL (<150)
== END ==
LOC: M WUC 10:39
PROVIDERS: ATTEND Family Medicine
DX: E78.5 Hyperlipidemia, unspecified (principal); I10 Essential (primary) hypertension; F41.1 Generalized anxiety disorder

== ENCOUNTER → 2024-05-17 | Outpatient (CLI) | payer BC, OTHER ==
[2024-05-17 18:41] LABS: BASO # 0.1 10^3/uL (0.0-0.2); BASO % 1.3 % (0.0-1.0); EOS # 0.4 10^3/uL (0.0-0.5); EOS % 4.1 % (0.0-3.0); HEMOGLOBIN 12.8 g/dl (12.0-15.5); LYMPH # 2.8 10^3/uL (1.5-5.0); LYMPH % 27.3 % (24.0-44.0); MEAN CORPUSCULAR HEMOGLOBIN 30.8 pg (27.0-33.0); MEAN CORPUSCULAR VOLUME 96.2 fl (80.0-96.0); MONO # 0.9 10^3/uL (0.0-0.8); MONO % 8.9 % (2.0-8.0); NEUTROPHILS % 58.1 % (36.0-66.0); PLATELET COUNT, AUTOMATED 387 10^3/uL (150-450); RED BLOOD COUNT 4.16 10^6/uL (4.00-5.40)
[2024-05-17 18:45] LABS: ALBUMIN 4.4 G/DL (3.2-5.2); ALKALINE PHOSPHATASE 107 U/L (35-104); ALT/SGPT 54 U/L (7.0-40); AST/SGOT 43 U/L (<34); BILIRUBIN,TOTAL 0.5 MG/DL (0.3-1.2); BLOOD UREA NITROGEN 11 MG/DL (9-23); CALCIUM LEVEL 9.2 MG/DL (8.5-10.1); CARBON DIOXIDE LEVEL 29 MMOL/L (20-31); CHLORIDE LEVEL 102 MMOL/L (98-107); CHOLESTEROL LEVEL 206 MG/DL (<200); CHOLESTEROL RISK RATIO 3.29 (<5); CREATININE FOR GFR 0.67 MG/DL (0.55-1.30); GLOMERULAR FILTRATION RATE > 60.0 (>51); GLUCOSE, FASTING 102 MG/DL (60-100); HDL CHOLESTEROL 62.6 MG/DL (>40); LDL CHOLESTEROL 94.8 MG/DL (<100); NON-HDL-C 143.4 MG/DL; POTASSIUM SERUM 4.8 MMOL/L (3.5-5.1); SODIUM LEVEL 139 MMOL/L (136-145); TOTAL PROTEIN 7.6 G/DL (5.7-8.2); TRIGLYCERIDES LEVEL 243 MG/DL (<150)
[2024-05-17 19:00] LABS: APPEARANCE, URINE HAZY (CLEAR); BACTERIA, URINE AUTO NEGATIVE (NEGATIVE); BILIRUBIN, URINE AUTO NEGATIVE (NEGATIVE); BLOOD, URINE BLOOD NEGATIVE (NEGATIVE); COLOR, URINE YELLOW (YELLOW); GLUCOSE, URINE (UA) AUTO NEGATIVE (NEGATIVE); KETONE, URINE AUTO NEGATIVE (NEGATIVE); LEUKOCYTE ESTERASE, URINE AUTO NEGATIVE (NEGATIVE); MUCUS, URINE SMALL (NEGATIVE); NITRITE, URINE AUTO NEGATIVE (NEGATIVE); PROTEIN, URINE AUTO 1+ mg/dL (NEGATIVE); RBC, URINE AUTO 0 /HPF (0-3); SPECIFIC GRAVITY URINE AUTO 1.018 (1.002-1.035); SQUAMOUS EPITHELIAL CELL UR AU 1 /HPF (0-6); UROBILINOGEN, URINE AUTO 0.2 mg/dL (0.0-2.0); WBC, URINE AUTO 3 /HPF (0-3)
[2024-05-18 06:34] LABS: WHITE BLOOD COUNT 10.4 10^3/uL (4.0-10.0)
== END ==
LOC: M WUC 11:58
PROVIDERS: ATTEND Family Medicine
DX: E78.5 Hyperlipidemia, unspecified (principal); I10 Essential (primary) hypertension; F41.1 Generalized anxiety disorder

== ENCOUNTER → 2024-12-05 | Outpatient (CLI) | payer OTHER ==
[~2024-12-05] MED LIST changes: -PRAV10TA3; +PRAV10TA43; -PRAV40TA2 PO; +PRAV40TA85 PO; +SLOW1TAB3 PO; -SLOWTAB2 PO
[2024-12-05 14:05] LABS: APPEARANCE, URINE CLEAR (CLEAR); BACTERIA, URINE AUTO NEGATIVE (NEGATIVE); BILIRUBIN, URINE AUTO NEGATIVE (NEGATIVE); BLOOD, URINE BLOOD NEGATIVE (NEGATIVE); GLUCOSE, URINE (UA) AUTO NEGATIVE (NEGATIVE); KETONE, URINE AUTO NEGATIVE (NEGATIVE); LEUKOCYTE ESTERASE, URINE AUTO NEGATIVE (NEGATIVE); MUCUS, URINE SMALL (NEGATIVE); NITRITE, URINE AUTO NEGATIVE (NEGATIVE); PROTEIN, URINE AUTO NEGATIVE (NEGATIVE); RBC, URINE AUTO 0 /HPF (0-3); SPECIFIC GRAVITY URINE AUTO 1.017 (1.002-1.035); SQUAMOUS EPITHELIAL CELL UR AU 1 /HPF (0-6); UROBILINOGEN, URINE AUTO 0.2 mg/dL (0.0-2.0); WBC, URINE AUTO 2 /HPF (0-3)
[2024-12-05 14:23] LABS: BASO # 0.1 10^3/uL (0.0-0.2); BASO % 1.0 % (0.0-1.0); EOS # 0.3 10^3/uL (0.0-0.5); EOS % 3.5 % (0.0-3.0); LYMPH # 2.0 10^3/uL (1.5-5.0); LYMPH % 23.2 % (24.0-44.0); MONO # 0.8 10^3/uL (0.0-0.8); MONO % 9.3 % (2.0-8.0); NEUTROPHILS # 5.3 10^3/uL (1.5-8.5); NEUTROPHILS % 62.6 % (36.0-66.0); PLATELET COUNT, AUTOMATED 371 10^3/uL (150-450)
[2024-12-05 14:28] LABS: ALT/SGPT 38.0 U/L (7.0-40); AST/SGOT 49.0 U/L (<34); CALCIUM LEVEL 9.8 MG/DL (8.3-10.6); CARBON DIOXIDE LEVEL 28.0 MMOL/L (20-31); CHLORIDE LEVEL 96.0 MMOL/L (98-107); CHOLESTEROL LEVEL 180.0 MG/DL (<200); CHOLESTEROL RISK RATIO 2.73 (<5); CREATININE FOR GFR 0.77 MG/DL (0.55-1.30); GLOMERULAR FILTRATION RATE 88.3 (>45); LDL CHOLESTEROL 83.3 MG/DL (<100); NON-HDL-C 114.3 MG/DL; POTASSIUM SERUM 4.8 MMOL/L (3.5-5.1); SODIUM LEVEL 130.0 MMOL/L (136-145); TRIGLYCERIDES LEVEL 155.0 MG/DL (<150)
== END ==
LOC: M WUC 10:42
PROVIDERS: ATTEND Family Medicine
DX: I10 Essential (primary) hypertension (principal); E78.5 Hyperlipidemia, unspecified

== ENCOUNTER → 2025-01-16 | Outpatient (REF) | payer OTHER ==
[2025-01-18 14:17] LABS: HPV APTIMA Not Detected (Not Detected)
== END ==
LOC: M SFHCWAGY 15:23
PROVIDERS: ATTEND Nurse Practitioner Family
DX: Z12.4 Encounter for screening for malignant neoplasm of cervix (principal); N95.2 Postmenopausal atrophic vaginitis

== ENCOUNTER → 2025-01-16 | Outpatient (CLI) | payer OTHER | LOC: M WHC 13:15 | PROVIDERS: ATTEND Nurse Practitioner Family | DX: Z12.31 Encounter for screening mammogram for malignant neoplasm of breast (principal); R92.323 Mammographic fibroglandular density, bilateral breasts ==